=== PATIENT | female | born 1940 | race Caucasian/White ===

== ENCOUNTER 2024-02-26 04:54 | Inpatient (IN) | payer MEDICARE, SELFPAY ==
[2024-02-26] VITALS (50 sets, daily range): BP systolic 108–165; BP diastolic 50–93; PULSE 65–115; TEMP 36.5–36.6; O2SAT 89–99; BMI 16.3
--- NOTE | 2024-02-26 04:58 | ED.SOB1 ---
HPI - SOB/Dyspnea General Chief Complaint: Shortness of Breath/Dyspnea Stated Complaint: sob Time Seen by Provider: 02/26/24 04:57 History of Present Illness HPI Narrative: past history of 3.5 L NC 02 dependent COPD and CHF/CAD. Presents complaining of shortness of breath for 3 hours. Denies chest or abdominal pain. Still daily smoker. Given nebulizer treatment enroute and feels it help some Related Data Home Medications ?Medication ?Instructions ?Recorded ?Confirmed albuterol sulfate 2.5 mg/3 mL mg 02/26/24 (0.083 %) solution for nebulization albuterol sulfate 90 mcg/actuation inhalation 02/26/24 aerosol inhaler budesonide 160 mcg-glycopyr 9 inh inhalation 02/26/24 mcg-formot 4.8 mcg/actuation HFA inhaler ([employer] Aerosphere) metoprolol succinate 25 mg mg PO 02/26/24 tablet,extended release 24 hr Allergies Allergy/AdvReac Type Severity Reaction Status Date / Time No Known Drug Allergies Allergy Verified 02/26/24 05:26 Review of Systems ROS Status of ROS 10 or more systems reviewed and unremarkable except as noted in history and below Exam Constitutional Vital Signs, click to edit/add: Last Vital Signs Temp 97.9 F 02/26/24 05:05 Pulse 83 02/26/24 06:50 Resp 28 H 02/26/24 06:50 BP 141/59 02/26/24 06:30 Pulse Ox 96 02/26/24 06:50 O2 Del Method Nasal Cannula 02/26/24 05:15 O2 Flow Rate 3.5 02/26/24 05:15 Common normals: oriented x3 and alert General appearance: in distress HENMT Common normals: normocephalic and head/scalp atraumatic Eye Common normals: EOMs intact bilaterally Respiratory Other: diminished breath sounds Cardio Rate: tachycardic GI Common normals: Normal to inspection, nondistended, normoactive bowel sounds present, soft to palpation and non-tender Extremity Common normals: normal to inspection and full ROM Neuro Common normals: oriented x3, moves all extremities and no focal motor deficits Psych Appearance: grossly normal Course Vital Signs Vital signs: Vital Signs Pulse Oximetry 94 L 02/26/24 04:55 Temperature 97.9 F 09/28/24 05:05 Pulse Rate 83 02/26/24 06:50 Respiratory Rate 28 H 02/26/24 06:50 Blood Pressure 141/59 02/26/24 06:30 Pulse Oximetry 96 02/26/24 06:50 Oxygen Delivery Method Nasal Cannula 02/26/24 05:15 Oxygen Delivery Flow Rate 3.5 02/26/24 05:15 MDM - SOB/Dyspnea MDM Narrative Medical decision making narrative: patient presents with acute onset of short of breath. Treated with solumedrol and duoneb and feels she is breathing easier. 02 dependent COPDer. cxray with findings c/w CHF. IV lasix ordered. First troponin is neg and will need a 2nd troponin. BNP elevated. [facility] Lab Data Labs: Lab Results 02/26/24 Range/Units 05:10 WBC 10.2 (4.0-11.0) 10^3/uL RBC 3.31 L (4.20-5.40) 10^6/uL Hgb 9.3 L (12.0-16.0) g/dL Hct 30.4 L (36.0-48.0) % MCV 91.8 (81.0-99.0) fL MCH 28.1 (26.7-34.0) pg MCHC 30.6 (29.9-35.2) g/dL RDW 16.1 H (11.0-15.0) % Plt Count 277 (150-450) 10^3/uL MPV 11.6 (9.5-13.5) fL Neut % (Auto) 68.7 (43.0-75.0) % Lymph % (Auto) 23.0 (20.5-60.0) % [place] % (Auto) 5.7 (1.7-12.0) % Eos % (Auto) 1.5 (0.9-7.0) % Baso % (Auto) 0.9 (0.2-2.0) % Neut # (Auto) 7.0 H (1.4-6.5) 10^3/uL Lymph # (Auto) 2.4 (1.2-3.8) 10^3/uL [place] # (Auto) 0.6 (0.3-0.8) 10^3/uL Eos # (Auto) 0.2 (0.0-0.7) 10^3/uL Baso # (Auto) 0.1 (0.0-0.1) 10^3/uL Abs Immat Gran (auto) 0.02 (0.00-0.03) 10^3/uL Imm/Tot Granulo (auto) 0.2 (0.0-0.5) % Sodium 137 (136-145) mmol/L Potassium 4.8 (3.5-5.1) mmol/L Chloride 103 (98-107) mmol/L Carbon Dioxide 27.0 (21.0-32.0) mmol/L Anion Gap 11.8 BUN 23.0 H (7.0-18.0) mg/dL Creatinine 0.91 (0.55-1.02) mg/dL Est GFR ( Amer) >60 (>=60) Est GFR (Non-Af Amer) 59 L (>=60) BUN/Creatinine Ratio 25.3 Glucose 147 H (74-106) mg/dL Calcium 10.6 H (8.5-10.1) mg/dL Troponin I High Sens 27.4 (4.0-51.3) pg/mL NT-Pro-B Natriuret Pep 7764.0 H* (<=1800.0) pg/mL Discharge Plan Discharge Chief Complaint: Shortness of Breath/Dyspnea Clinical Impression: Congestive heart failure, Acute exacerbation of chronic obstructive pulmonary disease (COPD) Patient Disposition: Still a Patient Prescriptions / Home Meds: No Action albuterol sulfate 2.5 mg /3 mL (0.083 %) solution for nebulization metoprolol succinate 25 mg tablet extended release 24 hr PO albuterol sulfate 90 mcg/actuation HFA aerosol inhaler INHALATION [employer] Aerosphere 160-9-4.8 mcg/actuation HFA aerosol inhaler INHALATION Print Language: Bulgarian Referrals: Physician,Non-Staff, MD [Primary Care Provider] - 1 week
--- NOTE | 2024-02-26 04:59 | XR_ITS ---
The [address] [address] Patient Name: ISHMAEL MONAHAN MRN: [id number] date: 1940 Sex: F Assigned Patient Location: ER Current Patient Location: ER Accession/Order Number: [id number] Exam Date: 02/26/2024 05:10 Report Date: 02/26/2024 05:22 At the request of: GILSON TAN Procedure: XR chest 1V EXAM: XR chest 1V HISTORY: Shortness of breath. COMPARISON: Portable chest radiograph dated 02/07/2022. TECHNIQUE: AP erect portable chest radiograph performed. FINDINGS: The patient's mandible/skin obscure portions of the thoracic inlet and left lung apex. Stable mild prominence of the cardiac silhouette. Stable atheromatous calcification thoracic aorta. There are interstitial and alveolar infiltrates throughout both lung [place]. Correlate with clinical findings to differentiate edema from pneumonia. There is blunting of both lateral costophrenic angle suggesting small bilateral pleural effusions. There is no pneumothorax. The bony structures are osteopenic. XR/XR chest 1V IMPRESSION: Interstitial and alveolar infiltrates throughout both lung [place] and small bilateral pleural effusions. Correlate with clinical findings to differentiate congestive heart for from pneumonia. Electronically authenticated by: DEAN CROWE Date: 02/26/2024 05:22
[2024-02-26] MEDS: IPRATROPIUM/ALBUTEROL SULFATE 3 ML AMPUL.NEB IH ×3 (05:12→22:17)
[2024-02-26 05:21] LABS: Basophils Absolute Auto 0.1 10^3/uL (0.0-0.1); Basophils Percent Auto 0.9 % (0.2-2.0); Eosinophils Absolute Auto 0.2 10^3/uL (0.0-0.7); Eosinophils Percent Auto 1.5 % (0.9-7.0); Hematocrit 30.4 % (36.0-48.0); Hemoglobin 9.3 g/dL (12.0-16.0); Immature Granulocytes Abs Auto 0.02 10^3/uL (0.00-0.03); Immature Granulocytes Pct Auto 0.2 % (0.0-0.5); Lymphocytes Absolute Auto 2.4 10^3/uL (1.2-3.8); Mean Corpuscular HGB Conc 30.6 g/dL (29.9-35.2); Mean Corpuscular Hemoglobin 28.1 pg (26.7-34.0); Mean Corpuscular Volume 91.8 fL (81.0-99.0); Mean Platelet Volume 11.6 fL (9.5-13.5); Monocytes Absolute Auto 0.6 10^3/uL (0.3-0.8); Monocytes Percent Auto 5.7 % (1.7-12.0); Neutrophils Percent Auto 68.7 % (43.0-75.0); Platelet Count 277 10^3/uL (150-450); Red Blood Count 3.31 10^6/uL (4.20-5.40); Red Cell Distribution Width 16.1 % (11.0-15.0); White Blood Count 10.2 10^3/uL (4.0-11.0)
[2024-02-26 05:40] LABS: Anion Gap 11.8; BUN Creatinine Ratio 25.3; Calcium 10.6 mg/dL (8.5-10.1); Chloride 103 mmol/L (98-107); Estimated GFR (African America >60 (>=60); Estimated GFR (Non-African Ame 59 (>=60); Glucose 147 mg/dL (74-106); Potassium 4.8 mmol/L (3.5-5.1); Sodium 137 mmol/L (136-145); Troponin I High Sensitivity 27.4 pg/mL (4.0-51.3)
--- NOTE | 2024-02-26 05:43 | ECG_ITS ---
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
--- NOTE | 2024-02-26 05:43 | PC.NURSE ---
Pt presents to ER via EMS for shortness of breath Upon arrival pt is tripoding on the EMS stretcher while receiving a breathing treatment and fanning herself Pt is moved to ER bed, report received from EMS Pt was given 1 albuterol treatment and 1 dose of solumedrol en route Pt is tachypneic and does not readily answer questions of these nurses Pt is set up right in bed, vitals obtained, EKG obtained and Dr. Vu at bedside Pt is wheezy on the right side and diminished on the left When pt was placed back on nasal cannula she stated she wanted more oxygen and was thirsty Respiratory arrived to give pt another breathing treatment while this nurse was in the room At the end of the treatment pt states I am cold now, that means this episode is over. Every time I get like this when I go from being hot to being cold that means I am better Pt requests to let her feet dangle at the edge of the bed Labs were pulled from pt's [facility] IV site from EMS Pt remains on monitor and will continue to be monitored throughout her stay Pt's daughter at bedside
[2024-02-26] MEDS: FUROSEMIDE 40 MG/4 ML VIAL IVP ×2 (06:48→17:03)
[2024-02-26 07:57] LABS: Troponin I High Sensitivity 37.7 pg/mL (4.0-51.3)
[2024-02-26 14:11] LABS: Troponin I High Sensitivity 30.2 pg/mL (4.0-51.3)
[2024-02-26] MEDS: METOPROLOL SUCCINATE 25 MG TAB.ER.24H PO (14:39)
[2024-02-26] MEDS: ENOXAPARIN SODIUM 40 MG/0.4 ML SYRINGE SUBQ (14:40)
--- NOTE | 2024-02-26 15:39 | P.HP_ITS ---
HPI H&P: HPI History of Present Illness Chief complaint: sob, CHF EXACERBATION, PULMONARY EDEMA Narrative: 83 y o female with COPD, chronic resp failure on 3.5L O2 presented to ED with sudden onset SOB, wheezing and chest tightness. Patient was treated with albuterol nebs and solumedrol and subsequently IV Lasix after initial work up revealed volume overload. By the time I evaluated her, she felt well and did not have any active complaints to offer. She reports for past 2 years, she would have sudden onset of SOB/respiratory distress and after initial treatment in ED, her symptoms quickly resolved. She kept talking about GERD and how her GERD was acting up and that may have exacerbated her symptoms. She denies hx of Congestive HF and said that she is sure that she has had an ECHO in the past but upon further questioning, she could not provide me more information. Opioid HPI Opioid Management Most Recent Pain and Opioid Data: Last Pain Assessment 02/26/24 16:02 Review of Systems ROS Status of ROS 10 or more systems reviewed and unremark able except as noted in history and below PFSH PFS Medical History (Updated 02/26/24 @ 16:08 by Shaikh Benny MD) Chronic respiratory failure with hypoxia ?J96.11 - Chronic respiratory failure with hypoxia (ICD-10) HTN (hypertension) ?I10 - Essential (primary) hypertension (ICD-10) Current smoker ?F17.200 - Nicotine dependence, unspecified, uncomplicated (ICD-10) CAD (coronary artery disease) ?I25.10 - Atherosclerotic heart disease of [place] coronary artery without angina pectoris (ICD-10) COPD (chronic obstructive pulmonary disease) ?J44.9 - Chronic obstructive pulmonary disease, unspecified (ICD-10) Social History (Updated 02/26/24 @ 16:05 by Shaikh Benny MD) Within the past year, how often did you have a drink containing alcohol: never Within the past year, how many standard drinks containing alcohol did you have on a typical day: 1 or 2 Total score: 0 Score interpretation: A score less than 3 is consistent with normal alcohol consumption. Smoking status: Current every day smoker Non-prescribed substance use: denies use Meds Home Medications and Allergies Home Medications ?Medication ?Instructions ?Recorded ?Confirmed ?Type albuterol sulfate 2.5 mg/3 mL 2.5 mg inhalation Q4H PRN 02/26/24 02/26/24 History (0.083 %) solution for nebulization shortness of breath or wheezing albuterol sulfate 90 mcg/actuation 2 inh inhalation Q4H PRN shortness 02/26/24 02/26/24 History aerosol inhaler of breath or wheezing budesonide 160 mcg-glycopyr 9 2 inh inhalation BID 02/26/24 02/26/24 History mcg-formot 4.8 mcg/actuation HFA inhaler ([employer]) metoprolol succinate 25 mg 25 mg PO DAILY 02/26/24 02/26/24 History tablet,extended release 24 hr Allergies Allergy/AdvReac Type Severity Reaction Status Date / Time No Known Drug Allergies Allergy Verified 02/26/24 05:26 Exam Constitutional Vital Signs, click to edit/add: Last Vital Signs Temp 97.8 F 02/26/24 12:34 Pulse 75 02/26/24 13:59 Resp 22 H 02/26/24 12:34 BP 121/56 02/26/24 12:34 Pulse Ox 91 L 02/26/24 12:34 O2 Del Method Nasal Cannula 02/26/24 12:34 O2 Flow Rate 3 02/26/24 12:34 Documenting provider has reviewed patient's vital signs: yes Common normals: no apparent distress and oriented x3 General appearance: cooperative HENMT Common normals: normocephalic and head/scalp atraumatic Head and scalp: normocephalic and atraumatic Eye Common normals: conjunctivae normal and no scleral icterus Conjunctiva: conjunctiva(e) normal Respiratory Common normals: normal respiratory effort Effort & inspection: able to speak in complete sentences and tachypneic Auscultation: rales and diminished lung sounds Cardio Common normals: regular rate, S1 normal heart sound and S2 normal heart sound Rate: regular rate Heart sounds: S1 normal and S2 normal GI Common normals: Normal to inspection, nondistended, normoactive bowel sounds present, soft to palpation, non-tender and no hepatosplenomegaly Palpation: soft and no hepatosplenomegaly Extremity Common normals: no clubbing, cyanosis or edema Neuro Common normals: oriented x3, moves all extremities and no focal motor deficits Psych Common normals: mental status grossly normal, denies hallucinations, denies homicidal ideation and denies suicidal ideation Results Labs Labs: Short CBC 02/26/24 Range/Units 05:10 WBC 10.2 (4.0-11.0) 10^3/uL Hgb 9.3 L (12.0-16.0) g/dL Hct 30.4 L (36.0-48.0) % Plt Count 277 (150-450) 10^3/uL BMP 02/26/24 05:10 Sodium 137 Potassium 4.8 Chloride 103 Carbon Dioxide 27.0 BUN 23.0 H Creatinine 0.91 Glucose 147 H Calcium 10.6 H Assessment and Plan Assessment and Plan (1) Acute on chronic diastolic (congestive) heart failure: Assessment and Plan: Volume overload on exam, elevated BNP, vascular congestion on CXR. Ordered ECHO to assess cardiac structure. Started on IV lasix, monitor I/O, daily weights. Trend troponin to ensure her symptoms were not due to ACS. (2) COPD (chronic obstructive pulmonary disease): Assessment and Plan: Severe COPD, on chronic O2, On 3.5 L. No active wheezing noted. C/w albuterol as needed. C/w Breztri. Qualifiers: COPD type: emphysema Emphysema type: unspecified Qualified Code(s): J43.9 - Emphysema, unspecified (3) CAD (coronary artery disease): Assessment and Plan: No evidence of active cardiac ischemia. Check troponins. Monitor. Qualifiers: Associated angina: without angina Coronary Disease-Associated Artery/Lesion type: [place] artery [place] vs. transplanted heart: [place] heart Qualified Code(s): I25.10 - Atherosclerotic heart disease of [place] coronary artery without angina pectoris (4) Chronic respiratory failure with hypoxia: Assessment and Plan: On 3.5 L O2 via NC due to COPD. Monitor. (5) HTN (hypertension): Assessment and Plan: BP Stable. Monitor while inpatient. Qualifiers: Hypertension type: primary hypertension Qualified Code(s): I10 - Essential (primary) hypertension (6) Current smoker: Assessment and Plan: Discussed smoking cessation. Nicotine patch ordered for nicotine withdrawal
[2024-02-26 15:53] LABS: Glucometer 311 mg/dL (74-106)
--- NOTE | 2024-02-26 16:09 | CT_ITS ---
[address] [address] Patient Name: ISHMAEL MONAHAN MRN: [id number] date: 1940 Sex: F Assigned Patient Location: [place] Current Patient Location: [place] Accession/Order Number: [id number] Exam Date: 02/26/2024 17:48 Report Date: 02/26/2024 19:45 At the request of: SHAIKH JEFF Procedure: CT angio chest EXAM: CT angio chest INDICATION: 83 years old Female with COMPARISON: None. TECHNIQUE: Helical axial CT images of the chest were obtained after the administration of according to PE protocol. MIP (maximum intensity projection) images were performed. Dose reduction techniques were achieved by using automated exposure control and/or adjustment of mA and/or kV according to patient size and/or use of iterative reconstruction technique. FINDINGS: PULMONARY ARTERIES: There is adequate opacification of the pulmonary vasculature. No abnormal vascular cut-offs or filing defects to suggest presence of pulmonary emboli. MEDIASTINUM: Trachea and central airways are patent. Thoracic aorta is normal course and caliber. Thoracic aortic and coronary arterial calcification is seen. Moderate to severe cardiomegaly is seen without pericardial effusion. No mediastinal or hilar lymphadenopathy. PLEURAL CAVITY: No pneumothorax. Small bilateral pleural effusion is seen with adjacent atelectasis versus small infiltrates. LUNGS: Moderate centrilobular emphysema is seen. 9 mm noncalcified nodule is seen in the anterior right upper lobe. Approximately 15 mm scar/nodular scarring is seen in the right apex. A 4 mm nodule is also seen in the anterior right apex. 13 mm nodule is seen in the posterior right lower lobe. Ill-defined 8 mm hazy nodule is also seen in the right lower lobe. 6 mm nodule is seen in the right lung base. CHEST WALL/AXILLA: No axillary lymphadenopathy VISUALIZED UPPER ABDOMEN: No acute findings. BONES: No destructive lesions. CT/CT angio chest IMPRESSION: No CT evidence of pulmonary embolus. Moderate centrilobular emphysema is seen. Multiple right lung nodules/nodular densities are seen, as detailed above. Small bilateral pleural effusion with adjacent atelectasis versus small infiltrates. Cardiomegaly. Electronically authenticated by: BJ HERR Date: 02/26/2024 19:45
[2024-02-26] MEDS: NICOTINE 21 MG PATCH.TD24 TD (16:24)
[2024-02-26] MEDS: INSULIN ASPART 300 UNIT/3 ML PEN SUBQ ×2 (16:24→21:13)
--- NOTE | 2024-02-26 16:25 | RESP.RT ---
Titrated down to 2.5L
[2024-02-26 19:42] LABS: Glucometer 219 mg/dL (74-106)
[2024-02-26] MEDS: BUDESONIDE 0.5 MG/2 ML AMPULE NEB IH (22:17)
[2024-02-26] MEDS: OXYCODONE HCL 5 MG TABLET PO (22:27)
[2024-02-26] MEDS: DOCUSATE SODIUM 100 MG CAPSULE PO (22:28)
[2024-02-27] VITALS (23 sets, daily range): BP systolic 103–122; BP diastolic 46–69; PULSE 78–101; TEMP 36.3–36.8; O2SAT 91–98
[2024-02-27] MEDS: MORPHINE SULFATE 2 MG/ML SYRINGE IV ×2 (02:28→06:03)
[2024-02-27] MEDS: IPRATROPIUM/ALBUTEROL SULFATE 3 ML AMPUL.NEB IH ×4 (04:26→22:17)
[2024-02-27 05:35] LABS: Basophils Absolute Auto 0.1 10^3/uL (0.0-0.1); Basophils Percent Auto 0.8 % (0.2-2.0); Eosinophils Absolute Auto 0.1 10^3/uL (0.0-0.7); Eosinophils Percent Auto 0.8 % (0.9-7.0); Hematocrit 27.1 % (36.0-48.0); Hemoglobin 8.4 g/dL (12.0-16.0); Immature Granulocytes Abs Auto 0.04 10^3/uL (0.00-0.03); Immature Granulocytes Pct Auto 0.5 % (0.0-0.5); Lymphocytes Absolute Auto 1.4 10^3/uL (1.2-3.8); Lymphocytes Percent Auto 18.8 % (20.5-60.0); Mean Corpuscular Hemoglobin 27.6 pg (26.7-34.0); Mean Corpuscular Volume 89.1 fL (81.0-99.0); Mean Platelet Volume 11.3 fL (9.5-13.5); Monocytes Absolute Auto 0.7 10^3/uL (0.3-0.8); Monocytes Percent Auto 9.4 % (1.7-12.0); Neutrophils Absolute Auto 5.2 10^3/uL (1.4-6.5); Neutrophils Percent Auto 69.7 % (43.0-75.0); Platelet Count 221 10^3/uL (150-450); Red Blood Count 3.04 10^6/uL (4.20-5.40); Red Cell Distribution Width 15.9 % (11.0-15.0); White Blood Count 7.4 10^3/uL (4.0-11.0)
[2024-02-27] MEDS: FUROSEMIDE 40 MG/4 ML VIAL IVP ×2 (05:37→17:35)
[2024-02-27 06:05] LABS: Alanine Aminotransferase 27 U/L (14-59); Albumin Globulin Ratio 0.8; Albumin Level 2.7 g/dL (3.4-5.0); Alkaline Phosphatase 96 U/L (46-116); Aspartate Amino Transferase 16 U/L (15-37); BUN Creatinine Ratio 31.1; Bilirubin Total 0.3 mg/dL (0.2-1.0); Calcium 10.3 mg/dL (8.5-10.1); Chloride 99 mmol/L (98-107); Estimated GFR (African America >60 (>=60); Estimated GFR (Non-African Ame 50 (>=60); Globulin 3.6 g/dL; Glucose 215 mg/dL (74-106); Sodium 135 mmol/L (136-145); Total Protein 6.3 g/dL (6.4-8.2)
[2024-02-27] MEDS: INSULIN ASPART 300 UNIT/3 ML PEN SUBQ ×3 (08:09→16:05)
[2024-02-27] MEDS: NICOTINE 21 MG PATCH.TD24 TD (08:38)
[2024-02-27] MEDS: METOPROLOL SUCCINATE 25 MG TAB.ER.24H PO (08:38)
[2024-02-27] MEDS: PROSTAT 15 GM PROTEIN/100 CAL 30 ML LIQUID PACKET PO (09:59)
[2024-02-27] MEDS: ENSURE CLEAR 237 ML LIQUID PO (10:00)
[2024-02-27] MEDS: BUDESONIDE 0.5 MG/2 ML AMPULE NEB IH ×2 (10:38→22:17)
--- NOTE | 2024-02-27 10:41 | RESP.RT ---
Pt wears 2L @ home
[2024-02-27 11:52] LABS: Glucometer 156 mg/dL (74-106)
[2024-02-27] MEDS: LOSARTAN POTASSIUM 50 MG TABLET 100 MG PO (12:06)
[2024-02-27] MEDS: OMEPRAZOLE 40 MG CAPSULE.DR PO (12:06)
[2024-02-27] MEDS: ASPIRIN 81 MG TAB.CHEW PO (12:06)
[2024-02-27] MEDS: MONTELUKAST SODIUM 10 MG TABLET PO (12:06)
[2024-02-27] MEDS: CLOPIDOGREL BISULFATE 75 MG TABLET PO (12:06)
[2024-02-27] MEDS: ENOXAPARIN SODIUM 30 MG/0.3 ML SYRINGE SUBQ (13:02)
--- NOTE | 2024-02-27 14:17 | P.IMPN_ITS ---
Progress Note: A&P Assessment and Plan (1) Acute on chronic respiratory failure with hypoxia: Assessment and Plan: Its unclear what her baseline O2 requirement is as she gives conflicting answers. She told me that she was just started on O2 supplementation. upon arrival, she required 3.5 L O2 . Now she is on 2 L. She is not tachypneic today and not using accessory muscles like she was on admission. She feels overall better but still has MONTANEZ Wean off O2 as tolerated. (2) Acute on chronic diastolic (congestive) heart failure: Assessment and Plan: Volume overload on exam. Diuresed well with IV lasix but still needs IV diuresis. C/w same, monitor I/O , daily weight ECHO ordered. (3) COPD (chronic obstructive pulmonary disease): Assessment and Plan: no active wheezing. C/w home medications. Qualifiers: COPD type: emphysema Emphysema type: unspecified Qualified Code(s): J43.9 - Emphysema, unspecified (4) CAD (coronary artery disease): Assessment and Plan: On ASA, plavix, Crestor. C/w same. Qualifiers: Coronary Disease-Associated Artery/Lesion type: [place] artery [place] vs. transplanted heart: [place] heart Associated angina: without angina Qualified Code(s): I25.10 - Atherosclerotic heart disease of [place] coronary artery without angina pectoris (5) HTN (hypertension): Assessment and Plan: C/w home medications. well controlled. Qualifiers: Hypertension type: primary hypertension Qualified Code(s): I10 - Essential (primary) hypertension (6) PAD (peripheral artery disease): Assessment and Plan: prior hx of intervention. On ASA, Plavix, statin Outpatient f.u by vascular surgery. (7) Type 2 diabetes mellitus: Assessment and Plan: SSI while inpatient. Qualifiers: Diabetes mellitus keno terminal operator insulin use: without keno terminal operator use Diabetes mellitus complication status: without complication Qualified Code(s): E11.9 - Type 2 diabetes mellitus without complications (8) HLD (hyperlipidemia): Assessment and Plan: C/w crestor. Qualifiers: Hyperlipidemia type: unspecified Qualified Code(s): E78.5 - Hyperlipidemia, unspecified (9) Current smoker: Assessment and Plan: Nicotine patches while inpatient. Counseled on smoking cessation. Plan She was initially admitted as observation under the false impression that she is at her baseline home O2. She has failed to improve adequately on initial period of observation and she is still hypoxic, reporting MONTANEZ, has evidence of volume overload and will benefit from continued IV diuresis, close monitoring of renal function/serum electrolytes and also her resp status Changed to inpatient. Internal Medicine - PN: Subj Subjective Interval history: Seen and examined. She is doing better today. Her O2 requirement is 2 L today. When she presented, she required 3.5 L O2. She achieved good UO with lasix but still appears volume overloaded. She feels that her breathing is better and she is as SOB as she was when she arrived. Exam Constitutional Vital Signs, click to edit/add: Last Vital Signs Temp 97.5 F L 02/27/24 07:34 Pulse 83 02/27/24 11:59 Resp 12 02/27/24 10:38 BP 103/55 02/27/24 07:34 Pulse Ox 98 02/27/24 10:38 O2 Del Method Nasal Cannula 02/27/24 10:38 O2 Flow Rate 2 02/27/24 10:38 General appearance: cooperative, comfortable and frail appearing Nutritional appearance: cachectic Respiratory Common normals: normal respiratory effort and no use of accessory muscles Effort & inspection: able to speak in complete sentences Auscultation: rales and diminished lung sounds Extremity Common normals: normal to inspection and full ROM Neuro Common normals: oriented x3, moves all extremities and no focal motor deficits Psych Common normals: mental status grossly normal, thought process normal, denies homicidal ideation and denies suicidal ideation Internal Medicine - PN: Obj Da Labs Labs: Laboratory Results - last 24 hr 02/26/24 02/26/24 02/26/24 13:46 15:53 19:25 WBC RBC Hgb Hct MCV MCH MCHC RDW Plt Count MPV Neut % (Auto) Lymph % (Auto) [place] % (Auto) Eos % (Auto) Baso % (Auto) Neut # (Auto) Lymph # (Auto) [place] # (Auto) Eos # (Auto) Baso # (Auto) Abs Immat Gran (auto) Imm/Tot Granulo (auto) Sodium Potassium Chloride Carbon Dioxide Anion Gap BUN Creatinine Est GFR ( Amer) Est GFR (Non-Af Amer) BUN/Creatinine Ratio Glucose Calcium Total Bilirubin AST ALT Alkaline Phosphatase Troponin I High Sens 30.2 Total Protein Albumin Globulin Albumin/Globulin Ratio POC Glucose 311 H 219 H 02/27/24 02/27/24 05:18 11:49 WBC 7.4 RBC 3.04 L Hgb 8.4 L Hct 27.1 L MCV 89.1 MCH 27.6 MCHC 31.0 RDW 15.9 H Plt Count 221 MPV 11.3 Neut % (Auto) 69.7 Lymph % (Auto) 18.8 L [place] % (Auto) 9.4 Eos % (Auto) 0.8 L Baso % (Auto) 0.8 Neut # (Auto) 5.2 Lymph # (Auto) 1.4 [place] # (Auto) 0.7 Eos # (Auto) 0.1 Baso # (Auto) 0.1 Abs Immat Gran (auto) 0.04 H Imm/Tot Granulo (auto) 0.5 Sodium 135 L Potassium 4.0 Chloride 99 Carbon Dioxide 31.0 Anion Gap 9.0 BUN 33.0 H Creatinine 1.06 H Est GFR ( Amer) >60 Est GFR (Non-Af Amer) 50 L BUN/Creatinine Ratio 31.1 Glucose 215 H Calcium 10.3 H Total Bilirubin 0.3 AST 16 ALT 27 Alkaline Phosphatase 96 Troponin I High Sens Total Protein 6.3 L Albumin 2.7 L Globulin 3.6 Albumin/Globulin Ratio 0.8 POC Glucose 156 H
[2024-02-27 16:05] LABS: Glucometer 254 mg/dL (74-106)
[2024-02-27 19:16] LABS: Glucometer 73 mg/dL (74-106)
[2024-02-27] MEDS: OXYCODONE HCL 5 MG TABLET PO (22:51)
[2024-02-28] VITALS (12 sets, daily range): BP systolic 100–106; BP diastolic 38–58; PULSE 79–91; TEMP 36.6–36.9; O2SAT 91–98
[2024-02-28] MEDS: IPRATROPIUM/ALBUTEROL SULFATE 3 ML AMPUL.NEB IH ×2 (04:10→10:12)
[2024-02-28] MEDS: FUROSEMIDE 40 MG/4 ML VIAL IVP (05:35)
[2024-02-28] MEDS: OMEPRAZOLE 40 MG CAPSULE.DR PO (05:35)
[2024-02-28 06:14] LABS: Basophils Absolute Auto 0.1 10^3/uL (0.0-0.1); Basophils Percent Auto 1.1 % (0.2-2.0); Eosinophils Absolute Auto 0.2 10^3/uL (0.0-0.7); Eosinophils Percent Auto 2.9 % (0.9-7.0); Hematocrit 30.1 % (36.0-48.0); Hemoglobin 9.3 g/dL (12.0-16.0); Immature Granulocytes Abs Auto 0.01 10^3/uL (0.00-0.03); Immature Granulocytes Pct Auto 0.2 % (0.0-0.5); Lymphocytes Absolute Auto 1.5 10^3/uL (1.2-3.8); Mean Corpuscular HGB Conc 30.9 g/dL (29.9-35.2); Mean Corpuscular Hemoglobin 27.7 pg (26.7-34.0); Mean Corpuscular Volume 89.6 fL (81.0-99.0); Mean Platelet Volume 11.3 fL (9.5-13.5); Monocytes Absolute Auto 0.7 10^3/uL (0.3-0.8); Monocytes Percent Auto 10.3 % (1.7-12.0); Neutrophils Absolute Auto 4.2 10^3/uL (1.4-6.5); Neutrophils Percent Auto 63.5 % (43.0-75.0); Platelet Count 244 10^3/uL (150-450); Red Blood Count 3.36 10^6/uL (4.20-5.40); Red Cell Distribution Width 15.8 % (11.0-15.0); White Blood Count 6.6 10^3/uL (4.0-11.0)
[2024-02-28 06:28] LABS: Alanine Aminotransferase 28 U/L (14-59); Albumin Globulin Ratio 0.8; Albumin Level 2.9 g/dL (3.4-5.0); Alkaline Phosphatase 95 U/L (46-116); Anion Gap 6.7; Aspartate Amino Transferase 18 U/L (15-37); BUN Creatinine Ratio 27.1; Bilirubin Total 0.4 mg/dL (0.2-1.0); Calcium 9.9 mg/dL (8.5-10.1); Carbon Dioxide 33.6 mmol/L (21.0-32.0); Chloride 100 mmol/L (98-107); Estimated GFR (African America 53 (>=60); Estimated GFR (Non-African Ame 44 (>=60); Globulin 3.6 g/dL; Glucose 141 mg/dL (74-106); Potassium 4.3 mmol/L (3.5-5.1); Sodium 136 mmol/L (136-145); Total Protein 6.5 g/dL (6.4-8.2)
--- NOTE | 2024-02-28 07:12 | CA_ITS ---
Patient Name: ISHMAEL MONAHAN MR#: [id number] : 1940 Exam Date: 02/28/2024 Ordering Doctor: Shaikh Heavenly Zapata . ECHOCARDIOGRAM REPORT PROCEDURE: CA ECHO DOPPLER COMPLETE INDICATIONS: CHF, COPD, hypertension, smoker COMPARISON: None. DESCRIPTION: COMPLETE ECHOCARDIOGRAM Real-time transthoracic echocardiography with 2D, M-mode, spectral and color flow Doppler performed. QUALITY: Technical quality was good. LEFT VENTRICLE: Mild dilatation. Normal left ventricular wall thickness. LV EF: Global left ventricular systolic function is severely decreased; visually estimated ejection fraction is 10 to 15%. Global hypokinesis. DIASTOLIC: Grade II diastolic dysfunction. E/E' consistent with volume overload. ATRIAL SEPTUM: Visually appears intact. LEFT ATRIUM: Severe dilatation. RIGHT ATRIUM: Normal chamber size. RIGHT VENTRICLE: Normal chamber size. Normal systolic function. TRICUSPID VALVE: Normal mobility and thickness. No stenosis with mild regurgitation. Doppler studies reveal moderately (45-60) elevated right sided pressures. RVSP 45 mmHg MITRAL VALVE: Moderately thickened with decreased mobility. No evidence of mitral valve stenosis. Mild mitral annular calcification. Mild mitral regurgitation. AORTIC VALVE: Normal trileaflet appearance. Moderately calcified aortic valve with diminished mobility. Doppler velocity suggests mild to moderate aortic valve stenosis. DVI 0.36. Mild aortic regurgitation. AORTIC ROOT: Normal diameter and appearance. PULMONIC VALVE: Normal thickness and mobility. No stenosis. Trivial regurgitation. PERICARDIUM: Small anterior pericardial effusion. IVC: IVC is dilated (2.5 cm) with no collapse. CONCLUSION: 1. Global left ventricular systolic function is severely decreased; visually estimated ejection fraction is 10 to 15% 2. Normal right ventricular size and systolic function 3. The left ventricle is mildly dilated 4. Grade 2 diastolic dysfunction; E/E' consistent with volume overload 5. Severe left atrial dilatation 6. Mild tricuspid regurgitation 7. Moderately elevated right ventricular systolic pressure; RVSP 45 mmHg 8. Mild mitral regurgitation 9. Mild to moderate aortic valve stenosis; mild aortic valve regurgitation 10. Small anterior pericardial effusion Adult Echocardiography Procedure Report Left Ventricle LVEDD (3.7 - 5.6 cm): 4.49 cm LVESD (2.2 - 4.0 cm): 4.80 cm LVIVS thickness (0.6 - 1.2 cm): 1.09 cm LVPW thickness (0.5 - 1.0 cm): 1.30 cm LVOT Max Gradient: 3 mm[Hg] Peak Velocity (LVOT): 79.70 cm/s Mean Velocity (LVOT): 54.30 cm/s LVOT Diameter 1.80 cm Left Atrium LA Volume Index (2D A2C): 02280 mm3 Left Atrium Systolic Dimension: 3.60 cm Mitral Valve MV E to A Ratio: 0.70 Mitral Valve A-Wave Peak Velocity: 121.00 cm/s Mitral Valve E-Wave Peak Velocity: 88.40 cm/s Right Ventricle Aorta AO Root Diam: 3.00 cm Aortic Valve AoV Area (Peak Chapito): 0.93 cm2 AoV Area (VTI): 0.82 cm2 Peak Velocity(Antegrade Flow): 218.00 cm/s Peak Gradient(Antegrade Flow): 19 mm[Hg] Mean Velocity(Antegrade Flow): 139.00 cm/s Mean Gradient(Antegrade Flow): 9 mm[Hg] Velocity Time Integral: 46.30 cm Tricuspid Valve Peak Velocity (Regurgitant Flow): 276.00 cm/s Peak Velocity: 60.20 cm/s Pulmonic Valve Peak Velocity: 95.00 cm/s Peak Gradient: 4 mm[Hg] Right Atrium Dictated by: Dulce Clemente M.D. on 02/28/2024 at 13:32 Approved by: Dulce Clemente M.D. on 02/28/2024 at 13:38
--- NOTE | 2024-02-28 07:25 | XR_ITS ---
The [address] [address] Patient Name: ISHMAEL MONAHAN MRN: [id number] date: 1940 Sex: F Assigned Patient Location: [place] Current Patient Location: [place] Accession/Order Number: [id number] Exam Date: 02/28/2024 07:45 Report Date: 02/28/2024 08:20 At the request of: SHAIKH JEFF Procedure: XR chest 1V EXAMINATION: XR chest 1V HISTORY: SOB COMPARISON: XR chest 02/26/2024 FINDINGS: LUNGS: Expanded lungs. Minimal opacities within lateral right lung base. VASCULATURE: No increased pulmonary vasculature. PLEURA: No pneumothorax, effusion, or pleural thickening. CARDIAC: Heart size approaches upper limits of normal; stable. MEDIASTINUM: No visible mass or adenopathy. BONES: No fracture or visible bone lesion. OTHER: Negative. XR/XR chest 1V IMPRESSION: 1. Hyper expanded lungs suggestive of COPD. 2. Mild residual atelectasis versus infiltrates within the lateral right lung base. Improved appearance of the chest. Electronically authenticated by: EVE AGUIAR Date: 02/28/2024 08:20
--- OUTSIDE RECORDS SUMMARY | 2024-02-28 08:56 | XMS_ITS | CCD ---
Author Organization [facility] CliniSymn Care Team Providers Care Development Representative Name Role Phone DR SIOBHAN DEMARCO Primary Care Unavailable MATI ZAMBRANO Admitting Unavailable MATI ZAMBRANO Consulting Unavailable MATI ZAMBRANO Attending Unavailable YU JUNIOR Consulting Unavailable Shila Molina DO Primary Care Provider Tonja Gilliam MD Primary Care Provider Shila Molina DO Unavailable Tonja Gilliam MD Primary Care Provider Mayank SHETH, Pia Unavailable ARISTEO GARCIA Attending Unavailable PIA TALLEY Referring Unavailable TONJA GILLIAM Primary Care Unavailable PIA TALLEY Attending Unavailable PIA TALLEY Referring Unavailable PIA TALLEY Attending Unavailable JOEY CAMP Attending Unavailab le PIA TALLEY Attending Unavailable PIA TALLEY Referring Unavailable PIA TALLEY Attending Unavailable PIA TALLEY Attending Unavailable JOAQUINPPIA BYRNES Attending Unavailable PIA TALLEY Attending Unavailable PIA TALLEY Attending Unavailable TONJA GILLIAM Primary Care Unavailable CORTEZ PÉREZ Attending Unavailable YANIQUE BURCIAGA Attending Unavailable TONJA GILLIAM Referring Unavailable TONJA GILLIAM Primary Care Unavailable MAYANK PIA A Referring Unavailable TONJA GILLIAM Primary Care Unavailable DIMA CHAVEZ Referring Unavailable TONJA GILLIAM G Primary Care Unavailable DIMA CHAVEZ Attending Unavailable TOY DIMA K Referring Unavailable TONJA GILLIAM Primary Care Unavailable SB LOCO Attending Unavailable SHILA MOLINA Referring Unavailable TONJA GILLIAM Primary Care Unavailable JERROD LAU Attending Unavailable ARISTEO GARCIA Attending Unavailable TONJA GILLIAM Referring Unavailable TONJA GILLIAM Primary Care Unavailable Allergies Allergy Classification Reported Allergen(s) Allergy Type Date of Onset Reaction(s) Facility (2 sources) Aspirin; Translations: [ASPIRIN] Drug Allergy 08-18-2023 [facility] Medications Current Medications Medication Drug Class(es) Dates Sig (Normalized) Sig (Original) albuterol 0.83 mg/ml inhalation solution (10 sources) beta2-Adrenergic Agonist Start: 06-09-2023 albuterol (2.5 MG/3ML) 0.083% nebulizer solution Indications: Chronic obstructive pulmonary disease with acute exacerbation (CMS/HCC) Take 3 mL (2.5 mg) by nebulization every 4 (four) hours if needed for wheezing or shortness of breath 75 mL 0 06/09/2023 Active Start: 10-29-2022 take 2 puff(s) by in halation every four hours for wheezing albuterol (ProAir RespiClick) 90 mcg/act breath-activated inhaler Indications: Chronic obstructive pulmonary disease with acute exacerbation (CMS/HCC) Inhale 2 puffs every 4 (four) hours if needed for wheezing or shortness of breath. 1 each 3 10/29/2022 Active Start: 02-12-2022 take 2 puff(s) by in halation every six hours as needed for wheezing albuterol (PROVENTIL HFA;VENTOLIN HFA) 90 mcg/actuation inhaler Indications: Mucopurulent chronic bronchitis (CMS-HCC) , Centrilobular emphysema (CMS-HCC) Inhale 2 puffs every 6 (six) hours as needed for wheezing or shortness of breath. 18 g 11 02/12/2022 Active take 2 puff(s) by in halation every six hours as needed for wheezing albuterol (PROVENTIL HFA;VENTOLIN HFA) 90 mcg/actuation inhaler Inhale 2 puffs every 6 (six) hours as needed for wheezing. 0 Active aspirin 81 mg delayed release oral tablet (2 sources) Platelet Aggregation Inhibitor, Nonsteroidal Anti-inflammatory Drug take 1 tablet by mouth in the morning aspirin 81 mg Take 1 tablet (81 mg total) by mouth in the morning. 0 Active benzonatate 100 mg oral capsule (5 sources) Non-narcotic Antitussive Start: 2021 benzonatate (TESSALON PERLES) 100 mg capsule Take 1 capsule (100 mg total) by mouth as needed. 0 02/07/2022 Active 120 actuat budesonide 0.16 mg/actuat / formoterol fumarate 0.0048 mg/actuat / glycopyrrolate 0.009 mg/actuat metered dose inhaler (5 sources) Corticosteroid, beta2-Adrenergic Agonist Start: 2022 End: 2023 take 2 puff(s) by inhalation in the morning Budeson-Glycopyrro l-Formoterol (Breztri Aerosphere) 160-9-4.8 MCG/ACT aerosol Indications: Chronic obstructive pulmonary disease with acute exacerbation ([facility]) Inhale 2 puffs in the morning and 2 puffs before bedtime. 32.1 g 3 05/19/2023 05/18/2024 Active Start: 02-10-2022 take 2 puff(s) by inhalation at bedtime zgsajrpmvl-gegkhtip-gqtyveisll (BREZTRI AEROSPHERE) 160-9-4.8 mcg/actuation HFA aerosol inhaler Inhale 2 puffs in the morning and at bedtime. 0 02/10/2022 Active clopidogrel 75 mg oral tablet (5 sources) P2Y12 Platelet Inhibitor Start: 03-15-2023 clopidogrel (Plavix) 75 MG tablet Indications: PVD (peripheral vascular disease) ([facility]) TAKE 1 TABLET EVERY DAY 90 tablet 10 03/15/2023 Active doxycycline hyclate 100 mg delayed release oral tablet (4 sources) Tetracycline-class Drug take 1 tablet by mouth in the morning, then take 1 tablet by mouth at bedtime doxycycline (DORYX) 100 MG EC tablet Take 1 tablet (100 mg total) by mouth in the morning and 1 tablet (100 mg total) before bedtime. 0 Active empagliflozin 10 mg oral tablet (1 source) Sodium-Glucose Cotransporter 2 Inhibitor Start: 06-28-2023 End: 09-26-2023 take 1 tablet by mouth in the morning empagliflozin (Jardiance) 10 MG Indications: Type 2 diabetes mellitus with diabetic autonomic neuropathy, with long-term current use of insulin ([facility]) Take 1 tablet (10 mg) by mouth in the morning. 90 tablet 0 06/28/2023 09/26/2023 Active FA/mv,Ca,iron,min/l ycopene/lut (MULTIVITAL ORAL) (2 sources) take 2 tablets by mouth once daily FA/mv,Ca,iron,min/ lycopene/lut (MULTIVITAL ORAL) Take 2 tablets by mouth daily. 0 Active famotidine 40 mg oral tablet (1 source) Histamine-2 Receptor Antagonist Start: 01-16-2022 take 1 tablet by mouth at bedtime famotidine (Pepcid) 40 MG tablet Take 40 mg by mouth at bedtime. 0 01/16/2022 Active glimepiride 4 mg oral tablet (5 sources) Sulfonylurea Start: 03-15-2023 glimepiride (Amaryl) 4 MG tablet Indications: Type 2 diabetes mellitus with hyperglycemia, without long-term current use of insulin (CMS/HCC) TAKE 1 TABLET TWICE DAILY 180 tablet 10 03/15/2023 Active take 2 tablets by mo uth in the morning, then take 2 tablets by mouth at bedtime glimepiride (AMARYL) 2 mg tablet Take 2 tablets (4 mg total) by mouth in the morning and 2 tablets (4 mg total) before bedtime. 0 Active 12 hr guaiFENesin 600 mg extended release oral tablet (4 sources) Start: 02-12-2022 take 1 tablet by mouth once guaiFENesin (MUCINEX) 600 mg tablet extended release 12hr Indications: Mucopurulent chronic bronchitis (CMS-HCC) Take 1 tablet (600 mg total) by mouth every 12 (twelve) hours. 60 tablet 10 02/12/2022 Active hydroCHLOROthiazide 12.5 mg oral capsule (4 sources) Thiazide Diuretic take 1 tablet by mouth once daily hydroCHLOROthiazide (MICROZIDE) 12.5 mg capsule Take 1 tablet by mouth daily. 0 Active 3 ml insulin glargine 100 unt/ml pen injector (1 source) Insulin Analog Start: 04-29-2023 inject 10 [IU] by subcutaneous injection at bedtime Lantus SoloStar 100 UNIT/ML pen Indications: Type 2 diabetes mellitus with hyperglycemia, with long-term current use of insulin (CMS/HCC) INJECT 10 UNITS UNDER THE SKIN AT BEDTIME. DISCARD PEN 28 DAYS AFTER OPENING 15 mL 3 04/29/2023 Active isopropyl alcohol 0.7 ml/ml medicated pad (1 source) Start: 02-23-2023 End: 02-23-2024 Alcohol Swabs (B-D SINGLE USE SWABS REGULAR) pads Indications: Type 2 diabetes mellitus with diabetic autonomic neuropathy, with long-term current use of insulin (CMS/HCC) Apply 1 Swab topically in the morning and 1 Swab in the evening and 1 Swab before bedtime. 300 each 3 02/23/2023 02/23/2024 Active losartan potassium 100 mg oral tablet (4 sources) Angiotensin 2 Receptor Cb take 1 tablet by mouth in the morning losartan (COZAAR) 100 mg tablet Take 1 tablet (100 mg total) by mouth in the morning. 0 Active metFORMIN hydrochloride 1000 mg oral tablet (5 sources) Biguanide Start: 03-15-2023 take 1 tablet by mouth twice daily metFORMIN (Glucophage) 1000 MG tablet Indications: Type 2 diabetes mellitus with hyperglycemia, without long-term current use of insulin (CMS/HCC) TAKE 1 TABLET WITH A MEAL ORALLY TWICE DAILY 180 tablet 10 03/15/2023 Active 24 hr metoprolol succinate 50 mg extended release oral tablet (5 sources) beta-Adrenergic Cb Start: 12-11-2021 End: 10-04-2023 take 1 tablet by mouth every twenty-four hours in the morning metoprolol succinate XL (Toprol-XL) 50 MG 24 hr tablet Indications: Essential hypertension (CMS/HCC) Take 1 tablet (50 mg) by mouth in the morning. 100 tablet 0 06/26/2023 10/04/2023 Active montelukast 10 mg oral tablet (5 sources) Leukotriene Receptor Antagonist Start: 03-15-2023 montelukast (Singulair) 10 MG tablet Indications: Chronic obstructive pulmonary disease, unspecified COPD type (CMS/HCC) TAKE 1 TABLET EVERY DAY 90 tablet 10 03/15/2023 Active 24 hr nicotine 0.875 mg/hr transdermal system (2 sources) Cholinergic Nicotinic Agonist Start: 06-13-2023 apply 1 dose transdermal route every hour in the morning nicotine (NICODERM CQ) 21 mg/24 hr Indications: COPD exacerbation ([facility]) Place 1 patch on the skin in the morning. 30 patch 0 06/13/2023 Active pantoprazole 40 mg delayed release oral tablet (5 sources) Proton Pump Inhibitor Start: 06-26-2023 End: 10-04-2023 take 1 tablet by mouth before mealtime pantoprazole (ProtoNix) 40 MG EC tablet Indications: GERD without esophagitis Take 1 tablet (40 mg) by mouth in the morning. Take before meals. 100 tablet 0 06/26/2023 10/04/2023 Active predniSONE 10 mg oral tablet (2 sources) Start: 06-12-2023 predniSONE (DELTASONE) 10 mg tablet Indications: COPD exacerbation ([facility]) 3 tabs for 3 days, 2 tabs for 3 days, 1 tab for 3 days 18 tablet 0 06/12/2023 Active rOPINIRole 0.5 mg oral tablet (5 sources) Nonergot Dopamine Agonist take 1 tablet by mouth three times daily rOPINIRole (REQUIP) 0.5 mg tablet Take 1 tablet (0.5 mg total) by mouth 3 (three) times a day. 0 Active rosuvastatin calcium 20 mg oral tablet (5 sources) HMG-CoA Reductase Inhibitor Start: 03-15-2023 rosuvastatin (Crestor) 20 MG tablet Indications: Mixed hyperlipidemia ([facility]) TAKE 1 TABLET EVERY DAY 90 tablet 10 03/15/2023 Active semaglutide 7 mg oral tablet (5 sources) Start: 04-29-2023 Rybelsus 7 MG tablet Indications: Type 2 diabetes mellitus with diabetic autonomic neuropathy, with long-term current use of insulin ([facility]) TAKE 1 TABLET EVERY MORNING TAKE BEFORE A MEAL 90 tablet 3 04/29/2023 Active 28 actuat tiotropium 0.12227 mg/actuat inhalation spray (1 source) Anticholinergic tiotropium (Spir césar Respimat) 1.25 MCG/ACT inhaler Inhale 2 puffs in the morning. 0 Active Problems Active Problems Problem Classification Problem Date Documented Date Episodic/Chronic Abdominal pain (1 source) Epigastric pain; Translations: [Epigastric pain] Onset: 02-15-2024 Episodic Acute myocardial infarction (6 sources) Myocardial infarction; Translations: [Non-ST elevation (NSTEMI) myocardial infarction] Onset: 12-06-2021 06-10-2023 Chronic Anxiety disorders (5 sources) Generalized anxiety disorder; Translations: [Generalized anxiety disorder] Onset: 09-30-2022 06-11-2023 Chronic Cardiac dysrhythmias (2 sources) Tachycardia, unspecified; Translations: [Tachycardia, unspecified] Onset: 02-07-2024 Episodic Chronic kidney disease (5 sources) Chronic kidney disease stage 3B ; Translations: [Stage 3b chronic kidney disease] Onset: 09-30-2022 06-11-2023 Chronic Chronic obstructive pulmonary disease and bronchiectasis (12 sources) Chronic obstructive pulmonary disease, unspecified; Translations: [Mucopurulent chronic bronchitis] Onset: 02-10-2022 06-11-2023 Chronic Congestive heart failure; nonhypertensive (1 source) Chronic combined systolic and diastolic heart failure; Translations: [Chronic combined systolic (congestive) and diastolic (congestive) heart failure] Onset: 07-09-2023 07-09-2023 Chronic Coronary atherosclerosis and other heart disease (1 source) Coronary atherosclerosis; Translations: [Atherosclerotic heart disease of [place] coronary artery without angina pectoris] Onset: 09-30-2022 09-30-2022 Chronic Diabetes mellitus with complications (16 sources) Disorder of kidney due to diabetes mellitus; Translations: [Type 2 diabetes mellitus with diabetic nephropathy] Onset: 11-18-2021 06-11-2023 Chronic Disorders of lipid metabolism (9 sources) Mixed hyperlipidemia; Translations: [Mixed hyperlipidemia] Onset: 09-30-2022 06-11-2023 Chronic Esophageal disorders (5 sources) Gastroesophageal reflux disease without esophagitis; Translations: [Gastro-esophageal reflux disease without esophagitis] Onset: 09-30-2022 06-11-2023 Chronic Essential hypertension (9 sources) Essential hypertension; Translations: [Essential (primary) hypertension] Onset: 09-30-2022 06-11-2023 Chronic Other aftercare (1 source) Other intermediate teacher (current) drug therapy; Translations: [OTH PMP CURRENT DRUG THERAPY] Onset: 02-10-2022 Episodic Other circulatory disease (1 source) 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, unspecified; Translations: [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, unspecified] Onset: 02-15-2024 Chronic Other hereditary and degenerative nervous system conditions (5 sources) Restless legs; Translations: [Restless legs syndrome] Onset: 09-30-2022 06-11-2023 Chronic Other lower respiratory disease (3 sources) Dyspnea, unspecified; Translations: [DYSPNEA UNSPECIFIED] Onset: 02-07-2022 Episodic Other nervous system disorders (1 source) Polyneuropathy associated with another disorder; Translations: [Polyneuropathy in diseases classified elsewhere] Onset: 09-30-2022 09-30-2022 Chronic Other upper respiratory disease (1 source) Seasonal allergy; Translations: [Other seasonal allergic rhinitis] Onset: 09-30-2022 09-30-2022 Chronic Lolly-; endo-; and myocarditis; cardiomyopathy (except that caused by tuberculosis or sexually transmitted disease) (6 sources) Cardiomyopathy; Translations: [Cardiomyopathy, unspecified] Onset: 12-05-2021 12-10-2021 Chronic Peripheral and visceral atherosclerosis (14 sources) Peripheral vascular disease; Translations: [Peripheral vascular disease, unspecified] Onset: 09-30-2022 06-11-2023 Chronic Residual codes; unclassified (1 source) Dependence on other enabling machines and devices; Translations: [Dependence on other enabling machines] Onset: 09-30-2022 09-30-2022 Chronic Substance-related disorders (2 sources) Nicotine dependence, cigarettes, uncomplicated; Translations: [Nicotine dependence] Onset: 02-10-2022 09-30-2022 Chronic Unclassified (1 source) CONTACT W/AND (SUSP) EXPOS COVID-19; Translations: [CONTACT W/AND (SUSP) EXPOS COVID-19] Onset: 02-10-2022 Unclassified (1 source) Advice Only Onset: 02-15-2024 Viral infection (1 source) Viral infection, unspecified; Translations: [VIRAL INFECTION UNSPECIFIED] Onset: 02-10-2022 Episodic Past or Other Problems Problem Classification Problem Date Documented Da te Episodic/Chronic Deficiency and other anemia (5 sources) Iron deficiency anemia; Translations: [Iron deficiency anemia, unspecified] Onset: 12-05-2021 06-11-2023 Episodic Other aftercare (1 source) Long-term current use of insulin; Translations: [CHCF (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] Onset: 02-18-2022 11-25-2022 Episodic Other disorders of stomach and duodenum (1 source) Gastroparesis syndrome; Translations: [Gastroparesis] Onset: 09-30-2022 09-30-2022 Episodic Other gastrointestinal disorders (1 source) Chronic constipation; Translations: [Other constipation] Onset: 09-30-2022 09-30-2022 Episodic Other gastrointestinal disorders (1 source) Diarrhea, unspecified; Translations: [Diarrhea, unspecified] Onset: 08-18-2023 Episodic Other gastrointestinal disorders (2 sources) Diarrhea Onset: 08-18-2023 Episodic Other lower respiratory disease (1 source) Nodule of lung; Translations: [Solitary pulmonary nodule] Onset: 09-30-2022 09-30-2022 Episodic Results Test Name Value Interpretation Reference Range Facility Office Visiton 02-07-2024 Follow-up visit [id number] Ishmael Monahan 1940 F Date Provider Department Center 02/07/2024 [id number] LAU [facility] Family History Problem Relation Age of Onset Heart failure Mother Sudden Father Stroke Father Heart attack Son Family Status - Relation Status Age at Mother Father Son Other Level of Service:33314 [place] OFFICE/OUTPATIENT NEW MODERATE MDM 45 MINUTES Normal [facility] C DIFFICILE BY PCRon 024 C. difficile toxin genes LUCÍA+probe Ql (Stl) TOXIGENIC C DIFF Negative (qualifier value) 027 NAP1 Negative (qualifier value) Normal PRNEG [facility] Comment on above: Performed By: #### 5 4067-4 #### [facility] ([id number]) [address] [place] [address], [facility] [address] [place] [address] #### 71288-3 #### [facility] ([id number]) [address] [place] [address] [facility] ([id number]) [address] [place] [address], [address] [place] [address] CBC AND AUTO DIFFon 08-18-19 24 ABSOLUTE BASOPHIL 0.1 X10E9/L Normal 0.0-0.2 [facility] Comment on above: Performed By: #### C BCA, CMP, 47979-4 #### [facility] ([id number]) [address] [place] [address] ABSOLUTE NEUTROPHIL 9.9 X10E9/L High 1.5-6.6 [facility] Comment on above: Performed By: #### C FRANCINE, [facility], #### [facility] ([id number]) [address] [place] [address] 60931 Basophils/100 WBC (Bld) 1.0 % Normal [facility] Comment on above: Performed By: #### C FRANCINE, CMP, #### [facility] ([id number]) [address] [place] [address] Eosinophils (Bld) [#/Vol] 0.1 10*3/uL Normal 0.0-0.4 [facility] Comment on above: Performed By: #### Taj ESCAMILLA CMP, #### [facility] ([id number]) [address] [place] [address] 07329 Eosinophils/100 WBC (Bld) 0.8 % Normal [facility] Comment on above: Performed By: #### Taj ESCAMILLA, [facility], #### [facility] ([id number]) [address] [place] [address]179 Erythrocyte distribution width (RBC) [Ratio] 15.1 % High 11.5-15.0 [facility] Comment on above: Performed By: #### Taj ESCAMILLA [facility], #### [facility] ([id number]) [address] [place] [address] 85683 Hematocrit (Bld) [Volume fraction] 38.3 % Normal 35-47 [facility] Comment on above: Performed By: #### Taj ESCAMILLA, CMP, #### [facility] ([id number]) [address] [place] [address] 46879 Hemoglobin (Bld) [Mass/Vol] 12.8 g/dL Normal 11.7-15.5 [facility] Comment on above: Performed By: #### Taj ESCAMILLA, CMP, #### [facility] ([id number]) [address] [place] [address] 86009 Lymphocytes (Bld) [#/Vol] 1.6 10*3/uL Normal 1.0-3.5 [facility] Comment on above: Performed By: #### C KUSH ESCAMILLA, 55116-8 #### [facility] ([id number]) [address] [place] [address] 73675 Lymphocytes/100 WBC (Bld) 12.7 % Normal [facility] Comment on above: Performed By: #### Taj ESCAMILLA CMP, #### [facility] ([id number]) [address] [place] [address] 46011 MCH (RBC) [Entitic mass] 30.6 pg Normal 27-34 [facility] Comment on above: Performed By: #### Taj ESCAMILLA CMP, #### [facility] ([id number]) [address] [place] [address] 49731 MCHC (RBC) [Mass/Vol] 33.3 g/dL Normal 32-36 [facility] Comment on above: Performed By: #### Taj ESCAMILLA CMP, #### [facility] ([id number]) [address] [place] [address] 98955 MCV (RBC) [Entitic vol] 92 fL Normal 80-100 [facility] Comment on above: Performed By: #### Taj ESCAMILLA CMP, #### [facility] ([id number]) [address] [place] [address] 66868 Monocytes (Bld) [#/Vol] 0.7 10*3/uL Normal 0-0.9 [facility] Comment on above: Performed By: #### Taj ESCAMILLA CMP, #### [facility] ([id number]) [address] [place] [address] 52503 Monocytes/100 WBC (Bld) 5.6 % Normal [facility] Comment on above: Performed By: #### C KUSH ESCAMILLA, 68249-3 #### [facility] ([id number]) [address] [place] [address] 50311 Neutrophils/100 WBC (Bld) 79.9 % Normal [facility] Comment on above: Performed By: #### Taj ESCAMILLA CMP, 64377-0 #### [facility] ([id number]) [address] [place] [address] 45365 Platelet mean volume (Bld) [Entitic vol] 10.0 fL Normal 7-12 [facility] Comment on above: Performed By: #### Taj ESCAMILLA CMP, 02076-4 #### [facility] ([id number]) [address] [place] [address] 36397 Platelets (Bld) [#/Vol] 238 10*3/uL Normal 150-450 [facility] Comment on above: Performed By: #### Taj ESCAMILLA CMP, 79438-3 #### [facility] ([id number]) [address] [place] [address] 62144 RBC COUNT 4.17 X10E12/L Normal 3.80-5.20 [facility] Comment on above: Performed By: #### Taj ESCAMILLA CMP, 25980-4 #### [facility] ([id number]) [address] [place] [address] 63585 WBC (Bld) [#/Vol] 12.3 10*3/uL High 4.0-11.0 [facility] Comment on above: Performed By: #### Taj ESCAMILLA CMP, 70939-0 #### [facility] ([id number]) [address] [place] [address] 56750 COMPREHENSIVE METABOLIC PANE Willis 08-18-2023 Albumin [Mass/Vol] 4.0 g/dL Normal 3.2-5.3 [facility] Comment on above: Performed By: #### C BCA, CMP, #### [facility] ([id number]) [address] [place] [address] 37191 ALP [Catalytic activity/Vol] 99 U/L Normal 39-130 [facility] Comment on above: Performed By: #### C BCA, CMP, #### [facility] ([id number]) [address] [place] [address] 28173 ALT [Catalytic activity/Vol] 17 U/L Normal 0-31 [facility] Comment on above: Performed By: #### C BCA, CMP, #### [facility] ([id number]) [address] [place] [address] 43436 Anion gap [Moles/Vol] 4 mmol/L Low 5-15 [facility] Comment on above: Performed By: #### C BCA, CMP, #### [facility] ([id number]) [address] [place] [address] 66707 AST [Catalytic activity/Vol] 21 U/L Normal 0-41 [facility] Comment on above: Performed By: #### C BCA, CMP, #### [facility] ([id number]) [address] [place] [address] 39547 Bilirubin [Mass/Vol] 0.5 mg/dL Normal 0.3-1.2 [facility] Comment on above: Performed By: #### C BCA, CMP, #### [facility] ([id number]) [address] [place] [address] 10393 Calcium [Mass/Vol] 10.5 mg/dL Normal 8.5-10.5 [facility] Comment on above: Performed By: #### C BCA, CMP, #### [facility] ([id number]) [address] [place] [address] 57898 Chloride [Moles/Vol] 103 mmol/L Normal 98-109 [facility] Comment on above: Performed By: #### C KUSH ESCAMILLA, 55656-7 #### [facility] ([id number]) [address] [place] [address] 02760 CO2 [Moles/Vol] 25 mmol/L Normal 22-32 [facility] Comment on above: Performed By: #### C KUSH ESCAMILLA, 13930-7 #### [facility] ([id number]) [address] [place] [address] 64707 Creatinine [Mass/Vol] 0.94 mg/dL Normal 0.40-1.00 [facility] Comment on above: Result Comment: METH OD TRACEABLE TO IDMS STANDARD Performed By: #### C KUSH ESCAMILLA, 96311-2 #### [facility] ([id number]) [address] [place] [address] 76934 GFR/1.73 sq M.predicted among non-blacks MDRD (S/P/Bld) [Vol rate/Area] 61 mL/min/{1.73_m2} Normal >59 [facility] Comment on above: Result Comment: Reported eGFR is based on the CKD-EPI 2020 equation that does not use a race coefficient. Performed By: #### C KUSH ESCAMILLA, 08816-2 #### [facility] ([id number]) [address] [place] [address] 39545 Glucose [Mass/Vol] 136 mg/dL High 65-99 [facility] Comment on above: Performed By: #### C KUSH ESCAMILLA, 29398-2 #### [facility] ([id number]) [address] [place] [address] 12225 Potassium [Moles/Vol] 4.2 mmol/L Normal 3.5-5.0 [facility] Comment on above: Performed By: #### C BCA, [facility], 11696-5 #### [facility] ([id number]) [address] [place] [address] Protein [Mass/Vol] 7.6 g/dL Normal 6.0-8.0 [facility] Comment on above: Performed By: #### C BCA, CMP, 67626-9 #### [facility] ([id number]) [address] [place] [address] [place] [address] Sodium [Moles/Vol] 132 mmol/L Low 134-146 [facility] Comment on above: Performed By: #### C BCA, CMP, 51174-7 #### [facility] ([id number]) [address] [place] [address] 26148 Urea nitrogen [Mass/Vol] 26 mg/dL Normal 5-27 [facility] Comment on above: Performed By: #### C FRANCINE, [facility], 89213-3 #### [facility] ([id number]) [address] [place] [address] 32560 GI PANELon 08-18-2023 Gastrointestinal pathogens DNA and RNA panel LUCÍA+non-probe (Stl) SPECIMEN SOURCE STOOL CAMPYLOBACTER Not detected (qualifier value) PLESIOMONAS Not detected (qualifier value) SALMONELLA Not detected (qualifier value) VIBRIO Not detected (qualifier value) VIBRIO CHOLERAE Not detected (qualifier value) Y. ENTEROCOLITICA Not detected (qualifier value) AGGREGATIVE E COLI Not detected (qualifier value) PATHOGENIC E COLI Not detected (qualifier value) TOXIGENIC E COLI Not detected (qualifier value) SHIGA TOXIN E COLI Not detected (qualifier value) SHIGELLA-E COLI Not detected (qualifier value) CRYPTOSPORIDIUM Not detected (qualifier value) CYCLOSPORA Not detected (qualifier value) E HISTOLYTICA Not detected (qualifier value) GIARDIA LAMBLIA Not detected (qualifier value) ADENOVIRUS Not detected (qualifier value) ASTROVIRUS Not detected (qualifier value) NOROVIRUS Not detected (qualifier value) ROTAVIRUS A Not detected (qualifier value) SAPOVIRUS Not detected (qualifier value) Normal NDET [facility] Comment on above: Performed By: #### 5 4067-4 #### [facility] ([id number]) [address], [address] [place] [address] #### 21275-0 #### [facility] ([id number]) [address] [place] [address] [facility] ([id number]) [address], [address] [place] [address] MAGNESIUMon 08-18-2023 Magnesium [Mass/Vol] 1.8 mg/dL Normal 1.8-2.6 [facility] Comment on above: Performed By: #### C BCA, CMP, 71954-4 #### [facility] ([id number]) [address] [place] [address] SARS/FLU A+B/RSV by NAAT/Mol ecularon 08-18-2023 SARS/FLU A+B/RSV by NAAT/Molecular FLU A PCR Negative (qualifier value) FLU B PCR Negative (qualifier value) RSV by PCR Negative (qualifier value) SARS CoV 2 Not detected (qualifier value) NOTE The Xpert Xpress SARS-CoV-2/Flu/RSV Plus test is a rapid, multiplexed real-time RT-PCR test intended for the simultaneous qualitative detection and differentiation of SARS-CoV-2, influenza A, influenza B and respiratory syncytial virus (RSV) viral RNA from individuals suspected of respiratory viral infection consistent with COVID-19 by their healthcare provider. This test has not been validated in asymptomatic patients. The Xpert Xpress SARS-CoV-2 test is intended for use by qualified and trained operators who are performing tests using either [employer] DX or [employer] systems and is limited to laboratories that meet the CLIA requirements to perform high and moderate complexity tests. The Xpert Xpress SARS-CoV-2/Flu/RSV Plus is only for use under the Food and Drug Administration's Emergency Use Authorization. Results are for the simultaneous detection and differentiation of SARS-CoV-2, influenza A, influenza B and RSV nucleic acids in clinical specimens. SARS-CoV-2, influenza A, influenza B and RSV RNA identified by this test are generally detectable in upper respiratory samples during the acute phase of infection. Positive results are indicative of the presence of the identified virus, but do not rule out bacterial infection or co-infection with other pathogens not detected by this test. Clinical correlation with patient history and other diagnostic information is necessary to determine patient infection status. The agent detected may not be the definite cause of disease. Negative results do not preclude SARS-CoV-2, influenza A, influenza B and RSV infection and should not be used as the sole basis for treatment or other patient management decisions. Negative results must be combined with clinical observations, patient history and epidemiological information. An Invalid result may occur with specimen-associated inhibition unable to be resolved with specimen repeat. Fact Sheet for Healthcare Providers: https://www.fda.gov/m edia/088409/download Fact Sheet for Patients: https://www.fda.gov/m edia/124202/download Normal [facility] Comment on above: Performed By: #### C OVFLR #### [facility] ([id number]) [address] [place] [address]4574 URN MACROSCOPIC NURon 2023 BILIRUBIN KATELYN Negative Normal [facility] Comment on above: Performed By: #### N UM #### [facility] ([id number]) [address] [place] [address] 20981 BLOOD/HGB KATELYN Negative Normal [facility] Comment on above: Performed By: #### N UM #### [facility] ([id number]) [address] [place] [address] 29002 GLUCOSE KATELYN >=1000 Abnormal [facility] Comment on above: Performed By: #### N UM #### [facility] ([id number]) [address] [place] [address] 92609 KETONES KATELYN Negative Normal [facility] Comment on above: Performed By: #### N UM #### [facility] ([id number]) [address] [place] [address] 72119 LEUKOCYTE ESTERASE KATELYN Negative Normal NEG [facility] Comment on above: Performed By: #### N UM #### [facility] ([id number]) [address] [place] [address] 55693 NITRITE KATELYN Negative Normal NEG [facility] Comment on above: Performed By: #### N UM #### [facility] ([id number]) [address] [place] [address] 60314 PH KATELYN 5.0 Normal 5.0-8.5 [facility] Comment on above: Performed By: #### N UM #### [facility] ([id number]) [address] [place] [address] 82568 PROTEIN KATELYN 100 mg/dL Abnormal NEG [facility] Comment on above: Performed By: #### N UM #### [facility] ([id number]) [address] [place] [address] 43631 SPECIFIC GRAVITY KATELYN 1.025 Normal 1.003-1.035 [facility] Comment on above: Performed By: #### N UM #### [facility] ([id number]) [address] [place] [address] 01209 UROBILINOGEN KATELYN 0.2 eu/dL Normal <1.1 [facility] Comment on above: Performed By: #### N UM #### [facility] ([id number]) [address] [place] [address] CHEST WO IV CONTRASTon CT CHEST WO IV CONTRAST EXAMINATION: CT CHEST WO IV CONTRAST, 07/06/2023 2:28 PM CLINICAL HISTORY: nodules COMPARISON: Chest CT from August 17, 2022 TECHNIQUE: Multidetector LDCT was performed through the chest using screening low dose CT scanning parameters without contrast. All CT scans at this facility use dose modulation, iterative reconstruction, and/or weight based dosing when appropriate to reduce radiation dose to as low as reasonably achievable. 3-D, sagittal and coronal reconstructions were performed. FINDINGS The thyroid gland is within normal limits. The axillary regions demonstrate no significant lymphadenopathy or solid or cystic lesions. There is no mediastinal lymphadenopathy. There is cardiomegaly without pericardial effusion. There are coronary artery calcifications. There is dilatation of the ascending aorta with a maximum diameter of 4 cm which meet size criteria for aneurysm. The descending aorta measures 2.7 cm. The lungs are free of focal consolidations or infiltrates. There are no pleural effusions. There are centrilobular emphysematous changes throughout both lungs. In the right apex there is a 6 mm linear hyperdensity which may represent a pulmonary nodule versus postinflammatory scarring, series 400, image 18. Series 400, image 31 there is a 7 mm nodule along the right anterior pleural surface. Series 400, image 42, there is a an 8 mm partially calcified nodule in the posterior right lung. Series 400, image 60 there is an 8 mm nodule in the right lower lobe. There is linear scarring in both Lisfranc recesses. There are no distinct nodules in the left lung. There are no acute bony abnormalities. The visualized portions of the upper abdomen are within normal limits. IMPRESSION: There are chronic emphysematous changes throughout both lungs. There are multiple nodules in the right lung as described, unchanged since the prior study. Lung RADS Category 2, Continue annual screening with LDCT in 12 months ELECTRONICALLY SIGNED BY: Momo Sanchez MD Normal Not Available [facility] US LOWER EXTREMITY CARLO RIAL DUPLEX BILATERAL WITH ABIon 07-06-2023 [facility] US LOWER EXTREMITY ARTERIAL DUPLEX BILATERAL WITH GEORGINA CLINICAL HISTORY: decreased pulses. . COMPARISON: None available. Grayscale, color and waveform Doppler analysis of both lower extremity arterial systems was performed. FINDINGS: Mild to moderate atherosclerotic disease is present, with pulsatile predominantly biphasic waveforms throughout both lower extremities. Moderately elevated velocity is noted within the distal left common iliac artery to approximately 308 cm/s, suggesting a 50 to 75% stenosis. There are no other significantly elevated velocities to suggest a flow-limiting stenosis identified. The arterial system is normal in caliber, without arterial occlusion, or aneurysm. A patent left superficial femoral and popliteal artery stent is present. On the right, the brachial systolic pressure is 153, The posterior tibial ankle pressure is 152, index 0.99, the dorsalis pedis ankle pressure is 141, index 0.92, and the digit pressure is 139, index 0.91. On the left, the brachial systolic pressure is 150, index 0.98, The posterior tibial ankle pressure is 153, index 1.00, the dorsalis pedis ankle pressure is 151, index 0.99, and the digit pressure is 151, 0.99. Maximum systolic velocities are: RIGHT LOWER EXTREMITY: Right distal common iliac artery 128 cm/s. Right proximal superficial femoral artery 104 cm/s. Right mid superficial femoral artery 135 cm/s. Right distal superficial femoral artery 104 cm/s. Right popliteal artery 70.3 cm/s. Right proximal peroneal artery 71.0 cm/s. Right proximal posterior tibial artery 73.3 cm/s. Right mid posterior tibial artery 77.7 cm/s. Right distal posterior tibial artery 45.8 cm/s. Right proximal anterior tibial artery 50.5 cm/s. LEFT LOWER EXTREMITY: Left common femoral artery 308 cm/s. Left proximal superficial femoral artery 135 cm/s. Left mid superficial femoral artery 125 cm/s. Left distal superficial femoral artery 119 cm/s. Left popliteal artery 85.8 cm/s. Left proximal peroneal artery 76.5 cm/s. Left proximal posterior tibial artery 78.0 cm/s. Left mid posterior tibial artery 69.1 cm/s. Left distal posterior tibial artery 42.4 cm/s. Left proximal anterior tibial artery 32.0 cm/s. IMPRESSION: MODERATELY ELEVATED VELOCITY WITHIN THE RIGHT DISTAL COMMON ILIAC ARTERY TO APPROXIMATELY 308 CM/S, SUGGESTING A 50 TO 75% STENOSIS. OTHERWISE, NO EVIDENCE OF SIGNIFICANT ARTERIAL STENOTIC DISEASE INVOLVING THE RIGHT AND LEFT LEGS. STENOSIS CRITERIA % Stenosis Peak Chapito Normal <150 cm/s 30%-49% 150-200 cm/s 50%-75% 200-400 cm/s >75% >400 cm/s Occlusion No color saturation __ Maria G DV, Dylan ARNOLD, et al. Comparison of contrast angiography to arterial mapping with color flow duplex imaging in the lower extremities. J Vasc Surg 1989;10:522-32 ELECTRONICALLY SIGNED BY: Singh Givens MD Normal Not Available XR CHEST 2 VIEWSon 4 XR CHEST 2 VIEWS EXAMINATION: XR CHES T 2 VIEWS CLINICAL HISTORY: SOB COMPARISONS: None FINDINGS: Two views of the chest are submitted. The cardiac silhouette is enlarged. Pulmonary vascular attenuated. Lung godoy hyperinflated. There is widening of the AP diameter chest. Radiograph by suggestive of COPD. Right sided trachea. No focal infiltrates. No effusions. No Pneumothoraces. IMPRESSION: RADIOGRAPHIC FINDINGS SUGGESTIVE OF COPD. CORRELATE WITH PATIENT HISTORY. NO ACUTE ACTIVE CARDIOPULMONARY PROCESS ELECTRONICALLY SIGNED BY: Leonel Chavez MD Normal Not Available BI MAMMOGRAM SCREENING TOMOS YNTHESIS BILATERALon 03-29-2023 BI MAMMOGRAM SCREENING TOMOSYNTHESIS BILATERAL This is a summary report. The complete report is available in the patient's medical record. If you cannot access the medical record, please contact the sending organization for a detailed fax or copy. EXAMINATION: BI MAMMOGRAM SCREENING TOMOSYNTHESIS BILATERAL CLINICAL HISTORY: screening COMPARISON: March 25, 2020. RESULT: Digital mammography and 3D tomosynthesis of bilateral breasts was performed. The breasts are almost entirely fatty. Overall appearance is stable. Typically benign calcifications. There is no suspicious mass, asymmetry, architectural distortion, or calcification. IMPRESSION: BIRADS 2 - Benign Follow-up: Routine Screening Mamm . Board Certified Radiologists. Accredited by the ACR and FDA. MAMMOGRAPHY IS VERY IMPORTANT TO YOUR HEALTH. THE [employer] GUIDELINES RECOMMEND THAT WOMEN 40 YEARS OF AGE AND OLDER SHOULD HAVE A MAMMOGRAM EVERY YEAR. A REMINDER LETTER WILL BE SENT AT THE APPROPRIATE TIME. THIS FACILITY UTILIZES A REMINDER SYSTEM TO ENSURE ALL PATIENTS RECEIVE REMINDER NOTIFICATIONS AT THE APPROPRIATE TIME BASED ON THE RECOMMENDATIONS OF THIS EXAM. THIS INCLUDES REMINDERS FOR ROUTINE SCREENING MAMMOGRAMS, DIAGNOSTIC MAMMOGRAMS IN WHICH THE PATIENT IS ASKED TO RETURN FOR ADDITIONAL VIEWS, OR OTHER BREAST IMAGING INTERVENTIONS WHEN APPROPRIATE. THE PATIENT WILL BE PLACED IN THE APPROPRIATE REMINDER SYSTEM INCLUDING A REMINDER AT THE APPROPRIATE TIME FOR ANY PENDING ADDITIONAL VIEWS. TRANSCRIBED BY: ELECTRONICALLY SIGNED BY: Julius You MD Normal Not Available SCREENING MAMMOGRAM W/NELSON, BILATERAL*on 03-25-2022 SCREENING MAMMOGRAM W/NELSON, BILATERAL* COMPARISON: No prior images available for comparison. TECHNIQUE: 2D and 3D Tomosynthesis of the right and left breasts was performed. FINDINGS: Breast composition demonstrates scattered fibroglandular densities. Typically benign calcifications. No suspicious microcalcifications, dominant mass lesions, or distortion is present. IMPRESSION: BI-RADS 2- Benign Mammogram Board Certified Radiologist. Accredited by the ACR and FDA. MAMMOGRAPHY IS VERY IMPORTANT TO YOUR HEALTH. THE CURRENT [employer] GUIDELINES RECOMMENDS ANNUAL MAMMOGRAPHY BEGINNING AT AGE 40 THIS FACILITY USES A REMINDER SYSTEM TO ENSURE ALL PATIENTS RECEIVE REMINDER NOTIFICATIONS AT THE APPROPRIATE TIME BASED ON THE RECOMMENDATIONS OF THIS EXAM. Report reported and signed by Julius You on 03/25/2022 1339 Normal [facility] CBC AUTO DIFFon 02-07-2022 BASO # 0.1 103/ul Normal 0.0-0.1 [facility] Comment on above: Performed By: #### C BC #### [facility] [address] [address] [address] Henry Dozier Basophils/100 WBC (Bld) 0.6 % Normal 0.2-2.0 [facility] Comment on above: Performed By: #### C BC #### [facility] [address] [address] [address] Henry Dozier EO # 0.0 103/ul Normal 0.0-0.7 [facility] Comment on above: Performed By: #### C BC #### [facility] [address] [address] [address] Henry Dozier Eosinophils/100 WBC (Bld) 0.3 % Critically low 0.9-7.0 [facility] Comment on above: Performed By: #### C BC #### [facility] [address] [address] [address] Henry Dozier Erythrocyte distribution width (RBC) [Ratio] 14.9 % Normal 11.0-15.0 [facility] Comment on above: Performed By: #### C BC #### [facility] [address] [address] [address] Henry Dozier Hematocrit (Bld) [Volume fraction] 28.8 % Critically low 36.0-48.0 [facility] Comment on above: Performed By: #### C BC #### [facility] [address] [address] [address] Henry Dozier Hemoglobin (Bld) [Mass/Vol] 8.9 g/dL Critically low 12.0-16.0 [facility] Comment on above: Performed By: #### C BC #### [facility] [address] [place] [address] Dr. Henry Dozier IG # 0.03 10e3/ul Normal 0.00-0.03 [facility] Comment on above: Performed By: #### C BC #### [facility] [address] [place] [address] Dr. Henry Dozier IG % 0.3 % Normal 0.0-0.5 [facility] Comment on above: Performed By: #### C BC #### [facility] [address] [place] [address] Dr. Henry Dozier LYMPH # 1.6 103/ul Normal 1.2-3.8 [facility] Comment on above: Performed By: #### C BC #### [facility] [address] [place] [address] Dr. Henry Dozier Lymphocytes/100 WBC (Bld) 17.4 % Critically low 20.5-60.0 [facility] Comment on above: Performed By: #### C BC #### [facility] [address] [place] [address] Dr. Henry Dozier MANUAL DIFF REQ NO Normal [facility] Comment on above: Performed By: #### C BC #### [facility] [address] [place] [address] Dr. Henry Dozier MCH (RBC) [Entitic mass] 29.6 pg Normal 26.7-34.0 [facility] Comment on above: Performed By: #### C BC #### [facility] [address] [place] [address] Dr. Henry Dozier MCHC (RBC) [Mass/Vol] 30.9 g/dL Normal 29.9-35.2 [facility] Comment on above: Performed By: #### C BC #### [facility] [address] [place] [address] Dr. Henry Dozier MCV (RBC) [Entitic vol] 95.7 fL Normal 81.0-99.0 [facility] Comment on above: Performed By: #### C BC #### [facility] [address] [address] [address] Henry Dozier MONO # 0.8 103/ul Normal 0.3-0.8 [facility] Comment on above: Performed By: #### C BC #### [facility] [address] [address] [address] Henry Dozier Monocytes/100 WBC (Bld) 9.1 % Normal 1.7-12.0 [facility] Comment on above: Performed By: #### C BC #### [facility] [address] [address] [address] Henry Dozier NEUT # 6.4 103/ul Normal 1.4-6.5 [facility] Comment on above: Performed By: #### C BC #### [facility] [address] [place] [address] Dr. Henry Dozier Neutrophils/100 WBC (Bld) 72.3 % Normal 43.0-75.0 [facility] Comment on above: Performed By: #### C BC #### [facility] [address] [place] [address] Dr. Henry Dozier Platelet mean volume (Bld) [Entitic vol] 10.8 fL Normal 9.5-13.5 [facility] Comment on above: Performed By: #### C BC #### [facility] [address] [place] [address] Dr. Henry Dozier PLT 257 103/ul Normal 150-450 [facility] Comment on above: Performed By: #### C BC #### [facility] [address] [address] [address] Henry Dozier RBC 3.01 106/ul Critically low 4.20-5.[address] [facility] Comment on above: Performed By: #### C BC #### [facility] [address] [address] [address] Henry Dozier WBC 8.9 103/ul Normal 4.0-11.0 [facility] Comment on above: Performed By: #### C BC #### [facility] [address] [place] [address] Dr. Henry Dozier Cov[facility]-19 PCR ([facility]on 01-29 SARS-CoV-2 (COVID-19) RNA LUCÍA+probe Ql (Unsp spec) Not detected Normal NOT DETECTED [facility] Comment on above: Result Comment: When diagnostic testing is negative, the possibility of a false negative should be considered in the context of a patient's recent exposures and the presence of clinical signs and symptoms consistent with SARS-CoV-2. This test is not yet approved or cleared by the [place] FDA. When there are no FDA-approved or cleared tests available, and other criteria are met, FDA can make tests available under an emergency access mechanism called an Emergency Use Authorization (EUA). The EUA for this test is supported by the [place] of Health and Human Service's declaration that circumstances exist to justify the emergency use of in vitro diagnostics for the detection and/or diagnosis of the virus that causes COVID-19. This EUA will remain in effect for the duration of the COVID-19 declaration justifying emergency of IVDs, unless it is terminated or revoked by the FDA (after which the test may no longer be used). Performed By: #### C VDTBH #### [facility] [address] [place] [address] Dr. Henry Dozier PROF CHEM 8 (BAS METB)on Anion gap [Moles/Vol] 9.1 mmol/L Normal [facility] Comment on above: Performed By: #### B CHRISTOPHER HSTROPN #### [facility] [address] [place] [address] Dr. Henry Dozier Calcium [Mass/Vol] 10.0 mg/dL Normal 8.5-10.1 [facility] Comment on above: Performed By: #### B DAVE WHITETROPN #### [facility] [address] [place] [address] Dr. Henry Dozier Chloride [Moles/Vol] 104 mmol/L Normal 98-107 [facility] Comment on above: Performed By: #### B CHRISTOPHER HSTROPN #### [facility] [address] [place] [address] Dr. Henry Dozier CO2 [Moles/Vol] 25.9 mmol/L Normal 21.0-32.0 [facility] Comment on above: Performed By: #### B CHRISTOPHER, HSTROPN #### [facility] [address] [address] [address] Henry Dozier Creatinine [Mass/Vol] 1.02 mg/dL Normal 0.55-1.02 [facility] Comment on above: Performed By: #### B CHRISTOPHER, HSTROPN #### [facility] [address] [address] [address] Henry Dozier EGFR-AF TRISTANIAN >60 Normal >=60 [facility] Comment on above: Performed By: #### B CHRISTOPHER, HSTROPN #### [facility] [address] [address] [address] Henry Dozier EGFR-NON AF TRISTANIAN 52 mL/min/1.73m2 Critically low >=60 [facility] Comment on above: Performed By: #### B CHRISTOPHER, HSTROPN #### [facility] [address] [address] [address] Henry Dozier Glucose [Mass/Vol] 170 mg/dL Critically high 74-106 [facility] Comment on above: Performed By: #### B CHRISTOPHER, HSTROPN #### [facility] [address] [address] [address] Henry Dozier Potassium [Moles/Vol] 4.0 mmol/L Normal 3.5-5.1 [facility] Comment on above: Performed By: #### B CHRISTOPHER, HSTROPN #### [facility] [address] [address] [address] Henry Dozier Sodium [Moles/Vol] 135 mmol/L Critically low 136-145 [facility] Comment on above: Performed By: #### B CHRISTOPHER, HSTROPN #### [facility] [address] [address] [address] Henry Dozier Urea nitrogen [Mass/Vol] 17.0 mg/dL Normal 7.0-18.0 [facility] Comment on above: Performed By: #### B MP, HSTROPN #### [facility] [address] [place], [place] [address] Dr. Henry Dozier Urea nitrogen/Creatinine [Mass ratio] 16.7 mg/mg Normal [facility] Comment on above: Performed By: #### B MP, HSTROPN #### [facility] [address] [place], [place] [address] Dr. Henry Dozier TROPONIN, HIGH SENSITIVITYon 02-07-2022 HSTROP 25.2 pg/mL Normal 4.0-51.3 [place] [facility] Comment on above: Result Comment: CUT- OFF POINTS HAVE BEEN ESTABLISHED BASED ON THE FOURTH UNIVERSAL DEFINITIONS OF MYOCARDIAL INFARCTION. THE UPPER REFERENCE LIMIT (URL) OF TROPONIN, DEFINED THE 99TH PERCENTILE OF cTnI DISTRIBUTION IN A REFERENCE POPULATION, HAS BEEN CONFIRMED THE DECISION THRESHOLD FOR [place] DIAGNOSIS. Performed By: #### B CHRISTOPHER, HSTROPN #### [facility] [address] [address] [address] Henry Dozier XR CHEST 1 Von 02-07-2022 XR CHEST 1 V EXAM: XR CHEST 1 V HISTORY: SHORTNESS OF BREATH COMPARISON: None. TECHNIQUE: Double chest FINDINGS: Alveolar opacities throughout the lung parenchyma. No focal consolidation or infiltrate. No pneumothorax or pleural effusion. The cardiac silhouette is unremarkable. No acute osseous abnormality. IMPRESSION: Scattered alveolar infiltrates. Findings suggest a viral etiology. Covid cannot be excluded. Electronically authenticated by: YU JUNIOR Date: 2022-02-07 16:20 Normal [facility] Vital Signs Date Time Vital Sign Value Performing Clinician Faci lity 08-03-2023 13:33-0500 Diastolic blood pressure 60 mm[Hg] Aristeo Garcia MD Work Phone: [facility] 08-03-2023 13:33-0500 Systolic blood pressure 110 mm[Hg] Aristeo Garcia MD Work Phone: [facility] 08-03-2023 13:30-0500 Body height 165.1 cm Aristeo Garcia MD Work Phone: [facility] 08-03-2023 13:30-0500 Body mass index (BMI) [Ratio] 17.14 kg/m2 Aristeo Garcia MD Work Phone: [facility] 08-03-2023 13:30-0500 Body weight 46.72 kg Aristeo Garcia MD Work Phone: [facility] Encounters Encounter Date Encounter Type Care Provider Facility Start: 02-15-2024 End: 02-15-2024 ambulatory [facility] Yoav [facility] Start: 02-08-2024 End: 02-08-2024 ambulatory DIMA CHAVEZ [facility] Start: 02-07-2024 End: 02-07-2024 ambulatory [facility] Start: 09-03-2023 End: 09-03-2023 [facility] Start: 08-25-2023 End: 08-25-2023 ambulatory PIA KAMPFER Not Available Start: 08-18-2023 End: 08-18-2023 Emergency department patient visit TONJA GILLIAM [facility] Start: 08-11-2023 End: 08-30-2023 ambulatory YANIQUE BURCIAGA [facility] Start: 08-03-2023 End: 08-03-2023 ambulatory [facility] Yoav [facility] Start: 08-03-2023 End: 08-03-2023 Office outpatient new 45 minutes Aristeo Garcia MD Work Phone: [facility] Comment on above: 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 ([facility]) (Primary Dx); Essential hypertension; Mixed hyperlipidemia; Renal artery stenosis ([facility]) Start: 07-27-2023 End: 07-27-2023 ambulatory PAI KAMPFER Not Available Start: 07-23-2023 End: 07-24-2023 ambulatory PIA KAMPFER Not Available Start: 07-20-2023 End: 07-21-2023 ambulatory PIA KAMPFER Not Available Start: 07-13-2023 Telephone encounter Tonja laws MD Work Phone: [facility] Start: 07-09-2023 End: 07-10-2023 ambulatory PIA KAMPFER Not Available Start: 07-06-2023 End: 07-07-2023 ambulatory PIA KAMPFER Not Available Start: 06-25-2023 End: 06-26-2023 ambulatory PIA KAMPFER Not Available Start: 06-24-2023 Telephone encounter Sirena Love CMA [facility] Start: 06-23-2023 End: 06-23-2023 ambulatory SB LOCO [facility] Start: 06-16-2023 Chart abstracting Sb lemus MD Work Phone: [facility] Start: 06-15-2023 Telephone encounter Abundio kim MD Work Phone: [facility] Start: 06-10-2023 End: 06-10-2023 ambulatory JOEY CAMP Not Available Start: 06-09-2023 End: 06-09-2023 ambulatory PIA KAMPFER Not Available Start: 06-08-2023 End: 06-09-2023 ambulatory PIA KAMPFER Not Available Start: 06-08-2023 End: 06-08-2023 ambulatory PIA KAMPFER Not Available Start: 02-07-2022 End: 02-07-[address] MCCANN [facility] Facility:H1 Procedures Date Procedure Procedure Detail Performing Clinician Start: 02-15-2024 Follow-up visit Follow-up ARISTEO GARCIA Start: 06-23-2023 Follow-up visit Follow-up SB LOCO Start: 09-30-2022 History of placement of stent for coronary artery disease S/P coronary artery stent placement Tonja Gilliam MD Work Phone: Plan of Treatment Date Care Activity Detail Author Start: 08-02-2024 Adult BMI Screening Adult BMI Screen ing [facility] Start: 08-02-2024 Tobacco Screening Tobacco Screening [facility] Start: 06-23-2024 Adult BMI Screening Adult BMI Screen ing [facility] Start: 06-23-2024 Tobacco Screening Tobacco Screening [facility] Start: 06-12-2024 Adult BMI Screening Adult BMI Screen ing [facility] Start: 06-10-2024 Tobacco Screening Tobacco Screening [facility] Start: 05-09-2024 End: 05-09-2024 Patient encounter procedure 05/09/2024 2:00 PM EST Office Visit [facility] [address] [place] [address] Aristeo Garcia MD [address] [place] [address] [facility] Start: 02-15-2024 End: 02-15-2024 Patient encounter procedure 02/15/2024 1:30 PM EDT Office Visit [facility] [address] [place] [address] Aristeo Garcia MD [address] [place] [address] [facility] Start: 02-08-2024 End: 02-08-2024 Patient encounter procedure [facility] Start: 09-07-2023 Hemoglobin A1c measurement Diabetes: Hemoglobin A1C [facility] Start: 08-11-2023 End: 08-11-2023 Patient encounter procedure 08/11/2023 1:20 PM EDT Office Visit [facility] [address] [place] [id number] Yanique Burciaga, TWISTER OPERATOR-SAUSAGE STUFFER [address] [place] [address] [facility] Start: 08-03-2023 End: 08-02-2024 US.doppler Extremity arteries - bilateral for physiologic artery study at rest and with exercise Vasc art doppler lwr PVR W/exercise Vascular Ultrasound Routine 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 ([facility]) Expected: 08/03/2023, Expires: 08/02/2024 [facility] Comment on above: Expected: 08/03/2023 , Expires: 08/02/2024 Start: 08-03-2023 End: 08-02-2024 US.doppler Lower extremity artery - bilateral Vas art duplex lwr bilateral Vascular Ultrasound Routine 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 ([facility]) Expected: 08/03/2023, Expires: 08/02/2024 [employer] Work Phone: Comment on above: Expected: 08/03/2023 , Expires: 08/02/2024 Start: 08-03-2023 End: 08-02-2024 US.doppler Renal vessels - bilateral Vas renal artery duplex complete Vascular Ultrasound Routine Renal artery stenosis ([facility]) Expected: 08/03/2023, Expires: 08/02/2024 [employer] Comment on above: Expected: 08/03/2023 , Expires: 08/02/2024 Start: 06-23-2023 End: 06-23-2023 Patient encounter procedure 06/23/2023 8:00 AM EST Office Visit [facility] [address] [place] [address] Sb Loco MD [address] [place] [address] [facility] Start: 03-19-2023 Medicare Annual Well ness (AWV) Medicare Annual Wellness (AWV) [facility] Start: 01-29-2023 [facility] Start: 2007 Fall Risk Screening Fall [facility] Screen ing [facility] Start: 1992 Administration of varicella zoster vaccine Zoster (Shingles) Vacc[facility] Start: 1961 DTaP,Tdap and Td Vac cines (1 - Tdap) DTaP,Tdap and Td Vaccines (1 - Tdap) [facility] Start: 1960 Adult BMI Follow Up Plan Adult BMI Follow Up Plan [facility] Start: 1954 Depression Screening Depression Scre ening [facility] Start: 1952 Glaucoma screening Diabetes: R etinopathy Screening [facility] Start: 1942 Medicare Annual Well ness Visit Medicare Annual Wellness Visit [facility] Start: 1942 Tobacco Counseling Tobacco Counselin g [facility] Immunizations Immunization Date Immunization Notes Care Provider Fa nighatty 03-15-2023 Pneumococcal Conjuga te PCV 20 Tonja Gilliam MD Work Phone: [facility] Payers Date Payer Category Payer Medicare [id number] 2022 Medicare [id number] 2022 Medicare [id number] 2020 Unknown [id number] 1942 Unknown [id number] 2.16.84 0.1.229769.3.579.2.593 1942 Unknown [id number] 2.16.8 40.1.468685.3.579.2.1286 1942 Unknown [id number] 2.16.84 0.1.275638.3.579.2.1259 1942 Unknown [id number] 2.16.84 0.1.127414.3.579.2.1259 1942 Unknown [id number] 2.16.84 0.1.436369.3.579.2.1259 1942 Unknown [id number] 2.16.84 0.1.661174.3.579.2.1259 1942 Unknown [id number] 2.16.84 0.1.222598.3.579.2.1259 1942 Unknown [id number] 2.16.84 0.1.006047.3.579.2.1259 1942 Unknown [id number] 2.16.84 0.1.625177.3.579.2.1259 1942 Unknown [id number] 2.16.84 0.1.436536.3.579.2.1259 1942 Unknown [id number] 2.16.84 0.1.737092.3.579.2.1259 1942 Unknown [id number] 2.16.84 0.1.236704.3.579.2.1259 1942 Unknown [id number] 2.16.84 0.1.142598.3.579.2.1259 1942 Unknown [id number] 2.16.84 0.1.705914.3.579.2.1259 1942 Unknown [id number] 2.16.8 40.1.642286.3.579.2.1286 1942 Unknown [id number] 2.16.8 40.1.893305.3.579.2.1286 1942 Unknown [id number] 2.16.8 40.1.241034.3.579.2.1286 1942 Unknown [id number] 2.16.8 40.1.731523.3.579.2.1286 1942 Unknown [id number] 2.16.8 40.1.250858.3.579.2.1286 1942 Unknown [id number] 2.16.8 40.1.456804.3.579.2.1286 1942 Unknown [id number] 2.16.8 40.1.495904.3.579.2.1286 1942 Unknown [id number] 2.16.8 40.1.811468.3.579.2.1286 Social History Date Type Detail Facility Start: 12-05-2021 End: 06-23-2023 Tobacco smoking status NHIS Smokes tobacco daily [facility] History of tobacco use Cigarette Smoker [facility] Start: 12-05-2021 End: 06-23-2023 Tobacco use and exposure Smokeless tobacco non-user [facility] Start: 06-10-2023 End: 07-09-2023 Alcohol intake Lifetime non-drinker (finding) [facility] Start: 06-11-2023 End: 08-03-2023 History of Social function [facility] Start: 06-11-2023 End: 08-03-2023 [facility] Utilities [facility] Has the electric, [employer], oil, or water company threatened to shut off services in your home in past 12Mo No [facility] In the past 12 month s, has lack of transportation kept you from medical appointments or from getting medications? No [facility] Start: 1940 Sex Assigned At Not on file [facility] Start: 06-23-2023 End: 08-03-2023 Alcohol intake Ex-drinker (finding) [facility] Are you now , , , , never or living with a partner? [facility] How often to you hav e a drink containing alcohol? Never [facility] Do you feel stress - tense, restless, nervous, or anxious, or unable to sleep at night because your mind is troubled all the time - these days [OSQ] Not at all [facility] (I/We) worried wheth er (my/our) food would run out before (I/we) got money to buy more. Never true [facility] Start: 06-08-2023 Alcohol Comment caffeine: 1 cups per day coffee [facility] Medical Equipment Procedure Code Equipment Code Equipment Origin al Text Equipment Identifier Dates 1 each by Other route in the morning. [id number] Start: 07-31-2022 [employer] [facility] [id number] Start: 12-29-2022 Clinical Notes 06-15-2023 to 02-07-2024 Aristeo Garcia MD - 08/03/2023 1:40 PM ESTTelephone Encounter - Christy Valdes - 07/13/2023 5:46 PM ESTTelephone Encounter - Christy Valdes - 07/13/2023 5:46 PM EST Note Date & Type Note Facility 02-07-2024 Note [facility] Note Reason for cardiology consult: Congestive heart failure, aortic stenosis Chief Complaint: Shortness of breath HPI: Ishmael Monahan is a 83 y.o. female with history of nonischemic cardiomyopathy with reduced EF 20-25%, hypertension, hyperlipidemia, CKD, type 2 diabetes with neuropathy, tobacco use, emphysema, and peripheral artery disease, S/P PTCA of right and left legs, S/P renal arteries stents. She used to follow-up with [facility] and she switched to [facility]. The patient has chronic dyspnea on exertion and she is on continuous oxygen at 3 L/min. She continues to smoke about half pack per day. She used to smoke at least 1 pack/day for about 12 years. She is not planning to quit because she enjoys it . She used to drink alcohol once a week but she quit. She denies chest pain at rest or with exertion. She denies orthopnea or paroxysmal nocturnal dyspnea or dizziness or palpitations. She denies legs edema however she feels that her legs are numb all the time. She does not report claudication. She denies any illicit drug use Cardiology ROS: GENERAL: Denies fever, chills, night sweats, weight loss. HEENT: Denies changes in vision, photophobia, changes in hearing, epistaxis, oral bleeding.. CARDIOVASCULAR: Denies chest pain, she has significant exertional dyspnea, No orthopnea/PND, lower extremity edema, palpitations, lightheadedness/dizziness. RESPIRATORY: Reports MONTANEZ, Denies coughing, wheezing GI: Denies abdominal pain, nausea/vomiting, heartburn, melena/hematochezia. RENAL: Denies dysuria, hematuria, flank pain. MSK: Denies muscle weakness/pain, arthralgias/joint pain. NEUROLOGIC: Denies LOC, weakness, numbness, headaches. SKIN: Denies abnormal rashes or bleeding. PSYCH: Denies significant anxiety, depression, sleep disturbances. Past Medical History She has a past medical history of Abnormal ECG, Chronic kidney disease, COPD (chronic obstructive pulmonary disease) ([facility]), Coronary artery disease, Diabetes mellitus ([facility]), Hyperlipidemia, Hypertension, LBBB (left bundle branch block), Myocardial infarction ([facility]), NICM (nonischemic cardiomyopathy) ([facility]), and PAD (peripheral artery disease) ([facility]). Surgical History She has a past surgical history that includes Cardiac catheterization. Social History She reports that she has never smoked. She has never used smokeless tobacco. No history on file for alcohol use and drug use. Family History Family History Problem Relation Name Age of Onset Heart failure Mother Sudden Father Stroke Father Heart attack Son Allergies Patient has no known allergies. Medications Current Outpatient Medications: albuterol 90 mcg/actuation inhaler, Inhale 2 puffs every 4 (four) hours if needed., Disp: , Rfl: aspirin 81 mg EC tablet, Take 81 mg by mouth in the morning., Disp: , Rfl: clopidogrel (Plavix) 75 mg tablet, Take 75 mg by mouth in the morning., Disp: , Rfl: glimepiride (Amaryl) 4 mg tablet, Take 4 mg by mouth twice a day., Disp: , Rfl: losartan (Cozaar) 100 mg tablet, Take 100 mg by mouth in the morning., Disp: , Rfl: metFORMIN (Glucophage) 1,000 mg tablet, TAKE 1 TABLET WITH A MEAL ORALLY TWICE DAILY, Disp: , Rfl: montelukast (Singulair) 10 mg tablet, Take 10 mg by mouth in the morning., Disp: , Rfl: pantoprazole (ProtoNix) 40 mg EC tablet, TAKE 1 TABLET EVERY MORNING BEFORE A MEAL, Disp: , Rfl: rosuvastatin (Crestor) 20 mg tablet, Take 20 mg by mouth in the morning., Disp: , Rfl: semaglutide (Rybelsus) 7 mg tablet, TAKE 1 TABLET EVERY MORNING TAKE BEFORE A MEAL, Disp: , Rfl: Last Recorded Vitals Visit Vitals BP 126/62 (BP Location: Left arm, Patient Position: Sitting) Pulse 106 Ht 1.651 m (5' 5 ) Wt 45.4 kg (100 lb) SpO2 92% Comment: on 3L O2 BMI 16.64 kg/m??? Smoking Status Never BSA 1.44 m??? Physical Examination: GENERAL: alert and oriented x3, well developed, in no acute distress. HEAD: atraumatic, normocephalic. EYES: PASCUAL, EOMI. NECK: trachea midline, no JVD present, no carotid bruits present. CARDIAC: S1, S2 present. RRR. No murmur, rubs, or gallops. RESPIRATORY: CTAB, no increased effort of breathing, no rales, rhonchi, or wheezing. ABDOMEN: soft, nontender, nondistended. EXTREMITIES: no lower extremity edema. No rash/skin discoloration present. NEURO: strength/sensation equal and symmetric in bilateral upper and lower extremities. PSYCH: appropriate mood, affect, and judgement. Labs: 08/18/2023 White blood count 12.3, hemoglobin 12.8, hematocrit 38.3, platelets 238 Sodium 132, potassium 4.2, BUN 26, creatinine 0.94, glucose 136, calcium 10.5, GFR 61, magnesium 1.8 Total protein 7.6, alk phos 99, ALT 21, AST 17, total bilirubin 0.9 06/11/2023 BNP 2049-normal less than 100 TSH 0.68, free T40.8 INR 1.1 12/08/2021 Cholesterol 91, triglyceride 138, HDL 44, LDL 19 Last Images: Lower extremities arteri (more content not included)... [facility] 08-03-2023 History of Presen t illness Narrative Images from the original note were not included. [facility] [address] [place] [address] Subjective: Patient ID: Ishmael Monahan is a 83 y.o. female. Chief Complaint No chief complaint on file. History of Present Illness: Thank you Pia Talley CNP for referring patient Ishmael Monahan and for your trust in our practice. Ishmael Monahan is a 83 y.o. pleasant female with history of ASCVD, cardiomyopathy with reduced EF, hypertension, hyperlipidemia, CKD, type 2 diabetes, and emphysema who presents today for consultation at the [facility] due to history of peripheral artery disease. Patient states she has had 6 stents placed in her right leg and 1 stent placed in her left leg in [place] in . She heard of medications to prevent stents collapsing and wanted to see a vascular doctor. Patient describes that her legs get tired when ambulating, but this is different to her prior claudication symptom when she would have pain in her legs. She states she has not very active, limited by her COPD. She has 1 wound on her left anterior camp that she notes is healing nicely. She has a history of hypertension and tobacco abuse. She has a newly reduced ejection fraction on her most recent echo, she has been evaluated by Cardiology and patient declined any further workup. Patient Active Problem List Diagnosis NSTEMI (non-ST elevated myocardial infarction) ([facility]) Iron deficiency anemia Cardiomyopathy Mucopurulent chronic bronchitis ([facility]) Pulmonary emphysema ([facility]) Anxiety, generalized Diabetic renal disease ([facility]) Essential hypertension GERD without esophagitis Mixed hyperlipidemia Peripheral vascular disease ([facility]) Polyneuropathy due to type 2 diabetes mellitus ([facility]) Restless leg syndrome Stage 3b chronic kidney disease ([facility]) Type 2 diabetes mellitus with diabetic autonomic (poly)neuropathy ([facility]) Current Outpatient Medications: albuterol (PROVENTIL HFA;VENTOLIN HFA) 90 mcg/actuation inhaler, Inhale 2 puffs every 6 (six) hours as needed for wheezing., Disp: , Rfl: albuterol (PROVENTIL HFA;VENTOLIN HFA) 90 mcg/actuation inhaler, Inhale 2 puffs every 6 (six) hours as needed for wheezing or shortness of breath., Disp: 18 g, Rfl: 11 benzonatate (TESSALON PERLES) 100 mg capsule, Take 1 capsule (100 mg total) by mouth as needed., Disp: , Rfl: azwnpzabbu-rqyzqxgy-rzwogxhccu (BREZTRI AEROSPHERE) 160-9-4.8 mcg/actuation HFA aerosol inhaler, Inhale 2 puffs in the morning and at bedtime., Disp: , Rfl: clopidogreL (PLAVIX) 75 mg tablet, Take 1 tablet (75 mg total) by mouth in the morning., Disp: , Rfl: doxycycline (DORYX) 100 MG EC tablet, Take 1 tablet (100 mg total) by mouth in the morning and 1 tablet (100 mg total) before bedtime., Disp: , Rfl: glimepiride (AMARYL) 2 mg tablet, Take 2 tablets (4 mg total) by mouth in the morning and 2 tablets (4 mg total) before bedtime., Disp: , Rfl: guaiFENesin (MUCINEX) 600 mg tablet extended release 12hr, Take 1 tablet (600 mg total) by mouth every 12 (twelve) hours., Disp: 60 tablet, Rfl: 10 hydroCHLOROthiazide (MICROZIDE) 12.5 mg capsule, Take 1 tablet by mouth daily., Disp: , Rfl: losartan (COZAAR) 100 mg tablet, Take 1 tablet (100 mg total) by mouth in the morning., Disp: , Rfl: metFORMIN (GLUCOPHAGE) 1000 mg tablet, Take 1 tablet (1,000 mg total) by mouth in the morning and 1 tablet (1,000 mg total) in the evening. Take with meals., Disp: , Rfl: metoprolol succinate XL (TOPROL XL) 50 mg 24 hr tablet, Take 1 tablet (50 mg total) by mouth in the morning., Disp: 30 tablet, Rfl: 11 montelukast (SINGULAIR) 10 mg tablet, Take 1 tablet (10 mg total) by mouth nightly., Disp: , Rfl: pantoprazole (PROTONIX) 40 mg EC tablet, Take 1 tablet (40 mg total) by mouth in the morning., Disp: , Rfl: rOPINIRole (REQUIP) 0.5 mg tablet, Take 1 tablet (0.5 mg total) by mouth 3 (three) times a day., Disp: , Rfl: rosuvastatin (CRESTOR) 20 mg tablet, Take 1 tablet (20 mg total) by mouth in the morning., Disp: , Rfl: semaglutide 7 mg tablet, Take 7 mg by mouth in the morning., Disp: , Rfl: aspirin 81 mg, Take 1 tablet (81 mg total) by mouth in the morning., Disp: , Rfl: Past Medical History: Diagnosis Date COPD (chronic obstructive pulmonary disease) ([facility]) Coronary artery disease Diabetes mellitus type 2, controlled ([facility]) GERD (gastroesophageal reflux disease) Hyperlipidemia Hypertension Peripheral vascular disease ([facility]) Polyneuropathy associated with underlying disease ([facility]) Restless leg syndrome Past Surgical History: Procedure Laterality Date Coronary angiogram and left ventricular gram/pressure N/A 12/10/2021 Performed by Rickey Sotelo MD at [facility]ARD[facility] CATH LABS EGD Left Lateral 12/09/2021 Performed by Michelle Bosch MD at [facility] Family History Problem Relation Age of Onset Heart failure Mother Sudden Father Stroke Father Heart attack Son COPD Son Social History Socioeconomic History Marital status: Spouse name: Not on file Number of children: Not on file Years of education: Not on file Highest education level: Not on file Occupational History Not on file Tobacco Use Smoking status: Every Day Packs/day: .5 Types: Cigarettes Smokeless tobacco: Never Vaping Use Vaping Use: Never used Substance and Sexual Activity Alcohol use: Not Currently Drug use: Never Sexual activity: Not on file Other Topics Concern Caffeine Use Yes Social History Narrative Not on file Social Determinants of Health Financial Resource Strain: Not on file Food Insecurity: No Food Insecurity (08/03/2023) Hunger Screening Food Insecurity - Worry: Never True Food Insecurity - Inability: Never True Transportation Needs: No Transportation Needs (06/11/2023) PRAPARE - Transportation Lack of Transportation (Medical): No Lack of Transportation (Non-Medical): No Physical Activity: Not on file Stress: Not on file Social Connections: Not on file Interpersonal Safety: Not At Risk (06/11/2023) Humiliation, Afraid, Rape, and Kick questionnaire Fear of Current or Ex-Partner: No Emotionally Abused: No Physically Abused: No Sexually Abused: No Housing Instability: Low Risk (06/11/2023) Housing Instability Housing Instability: No No Known Allergies The following portions of the patient's history were reviewed and updated as appropriate: allergies, current medications, past family history, past medical history, past social history, past surgical history and problem list. Review of Systems: Review of Systems Objective: Vitals BP 110/60 (BP Site: Right Arm, BP Postition: Sitting, BP CUFF SIZE: M (9-13 inches)) Ht 165.1 cm (5' 5 ) Wt 46.7 kg (103 lb) BMI 17.14 kg/m Physical Exam General appearance: awake, alert, oriented, no acute distress HEENT: supple, no cervical lymphadenopathy, no JVD CV: RRR, no murmurs PULM: Diminished breath sounds, rhonchi, wheezing to auscultation ABD: soft, NT/ND, no masses NEURO: Negative for focal deficit, weakness or loss of sensation. EXT: No deformities or skin discoloration. No clubbing, cyanosis, or edema. Studies Reviewed -arterial duplex report. Lab Results Component Value Date DDIMER 265 (H) 06/11/2023 Lab Results Component Value Date GLU 304 (H) 06/12/2023 CALCIUM 9.5 06/12/2023 SODIUM 132 (L) 06/12/2023 K 3.6 06/12/2023 CO2 26 06/12/2023 BUN 34 (H) 06/12/2023 CREATININE 1.03 (H) 06/12/2023 Lab Results Component Value Date WBC 7.6 06/12/2023 HGB 11.0 (L) 06/12/2023 HCT 32.5 (L) 06/12/2023 MCV 92 06/12/2023 PLT 196 06/12/2023 Assesment: Diagnoses and all orders for this visit: Atherosclerosis of [place] artery of lower extremity with intermittent claudication([facility]) Patient has history of peripheral artery disease with remote stenting in her right and left leg and [place] . Arterial duplex report of bilateral extremity noted left common femoral moderate stenosis otherwise no significant stenosis in bilateral lower extremities. She does not describe current claudication symptoms. No wounds or ulcers. Continue aspirin, Plavix, Crestor Will repeat duplex and PVR testing in 6 months. Follow-up in office in 9 months Renal artery stenosis Has a history of stents in renal arteries Will obtain duplex renal Essential hypertension Well controlled on current regimen Mixed hyperlipidemia Continue Crestor This note was created with the assistance of a speech recognition program. While intending to generate a timely document that accurately reflects the content of the visit, no guarantee can be provided that every grammatical or spelling mistake has been or will be identified or corrected. Thank you for your understanding. Dima Chavez PA-C Interventional Cardiology and Endovascular Interventions [facility] documented in this encounter [facility] 07-13-2023 Telephone encounter Note Pt left vm stating that her insurance [employer] does not cover a in [facility]. Some told her she could go to [facility] so she wants you to find a referral for a DrOlimpia In [facility] and schedule her. The message did not mention what the referral was for. Please return patient call to [phone] [facility] 07-13-2023 Miscellaneous Notes Pt left vm stating that her insurance [employer] does not cover a in [facility]. Some told her she could go to [facility] so she wants you to find a referral for a DrOlimpia In [facility] and schedule her. The message did not mention what the referral was for. Please return patient call to [phone] documented in this encounter [facility] 06-24-2023 Miscellaneous Notes Patient has [employer] Medicare and was explained she could be seen in our office but the only provider in network is Dr. Garcia patient has a appointment tomorrow with [facility] she will try to get a provider though them. documented in this encounter [facility] 06-24-2023 Telephone encounter Note Patient has [employer] Medicare and was explained she could be seen in our office but the only provider in network is Dr. Garcia patient has a appointment tomorrow with [facility] she will try to get a provider though them. 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 SystemInstructionsNot on filedocumented in this encounter [facility] SystemInstructionsNot on filedocumented in this encounter [facility] SystemReason for visit Narrative* Consultation (Routine) - Pending Review Specialty Diagnoses / Procedures Referred By Velma t Referred To Contact Vascular Surgery Diagnoses Peripheral vascular disease (CMS-HCC) Peripheral arterial disease (CMS-HCC) Procedures GA OFFICE OUTPATIENT VISIT 60-74 MINS HIGH MDM AMB REFERRAL TO VASCULAR SURGERY Pia Talley, TWISTER OPERATOR-SAUSAGE STUFFER [address] [place] [address] Aristeo Garcia MD [address] [place] [id number] Referral ID Status Reason Start Date Expiration Date V isits Requested Visits Authorized [id number] Pending Review 07/09/2023 01/05/2024 1 1 [facility] Summary Purpose Family History No Family History Records FoundNo Family History Records FoundNo Family History Records FoundNo Family History Records FoundNo Family History Records FoundNo Family History Records FoundNo Family History Records Found Advance Directives No Advanced Directives Records FoundLatest Code Status on File Code Status Date Activated Date Inactivated Comments Full Code 06/11/2023 12:23 AM 06/12/2023 1:53 PM Code Status History Code Status Date Activated Date Inactivated Comments Full Code 12/06/2021 2:49 AM 12/10/2021 10:34 PM Latest Code Status on File Code Status Date Activated Date Inactivated Comments Full Code 06/11/2023 12:23 AM 06/12/2023 1:53 PM Code Status History Code Status Date Activated Date Inactivated Comments Full Code 12/06/2021 2:49 AM 12/10/2021 10:34 PM Reason for Referral Specialty Diagnoses / Procedures Referred By Contterrell t Referred To Contact Diagnoses Renal artery stenosis (CMS-HCC) Procedures Vas renal artery duplex complete Dima Chavez, TOMY [address] [place] [address] Referral ID Status Reason Start Date Expiration Date V isits Requested Visits Authorized [id number] Pending Review 08/03/2023 08/02/2024 1 1 Specialty Diagnoses / Procedures Referred By Contac t Referred To Contact Diagnoses 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 ([facility]) Procedures Vasc art doppler lwr PVR W/exercise Dima Chavez, PA-C [address] [place] [address] Referral ID Status Reason Start Date Expiration Date V isits Requested Visits Authorized [id number] Pending Review 08/03/2023 08/02/2024 1 1 Specialty Diagnoses / Procedures Referred By Contac t Referred To Contact Diagnoses 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 DATE CREATED AUTHOR AUTHOR'S ORGANIZ ATION 03/26/2022 [facility] dical Specialist DATE CREATED AUTHOR AUTHOR'S ORGANIZ ATION 08/04/2023 [facility] DATE CREATED AUTHOR AUTHOR'S ORGANIZ ATION 08/27/2023 [facility] dical Specialists [facility] DATE CREATED AUTHOR AUTHOR'S ORGANIZ ATION 02/10/2024 [facility] DATE CREATED AUTHOR AUTHOR'S ORGANIZ ATION 02/13/2024 [facility] DATE CREATED AUTHOR AUTHOR'S ORGANIZ ATION 02/17/2024 [facility] Care Teams (unrecognized sec tion and content) Development Representative Relationship Specialty Start Date End Date Shila Molina DO [address] [place] [address] PCP - General Family Medicine 12/05/21 Development Representative Relationship Specialty Start Date End Date Tonja Gilliam MD [address] [place] [address] PCP - General Family Medicine 06/23/23 Development Representative Relationship Specialty Start Date End Date Shila Molina DO [address] [facility] [place] [address] PCP - [facility] 05/31/22 Tonja Gilliam MD [address] [facility] [place] [address] PCP - General Family Medicine 06/08/23 Pia Talley NP [address] [place] [address] Nurse Practitioner Family Medicine 06/08/23 Development Representative Relationship Specialty Start Date End Date Tonja Gilliam MD [address] [facility] [place] [address] PCP - General Family Medicine 06/23/23 FOR RECORDS PERTAINING TO PATIENTS WHO ARE OR HAVE BEEN ENROLLED IN A CHEMICAL DEPENDENCY/SUBSTANCEABUSE PROGRAM, SOME INFORMATION MAY BE OMITTED. This clinical summary was aggregated from multiple sources. Caution should be exercised in using it in the provision of clinical care. This summary normalizes information from multiple sources, and as a consequence, information in this document may materially change the coding, format and clinical context of patient data. In addition, data may be omitted in some cases. CLINICAL DECISIONS SHOULD BE BASED ON THE PRIMARY CLINICAL RECORDS. [employer] [facility]. provides no warranty or guarantee of the accuracy or completeness of information in this document.
[2024-02-28] MEDS: ASPIRIN 81 MG TAB.CHEW PO (09:33)
[2024-02-28] MEDS: MONTELUKAST SODIUM 10 MG TABLET PO (09:33)
[2024-02-28] MEDS: ENSURE CLEAR 237 ML LIQUID PO (09:33)
[2024-02-28] MEDS: LOSARTAN POTASSIUM 50 MG TABLET 100 MG PO (09:33)
[2024-02-28] MEDS: PROSTAT 15 GM PROTEIN/100 CAL 30 ML LIQUID PACKET PO (09:33)
[2024-02-28] MEDS: NICOTINE 21 MG PATCH.TD24 TD (09:34)
[2024-02-28] MEDS: METOPROLOL SUCCINATE 50 MG TAB.ER.24H PO (09:34)
[2024-02-28] MEDS: CLOPIDOGREL BISULFATE 75 MG TABLET PO (09:34)
[2024-02-28] MEDS: BUDESONIDE 0.5 MG/2 ML AMPULE NEB IH (10:12)
--- NOTE | 2024-02-28 10:13 | CM.NOTE ---
Rounds made with Dr. Zapata, pt having echo when entering room. Called Dr. Oliveira's office for past echo to compare. Pt does have home oxygen through medical supplies. No discharge today.
--- NOTE | 2024-02-28 10:19 | CM.NOTE ---
Important Message From Medicare discussed with pt, pt verbalizes understanding and signs paper. Original given to pt and copy placed on pt's chart.
[2024-02-28 11:10] LABS: Glucometer 227 mg/dL (74-106)
--- NOTE | 2024-02-28 11:16 | SWNOTE1 ---
SOURAV to see where pt gets her home oxygen from. SOURAV called [facility] and it is not them. SOURAV called [facility] [employer] and she does get home oxygen thru them. It is 2 liters per minute nasal canula continuous and it was just prescribed to her on 01/14/24. SOURAV sent message to update Dr. Zapata.
--- NOTE | 2024-02-28 11:23 | PM.DS1 ---
DS: Providers Provider Date of admission: 02/27/24 08:46 Primary care physician: Non-Staff Physician, Admitting clinician: Shaikh Benny Attending physician on admission: Shaikh Benny Consults: 02/26/24 Consult to Dietitian Routine Reason for consultation: weight loss Has provider been notified: No 02/26/24 12:05 Occupational Therapy Eval and Treat Routine Reason for consultation: Ambulatory dysfunction/weakness Physical Therapy Eval and Treat Routine Reason for consultation: Ambulatory dysfunction/weakness Attending physician on discharge: Shaikh Benny Discharging clinician: Shaikh Benny Anticipated date of discharge: 02/28/24 DS: Diagnosis Discharge Diagnosis (1) Acute on chronic respiratory failure with hypoxia: Assessment and plan: Baseline home O2 is 2 L. Confirmed from O2 supply company. She had increased her O2 herself to 3.5. She is now back to baseline. (2) Acute on chronic systolic (congestive) heart failure: Assessment and plan: Presented with volume overload, worsening hypoxia. Now back to her baseline. Patient was not aware of her hx of CHF and claims that no one ever told her. ECHO 06/23 -- shows severely reduced EF. She is not on GDMT. Repeat ECHO 02/21 --> unofficial reading also revealed severely reduced EF of 20% She is already on Losartan and Toprol. I will add Lasix and Aldactone for her upon discharge (3) COPD (chronic obstructive pulmonary disease): Assessment and plan: No active wheezing. C/w Bhaskar. Refer to Dr Paige for outpatient fu Qualifiers: COPD type: emphysema Emphysema type: unspecified Qualified Code(s): J43.9 - Emphysema, unspecified (4) CAD (coronary artery disease): Assessment and plan: C/w ASA, plavix, statin Qualifiers: Associated angina: without angina Coronary Disease-Associated Artery/Lesion type: [place] artery [place] vs. transplanted heart: [place] heart Qualified Code(s): I25.10 - Atherosclerotic heart disease of [place] coronary artery without angina pectoris (5) HTN (hypertension): Assessment and plan: Will add aldactone/lasix upon discharge due to hx of HFrEF. Qualifiers: Hypertension type: primary hypertension Qualified Code(s): I10 - Essential (primary) hypertension (6) PAD (peripheral artery disease): Assessment and plan: Outpatient f/u with Vascular. C/w ASA, plavix, statin (7) Type 2 diabetes mellitus: Assessment and plan: Hold Rybelsus due to patients weight loss/malnutrition. C/w Metformin/glimepiride. Ideally she should be on SGLT2 inhibitor but will defer for now. Qualifiers: Diabetes mellitus complication status: without complication Diabetes mellitus academic registrar insulin use: without senior living use Qualified Code(s): E11.9 - Type 2 diabetes mellitus without complications (8) HLD (hyperlipidemia): Assessment and plan: c/ statin Qualifiers: Hyperlipidemia type: unspecified Qualified Code(s): E78.5 - Hyperlipidemia, unspecified (9) Current smoker: Assessment and plan: Discussed smoking cessation (10) Severe malnutrition: Assessment and plan: Patient has severe malnutrition likely due to COPD/Chronic resp failure. She has lost about 10 kg in past one year. Her BMI is only 16, she has poor muscle mass, evidence of muscle wasting, loss of subcutaneous tissue. She is on ensure as outpatient. Stop Rybelsus as it causes weight loss. DS: Summary Hospital Course Hospital Course: 83 y o female with COPD, chronic resp failure on 2 L O2 presented to ED with sudden onset SOB, wheezing and chest tightness. Patient was treated with albuterol nebs and solumedrol and subsequently IV Lasix after initial work up revealed volume overload. She was treated with IV lasix with good UO, improvement in her resp status, hypoxia. She was weaned off to 2 L O2 via [place], that is her baseline. Patient is very poor historian, has poor insight and provided different information regarding her home O2, and denied personal hx of CHF which was later confirmed to be not true. Patient is medically stable for discharge. She will be discharge on oral Lasix, Aldactone. She is already on Toprol, Losartan. She is already established with [facility] cardiology. She will be referred to Dr Paige for COPD. Patient instructed to return to ED if she has recurrence of her symptoms. Time Spent with Patient Time attestation: Total time spent providing and/or coordinating discharge services: Exam Constitutional Vital Signs, click to edit/add: Last Vital Signs Temp 98.0 F 02/28/24 08:11 Pulse 83 02/28/24 10:16 Resp 18 02/28/24 08:11 BP 106/58 02/28/24 08:11 Pulse Ox 98 02/28/24 10:16 O2 Del Method Nasal Cannula 02/28/24 10:16 O2 Flow Rate 2 02/28/24 10:16 DS: Data Data Completed and Pending Labs on day of discharge: Labs from last 24 hours 02/28/24 02/28/24 02/27/24 11:08 05:58 19:14 WBC 6.6 RBC 3.36 L Hgb 9.3 L Hct 30.1 L MCV 89.6 MCH 27.7 MCHC 30.9 RDW 15.8 H Plt Count 244 MPV 11.3 Neut % (Auto) 63.5 Lymph % (Auto) 22.0 [place] % (Auto) 10.3 Eos % (Auto) 2.9 Baso % (Auto) 1.1 Neut # (Auto) 4.2 Lymph # (Auto) 1.5 [place] # (Auto) 0.7 Eos # (Auto) 0.2 Baso # (Auto) 0.1 Abs Immat Gran (auto) 0.01 Imm/Tot Granulo (auto) 0.2 Sodium 136 Potassium 4.3 Chloride 100 Carbon Dioxide 33.6 H Anion Gap 6.7 BUN 32.0 H Creatinine 1.18 H Est GFR ( Amer) 53 L Est GFR (Non-Af Amer) 44 L BUN/Creatinine Ratio 27.1 Glucose 141 H Calcium 9.9 Total Bilirubin 0.4 AST 18 ALT 28 Alkaline Phosphatase 95 Total Protein 6.5 Albumin 2.9 L Globulin 3.6 Albumin/Globulin Ratio 0.8 POC Glucose 227 H 73 L 02/27/24 02/27/24 16:04 11:49 WBC RBC Hgb Hct MCV MCH MCHC RDW Plt Count MPV Neut % (Auto) Lymph % (Auto) [place] % (Auto) Eos % (Auto) Baso % (Auto) Neut # (Auto) Lymph # (Auto) [place] # (Auto) Eos # (Auto) Baso # (Auto) Abs Immat Gran (auto) Imm/Tot Granulo (auto) Sodium Potassium Chloride Carbon Dioxide Anion Gap BUN Creatinine Est GFR ( Amer) Est GFR (Non-Af Amer) BUN/Creatinine Ratio Glucose Calcium Total Bilirubin AST ALT Alkaline Phosphatase Total Protein Albumin Globulin Albumin/Globulin Ratio POC Glucose 254 H 156 H Discharge Plan Discharge Disposition: Home, Self-Care Discharge Medications: New furosemide [Lasix] 20 mg tablet 20 mg PO DAILY Qty: 30 0RF spironolactone [Aldactone] 25 mg tablet 12.5 mg PO DAILY Qty: 30 0RF Continued albuterol sulfate 2.5 mg /3 mL (0.083 %) solution for nebulization 2.5 mg inhalation Q4H PRN (Reason: shortness of breath or wheezing) albuterol sulfate 90 mcg/actuation HFA aerosol inhaler 2 inh INHALATION Q4H PRN (Reason: shortness of breath or wheezing) Breztri Aerosphere 160-9-4.8 mcg/actuation HFA aerosol inhaler 2 inh INHALATION BID metoprolol succinate 50 mg tablet extended release 24 hr 50 mg PO DAILY metformin 1,000 mg tablet 1,000 mg PO DAILY glimepiride 4 mg tablet 4 mg PO DAILY clopidogrel [Plavix] 75 mg tablet 75 mg PO DAILY rosuvastatin 20 mg tablet 20 mg PO DAILY aspirin 81 mg tablet,chewable 81 mg PO DAILY pantoprazole [Protonix] 40 mg tablet,delayed release (DR/EC) 40 mg PO DAILY losartan [Cozaar] 100 mg tablet 100 mg PO DAILY montelukast [Singulair] 10 mg tablet 10 mg PO DAILY Discontinued Rybelsus 7 mg tablet 7 mg PO DAILY Activity: increase activity as tolerated Diet: low salt diet Print Language: Lebanese Forms: Portal Instructions Follow Up Appointments: F/u with PCP in one week F/u with [facility] cardiology 2 weeks F/u with Pulmonology (Dr. Paige) in 4 weeks
[2024-02-28] MEDS: INSULIN ASPART 300 UNIT/3 ML PEN SUBQ (12:03)
--- NOTE | 2024-02-28 12:11 | SWNOTE1 ---
SW met with pt to discuss dc needs. Pt lives at home, her son lives with her. She voiced he is a mess and makes the house a mess and he is Bipolar. Pt wears home oxygen thru [employer], 2 liters continuous. Pt voiced it is hard to go anywhere with her oxygen as it will only last 4 hours. She stated she is short of breath when walking to the car. She stated she has one daughter she can rely on to get her groceries and has helped her bathe one time. SW and pt spoke about oupt PT, cardiac rehab, and home health. Pt has decided she wants home health so it is hard for her to go anywhere at this time. Outpt was recommended, but she stated she just can't get anywhere at this time. Pt stated if she has a co-pay she does not want HH. SW advised pt that we will use a HH company that in network with her insurance. Pt does not have a preference on HH, medicare.gov star rating was provided. SOURAV to try [facility]. Referral sent to [facility]. Referral included face sheet, ED note, H&P, provider notes, rn progressive carefacility service manager, and PT/OT notes.
--- NOTE | 2024-02-28 12:57 | SWNOTE1 ---
[facility] has accepted. SOURAV to let pt know and let nursing know. SOURAV sent dc med rec to [facility] and [facility].
--- NOTE | 2024-02-29 16:04 | CM.DCFOLLOWU ---
Person spoke with:patient How are you feeling? not too bad How is your pain? none Did you understand your discharge instructions? yes Do you have any questions about your discharge instructions?no Were you given any prescriptions at discharge? yes Were you able to get your prescriptions filled? yes Do you understand how to take your medications as ordered? yes Do you have any questions about your follow up appointment and do you plan to keep your follow up appointment? no questions, reviewed follow ups. Advised pt to call [facility] if she does not hear from them by tomorrow Is there anything else that you would like to discuss? no Questions/Comments/Concerns/Other:none
== END 2024-02-28 15:38 | disposition home health service (06) | DRG 291 ==
LOC: ER 08:56 → MS 15:23
PROVIDERS: Emergency Medicine; Admitting Provider Internal Medicine; Emergency Provider Internal Medicine; Visit Provider Internal Medicine
DX: I11.0 Hypertensive heart disease with heart failure (principal); E43 Unspecified severe protein-calorie malnutrition; I50.23 Acute on chronic systolic (congestive) heart failure; J96.21 Acute and chronic respiratory failure with hypoxia; Z68.1 Body mass index [BMI] 19.9 or less, adult; I25.10 Atherosclerotic heart disease of native coronary artery without angina pectoris; J43.9 Emphysema, unspecified; I73.9 Peripheral vascular disease, unspecified; E11.9 Type 2 diabetes mellitus without complications; E78.5 Hyperlipidemia, unspecified; Z99.81 Dependence on supplemental oxygen; Z79.82 Long term (current) use of aspirin; F17.200 Nicotine dependence, unspecified, uncomplicated; Z79.02 Long term (current) use of antithrombotics/antiplatelets; Z79.899 Other long term (current) drug therapy
CPT/HCPCS: 36415; 71045; 71275; 80048; 80053; 82948; 83880; 84484; 85025; 93005; 93306; 94640; 94761; 97163; 97165; 99285; 99406; J1650; J1940; J2270; Q9967

== ENCOUNTER 2024-03-14 07:50 | Outpatient (RCR) | payer MEDICARE, SELFPAY | END 2024-03-30 23:59 | disposition home or self-care (01) | LOC: HEMC 07:50 | PROVIDERS: Visit Provider Internal Medicine Hematology & Oncology | DX: D64.9 Anemia, unspecified (principal); R91.1 Solitary pulmonary nodule; E83.52 Hypercalcemia; F17.210 Nicotine dependence, cigarettes, uncomplicated; J44.9 Chronic obstructive pulmonary disease, unspecified; Z90.710 Acquired absence of both cervix and uterus; Z90.49 Acquired absence of other specified parts of digestive tract; I42.9 Cardiomyopathy, unspecified; R06.02 Shortness of breath | CPT/HCPCS: G0463 ==

== ENCOUNTER 2024-04-02 15:12 | Inpatient (IN) | payer MEDICARE, SELFPAY ==
[2024-04-02] VITALS (41 sets, daily range): BP systolic 131–168; BP diastolic 60–92; PULSE 67–100; TEMP 36.7; O2SAT 80–100; BMI 21.9; BMI 17.0
--- NOTE | 2024-04-02 15:17 | XR_ITS ---
The [address] [address] Patient Name: ISHMAEL MONAHAN MRN: [id number] date: 1940 Sex: F Assigned Patient Location: ER Current Patient Location: ER Accession/Order Number: [id number] Exam Date: 04/02/2024 15:38 Report Date: 04/02/2024 15:58 At the request of: JODI RIVERO Procedure: XR chest 1V Exam: Radiographs: XR chest 1V Reason for exam: Shortness of breath Comparison: Chest x-ray dated 02/28/2024 XR/XR chest 1V IMPRESSION: Mild bilateral interstitial opacities that likely represent edema. Pulmonary venous hypertension. Emphysema and hyperinflation both lungs. Remainder the chest is unremarkable. Electronically authenticated by: ARTURO HOBBS Date: 04/02/2024 15:58
--- OUTSIDE RECORDS SUMMARY | 2024-04-02 15:18 | XMS_ITS | CCD ---
Author Organization [facility] ion [facility] Care Team Providers Care Ski Tow Operator Name Role Phone DR SIOBHAN DEMARCO Primary Care Unavailable MATI ZAMBRANO Admitting Unavailable MATI ZAMBRANO Consulting Unavailable MATI ZAMBRANO Attending Unavailable YU JUNIOR Consulting Unavailable Shila Molina DO Primary Care Provider Tonja Gilliam MD Primary Care Provider Shila Molina DO Unavailable Tonja Gilliam MD Primary Care Provider Mayank TOURISM RADIO PRESENTER, Pia Unavailable ARISTEO GARCIA Attending Unavailable PIA TALLEY A Referring Unavailable TONJA GILLIAM Primary Care Unavailable PIA TALLEY Attending Unavailable JOAQUINPSONIYA, PIA Referring Unavailable PIA TALLEY Attending Unavailable JOEY CAMP Attending Unavailab le PIA TALLEY Attending Unavailable JOAQUINPPIA BYRNES Referring Unavailable KAMPFER, PIA Attending Unavailable KAMPFER, PIA Attending Unavailable KAMPFER, PIA Attending Unavailable KAMPFER, PIA Attending Unavailable KAMPFERPIA Attending Unavailable KAMPFER, PIA Attending Unavailable KAMPSONIYA, PIA Attending Unavailable Tonja Gilliam MD Unavailable [phone] JERROD LAU Attending Unavailable JERROD LAU Attending Unavailable TONJA GILLIAM Primary Care Unavailable CORTEZ PÉREZ Attending Unavailable YANIQUE BURCIAGA Attending Unavailable TONJA GILLIAM Referring Unavailable TONJA GILLIAM Primary Care Unavailable MAYANK, PIA A Referring Unavailable TONJA GILLIAM Primary Care Unavailable DIMA CHAVEZ Referring Unavailable TONJA GILLIAM Primary Care Unavailable DIMA CHAVEZ Attending Unavailable DIMA CHAVEZ Referring Unavailable TONJA GILLIAM Primary Care Unavailable SB LOCO Attending Unavailable SHILA MOLINA Referring Unavailable MANETONJA CALVO Primary Care Unavailable DIMA CHAVEZ Attending Unavailable DIMA CHAVEZ Referring Unavailable MANETONJA CALVO G Primary Care Unavailable TONJA GILLIAM G Referring Unavailable CARISSA GILLIAMFER G Primary Care Unavailable ELLEN WHITMORE Attending Unavailable ELLEN WHITMORE Referring Unavailable MANETONJA CALVO Primary Care Unavailable ARISTEO GARCIA Attending Unavailable TONJA GILLIAM Referring Unavailable TONJA GILLIAM G Primary Care Unavailable ELLEN WHITMORE Attending Unavailable TONJA GILLIAM Referring Unavailable MANETONJA CALVO G Primary Care Unavailable Allergies Allergy Classification Reported Allergen(s) Allergy Type Date of Onset Reaction(s) Facility (13 sources) Aluminum aspirin; Translations: [ASPIRIN] Drug Allergy 08-18-2023 [facility] Medications Current Medications Medication Drug Class(es) Dates Sig (Normalized) Sig (Original) [id number] 200 actuat albuterol 0.09 mg/actuat metered dose inhaler (20 sources) beta2-Adrenergic Agonist Start: 03-30-2024 take 2 puff(s) by mouth every four hours as needed for wheezing albuterol HFA 90 mcg/act inhaler Indications: COPD mixed type (CMS/HCC) INHALE 2 PUFFS BY MOUTH EVERY 4 HOURS NEEDED FOR WHEEZING or SHORTNESS OF BREATH 25.5 g 1 03/30/2024 Active Start: 03-16-2024 albuterol (2.5 MG/3ML) 0.083% nebulizer solution Indications: COPD mixed type (CMS/HCC) Take 3 mL (2.5 mg) by nebulization every 6 (six) hours if needed for wheezing 90 mL 1 03/16/2024 Active Start: 01-18-2024 End: 03-16-2024 albuterol (2.5 MG/3ML) 0.083 % nebulizer solution Indications: COPD mixed type (CMS/HCC) TAKE 3ml via NEBULIZER EVERY 4 HOURS NEEDED FOR WHEEZING or SHORTNESS OF BREATH 90 mL 1 03/16/2024 Active Start: 01-18-2024 End: 03-30-2024 take 2 puff(s) by inhalation every four hours for wheezing albuterol HFA 90 mcg/act inhaler Indications: COPD mixed type (CMS/HCC) Inhale 2 puffs every 4 (four) hours if needed for wheezing or shortness of breath 54 g 1 03/16/2024 03/30/2024 Discontinued Start: 06-09-2023 albuterol (2.5 MG/3ML) 0.083% nebulizer [...] aspirin 81 mg delayed release oral tablet (10 sources) Platelet Aggregation Inhibitor, Nonsteroidal Anti-inflammatory Drug take 1 tablet by mouth once daily aspirin 81 MG EC tablet Take 81 mg by mouth Daily Active benzonatate 100 mg oral capsule (5 sources) Non-narcotic Antitussive Start: 022 benzonatate (TESSALON PERLES) 100 mg capsule Take 1 capsule (100 mg total) by mouth as needed. 0 02/07/2022 Active Blood Glucose Monitoring Suppl (True Metrix Air Glucose Meter) w/Device kit (11 sources) Start: Blood Glucose Monitoring Suppl (True Metrix Air Glucose Meter) w/Device kit Indications: Type 2 diabetes mellitus with diabetic autonomic neuropathy, with long-term current use of insulin ([facility]) USE DIRECTED 1 kit 1 08/11/2023 Active 120 actuat budesonide 0.16 mg/actuat / formoterol fumarate 0.0048 mg/actuat / glycopyrrolate 0.009 mg/actuat metered dose inhaler (16 sources) Corticosteroid, beta2-Adrenergic Agonist Start: End: 024 take 2 puff(s) by inhalation in the morning Budeson-Glycopyrr ol-Formoterol (Breztri Aerosphere) 160-9-4.8 MCG/ACT aerosol Indications: COPD mixed type ([facility]) Inhale 2 puffs in the morning and 2 puffs before bedtime. 32.1 g 1 01/18/2024 Active Start: 02-10-2022 take 2 puff(s) by inhalation at bedtime vwhumjdgfe-mkqtpflj-jtduijtjya (BREZTRI AEROSPHERE) 160-9-4.8 mcg/actuation HFA aerosol inhaler Inhale 2 puffs in the morning and at bedtime. 0 02/10/2022 Active Cholecalciferol (11 sources) Vitamin D Cholecalciferol (D3 PO) Take by mouth Active clopidogrel 75 mg oral tablet (16 sources) P2Y12 Platelet Inhibitor Start: clopidogrel (Plavix) 75 MG tablet Indications: PVD (peripheral vascular disease) ([facility]) TAKE 1 TABLET EVERY DAY [...] (100 mg total) before bedtime. 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 90 capsule 03/08/2024 Active empagliflozin 10 mg oral tablet (1 source) Sodium-Glucose Cotransporter 2 Inhibitor Start: End: take 1 tablet by mouth in the morning empagliflozin (Jardiance) 10 MG Indications: Type 2 diabetes mellitus with diabetic autonomic neuropathy, with long-term current use of insulin ([facility]) Take 1 tablet (10 mg) by mouth in the morning. 90 tablet 0 06/28/2023 09/26/2023 Active FA/mv,Ca,iron,min/lyco pene/lut (MULTIVITAL ORAL) (2 sources) take 2 tablets by mouth once daily FA/mv,Ca,iron,min/lyco pene/lut (MULTIVITAL ORAL) Take 2 tablets by mouth daily. 0 Active famotidine 20 mg oral tablet (7 sources) Histamine-2 Receptor Antagonist Start: End: take 1 tablet by mouth in the morning famotidine (Pepcid) 20 MG tablet Indications: Gastroesophageal reflux disease with esophagitis, unspecified whether hemorrhage Take 1 tablet (20 mg) by mouth in the morning and 1 tablet (20 mg) before bedtime. 180 tablet 03/09/2024 06/07/2024 Active Start: 01-16-2022 take 1 tablet by sylvain th at bedtime famotidine (Pepcid) 40 MG tablet Take 40 mg by mouth at bedtime. 0 01/16/2022 Active furosemide 20 mg oral tablet (8 sources) Loop Diuretic Start: 02-28-2024 take 1 tablet by mouth once daily furosemide (Lasix) 20 MG tablet Take 20 mg by mouth Daily 02/28/2024 Active glimepiride 4 mg oral tablet (16 sources) Sulfonylurea Start: 03-15-2023 glimepiride (Amaryl) 4 MG tablet Indications: Type 2 diabetes mellitus with hyperglycemia, without long-term current use of insulin (CMS/[facility]) TAKE 1 TABLET TWICE DAILY 180 tablet 10 03/15/2023 Active take 2 tablets by mo ut in the morning, then take 2 tablets [...] ml insulin glargine 100 unt/ml pen injector (12 sources) Insulin Analog Start: 04-29-2023 inject 10 [IU] by subcutaneous injection at bedtime Lantus SoloStar 100 UNIT/ML pen Indications: Type 2 diabetes mellitus with hyperglycemia, with long-term current use of insulin ([facility]) INJECT 10 UNITS UNDER THE SKIN AT [...] Active losartan potassium 100 mg oral tablet (15 sources) Angiotensin 2 Receptor Cb take 1 tablet by mouth once daily losartan (Cozaar) 100 MG tablet Take 100 mg by mouth Daily Active metFORMIN hydrochloride 1000 mg oral tablet (16 sources) Biguanide Start: 03-15-2023 take 1 tablet by mouth twice daily metFORMIN (Glucophage) 1000 MG tablet Indications: Type 2 diabetes mellitus with hyperglycemia, without long-term current use of insulin (CMS/HCC) TAKE 1 TABLET WITH A MEAL ORALLY TWICE DAILY 180 tablet 10 03/15/2023 Active 24 hr metoprolol succinate 50 mg extended release oral tablet (16 sources) beta-Adrenergi c Cb Start: 01-18-2024 take 1 tablet by mouth every twenty-four hours in the morning metoprolol succinate XL (Toprol-XL) 50 MG 24 hr tablet Indications: Essential hypertension (CMS/HCC) Take 1 tablet (50 mg) by mouth in the morning. 90 tablet 1 01/18/2024 Active Start: 12-11-2021 End: 10-04-2023 take 1 tablet by mouth every twenty-four hours in the morning metoprolol succinate XL (Toprol-XL) 50 MG 24 hr tablet Indications: Essential hypertension (CMS/HCC) Take 1 tablet (50 mg) by mouth in the morning. 100 tablet 0 06/26/2023 10/04/2023 Active montelukast 10 mg oral tablet (16 sources) Leukotriene Receptor Antagonist Start: 03-15-2023 montelukast (Singulair) 10 MG tablet Indications: Chronic obstructive pulmonary disease, unspecified COPD type (CMS/HCC) TAKE 1 TABLET EVERY DAY 90 tablet 10 03/15/2023 Active Multiple Vitamins-Minerals (WOMENS 50+ MULTI VITAMIN PO) (8 sources) Multiple Vitamins-Minerals (WOMENS 50+ MULTI VITAMIN PO) Take by mouth Active 24 hr nicotine 0.875 mg/hr transdermal system (2 sources) Cholinergic Nicotinic Agonist Start: 06-13-2023 apply 1 dose transdermal route every hour in the morning nicotine (NICODERM CQ) 21 mg/24 hr Indications: COPD exacerbation ([facility]) Place 1 patch on the skin in the morning. 30 patch 0 06/13/2023 Active pantoprazole 40 mg delayed release oral tablet (16 sources) Proton Pump Inhibitor Start: 06-26-2023 End: 10-04-2023 pantoprazole (ProtoNix) 40 MG EC tablet Indications: GERD without esophagitis TAKE 1 TABLET EVERY MORNING BEFORE A MEAL 90 tablet 1 09/08/2023 Active predniSONE 10 mg oral tablet (2 sources) Start: 06-12-2023 predniSONE (DELTASONE) 10 mg tablet Indications: COPD exacerbation ([facility]) 3 tabs for 3 days, 2 tabs for 3 days, 1 tab for 3 days 18 tablet 0 06/12/2023 Active rOPINIRole 0.5 mg oral tablet (16 sources) Nonergot Dopamine Agonist rOPINIRole (Requip) 0.5 MG tablet Take 0.5 mg by mouth in the morning and 0.5 mg at noon and 0.5 mg in the evening. Active rosuvastatin calcium 20 mg oral tablet (16 sources) HMG-CoA Reductase Inhibitor Start: 03-15-2023 rosuvastatin (Crestor) 20 MG tablet Indications: Mixed hyperlipidemia (CMS/HCC) TAKE 1 TABLET EVERY DAY 90 tablet 10 03/15/2023 Active semaglutide 7 mg oral tablet (10 sources) Start: 04-29-2023 End: 03-08-2024 Rybelsus 7 MG tablet Indications: Type 2 diabetes mellitus with diabetic autonomic neuropathy, with long-term current use of insulin (CMS/HCC) TAKE 1 TABLET EVERY MORNING TAKE BEFORE A MEAL 90 tablet 3 04/29/2023 03/08/2024 Discontinued (Therapy completed) spironolactone 25 mg oral tablet (8 sources) Aldosterone Antagonist Start: 02-28-2024 take 0.5 tablet by mouth once daily spironolactone (Aldactone) 25 MG tablet TAKE 1/2 (ONE-HALF) OF A TABLET BY MOUTH ONCE DAILY 02/28/2024 Active 28 actuat tiotropium 0.69243 mg/actuat inhalation spray (1 source) Anticholinergic tiotropium (Spiriva Respimat) 1.25 MCG/ACT inhaler Inhale 2 puffs in the morning. 0 Active Problems Active Problems Problem Classification Problem Date Documented Date Episodic/Chronic Abdominal pain (2 sources) Epigastric pain; Translations: [Epigastric pain] Onset: 02-15-2024 Episodic Acute myocardial infarction (17 sources) Myocardial infarction; Translations: [Non-ST elevation (NSTEMI) myocardial infarction] Onset: 12-06-2021 06-10-2023 Chronic Anxiety disorders (16 sources) Generalized anxiety disorder; Translations: [Generalized anxiety disorder] Onset: 09-30-2022 06-11-2023 Chronic Aortic; peripheral; and visceral artery aneurysms (11 sources) Aneurysm of ascending aorta; Translations: [Aneurysm of ascending aorta without rupture] Onset: 07-23-2023 01-14-2024 Chronic Cardiac dysrhythmias (2 sources) Tachycardia, unspecified; Translations: [Tachycardia, unspecified] Onset: 02-07-2024 Episodic Chronic kidney disease (16 sources) Chronic kidney disease stage 3B ; Translations: [Stage 3b chronic kidney disease] Onset: 09-30-2022 06-11-2023 Chronic Chronic obstructive pulmonary disease and bronchiectasis (20 sources) Chronic obstructive pulmonary disease, unspecified; Translations: [Mucopurulent chronic bronchitis] Onset: 02-10-2022 Resolved: 07-23-2023 06-11-2023 Chronic Congestive heart failure; nonhypertensive (16 sources) Chronic combined systolic and diastolic heart failure; Translations: [Chronic combined systolic (congestive) and diastolic (congestive) heart failure] Onset: 07-09-2023 07-09-2023 Chronic Coronary atherosclerosis and other heart disease (14 sources) Coronary atherosclerosis; Translations: [Atherosclerotic heart disease of [place] coronary artery without angina pectoris] Onset: 09-30-2022 09-30-2022 Chronic Diabetes mellitus with complications (20 sources) Disorder of kidney due to diabetes mellitus; Translations: [Type 2 diabetes mellitus with diabetic nephropathy] Onset: 11-18-2021 06-11-2023 Chronic Disorders of lipid metabolism (20 sources) Mixed hyperlipidemia; Translations: [Mixed hyperlipidemia] Onset: 09-30-2022 06-11-2023 Chronic Esophageal disorders (16 sources) Gastroesophageal reflux disease without esophagitis; Translations: [Gastro-esophageal reflux disease without esophagitis] Onset: 09-30-2022 06-11-2023 Chronic Essential hypertension (20 sources) Essential hypertension; Translations: [Essential (primary) hypertension] Onset: 09-30-2022 06-11-2023 Chronic Nutritional deficiencies (10 sources) Nutritional marasmus; Translations: [Unspecified severe protein-calorie malnutrition] Onset: 03-08-2024 03-06-2024 Chronic Other aftercare (1 source) Other intermediate (current) drug therapy; Translations: [OTH USP CURRENT DRUG THERAPY] Onset: 02-10-2022 Episodic Other circulatory disease (2 sources) 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, unspecified; Translations: [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, unspecified] Onset: 02-15-2024 Chronic Other hereditary and degenerative nervous system conditions (16 sources) Restless legs; Translations: [Restless legs syndrome] Onset: 09-30-2022 06-11-2023 Chronic Other lower respiratory disease (3 sources) Dyspnea, unspecified; Translations: [DYSPNEA UNSPECIFIED] Onset: 02-07-2022 Episodic Other lower respiratory disease (1 source) Solitary pulmonary nodule; Translations: [Solitary pulmonary nodule] Onset: 03-03-2024 Episodic Other nervous system disorders (1 source) Polyneuropathy associated with another disorder; Translations: [Polyneuropathy in diseases classified elsewhere] Onset: 09-30-2022 09-30-2022 Chronic Other screening for suspected conditions (not mental disorders or infectious disease) (10 sources) Imaging of lung abnormal ; Translations: [Abnormal results of pulmonary function studies] Onset: 03-08-2024 03-06-2024 Episodic Other upper respiratory disease (12 sources) Seasonal allergy; Translations: [Other seasonal allergic rhinitis] Onset: 09-30-2022 09-30-2022 Chronic Lolly-; endo-; and myocarditis; cardiomyopathy (except that caused by tuberculosis or sexually transmitted disease) (18 sources) Cardiomyopathy; Translations: [Cardiomyopathy, unspecified] Onset: 12-05-2021 12-10-2021 Chronic Peripheral and visceral atherosclerosis (20 sources) Peripheral vascular disease; Translations: [Peripheral vascular disease, unspecified] Onset: 09-30-2022 06-11-2023 Chronic Residual codes; unclassified (12 sources) Dependence on other enabling machines and devices; Translations: [Dependence on other enabling machines] Onset: 09-30-2022 09-30-2022 Chronic Residual codes; unclassified (1 source) Tobacco use; Translations: [Tobacco use] Onset: 03-30-2024 Episodic Respiratory failure; insufficiency; arrest (adult) (2 sources) Wrebm-dl-nuoosts respiratory failure; Translations: [Acute and chronic respiratory failure with hypoxia] 03-06-2024 Chronic Substance-related disorders (13 sources) Nicotine dependence, cigarettes, uncomplicated; Translations: [Nicotine [...] Da te Episodic/Chronic Deficiency and other anemia (16 sources) Iron deficiency anemia; Translations: [Iron deficiency anemia, unspecified] Onset: 12-05-2021 06-11-2023 Episodic Mood disorders (11 sources) Mood disorders Onset: 01-12-2024 01-12-2024 Other aftercare (12 sources) Long-term current use of insulin; Translations: [terminal 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 (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] Onset: 02-18-2022 11-25-2022 Episodic Other disorders of stomach and duodenum (12 sources) Gastroparesis syndrome; Translations: [Gastroparesis] Onset: 09-30-2022 09-30-2022 Episodic Other gastrointestinal disorders (12 sources) Chronic constipation; Translations: [Other constipation] Onset: 09-30-2022 09-30-2022 Episodic Other gastrointestinal disorders (1 source) Diarrhea, unspecified; Translations: [Diarrhea, unspecified] Onset: 08-18-2023 Episodic Other gastrointestinal disorders (2 sources) Diarrhea Onset: 08-18-2023 Episodic Other lower respiratory disease (12 sources) Nodule of lung; Translations: [Solitary pulmonary nodule] Onset: 09-30-2022 09-30-2022 Episodic Results Test Name Value Interpretation Reference Range Facility Office Visiton 03-14-2024 Follow-up visit [id number] Jaspreet Mitchellviet Tariq 1940 F Date Provider Department Center 03/14/2024 [id number] LAU [facility] Krystle [facility] Family History Problem Relation Age of Onset Heart failure Mother Sudden Father Stroke Father Heart attack Son Family Status - Relation Status Age at Mother Father Son Other Level of Service:26747 [place] OFFICE/OUTPATIENT ESTABLISHED MOD MDM 30 MIN Normal [facility] CBC W Auto Differential pane l (Bld)on 03-07-2024 Basophils (Bld) [#/Vol] 58 10*3/uL [facility] Basophils/100 WBC (Bld) 0.9 % [facility] Eosinophils (Bld) [#/Vol] 58 10*3/uL [facility] Eosinophils/100 WBC (Bld) 0.9 % [facility] Erythrocyte distribution width (RBC) [Ratio] 14.3 % 11.0 - 15.0 % [facility] Hematocrit (Bld) [Volume fraction] 33.9 % Low 35.0 - 45.0 % [facility] Hemoglobin (Bld) [Mass/Vol] 10.3 g/dL Low 11.7 - 15.5 g/dL [facility] Lymphocytes (Bld) [#/Vol] 1267 10*3/uL [facility] Lymphocytes/100 WBC (Bld) 19.8 % [facility] MCH (RBC) [Entitic mass] 27.7 pg 27.0 - 33.0 pg [facility] MCHC (RBC) [Mass/Vol] 30.4 g/dL Low 32.0 - 36.0 g/dL [facility] Comment on above: For adults, a slight decrease in the calculated MCHC value (in the range of 30 to 32 g/dL) is most likely not clinically significant; however, it should be interpreted with caution in correlation with other red cell parameters and the patient's clinical condition. MCV (RBC) [Entitic vol] 91.1 fL 80.0 - 100.0 fL [facility] Monocytes (Bld) [#/Vol] 493 10*3/uL [facility] Monocytes/100 WBC (Bld) 7.7 % [facility] Neutrophils (Bld) [#/Vol] 4525 10*3/uL [facility] Neutrophils/100 WBC (Bld) 70.7 % [facility] Platelet mean volume (Bld) [Entitic vol] 11.9 fL 7.5 - 12.5 fL [facility] Platelets (Bld) [#/Vol] 323 10*3/uL [facility] RBC (Bld) [#/Vol] 3.72 10*6/uL Low [facility] WBC (Bld) [#/Vol] 6.4 10*3/uL [facility] Laboratory - Chemistry and C hemistry - challengeon 03-07-2024 Albumin [Mass/Vol] 4.0 g/dL 3.6 - 5.1 g/dL [facility] Albumin/Globulin [Mass ratio] 1.3 {ratio} [facility] ALP [Catalytic activity/Vol] 93 U/L 37 - 153 U/L [facility] ALT [Catalytic activity/Vol] 13 U/L 6 - 29 U/L [facility] AST [Catalytic activity/Vol] 18 U/L 10 - 35 U/L [facility] Bilirubin [Mass/Vol] 0.3 mg/dL 0.2 - 1 .2 mg/dL [facility] Calcium [Mass/Vol] 11.1 mg/dL High 8.6 - 10. 4 mg/dL [facility] Chloride [Moles/Vol] 102 mmol/L 98 - 11 0 mmol/L [facility] CO2 [Moles/Vol] 30 mmol/L 20 - 32 mmol/L [facility] Creatinine [Mass/Vol] 1.15 mg/dL High 0.60 - 0.95 mg/dL [facility] GFR/1.73 sq M.predicted among non-blacks MDRD (S/P/Bld) [Vol rate/Area] 48 mL/min/{1.73_m2} Low > OR = 60 mL/min/1.73m2 [facility] Globulin (S) [Mass/Vol] 3.2 g/dL [facility] Glucose [Mass/Vol] 61 mg/dL Low 65 - 99 mg/dL [facility] Comment on above: Fasting reference interval Potassium [Moles/Vol] 4.3 mmol/L 3.5 - 5.3 mmol/L [facility] Protein [Mass/Vol] 7.2 g/dL 6.1 - 8.1 g/dL [facility] Sodium [Moles/Vol] 139 mmol/L 135 - 146 mmol/L [facility] Urea nitrogen [Mass/Vol] 27 mg/dL High 7 - 25 mg/dL [facility] Urea nitrogen/Creatinine [Mass ratio] 23 mg/mg High [facility] No Panel Informationon 03-07 Interpretation and review of laboratory results Abnormal [facility] Performing Organization Information Site ID: QPT Name: [email or web address] Address: [address] [place] [id number] Director: Yanick Self MD [facility] PET CT SKULL TO THIGHon PET CT SKULL TO THIGH PET CT SKULL TO TH [facility] Whole-body PET/CT scan: HISTORY: Pulmonary nodule. Assess malignant potential. After the intravenous administration of 13.6 mCi fluorodeoxyglucose, a true whole-body PET/CT scan was obtained from skull base to midthigh. Baseline glucose level was 127 mg/dL. 1 cm nodule in the anterior aspect of the right upper lobe shows a maximal SUV of approximately 5.4, likely malignancy. Second 1 cm nodule noted posterior aspect of the right lower lobe showing maximal SUV of approximately 2.9, also suspicious for malignancy. Pulmonary emphysematous changes appreciated. Pleural based density right pulmonary apex does not show significantly increased uptake. Maximal SUV is approximately 0.89. No abnormal mediastinal uptake or evidence of mediastinal lymphadenopathy. No pleural or pericardial effusion seen. Aortic atherosclerotic changes appreciated. There are also coronary arterial atherosclerotic changes. Abdominal and pelvic uptake appears physiologic. No free intraperitoneal fluid. Extensive aortoiliac atherosclerotic changes. IMPRESSION: 1 cm anterior right upper lobe and posterior right lower lobe pulmonary nodules both show increased scintigraphic activity suggesting malignancy. Finalized by Jimi Ellington MD on 03/03/2024 3:28 PM Normal [facility] Office Visiton 02-07-2024 Follow-up visit [id number] StephenMarietta L 1940 F Date Provider Department Center 02/07/2024 [id number] LAU [facility] Krystle [facility] Family History Problem Relation Age of Onset Heart failure Mother Sudden Father Stroke Father Heart attack Son Family Status - Relation Status Age at Mother Father Son Other Level of Service:90618 [place] OFFICE/OUTPATIENT NEW MODERATE MDM 45 MINUTES Normal [facility] C DIFFICILE BY PCRon 024 C. difficile toxin genes LUCÍA+probe Ql (Stl) TOXIGENIC C DIFF Negative (qualifier value) 027 NAP1 Negative (qualifier value) Normal PRNEG [facility] Comment on above: Performed By: #### [id number] #### [facility] ([id number]) [address] [facility], [address] [place] [address] #### 64410-6 #### [facility] ([id number]) [address] [place] [address], [place] [address] [facility] ([id number]) [address] [facility], [address] [place] [address] CBC AND AUTO DIFFon 08-18-19 24 ABSOLUTE BASOPHIL 0.1 X10E9/L Normal 0.0-0.2 [facility] Comment on above: Performed By: #### C KUSH ESCAMILLA, #### [facility] ([id number]) [address] [place] [address] 42631 ABSOLUTE NEUTROPHIL 9.9 X10E9/L High 1.5-6.6 [facility] Comment on above: Performed By: #### C KUSH ESCAMILLA, #### [facility] ([id number]) [address] [place] [address] 39445 Basophils/100 WBC (Bld) 1.0 % Normal [facility] Comment on above: Performed By: #### C KUSH ESCAMILLA, #### [facility] ([id number]) [address] [place] [address] 31573 Eosinophils (Bld) [#/Vol] 0.1 10*3/uL Normal 0.0-0.4 [facility] Comment on above: Performed By: #### C FRANCINE [facility], #### [facility] ([id number]) [address] [place] [address] 51637 Eosinophils/100 WBC (Bld) 0.8 % Normal [facility] Comment on above: Performed By: #### Taj ESCAMILLA [facility], #### [facility] ([id number]) [address] [place] [address] 75432 Erythrocyte distribution width (RBC) [Ratio] 15.1 % High 11.5-15.0 [facility] Comment on above: Performed By: #### C KUSH ESCAMILLA, #### [facility] ([id number]) [address] [place] [address] 13018 Hematocrit (Bld) [Volume fraction] 38.3 % Normal 35-47 [facility] Comment on above: Performed By: #### C KUSH ESCAMILLA, #### [facility] ([id number]) [address] [place] [address] 20426 Hemoglobin (Bld) [Mass/Vol] 12.8 g/dL Normal 11.7-15.5 [facility] Comment on above: Performed By: #### Taj ESCAMILLA CMP, 13154-8 #### [facility] ([id number]) [address] [place] [address] 17427 Lymphocytes (Bld) [#/Vol] 1.6 10*3/uL Normal 1.0-3.5 [facility] Comment on above: Performed By: #### Taj ESCAMILLA [facility], #### [facility] ([id number]) [address] [place] [address] 27690 Lymphocytes/100 WBC (Bld) 12.7 % Normal [facility] Comment on above: Performed By: #### Taj ESCAMILLA [facility], #### [facility] ([id number]) [address] [place] [address] 08078 MCH (RBC) [Entitic mass] 30.6 pg Normal 27-34 [facility] Comment on above: Performed By: #### C FRANCINE [facility], 13337-0 #### [facility] ([id number]) [address] [place] [address] 94546 MCHC (RBC) [Mass/Vol] 33.3 g/dL Normal 32-36 [facility] Comment on above: Performed By: #### Taj ESCAMILLA, CMP, #### [facility] ([id number]) [address] [place] [address] 17622 MCV (RBC) [Entitic vol] 92 fL Normal 80-100 [facility] Comment on above: Performed By: #### Taj ESCAMILLA CMP, #### [facility] ([id number]) [address] [place] [address] 88742 Monocytes (Bld) [#/Vol] 0.7 10*3/uL Normal 0-0.9 [facility] Comment on above: Performed By: #### C FRANCINE CMP, 68541-8 #### [facility] ([id number]) [address] [place] [address] 49349 Monocytes/100 WBC (Bld) 5.6 % Normal [facility] Comment on above: Performed By: #### Taj ESCAMILLA CMP, 73908-1 #### [facility] ([id number]) [address] [place] [address] 69945 Neutrophils/100 WBC (Bld) 79.9 % Normal [facility] Comment on above: Performed By: #### Taj ESCAMILLA CMP, 76705-7 #### [facility] ([id number]) [address] [place] [address] [place] [address] Platelet mean volume (Bld) [Entitic vol] 10.0 fL Normal 7-12 [facility] Comment on above: Performed By: #### Taj ESCAMILLA CMP, 58324-1 #### [facility] ([id number]) [address] [place] [address] 30911 Platelets (Bld) [#/Vol] 238 10*3/uL Normal 150-450 [facility] Comment on above: Performed By: #### Taj ESCAMILLA CMP, 42218-9 #### [facility] ([id number]) [address] [place] [address] 28612 RBC COUNT 4.17 X10E12/L Normal 3.80-5.20 [facility] Comment on above: Performed By: #### Taj ESCAMILLA, CMP, 99276-4 #### [facility] ([id number]) [address] [place] [address] 21452 WBC (Bld) [#/Vol] 12.3 10*3/uL High 4.0-11.0 [facility] Comment on above: Performed By: #### C FRANCINE, CMP, 42491-0 #### [facility] ([id number]) [address] [place] [address] 34483 COMPREHENSIVE METABOLIC PANE Willis 08-18-2023 Albumin [Mass/Vol] 4.0 g/dL Normal 3.2-5.3 [facility] Comment on above: Performed By: #### C BCA, CMP, 51097-7 #### [facility] ([id number]) [address] [place] [address] 45520 ALP [Catalytic activity/Vol] 99 U/L Normal 39-130 [facility] Comment on above: Performed By: #### C FRANCINE, CMP, 03424-6 #### [facility] ([id number]) [address] [place] [address] 21074 ALT [Catalytic activity/Vol] 17 U/L Normal 0-31 [facility] Comment on above: Performed By: #### C FRANCINE, [facility], 67462-6 #### [facility] ([id number]) [address] [place] [address] 06250 Anion gap [Moles/Vol] 4 mmol/L Low 5-15 [facility] Comment on above: Performed By: #### C BCA, CMP, 23401-7 #### [facility] ([id number]) [address] [place] [address] 22873 AST [Catalytic activity/Vol] 21 U/L Normal 0-41 [facility] Comment on above: Performed By: #### C BCA, CMP, 49417-8 #### [facility] ([id number]) [address] [place] [address] 59617 Bilirubin [Mass/Vol] 0.5 mg/dL Normal 0.3-1.2 [facility] Comment on above: Performed By: #### C KUSH ESCAMILLA, 23762-3 #### [facility] ([id number]) [address] [place] [address] 39838 Calcium [Mass/Vol] 10.5 mg/dL Normal 8.5-10.5 [facility] Comment on above: Performed By: #### C KUSH ESCAMILLA, 28312-6 #### [facility] ([id number]) [address] [place] [address] 14635 Chloride [Moles/Vol] 103 mmol/L Normal 98-109 [facility] Comment on above: Performed By: #### C FRNACINE [facility], 34212-8 #### [facility] ([id number]) [address] [place] [address] 08593 CO2 [Moles/Vol] 25 mmol/L Normal 22-32 [facility] Comment on above: Performed By: #### C FRANCINE [facility], 78461-1 #### [facility] ([id number]) [address] [place] [address] 39696 Creatinine [Mass/Vol] 0.94 mg/dL Normal 0.40-1.00 [facility] Comment on above: Result Comment: METH OD TRACEABLE TO IDMS STANDARD Performed By: #### C KUSH ESCAMILLA, 63641-9 #### [facility] ([id number]) [address] [place] [address] 30648 GFR/1.73 sq M.predicted among non-blacks MDRD (S/P/Bld) [Vol rate/Area] 61 mL/min/{1.73_m2} Normal >59 [facility] Comment on above: Result Comment: Reported eGFR is based on the CKD-EPI 1 equation that does not use a race coefficient. Performed By: #### C FRANCINE CMP, 86651-9 #### [facility] ([id number]) [address] [place] [address] 79763 Glucose [Mass/Vol] 136 mg/dL High 65-99 [facility] Comment on above: Performed By: #### C FRANCINE [facility], 84277-7 #### [facility] ([id number]) [address] [place] [address] 61960 Potassium [Moles/Vol] 4.2 mmol/L Normal 3.5-5.0 [facility] Comment on above: Performed By: #### Taj ESCAMILLA [facility], 93608-5 #### [facility] ([id number]) [address] [place] [address] 14173 Protein [Mass/Vol] 7.6 g/dL Normal 6.0-8.0 [facility] Comment on above: Performed By: #### Taj ESCAMILLA [facility], 77871-0 #### [facility] ([id number]) [address] [place] [address] 16763 Sodium [Moles/Vol] 132 mmol/L Low 134-146 [facility] Comment on above: Performed By: #### C FRANCINE [facility], 13247-5 #### [facility] ([id number]) [address] [place] [address] 97226 Urea nitrogen [Mass/Vol] 26 mg/dL Normal 5-27 [facility] Comment on above: Performed By: #### Taj ESCAMILLA [facility], 60824-2 #### [facility] ([id number]) [address] [place] [address] 36622 GI PANELon 08-18-2023 Gastrointestinal pathogens DNA and [...] SAPOVIRUS Not detected (qualifier value) Normal NDET [facility] Comment on above: Performed By: #### 5 4067-4 #### [facility] ([id number]) [address] [place] [address], [address] [address] #### 68947-4 #### [facility] ([id number]) [address] [place] [address] 88333 [facility] ([id number]) [address] [place] [address], [address] [address] MAGNESIUMon 08-18-2023 Magnesium [Mass/Vol] 1.8 mg/dL Normal 1.8-2.6 [facility] Comment on above: Performed By: #### C BCA, CMP, 42103-2 #### [facility] ([id number]) [address] [place] [address] 87093 SARS/FLU A+B/RSV by NAAT/Mol ecularon 08-18-2023 SARS/FLU [...] operators who are performing tests using either GeneXpert DX or GeneXpert Infinity systems and is limited to laboratories that [...] repeat. Fact Sheet for Healthcare Providers: https://www.fda.gov/m edia/937348/download Fact Sheet for Patients: https://www.fda.gov/m edia/544028/download Normal [facility] Comment on above: Performed By: #### C OVFLR #### [facility] ([id number]) [address] [place] [address] 23995 URN MACROSCOPIC NURon 2023 BILIRUBIN KATELYN Negative Normal NEG [facility] Comment on above: Performed By: #### N UM #### [facility] ([id number]) [address] [place] [address] 71462 BLOOD/HGB KATELYN Negative Normal NEG [facility] Comment on above: Performed By: #### N UM #### [facility] ([id number]) [address] [place] [address] 32287 GLUCOSE KATELYN >=1000 Abnormal NEG [facility] Comment on above: Performed By: #### N UM #### [facility] ([id number]) [address] [place] [address] 10116 KETONES KATELYN Negative Normal NEG [facility] Comment on above: Performed By: #### N UM #### [facility] ([id number]) [address] [place] [address] 10764 LEUKOCYTE ESTERASE KATELYN Negative Normal NEG [facility] Comment on above: Performed By: #### N UM #### [facility] ([id number]) [address] [place] [address] 26663 NITRITE KATELYN Negative Normal NEG [facility] Comment on above: Performed By: #### N UM #### [facility] ([id number]) [address] [place] [address] 48450 PH KATELYN 5.0 Normal 5.0-8.5 [facility] Comment on above: Performed By: #### N UM #### [facility] ([id number]) [address] [place] [address] 49827 PROTEIN KATELYN 100 mg/dL Abnormal NEG [facility] Comment on above: Performed By: #### N UM #### [facility] ([id number]) [address] [place] [address] 47583 SPECIFIC GRAVITY KATELYN 1.025 Normal 1.003-1.035 [facility] Comment on above: Performed By: #### N UM #### [facility] ([id number]) [address] [place] [address] 76452 UROBILINOGEN KATELYN 0.2 eu/dL Normal <1.1 [facility] Comment on above: Performed By: #### N UM #### [facility] ([id number]) [address] [place] [address] CHEST WO IV CONTRASTon CT CHEST [...] Momo Sanchez MD Normal Not Available [facility] US LOWER EXTREMITY CARLO RIAL DUPLEX BILATERAL WITH ABIon 07-06-2023 [facility] US LOWER EXTREMITY ARTERIAL DUPLEX BILATERAL WITH [...] color saturation __ Maria G DV, Dylan JE, et al. Comparison of contrast angiography to [...] IS VERY IMPORTANT TO YOUR HEALTH. THE [place] [employer] GUIDELINES RECOMMEND THAT WOMEN 40 [...] VERY IMPORTANT TO YOUR HEALTH. THE CURRENT [place] [employer] GUIDELINES RECOMMENDS ANNUAL MAMMOGRAPHY BEGINNING AT AGE 40 THIS FACILITY USES A REMINDER SYSTEM TO ENSURE ALL PATIENTS RECEIVE REMINDER NOTIFICATIONS AT THE APPROPRIATE TIME BASED ON THE RECOMMENDATIONS OF THIS EXAM. Report reported and signed by Julius You on 03/25/2022 1339 Normal [facility] CBC AUTO DIFFon 02-07-2022 BASO # 0.1 103/ul Normal 0.0-0.1 [facility] [place] [facility] Comment on above: Performed By: #### C BC #### [facility] [address] [place] [address] Dr. Henry Dozier Basophils/100 WBC (Bld) 0.6 % Normal 0.2-2.0 [facility] Comment on above: Performed By: #### C BC #### [facility] [address] [place] [address] Dr. Henry Dozier EO # 0.0 103/ul Normal 0.0-0.7 [facility] Comment on above: Performed By: #### C BC #### [facility] [address] [place] [address] Dr. Henry Dozier Eosinophils/100 WBC (Bld) 0.3 % Critically low 0.9-7.0 [facility] Comment on above: Performed By: #### C BC #### [facility] [address] [place] [address] Dr. Henry Dozier Erythrocyte distribution width (RBC) [Ratio] 14.9 % Normal 11.0-15.0 [facility] Comment on above: Performed By: #### C BC #### [facility] [address] [address] [address] Henry Dozier Hematocrit (Bld) [Volume fraction] 28.8 % Critically low 36.0-48.0 [facility] Comment on above: Performed By: #### C BC #### [facility] [address] [place] [address] Dr. Henry Dozier Hemoglobin (Bld) [Mass/Vol] 8.9 g/dL Critically low 12.0-16.0 [facility] Comment on above: Performed By: #### C BC #### [facility] [address] [place] [address] Dr. Henry Dozier IG # 0.03 10e3/ul Normal 0.00-0.03 [facility] Comment on above: Performed By: #### C BC #### [facility] [address] [place] [address] Dr. Henry Dozier IG % 0.3 % Normal 0.0-0.5 [facility] Comment on above: Performed By: #### C BC #### [facility] [address] [place] [address] Dr. Henry Dozier LYMPH # 1.6 103/ul Normal 1.2-3.8 [facility] Comment on above: Performed By: #### C BC #### [facility] [address] [place] [address] Dr. Henry Dozier Lymphocytes/100 WBC (Bld) 17.4 % Critically low 20.5-60.0 [facility] Comment on above: Performed By: #### C BC #### [facility] [address] [place] [address] Dr. Henry Dozier MANUAL DIFF REQ NO Normal [facility] Comment on above: Performed By: #### C BC #### [facility] [address] [place] [address] Dr. Henry Dozier MCH (RBC) [Entitic mass] 29.6 pg Normal 26.7-34.0 [facility] Comment on above: Performed By: #### C BC #### [facility] [address] [place] [address] Dr. Henry Dozier MCHC (RBC) [Mass/Vol] 30.9 g/dL Normal 29.9-35.2 [facility] Comment on above: Performed By: #### C BC #### [facility] [address] [place] [address] Dr. Henry Dozier MCV (RBC) [Entitic vol] 95.7 fL Normal 81.0-99.0 [facility] Comment on above: Performed By: #### C BC #### [facility] [address] [place] [address] Dr. Henry Dozier MONO # 0.8 103/ul Normal 0.3-0.8 [facility] Comment on above: Performed By: #### C BC #### [facility] [address] [place] [address] Dr. Henry Dozier Monocytes/100 WBC (Bld) 9.1 % Normal 1.7-12.0 [facility] Comment on above: Performed By: #### C BC #### [facility] [address] [place] [address] Dr. Henry Dozier NEUT # 6.4 103/ul Normal 1.4-6.5 [facility] Comment on above: Performed By: #### C BC #### [facility] [address] [place] [address] Dr. Henry Dozier Neutrophils/100 WBC (Bld) 72.3 % Normal 43.0-75.0 [facility] Comment on above: Performed By: #### C BC #### [facility] [address] [place] [address] Dr. Henry Dozier Platelet mean volume (Bld) [Entitic vol] 10.8 fL Normal 9.5-13.5 [facility] Comment on above: Performed By: #### C BC #### [facility] [address] [place] [address] Dr. Henry Dozier PLT 257 103/ul Normal 150-450 [facility] Comment on above: Performed By: #### C BC #### [facility] [address] [place] [address] Dr. Henry Dozier RBC 3.01 106/ul Critically low 4.20-5.40 [facility] Comment on above: Performed By: #### C BC #### [facility] [address] [place] [address] Dr. Henry Dozier WBC 8.9 103/ul Normal 4.0-11.0 [facility] Comment on above: Performed By: #### C BC #### [facility] [address] [place] [address] Dr. Henry Dozier Covid-19 PCR ([facility])on 01-29 SARS-CoV-2 (COVID-19) RNA LUCÍA+probe Ql (Unsp spec) Not detected Normal NOT DETECTED [facility] Comment on above: Result Comment: When [...] for this test is supported by the [place] of [employer] and Human Service's declaration that [...] used). Performed By: #### C VDTBH #### [facility] [address] [place] [address] Dr. Henry Dozier PROF CHEM 8 (BAS METB)on Anion gap [Moles/Vol] 9.1 mmol/L Normal [facility] Comment on above: Performed By: #### B MP, HSTROPN #### [facility] [address] [place] [address] Dr. Henry Dozier Calcium [Mass/Vol] 10.0 mg/dL Normal 8.5-10.1 [facility] Comment on above: Performed By: #### B CHRISTOPHER, HSTROPN #### [facility] [address] [address] [address] Henry Dozier Chloride [Moles/Vol] 104 mmol/L Normal 98-107 [facility] Comment on above: Performed By: #### B CHRISTOPHER, HSTROPN #### [facility] [address] [address] [address] Henry Dozier CO2 [Moles/Vol] 25.9 mmol/L Normal 21.0-32.0 [facility] Comment on above: Performed By: #### B CHRISTOPHER, HSTROPN #### [facility] [address] [place] [address] Dr. Henry Dozier Creatinine [Mass/Vol] 1.02 mg/dL Normal 0.55-1.02 [facility] Comment on above: Performed By: #### B CHRISTOPHER, HSTROPN #### [facility] [address] [place] [address] Dr. Henry Dozier EGFR-AF [place] >60 Normal >=60 [facility] Comment on above: Performed By: #### B CHRISTOPHER, HSTROPN #### [facility] [address] [place] [address] Dr. Henry Dozier EGFR-NON AF [place] 52 mL/min/1.73m2 Critically low >=60 [facility] Comment on above: Performed By: #### B CHRISTOPHER, HSTROPN #### [facility] [address] [place] [address] Dr. Henry Dozier Glucose [Mass/Vol] 170 mg/dL Critically high 74-106 [facility] Comment on above: Performed By: #### B CHRISTOPHER, HSTROPN #### [facility] [address] [place] [address] Dr. Henry Dozier Potassium [Moles/Vol] 4.0 mmol/L Normal 3.5-5.1 [facility] Comment on above: Performed By: #### B CHRISTOPHER, HSTROPN #### [facility] [address] [place] [address] Dr. Henry Dozier Sodium [Moles/Vol] 135 mmol/L Critically low 136-145 [facility] Comment on above: Performed By: #### B CHRISTOPHER, HSTROPN #### [facility] [address] [place], [place] [address] Dr. Henry Dozier Urea nitrogen [Mass/Vol] 17.0 mg/dL Normal 7.0-18.0 [facility] Comment on above: Performed By: #### B CHRISTOPHER, HSTROPN #### [facility] [address] [address] [address] Henry Dozier Urea nitrogen/Creatinine [Mass ratio] 16.7 mg/mg Normal [facility] Comment on above: Performed By: #### B CHRISTOPHER, HSTROPN #### [facility] [address] [place] [address] Dr. Henry Dozier TROPONIN, HIGH SENSITIVITYon 02-07-2022 HSTROP 25.2 pg/mL Normal 4.0-51.3 [facility] Comment on above: Result Comment: CUT- OFF POINTS HAVE BEEN ESTABLISHED BASED ON THE FOURTH UNIVERSAL DEFINITIONS OF MYOCARDIAL INFARCTION. THE UPPER REFERENCE LIMIT (URL) OF TROPONIN, DEFINED THE 99TH PERCENTILE OF cTnI DISTRIBUTION IN A REFERENCE POPULATION, HAS BEEN CONFIRMED THE DECISION THRESHOLD FOR NM DIAGNOSIS. Performed By: #### B CHRISTOPHER, HSTROPN #### [facility] [address] [place] [address] Dr. Henry Dozier XR CHEST 1 Von [...] by: YU JUNIOR Date: 2022-02-07 16:20 Normal [facility] Vital Signs Date Time Vital Sign Value Performing Clinician Cipriano edwardsy 03-06-2024 13:52-0400 Body height 165.1 cm Pia Talley NP Work Phone: [facility] 03-06-2024 13:52-0400 Body mass index (BMI) [Ratio] 16.54 kg/m2 Pia Talley [employer] Work Phone: [facility] 03-06-2024 13:52-0400 Body weight 45.09 kg Pia Talley [employer] Work Phone: [facility] 03-06-2024 13:52-0400 Diastolic blood pressure 60 mm[Hg] Pia Talley [employer] Work Phone: [facility] 03-06-2024 13:52-0400 Heart rate 76 /min Pia Talley [employer] Work Phone: [facility] 03-06-2024 13:52-0400 SaO2% (BldA) [Mass fraction] 96 % Pia Talley [employer] Work Phone: [facility] 03-06-2024 13:52-0400 Systolic blood pressure 130 mm[Hg] Pia Talley [employer] Work Phone: [facility] 08-03-2023 13:33-0500 Diastolic blood pressure 60 mm[Hg] Aristeo Garcia MD Work Phone: [facility] 08-03-2023 13:33-0500 Systolic blood pressure 110 mm[Hg] Aristeo Garcia MD Work Phone: [facility] 08-03-2023 13:30-0500 Body height 165.1 cm Aristeo Garcia MD Work Phone: [facility] 08-03-2023 13:30-0500 Body mass index (BMI) [Ratio] 17.14 kg/m2 Aristeo Garcia MD Work Phone: [facility] 08-03-2023 13:30-0500 Body weight 46.72 kg Aristeo Garcia MD Work Phone: [facility] Encounters Encounter Date Encounter Type Care Provider Facility Start: 03-30-2024 End: 03-30-2024 Refill Pia Talley [employer] Work Phone: [facility] Comment on above: COPD mixed type (CMS /HCC) Start: 03-30-2024 End: 03-30-2024 ambulatory [facility] Start: 03-28-2024 End: 03-28-2024 Refill Tonja Gilliam MD Work Phone: [facility] Comment on above: Type 2 diabetes ricardo itus with diabetic autonomic neuropathy, with long-term current use of insulin (CMS/HCC) Start: 03-20-2024 End: 03-20-2024 Telephone encounter Pia Talley [employer] Work Phone: [facility] Start: 03-20-2024 End: 03-20-[address] [facility] Start: 03-16-2024 End: 03-16-2024 Refill Pia Talley [employer] Work Phone: [facility] Comment on above: COPD mixed type (CMS /HCC) Start: 03-16-2024 End: 03-16-2024 Refill Tonja Gilliam MD Work Phone: [facility] Comment on above: COPD mixed type (CMS /HCC) Start: 03-14-2024 End: 03-14-2024 Telephone encounter Tonja Gilliam MD Work Phone: [facility] Start: 03-14-2024 End: 03-14-2024 ambulatory [facility] Start: 03-06-2024 End: 03-06-2024 Bamboo flowsheet Pia Talley [employer] Work Phone: [facility] Start: 03-06-2024 End: 03-06-2024 Bamboo flowsheet Pia Talley [employer] Work Phone: [facility] Start: 03-06-2024 End: 03-06-2024 Transitional care manage srvc 7 day discharge Pia Talley [employer] Work Phone: [facility] Comment on above: Abnormal PET scan of lung (Primary Dx); Acute on chronic respiratory failure with hypoxia (CMS/HCC); Acute systolic congestive heart failure (CMS/HCC); Chronic obstructive pulmonary disease, unspecified COPD type (CMS/HCC); Coronary artery disease involving [place] coronary artery of [place] heart without angina pectoris (CMS/HCC); Primary hypertension (CMS/HCC); Type 2 diabetes mellitus with hyperglycemia, with long-term current use of insulin (CMS/HCC); Severe malnutrition (CMS/HCC); 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) Start: 03-06-2024 End: 03-06-2024 ambulatory PIA MAYANK Not Available Start: 03-03-2024 End: 03-03-2024 Telephone encounter Pia Talley NP Work Phone: [facility] Start: 03-03-2024 End: 03-03-[facility] Start: 03-02-2024 End: 03-02-2024 ambulatory [facility] Start: 02-15-2024 End: 02-15-2024 ambulatory [facility] Start: 02-08-2024 End: 02-08-2024 ambulatory [facility] Start: 02-07-2024 End: 02-07-2024 ambulatory [facility] Start: 01-21-2024 End: 03-02-2024 Telephone encounter Tonja Gilliam MD Work Phone: [facility] Start: 01-12-2024 End: 01-12-2024 ambulatory PIA TALLEY Not Available Start: 09-03-2023 End: 09-03-2023 ambulatory [place] Jarrett [facility] Start: 08-25-2023 End: 08-25-2023 [facility] Start: 08-18-2023 End: 08-18-2023 Emergency department patient visit TONJA Josue [facility] Start: 08-11-2023 End: 08-30-2023 ambulatory YANIQUE BURCIAGA [facility] Start: 08-03-2023 End: 08-03-2023 ambulatory ARISTEO GARCIA [facility] Start: 08-03-2023 End: 08-03-2023 Office outpatient new 45 minutes Aristeo Garcia MD Work Phone: 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 ([facility]) (Primary Dx); Essential hypertension; Mixed hyperlipidemia; Renal artery stenosis ([facility]) Start: 07-27-2023 End: 07-27-2023 ambulatory PIA KAMPFER Not Available Start: 07-23-2023 End: 07-23-2023 ambulatory PIA KAMPFER Not Available Start: 07-20-2023 End: 07-20-2023 ambulatory PIA KAMPFER Not Available Start: 07-13-2023 Telephone encounter Tonja laws MD Work Phone: [facility] Start: 07-09-2023 End: 07-09-2023 ambulatory PIA KAMPFER Not Available Start: 07-06-2023 End: 07-06-2023 ambulatory PIA KAMPFER Not Available Start: 06-25-2023 End: 06-25-2023 ambulatory PIA KAMPFER Not Available Start: 06-24-2023 Telephone encounter Sirena Love C[facility] Start: 06-23-2023 End: 06-23-2023 ambulatory SB LOCO [facility] Start: 06-16-2023 Chart abstracting Sb lemus MD Work Phone: [facility] Start: 06-15-2023 Telephone encounter Abundio kim MD Work Phone: [facility] Start: 06-10-2023 End: 06-10-2023 ambulatory JOEY CAMP Not Available Start: 06-09-2023 End: 06-09-2023 ambulatory PIA KAMPFER Not Available Start: 06-08-2023 End: 06-08-2023 ambulatory PIA KAMPFER Not Available Start: 06-08-2023 End: 06-08-2023 ambulatory PIA KAMADALBERTO Not Available Start: 02-07-2022 End: 02-07-[address] MCCANN [facility] Facility:H1 Procedures Date Procedure Procedure Detail Performing Clinician Start: 03-06-2024 Complete blood count with white cell differential, automated Pia Blandonadalberto [employer] Work Phone: Start: 03-06-2024 Comprehensive metabo lic panel Pia Talley [employer] Work Phone: Start: 02-15-2024 Follow-up visit Follow-up ARISTEO GARCIA Start: 06-23-2023 Follow-up visit Follow-up SB LOCO Start: 09-30-2022 History of placement of stent for coronary artery disease S/P coronary artery stent placement Tonja Gilliam MD Work Phone: Plan of Treatment Date Care Activity Detail Author Start: 03-23-2025 Urine screening for protein Diabetes: Urine Protein Screening [facility] Start: 03-06-2025 Urine screening for protein Diabetes: Urine Protein Screening [facility] Start: 01-11-2025 Urine screening for protein Diabetes: Urine Protein Screening [facility] Start: 08-02-2024 Adult BMI Screening Adult BMI Screen [facility] Start: 08-02-2024 Tobacco Screening Tobacco Screening [facility] Start: 06-23-2024 Adult BMI Screening Adult BMI Screen [facility] Start: 06-23-2024 Tobacco Screening Tobacco Screening [facility] Start: 06-12-2024 Adult BMI Screening Adult BMI Screen [facility] Start: 06-10-2024 Tobacco Screening Tobacco Screening [facility] Start: 05-09-2024 End: 05-09-2024 Patient encounter procedure 05/09/2024 2:00 PM EST Office [facility] [place] [address] Aristeo Garcia MD [address] [place] [address] [facility] Start: 04-13-2024 Hemoglobin A1c measurement Diabetes: Hemoglobin A1C [facility] Start: 04-03-2024 End: 04-03-2024 Professional / ancillary services management 04/03/2024 2:30 PM EST Ancillary Procedure [facility] [address] [place] [address] [facility] Start: 03-06-2024 End: 03-06-2024 Patient encounter procedure [facility] Comment on above: Arrived Start: 02-15-2024 End: 02-15-2024 Patient encounter procedure 02/15/2024 1:30 PM EDT Office Visit [facility] [address] [place] [phone] Aristeo Garcia MD [address] [phone] [facility] Start: 02-08-2024 End: 02-08-2024 Patient encounter procedure [facility] Start: 01-30-2024 Influenza vaccination Influenza Vacc ine (#1) [facility] Start: 09-07-2023 Hemoglobin A1c measurement Diabetes: Hemoglobin A1C [facility] Start: 08-11-2023 End: 08-11-2023 Patient encounter procedure 08/11/2023 1:20 PM EDT Office Visit [facility] [address] [place] [phone] Yanique Burciaga, TAX ASSISTANT-SHAPE BRICK MOLDER [address] [place] [address] [facility] Start: 08-03-2023 End: 08-02-2024 US.doppler Extremity arteries - bilateral for physiologic artery study at rest and with exercise Vasc art doppler lwr PVR W/exercise Vascular Ultrasound Routine 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 ([facility]) Expected: 08/03/2023, Expires: 08/02/2024 [facility] Comment on above: Expected: 08/03/2023 , Expires: 08/02/2024 Start: 08-03-2023 End: 08-02-2024 US.doppler Lower extremity artery - bilateral Vas art duplex lwr bilateral Vascular Ultrasound Routine 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 ([facility]) Expected: 08/03/2023, Expires: 08/02/2024 [employer] Work Phone: Comment on above: Expected: 08/03/2023 , Expires: 08/02/2024 Start: 08-03-2023 End: 08-02-2024 US.doppler Renal vessels - bilateral Vas renal artery duplex complete Vascular Ultrasound Routine Renal artery stenosis ([facility]) Expected: 08/03/2023, Expires: 08/02/2024 [employer] Comment on above: Expected: 08/03/2023 , Expires: 08/02/2024 Start: 06-23-2023 End: 06-23-2023 Patient encounter procedure 06/23/2023 8:00 AM EST [facility] [address] [place] [address] Sb Loco MD [address] [place] [address] [facility] Start: 03-19-2023 Medicare Annual Well ness (AWV) Medicare Annual Wellness (AWV) [facility] Start: 01-29-2023 [facility] Start: 2007 Fall Risk Screening [facility] ing [facility] Start: 1992 Administration of varicella zoster vaccine Zoster (Shingles) Vaccine (1 of 2) [facility] Start: 1961 DTaP,Tdap and Td Vac cines (1 - Tdap) DTaP,Tdap and Td Vaccines (1 - Tdap) [facility] Start: 1960 Adult BMI Follow Up Plan Adult BMI Follow Up Plan [facility] Start: 1954 Depression Screening Depression Scre ening [facility] Start: 1952 Glaucoma screening Diabetes: R etinopathy Screening [facility] Start: 1942 Medicare Annual Well ness Visit Medicare Annual Wellness Visit [facility] [employer] Start: 1942 Tobacco Counseling Tobacco Counselshola g [facility] Immunizations Immunization Date Immunization Notes Care Provider Fa nicholas 03-15-2023 Pneumococcal Conjuga te PCV 20 Tonja Gilliam MD Work Phone: [facility] Payers Date Payer Category Payer Medicaid [employer] MEDICARE A DVANTAGE [id number] 2023 Medicare [id number] 2022 Medicare [id number] 2022 Medicare [id number] 2020 Unknown [id number] 1942 Unknown [id number] 2.16.840.1.999620.3.579.2.593 1942 Unknown [id number] 2.16.840.1.446302.3.579.2.1286 1942 Unknown [id number] 2.16.840.1.419461.3.579.2.1259 1942 Unknown [id number] 2.16.840.1.350922.3.579.2.1259 1942 Unknown [id number] 2.16.840.1.651251.3.579.2.1259 1942 Unknown [id number] 2.16.840.1.115111.3.579.2.1259 1942 Unknown [id number] 2.16.840.1.824336.3.579.2.1259 1942 Unknown [id number] 2.16.840.1.707841.3.579.2.9 1942 Unknown [id number] 2.16.840.1.201457.3.579.2.125 1942 Unknown [id number] 2.16.840.1.725117.3.579.2.125 1942 Unknown [id number] 2.16.840.1.683799.3.579.2.1258 1942 Unknown [id number] 2.16.840.1.601663.3.579.2.1258 1942 Unknown [id number] 2.16.840.1.132961.3.579.2.1258 1942 Unknown [id number] 2.16.840.1.622463.3.579.2.125 1942 Unknown [id number] 2.16.840.1.372450.3.579.2.1258 1942 Unknown [id number] 2.16.840.1.135099.3.579.2.1258 1942 Unknown [id number] 2.16.840.1.123472.3.579.2.128 1942 Unknown [id number] 2.16.840.1.681238.3.579.2.128 1942 Unknown [id number] 2.16.840.1.666477.3.579.2.128 1942 Unknown [id number] 2.16.840.1.194206.3.579.2.128 1942 Unknown [id number] 2.16.840.1.252242.3.579.2.128 1942 Unknown [id number] 2.16.840.1.919668.3.579.2.1286 1942 Unknown [id number] 2.16.840.1.552623.3.579.2.1286 1942 Unknown [id number] 2.16.840.1.049418.3.579.2.1286 1942 Unknown [id number] 2.16.840.1.821187.3.579.2.1286 1942 Unknown [id number] 2.16.840.1.752159.3.579.2.1286 1942 Unknown [id number] 2.16.840.1.135438.3.579.2.1286 1942 Unknown [id number] 2.16.840.1.806498.3.579.2.1286 Social History Date Type Detail Facility Start: 12-05-2021 End: 01-12-2024 Tobacco smoking status ARIS Smokes tobacco daily [facility] History of tobacco use Cigarette Smoker P [facility] Start: 12-05-2021 End: 01-12-2024 Tobacco use and exposure Smokeless tobacco non-user [facility] Start: 06-10-2023 End: 03-06-2024 Alcohol intake Lifetime non-drinker (finding) [facility] Start: 11-25-2022 End: 06-11-2023 History of Social function [facility] Start: 11-25-2022 End: 06-11-2023 [facility] Utilities [facility] Has the [place], or [employer] threatened to shut off services in your home in past 12Mo No [facility] In the past 12 month s, has lack of transportation kept you from medical appointments or from getting medications? No [facility] Start: 1940 Sex Assigned At Not on file [facility] Start: 06-23-2023 End: 08-03-2023 Alcohol intake Ex-drinker (finding) [facility] Are you now , , , , never or living with a partner? [facility] How often to you hav e a drink containing alcohol? Never [facility] Do you feel stress - tense, restless, nervous, or anxious, or unable to sleep at night because your mind is troubled all the time - these days [OSQ] Not at all [facility] (I/We) worried wheth er (my/our) food would run out before (I/we) got money to buy more. Never true [facility] Start: 06-08-2023 Alcohol Comment caffeine: 1 cups per day coffee [facility] Start: 07-20-2023 Alcohol Comment caffeine: 2 cups per day coffee [facility] Medical Equipment Procedure Code Equipment Code Equipment Origin al Text Equipment Identifier Dates [id number] Start: 07-31-2022 TRUEplus Lancets 33G [facility] [id number] Start: 12-29-2022 Inject 1 each un raymond the skin Daily Use as instructed [id number] Start: 08-25-2023 TEST FINGERSTICK BLOOD SUGAR TWICE DAILY DIRECTED [id number] Start: 12-27-2023 Inject 1 each un raymond the skin Daily Use as instructed [id number] Start: 03-20-2024 End: 03-28-2024 Inject 1 each un raymond the skin Daily Use as instructed [id number] Start: 03-28-2024 Clinical Notes 06-15-2023 to 03-28-2024 Telephone Encounter - Christy Valdes - 03/28/2024 1:17 PM EDTTelephone Encounter - Christy Valdes - 03/28/2024 1:17 PM EDTTelephone Encounter - Cherri Tavarez - 03/20/2024 3:05 PM EDT Note Date & Type Note Facility 03-28-2024 Telephone encounter Note Pt states she has been trying to get her needles refilled and has not been able to ge them. [facility] 03-28-2024 Miscellaneous Notes Pt states she has been trying to get her needles refilled and has not been able to ge them. documented in this encounter [facility] 03-20-2024 Telephone encounter Note Patient is requesting droplet pen needles for insulin pens. Only has one left. Uses [facility] in [place]. Thank you. [facility] 03-20-2024 Miscellaneous Notes Patient is requesting droplet pen needles for insulin pens. Only has one left. Uses [facility] [place]. Thank you. documented in this encounter [facility] 03-16-2024 Telephone encounter Note Giulia cardoza [facility] is calling today requesting droplet pen needles. Also the albuterol inhaler- some days she uses it more often that 2 puffs q 4 hours. That equals 12 puffs a day. Each inhaler has 25.5 puffs. Can you write the directions differently or send more refills for her? Also needing albuterol for the nebulizer to [facility]. Thank you. Any questions please call Giulia [phone]. [facility] 03-16-2024 Miscellaneous Notes Giulia cardoza [facility] is calling today requesting droplet pen needles. Also the albuterol inhaler- some days she uses it more often that 2 puffs q 4 hours. That equals 12 puffs a day. Each inhaler has 25.5 puffs. Can you write the directions differently or send more refills for her? Also needing albuterol for the nebulizer to [facility]. Thank you. Any questions please call Giulia [phone]. documented in this encounter [facility] 03-14-2024 Telephone encounter Note [facility] called - They are asking for an order for Group Home and PT services . Fax to [phone] [facility] 03-14-2024 Miscellaneous Notes [facility] called - They are asking for an order for Group Home and PT services . Fax to [phone] documented in this encounter [facility] 03-14-2024 Note [facility] Note Reason for cardiology visit: Congestive heart failure, aortic stenosis Chief Complaint: Shortness of breath HPI: 03/14/2024 The patient was recently in the hospital with respiratory failure due to combination of acute on chronic COPD and CHF. According to the notes Lasix and Aldactone were added to her medical regimen. She states that her shortness of breath is much better. She states also that she was noted to have a long nodule and she is undergoing workup to check if it is a cancer. She continues to smoke. She is on oxygen at 3 and half liters per minute. She denies any chest discomfort at rest or with exertion. She denies orthopnea or paroxysmal nocturnal dyspnea or dizziness or palpitations or legs edema 02/07/2024 Marietta Mitchell is a 83 y.o. female with history of nonischemic cardiomyopathy with reduced EF 20-25%, hypertension, hyperlipidemia, CKD, type 2 diabetes with neuropathy, tobacco use, emphysema, and peripheral artery disease, S/P PTCA of right and left legs, S/P renal arteries stents. She used to follow-up with [facility] and she switched to [facility]. The patient has chronic dyspnea on [...] claudication. She denies any illicit drug use ROS: Symptoms were reviewed and they were negative except for the positive findings noted above in the history Past Medical History She has a past medical history of Abnormal ECG, Chronic kidney disease, COPD (chronic obstructive pulmonary disease) ([facility]/HCC), Coronary artery disease, Diabetes mellitus ([facility]), Hyperlipidemia, Hypertension, LBBB (left bundle branch block), Myocardial infarction ([facility]/HCC), NICM (nonischemic cardiomyopathy) ([facility]), and PAD (peripheral artery disease) ([facility]). Surgical History She has a past surgical history that includes Cardiac catheterization. Social History She reports that she has been smoking cigarettes. She has been smoking an average of .5 packs per day. She has never used smokeless tobacco. No [...] mouth in the morning., Disp: , Rfl: DULoxetine (Cymbalta) [address] capsule, Take 20 mg by mouth in the morning. Do not crush or chew., Disp: , Rfl: famotidine (Pepcid) 20 mg tablet, Take 20 mg by mouth twice a day., Disp: , Rfl: glimepiride (Amaryl) 4 mg tablet, Take 4 mg by mouth twice a day., Disp: , Rfl: losartan (Cozaar) 100 mg tablet, Take 100 mg by mouth in the morning., Disp: , Rfl: metFORMIN (Glucophage) 1,000 mg tablet, TAKE 1 TABLET WITH A MEAL ORALLY TWICE DAILY, Disp: , Rfl: metoprolol succinate XL (Toprol-XL) 25 mg 24 hr tablet, Take 1 tablet (25 mg) by mouth once daily as directed. Do not crush or chew., Disp: 90 tablet, Rfl: 3 montelukast (Singulair) 10 mg tablet, Take 10 [...] Rfl: Last Recorded Vitals Visit Vitals BP 108/61 Pulse 72 Ht 1.651 m (5' 5 ) Wt 45.8 kg (101 lb) SpO2 92% BMI 16.81 kg/m??? Smoking Status Every Day BSA 1.45 m??? Physical Examination: GENERAL: alert and oriented [...] PSYCH: appropriate mood, affect, and judgement. Labs: Labs 02/28/2024, white blood count 6.6, hemoglobin 9.3, hematocrit 30, (more content not included)... [facility] 03-06-2024 History of Presen t illness Narrative Images from the original note were not included. Marietta Mitchell is a 83 y.o. female presents with chief complaint of Hospital Follow-up HPI: HPI Presents to the office today for hospital follow-up. She feels she needs to see a neurologist because of the pain in her legs, states while she was in the hospital, she was given morphine which really helped her pain. Her rybelsus was stopped as well, concern it was contributing to her weight loss. She reports she is trying to eat more, drinking an ensure daily. She lost her food stamps, is getting food from the food pantry, struggles getting it d/t her mobility. Feels breathing is ok since discharge. Still smoking regularly. Flowsheet Row Office Visit from 03/06/2024 in [facility] with Pia Talley NP Hospital Information ED, Hospital or Group Home Facility Discharge? ED Patient has been contacted within 1 week of being seen in the ED Yes Discharge Date 02/28/24 Discharged To: Home Setting Engagement Medications Discharge medications reviewed and reconciled from hospital? Yes Is the patient having any side effects they believe may be caused by any medication additions or changes? No Does the patient have all medications ordered at discharge? No Is the patient taking all medications as directed (includes completed medication regime)? Yes Appointments Does the patient have a primary care provider? Yes Has the patient kept scheduled appointments due by today? Yes Self Management Patient Teaching Does the patient have access to their discharge instructions? Yes What is the patient's perception of their health status since discharge? Improving Wrap Up SUBJECTIVE: MEDICATIONS: Current Outpatient Medications Medication Instructions albuterol (2.5 MG/3ML) 0.083% nebulizer solution TAKE 3ml via NEBULIZER EVERY 4 HOURS NEEDED FOR WHEEZING or SHORTNESS OF BREATH albuterol HFA 90 mcg/act inhaler 2 puffs, Inhalation, Every 4 hours PRN aspirin 81 mg, Oral, Daily Blood Glucose Monitoring Suppl (True Metrix Air Glucose Meter) w/Device kit USE DIRECTED Uolomld-Tvgbelcjffw-Qsdxzfagzs (Breztri Aerosphere) 160-9-4.8 MCG/ACT aerosol 2 puffs, Inhalation, 2 times daily Cholecalciferol (D3 PO) Oral clopidogrel (PLAVIX) 75 mg, Oral, Daily furosemide (LASIX) 20 mg, Oral, Daily glimepiride (AMARYL) 4 mg, Oral, 2 times daily Lantus SoloStar 100 UNIT/ML pen INJECT 10 UNITS UNDER THE SKIN AT BEDTIME. DISCARD PEN 28 DAYS AFTER OPENING losartan (COZAAR) 100 mg, Oral, Daily metFORMIN (Glucophage) 1000 MG tablet TAKE 1 TABLET WITH A MEAL ORALLY TWICE DAILY metoprolol succinate XL (TOPROL-XL) 50 mg, Oral, Every morning montelukast (SINGULAIR) 10 mg, Oral, Daily Multiple Vitamins-Minerals (WOMENS 50+ MULTI VITAMIN PO) Oral pantoprazole (ProtoNix) 40 MG EC tablet TAKE 1 TABLET EVERY MORNING BEFORE A MEAL pen needle 32G x 5 mm misc 1 each, Subcutaneous, Daily, Use as instructed SadaRole (REQUIP) 0.5 mg, Oral, 3 times daily rosuvastatin (CRESTOR) 20 mg, Oral, Daily Rybelsus 7 MG tablet TAKE 1 TABLET EVERY MORNING TAKE BEFORE A MEAL spironolactone (Aldactone) 25 MG tablet TAKE 1/2 (ONE-HALF) OF A TABLET BY MOUTH ONCE DAILY True Metrix Blood Glucose Test test strip TEST FINGERSTICK BLOOD SUGAR TWICE DAILY DIRECTED TRUEplus Lancets 33G [facility] REVIEW OF SYMPTOMS: Review of Systems OBJECTIVE: Visit Vitals BP 130/60 (BP Location: Right arm, Patient Position: Sitting, BP Cuff Size: Small adult) Pulse 76 Ht 5' 5 Wt 99 lb 6.4 oz SpO2 96% BMI 16.54 kg/m Smoking Status Every Day BSA 1.44 m Physical Exam Vitals reviewed. Constitutional: Appearance: She is cachectic. HENT: Head: Normocephalic and atraumatic. Mouth/Throat: Mouth: Mucous membranes are moist. Eyes: Pupils: Pupils are equal, round, and reactive to light. Cardiovascular: Rate and Rhythm: Normal rate and regular rhythm. Pulses: Normal pulses. Heart sounds: Normal heart sounds. Pulmonary: Effort: Pulmonary effort is normal. Breath sounds: Normal breath sounds. Comments: Diminished though clear Musculoskeletal: Cervical back: Normal range of motion and neck supple. Right lower leg: No edema. Left lower leg: No edema. Skin: General: Skin is warm and dry. Capillary Refill: Capillary refill takes less than 2 seconds. Findings: No rash. Neurological: General: No focal deficit present. Mental Status: She is alert and oriented to person, place, and time. ASSESSMENT AND PLAN: Assessment/Plan Diagnoses and all orders for this visit: Abnormal PET scan of lung - Ambulatory referral to Oncology; Future - Comprehensive metabolic panel; Future - CBC and differential; Future -Discussed PET scan results. She isn't sure if she would pursue treatment but would like to know her options. Will get her in with oncology JUAREZ. Acute on chronic respiratory failure with hypoxia (CMS/HCC) - Comprehensive metabolic panel; Future - CBC and differential; Future -Oxygen levels normal today in office. Appears to be back to her baseline. Acute systolic congestive heart failure (CMS/HCC) - Comprehensive metabolic panel; Future - CBC and differential; Future -Euvolemic on exam Chronic obstructive pulmonary disease, unspecified COPD type (CMS/HCC) -Stable Coronary artery disease involving [place] coronary artery of [place] heart without angina pectoris ([facility]) -On a statin, plavix and ASA Primary hypertension ([facility]) - Comprehensive metabolic panel; Future - CBC and differential; Future -Discussed current management plan. Goal BP less then 130/80. Discussed heart healthy diet, increase fruits and vegetables, limit salt intake. Encouraged increase physical exercise, try to be as active as possible at least 150 mins per week. Importance of weight management with a goal BMI less then 27 discussed. Discussed complications of uncontrolled blood pressure. Patient instructed to monitor BP's 1-2 times a week, keep a log, and bring to next visit. Barriers to care and medication compliance discussed. Patient voices understanding of meds. Type 2 diabetes mellitus with hyperglycemia, with long-term current use of insulin ([facility]) - Comprehensive metabolic panel; Future -Rybelsus was stopped. Will see how her blood sugars are running before making any changes to her insulin regimen. Severe malnutrition ([facility]) - Comprehensive metabolic panel; Future -Continue boost daily. Concern for underlying cancer r/t her abnormal PET scan results which could be contributing to her malnutrition however she is also struggling with obtain groceries. 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 PAD. No need to see neurology, I can treat her neuropathy, will trial her on a very low dose of duloxetine and see how she does. documented in this encounter [facility] 03-03-2024 Telephone encounter Note Call and get her records from recent hospital stay at [place] [facility] 03-03-2024 Miscellaneous Notes Call and get her records from recent hospital stay at [place] documented in this encounter [facility] 02-07-2024 Note [place] [facility] Note Reason for cardiology consult: Congestive heart failure, aortic stenosis Chief Complaint: Shortness of breath HPI: Marietta Mitchell is a 83 y.o. female with history of nonischemic cardiomyopathy with reduced EF 20-25%, hypertension, hyperlipidemia, CKD, type 2 diabetes with neuropathy, tobacco use, emphysema, and peripheral artery disease, S/P PTCA of right and left legs, S/P renal arteries stents. She used to follow-up with [facility] and she switched to [facility]. The patient has chronic dyspnea on [...] kidney disease, COPD (chronic obstructive pulmonary disease) ([facility]), Coronary artery disease, Diabetes mellitus ([facility]), Hyperlipidemia, Hypertension, LBBB (left bundle branch block), Myocardial infarction ([facility]), NICM (nonischemic cardiomyopathy) ([facility]), and PAD (peripheral artery disease) ([facility]). Surgical History She has a [...] Lower extremities arteri (more content not included)... [facility] 01-21-2024 Telephone encounter Note Pt called asking for help to figure out if she can have her PET scan and the copay. Also would like help finding a extractor plant operator close to her. She received a call from [place] for a Card. And [facility] called her the other day. [facility] 01-21-2024 Miscellaneous Notes Pt called asking for help to figure out if she can have her PET scan and the copay. Also would like help finding a extractor plant operator close to her. She received a call from [place] for a Card. And [facility] called her the other day. documented in this encounter [facility] 08-03-2023 History of Presen t illness Narrative Images from the original note were not included. [facility] [address] [place] [id number] Subjective: Patient ID: Marietta Mitchell is a 83 y.o. female. Chief Complaint No chief complaint on file. History of Present Illness: Thank you Pia Talley CNP for referring patient Marietta Mitchell and for your trust in our practice. Marietta Mitchell is a 83 y.o. pleasant female with history of ASCVD, cardiomyopathy with reduced EF, hypertension, hyperlipidemia, CKD, type 2 diabetes, and emphysema who presents today for consultation at the [facility] due to history of peripheral artery disease. Patient states she has had 6 stents placed in her right leg and 1 stent placed in her left leg in [place] in 2019/2020. She heard of medications to prevent stents [...] List Diagnosis NSTEMI (non-ST elevated myocardial infarction) ([facility]) Iron deficiency anemia Cardiomyopathy Mucopurulent chronic bronchitis ([facility]) Pulmonary emphysema ([facility]) Anxiety, generalized Diabetic renal disease ([facility]) Essential hypertension GERD without esophagitis Mixed hyperlipidemia Peripheral vascular disease ([facility]) Polyneuropathy due to type 2 diabetes mellitus ([facility]) Restless leg syndrome Stage 3b chronic kidney disease ([facility]) Type 2 diabetes mellitus with diabetic autonomic (poly)neuropathy ([facility]) Current Outpatient Medications: albuterol (PROVENTIL HFA;VENTOLIN HFA) [...] by mouth as needed., Disp: , Rfl: [id number] (BREZTRI AEROSPHERE) 160-9-4.8 mcg/actuation HFA aerosol inhaler, [...] Diagnosis Date COPD (chronic obstructive pulmonary disease) ([facility]) Coronary artery disease Diabetes mellitus type 2, controlled ([facility]) GERD (gastroesophageal reflux disease) Hyperlipidemia Hypertension Peripheral vascular disease ([facility]) Polyneuropathy associated with underlying disease ([facility]) Restless leg syndrome Past Surgical History: Procedure Laterality Date Coronary angiogram and left ventricular gram/pressure N/A 12/10/2021 Performed by Rickey Sotelo MD at [facility] C[facility] CATH [facility]S EGD Left Lateral 12/09/2021 Performed by Michelle Bosch MD at [facility] Family History Problem Relation Age of [...] all orders for this visit: Atherosclerosis of [place] artery of lower extremity with intermittent claudication([facility]) Patient has history of peripheral artery disease with remote stenting in her right and left leg and [place] . Arterial duplex report of bilateral extremity [...] Chavez PA-C Interventional Cardiology and Endovascular Interventions [facility] documented in this encounter [facility] 07-13-2023 Telephone encounter Note Pt left vm stating that her insurance [employer] does not cover a in [facility]. Some told her she could go to [facility] so she wants you to find a referral for a DrOlimpia In [facility] and schedule her. The message did not mention what the referral was for. Please return patient call to [phone] [facility] 07-13-2023 Miscellaneous Notes Pt left stating that her insurance [employer] does not cover a in [facility]. Some told her she could go to [facility] so she wants you to find a referral for a DrOlimpia In [facility] and schedule her. The message did not mention what the referral was for. Please return patient call to [phone] documented in this encounter [facility] 06-24-2023 Miscellaneous Notes Patient has [employer] Medicare and was explained she could be seen in our office but the only provider in network is Dr. Garcia patient has a appointment tomorrow with [facility] she will try to get a provider though them. documented in this encounter [facility] 06-24-2023 Telephone encounter Note Patient has [employer] Medicare and was explained she could be seen in our office but the only provider in network is Dr. Garcia patient has a appointment tomorrow with [facility] she will try to get a provider though them. 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 ([facility]-HCC)- Primary Essential hypertension Unspecified essential hypertension Mixed hyperlipidemia Renal artery stenosis ([facility]) Atherosclerosis of renal artery documented in this encounter [facility] SystemEvaluation note* Diagnosis Abnormal PET scan of lung- Primary Acute on chronic respiratory failure with hypoxia (CMS/HCC) Acute systolic congestive heart failure ([facility]/HCC) Chronic obstructive pulmonary disease, unspecified COPD type ([facility]/HCC) Coronary artery disease involving [place] coronary artery of [place] heart without angina pectoris ([facility]/HCC) Primary hypertension ([facility]/HCC) Unspecified essential hypertension Type 2 diabetes mellitus with hyperglycemia, with long-term current use of insulin ([facility]/HCC) Severe malnutrition ([facility]/HCC) 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 ([facility]/HCC) documented in this encounter [facility] HealthcareEvaluation note* Diagnosis Peripheral vascular disease ([facility]/HCC)- Primary Unspecified peripheral vascular disease Pulmonary nodule Other diseases of lung, not elsewhere classified Mixed hyperlipidemia (CMS/HCC) Mixed hyperlipidemia Peripheral arterial disease (CMS/HCC) Unspecified peripheral vascular disease NSTEMI (non-ST elevated myocardial infarction) ([facility]/HCC) Acute myocardial infarction, subendocardial infarction, episode of care unspecified Cigarette nicotine dependence without complication Essential hypertension (CMS/HCC) Unspecified essential hypertension Atherosclerotic heart disease of [place] coronary artery with other forms of angina pectoris (I25.118) Pulmonary hypertension, unspecified (I27.20) 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) Moderate protein-calorie malnutrition (CMS/HCC) Wound cellulitis- Primary Type 2 diabetes mellitus with diabetic autonomic neuropathy, with long-term current use of insulin (CMS/HCC) Peripheral vascular disease (CMS/HCC) Unspecified peripheral vascular disease Peripheral arterial disease (CMS/HCC) Unspecified peripheral vascular disease Stage 3a chronic kidney disease (HCC) (CMS/HCC) terminal 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 current use of insulin (CMS/HCC) shelter (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 (Z79.4) 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) Atherosclerosis of aorta (I70.0) Atherosclerosis of aorta Atherosclerotic heart disease of [place] coronary artery with other forms of angina pectoris (I25.118) Chronic obstructive pulmonary disease, unspecified COPD type (CMS/HCC) 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) Aneurysm of ascending aorta without rupture ([facility]/HCC) Thoracic aortic ectasia (I77.810) Thoracic aortic ectasia Type 2 diabetes mellitus with diabetic peripheral angiopathy without gangrene, with long-term current use of insulin ([facility]/HCC) Peripheral vascular disease, unspecified (I73.9) Peripheral vascular disease, unspecified Cardiomyopathy, unspecified type ([facility]) Encounter for wellness examination- Primary Essential hypertension ([facility]) Unspecified essential hypertension Type 2 diabetes mellitus with hyperglycemia, with long-term current use of insulin (CMS/HCC) Mixed hyperlipidemia (CMS/HCC) Mixed hyperlipidemia Stage 3b chronic kidney disease (HCC) ([facility]) Iron deficiency anemia, unspecified iron deficiency anemia type Underweight Vitamin D deficiency Screening mammogram for breast cancer Pulmonary nodule Other diseases of lung, not elsewhere classified Unspecified protein-calorie malnutrition (CMS/HCC) Unspecified protein-calorie malnutrition Immunodeficiency due to conditions classified elsewhere ([facility]/HCC) COPD mixed type (CMS/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) Seasonal allergies Allergic rhinitis, cause unspecified S/P coronary artery stent placement Postsurgical percutaneous transluminal coronary angioplasty status GERD without esophagitis Esophageal reflux 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) Aneurysm of ascending aorta without rupture (CMS/HCC) Atherosclerosis of aorta (I70.0) Atherosclerosis of aorta Atherosclerosis of coronary artery of [place] heart without angina pectoris, unspecified vessel or lesion type (CMS/HCC) Cardiomyopathy, unspecified type (CMS/HCC) Peripheral vascular disease (CMS/HCC) Unspecified peripheral vascular disease Diabetic nephropathy associated with type 2 diabetes mellitus (HCC) (CMS/[facility]) terminal 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 current use of insulin (CMS/HCC) Cigarette nicotine dependence without complication Anxiety, generalized (CMS/HCC) COPD mixed type ([facility]/HCC) documented in this encounter [facility] HealthcareEvaluation note* Diagnosis Peripheral vascular disease (CMS/HCC)- Primary Unspecified peripheral vascular disease Pulmonary nodule Other diseases of lung, not elsewhere classified Mixed hyperlipidemia (CMS/HCC) Mixed hyperlipidemia Peripheral arterial disease (CMS/HCC) Unspecified peripheral vascular disease NSTEMI (non-ST elevated myocardial infarction) ([facility]) Acute myocardial infarction, subendocardial infarction, episode of care unspecified Cigarette nicotine dependence without complication Essential hypertension (CMS/[facility]) Unspecified essential hypertension Atherosclerotic heart disease of [place] coronary artery with other forms of angina pectoris (I25.118) Pulmonary hypertension, unspecified (I27.20) 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) Moderate protein-calorie malnutrition ([facility]) Wound cellulitis- Primary Type 2 diabetes mellitus with diabetic autonomic neuropathy, with long-term current use of insulin ([facility]) Peripheral vascular disease (CMS/HCC) Unspecified peripheral vascular disease Peripheral arterial disease ([facility]/HCC) Unspecified peripheral vascular disease Stage 3a chronic kidney disease (HCC) ([facility]) shelter current use of insulin ([facility]) terminal 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 (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 (Z79.4) 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) Atherosclerosis of aorta (I70.0) Atherosclerosis of aorta Atherosclerotic heart disease of [place] coronary artery with other forms of angina pectoris (I25.118) Chronic obstructive pulmonary disease, unspecified COPD type (CMS/HCC) 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) Aneurysm of ascending aorta without rupture (CMS/HCC) Thoracic aortic ectasia (I77.810) Thoracic aortic ectasia Type 2 diabetes mellitus with diabetic peripheral angiopathy without gangrene, with long-term current use of insulin ([facility]) Peripheral vascular disease, unspecified (I73.9) Peripheral vascular disease, unspecified Cardiomyopathy, unspecified type ([facility]) Encounter for wellness examination- Primary Essential hypertension ([facility]) Unspecified essential hypertension Type 2 diabetes mellitus with hyperglycemia, with long-term current use of insulin ([facility]) Mixed hyperlipidemia ([facility]) Mixed hyperlipidemia Stage 3b chronic kidney disease (HCC) ([facility]) Iron deficiency anemia, unspecified iron deficiency anemia type Underweight Vitamin D deficiency Screening mammogram for breast cancer Pulmonary nodule Other diseases of lung, not elsewhere classified Unspecified protein-calorie malnutrition ([facility]) Unspecified protein-calorie malnutrition Immunodeficiency due to conditions classified elsewhere ([facility]) COPD mixed type ([facility]) 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) Seasonal allergies Allergic rhinitis, cause unspecified S/P coronary artery stent placement Postsurgical percutaneous transluminal coronary angioplasty status GERD without esophagitis Esophageal reflux Polyneuropathy due to type 2 diabetes mellitus ([facility]) Aneurysm of ascending aorta without rupture ([facility]) Atherosclerosis of aorta (I70.0) Atherosclerosis of aorta Atherosclerosis of coronary artery of [place] heart without angina pectoris, unspecified vessel or lesion type ([facility]) Cardiomyopathy, unspecified type ([facility]) Peripheral vascular disease ([facility]) Unspecified peripheral vascular disease Diabetic nephropathy associated with type 2 diabetes mellitus (HCC) ([facility]) terminal 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 current use of insulin ([facility]) Cigarette nicotine dependence without complication Anxiety, generalized ([facility] COPD mixed type ([facility]) documented in this encounter [facility] HealthcareEvaluation note* Diagnosis Peripheral vascular disease ([facility])- Primary Unspecified peripheral vascular disease Pulmonary nodule Other diseases of lung, not elsewhere classified Mixed hyperlipidemia ([facility]) Mixed hyperlipidemia Peripheral arterial disease ([facility]) Unspecified peripheral vascular disease NSTEMI (non-ST elevated myocardial infarction) ([facility]) Acute myocardial infarction, subendocardial infarction, episode of care unspecified Cigarette nicotine dependence without complication Essential hypertension ([facility]) Unspecified essential hypertension Atherosclerotic heart disease of [place] coronary artery with other forms of angina pectoris (I25.118) Pulmonary hypertension, unspecified (I27.20) 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) Moderate protein-calorie malnutrition (CMS/HCC) Wound cellulitis- Primary Type 2 diabetes mellitus with diabetic autonomic neuropathy, with long-term current use of insulin (CMS/HCC) Peripheral vascular disease (CMS/HCC) Unspecified peripheral vascular disease Peripheral arterial disease (CMS/HCC) Unspecified peripheral vascular disease Stage 3a chronic kidney disease (HCC) (CMS/HCC) terminal 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 current 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 of 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 (CMS/HCC) shelter (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 (Z79.4) 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) Atherosclerosis of aorta (I70.0) Atherosclerosis of aorta Atherosclerotic heart disease of [place] coronary artery with other forms of angina pectoris (I25.118) Chronic obstructive pulmonary disease, unspecified COPD type (CMS/HCC) 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) Aneurysm of ascending aorta without rupture (CMS/HCC) Thoracic aortic ectasia (I77.810) Thoracic aortic ectasia Type 2 diabetes mellitus with diabetic peripheral angiopathy without gangrene, with long-term current use of insulin ([facility]) Peripheral vascular disease, unspecified (I73.9) Peripheral vascular disease, unspecified Cardiomyopathy, unspecified type ([facility]) Encounter for wellness examination- Primary Essential hypertension ([facility]) Unspecified essential hypertension Type 2 diabetes mellitus with hyperglycemia, with long-term current use of insulin ([facility]) Mixed hyperlipidemia (CMS/HCC) Mixed hyperlipidemia Stage 3b chronic kidney disease (HCC) (CMS/[facility]) Iron deficiency anemia, unspecified iron deficiency anemia type Underweight Vitamin D deficiency Screening mammogram for breast cancer Pulmonary nodule Other diseases of lung, not elsewhere classified Unspecified protein-calorie malnutrition (CMS/HCC) Unspecified protein-calorie malnutrition Immunodeficiency due to conditions classified elsewhere ([facility]/HCC) COPD mixed type (CMS/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) Seasonal allergies Allergic rhinitis, cause unspecified S/P coronary artery stent placement Postsurgical percutaneous transluminal coronary angioplasty status GERD without esophagitis Esophageal reflux 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) Aneurysm of ascending aorta without rupture (CMS/HCC) Atherosclerosis of aorta (I70.0) Atherosclerosis of aorta Atherosclerosis of coronary artery of [place] heart without angina pectoris, unspecified vessel or lesion type (CMS/HCC) Cardiomyopathy, unspecified type (CMS/[facility]) Peripheral vascular disease ([facility]) Unspecified peripheral vascular disease Diabetic nephropathy associated with type 2 diabetes mellitus (HCC) ([facility]) shelter current use of insulin ([facility]) Cigarette nicotine dependence without complication Anxiety, generalized ([facility]) Type 2 diabetes mellitus with diabetic autonomic neuropathy, with long-term current use of insulin ([facility]) documented in this encounter [facility] HealthcareEvaluation note* Diagnosis Peripheral vascular disease ([facility])- Primary Unspecified peripheral vascular disease Pulmonary nodule Other diseases of lung, not elsewhere classified Mixed hyperlipidemia ([facility]) Mixed hyperlipidemia Peripheral arterial disease ([facility]) Unspecified peripheral vascular disease NSTEMI (non-ST elevated myocardial infarction) ([facility]) Acute myocardial infarction, subendocardial infarction, episode of care unspecified Cigarette nicotine dependence without complication Essential hypertension ([facility]) Unspecified essential hypertension Atherosclerotic heart disease of [place] coronary artery with other forms of angina pectoris (I25.118) Pulmonary hypertension, unspecified (I27.20) 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) Moderate protein-calorie malnutrition ([facility]) Wound cellulitis- Primary Type 2 diabetes mellitus with diabetic autonomic neuropathy, with long-term current use of insulin ([facility]) Peripheral vascular disease ([facility]) Unspecified peripheral vascular disease Peripheral arterial disease ([facility]) Unspecified peripheral vascular disease Stage 3a chronic kidney disease (HCC) ([facility]) shelter current use of insulin ([facility]) shelter (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 (Z79.4) 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) Atherosclerosis of aorta (I70.0) Atherosclerosis of aorta Atherosclerotic heart disease of [place] coronary artery with other forms of angina pectoris (I25.118) Chronic obstructive pulmonary disease, unspecified COPD type ([facility]) 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) Aneurysm of ascending aorta without rupture ([facility]) Thoracic aortic ectasia (I77.810) Thoracic aortic ectasia Type 2 diabetes mellitus with diabetic peripheral angiopathy without gangrene, with long-term current use of insulin ([facility]) Peripheral vascular disease, unspecified (I73.9) Peripheral vascular disease, unspecified Cardiomyopathy, unspecified type (CMS/HCC) Encounter for wellness examination- Primary Essential hypertension (CMS/HCC) Unspecified essential hypertension Type 2 diabetes mellitus with hyperglycemia, with long-term current use of insulin (CMS/HCC) Mixed hyperlipidemia (CMS/HCC) Mixed hyperlipidemia Stage 3b chronic kidney disease (HCC) (CMS/HCC) Iron deficiency anemia, unspecified iron deficiency anemia type Underweight Vitamin D deficiency Screening mammogram for breast cancer Pulmonary nodule Other diseases of lung, not elsewhere classified Unspecified protein-calorie malnutrition (CMS/HCC) Unspecified protein-calorie malnutrition Immunodeficiency due to conditions classified elsewhere (CMS/HCC) COPD mixed type (CMS/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) Seasonal allergies Allergic rhinitis, cause unspecified S/P coronary artery stent placement Postsurgical percutaneous transluminal coronary angioplasty status GERD without esophagitis Esophageal reflux 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) Aneurysm of ascending aorta without rupture (CMS/HCC) Atherosclerosis of aorta (I70.0) Atherosclerosis of aorta Atherosclerosis of coronary artery of [place] heart without angina pectoris, unspecified vessel or lesion type (CMS/HCC) Cardiomyopathy, unspecified type (CMS/HCC) Peripheral vascular disease (CMS/HCC) Unspecified peripheral vascular disease Diabetic nephropathy associated with type 2 diabetes mellitus (HCC) (CMS/HCC) shelter current use of insulin (CMS/HCC) Cigarette nicotine dependence without complication Anxiety, generalized (CMS/HCC) COPD mixed type (CMS/HCC) documented in this encounter [facility] HealthcareInstructionsNot on filedocumented in this encounterPro[facility] SystemInstructionsNot on filedocumented in this encounterProMer[facility] SystemInstructionsNot on filedocumented in this encounterProMer[facility] SystemInstructionsNot on filedocumented in this encounterT[facility] Reason for referral (narrative)* Consultation (Urgent) - Pending Review Specialty Diagnoses / Procedures Referred By Velma cason Referred To Contact Oncology / Hematology and Oncology Diagnoses Abnormal PET scan of lung Procedures RI OFFICE/OUTPATIENT NEW HIGH MDM 60 MINUTES Pia Talley NP [address] [place] [address] Referral ID Status Reason Start Date Expiration Date Visits Requested Visits Authorized [id number] Pending Review Specialty Services Required 03/06/2024 09/02/2024 1 1 [place] for visit Narrative* Consultation (Routine) - Pending Review Specialty Diagnoses / Procedures Referred By Velma t Referred To Contact Vascular Surgery Diagnoses Peripheral vascular disease (CMS-HCC) Peripheral arterial disease (CMS-HCC) Procedures RI OFFICE OUTPATIENT VISIT 60-74 MINS HIGH MDM AMB REFERRAL TO VASCULAR SURGERY Pia Talley, TAX ASSISTANT-SHAPE BRICK MOLDER [address] [place] [address] Aristeo Garcia MD [address] [place] [address] Referral ID Status Reason Start Date Expiration Date V isits Requested Visits Authorized [id number] Pending Review 07/09/2023 01/05/2024 1 1 [facility] Summary Purpose Family History No Family History [...] Referral Specialty Diagnoses / Procedures Referred By Velma t Referred To Contact Diagnoses Renal artery stenosis (CMS-HCC) Procedures Vas renal artery duplex complete Dima Chavez PA-C [address] [place] [address] Referral ID Status Reason Start Date Expiration Date V isits Requested Visits Authorized [id number] Pending Review 08/03/2023 08/02/2024 1 1 Specialty Diagnoses / Procedures Referred By Contac t Referred To Contact Diagnoses 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 ([facility]-HCC) Procedures Vasc art doppler lwr PVR W/exercise Dima Chavez PA-C [address] [place] [address] Referral ID Status Reason Start Date Expiration Date V isits Requested Visits Authorized [id number] Pending Review 08/03/2023 08/02/2024 1 1 Specialty Diagnoses / Procedures Referred By Contac t Referred To Contact Diagnoses 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 ([facility]-HCC) Procedures Vas art duplex lwr bilateral Dima Chavez PA-C [address] [place] [address] Referral ID Status Reason Start Date Expiration Date V isits Requested Visits Authorized [id number] Pending Review 08/03/2023 08/02/2024 1 1 Additional Source Comments INFORMATION SOURCE (unrecogn ized section and content) DATE CREATED AUTHOR 02/10/2022 [facility] pital DATE CREATED AUTHOR AUTHOR'S ORGANIZ ATION 03/26/2022 [facility] dical Specialist DATE CREATED AUTHOR AUTHOR'S ORGANIZ ATION 08/04/2023 [facility] DATE CREATED AUTHOR AUTHOR'S ORGANIZ ATION 03/07/2024 [facility] dical Specialists EPIC DATE CREATED AUTHOR AUTHOR'S ORGANIZ ATION 03/21/2024 [facility] DATE CREATED AUTHOR AUTHOR'S ORGANIZ ATION 03/21/2024 [facility] DATE CREATED AUTHOR AUTHOR'S ORGANIZ ATION 04/01/2024 [facility] Care Teams (unrecognized sec tion and content) Ski Tow Operator Relationship Specialty Start Date End Date Shila Molina DO [address] [place] [address] PCP - General Family Medicine 12/05/21 Ski Tow Operator Relationship Specialty Start Date End Date Tonja Gilliam MD [address] [place] [address] PCP - General Family Medicine 06/23/23 Ski Tow Operator Relationship Specialty Start Date End Date Shila Molina DO [address] [place] [address] PCP - [employer] 05/31/22 Tonja Gilliam MD [address] [place] [address] PCP - General Family Medicine 06/08/23 Pia Talley NP [address] [place] [address] Nurse Practitioner Family Medicine 06/08/23 Ski Tow Operator Relationship Specialty Start Date End Date Tonja Gilliam MD [address] [place] [address] PCP - General Family Medicine 06/23/23 Ski Tow Operator Relationship Specialty Start Date End Date Shila Molina DO [address] [place] [address] PCP - [employer] 05/31/22 Tonja Gilliam MD [address] [place] [address] PCP - General Family Medicine 06/08/23 Tonja Gilliam MD [address] [place] [address] PCP - [facility] 12/30/23 Pia Talley NP [address] [place] [address] Nurse Practitioner Family Medicine 06/08/23 Ski Tow Operator Relationship Specialty Start Date End Date JesseShila JoseloDO [address] [place] [address] PCP - [employer] 05/31/22 Tonja Gilliam MD [address] [place] [address] PCP - General Family Medicine 06/08/23 Tonja Gilliam MD [address] [place] [address] PCP - [employer] 12/30/23 Pia Talley NP [address] [place] [address] Nurse Practitioner Family Medicine 06/08/23 Ski Tow Operator Relationship Specialty Start Date End Date Shila Molina JoseloDO [address] [place] [address] PCP - [employer] 05/31/22 Tonja Gilliam MD [address] [place] [address] PCP - General Family Medicine 06/08/23 Tonja Gilliam MD [address] [place] [address] PCP - [employer] 12/30/23 Pia Talley NP [address] [place] [address] Nurse Practitioner Family Medicine 06/08/23 Ski Tow Operator Relationship Specialty Start Date End Date Shila Molina DO [address] [place] [address] PCP - [employer] 05/31/22 Tonja Gilliam MD [address] [place] [address] PCP - General Family Medicine 06/08/23 Tonja Gilliam MD [address] [place] [address] PCP - [employer] 12/30/23 Pia Talley NP [address] [place] [address] Nurse Practitioner Family Medicine 06/08/23 Ski Tow Operator Relationship Specialty Start Date End Date Shila Molina DO [address] [place] [address] PCP - [employer] 05/31/22 Tonja Gilliam MD [address] [place] [address] PCP - General Family Medicine 06/08/23 Tonja Gilliam MD [address] [place] [address] PCP - [employer] 12/30/23 Pia Talley NP [address] [place] [address] Nurse Practitioner Family Medicine 06/08/23 Ski Tow Operator Relationship Specialty Start Date End Date Shila Molina DO [address] [place] [address] PCP - [employer] 05/31/22 Tonja Gilliam MD [address] [place] [address] PCP - General Family Medicine 06/08/23 Tonja Gilliam MD [address] [place] [address] PCP - [employer] 12/30/23 Pia Talley NP [address] [place] [address] Nurse Practitioner Family Medicine 06/08/23 Ski Tow Operator Relationship Specialty Start Date End Date Shila Molina DO [address] [place] [address] PCP - [employer] 05/31/22 Tonja Gilliam MD [address] [place] [address] PCP - General Family Medicine 06/08/23 Tonja Gilliam MD [address] [place] [address] PCP - [employer] 12/30/23 Pia Talley NP [address] [place] [address] Nurse Practitioner Family Medicine 06/08/23 Ski Tow Operator Relationship Specialty Start Date End Date Shila Molina DO [address] [place] [address] PCP - [employer] 05/31/22 Tonja Gilliam MD [address] [place] [address] PCP - General Family Medicine 06/08/23 Tonja Gilliam MD [address] [place] [address] PCP - [employer] 12/30/23 Pia Talley NP [address] [place] [address] Nurse Practitioner Family Medicine 06/08/23 Ski Tow Operator Relationship Specialty Start Date End Date JesseShila thomasDO [address] [place] [address] PCP - [employer] 05/31/22 Tonja Gilliam MD [address] [place] [address] PCP - General Family Medicine 06/08/23 Tonja Gilliam MD [address] [place] [address] PCP - [employer] 12/30/23 Pia Talley NP [address] [place] [address] Nurse Practitioner Family Medicine 06/08/23 Reason for Visit (unrecogniz ed section and content) Reason Comments Hospital Follow-up Reason Comments Med Refill FOR RECORDS PERTAINING TO PATIENTS WHO ARE [...] BE BASED ON THE PRIMARY CLINICAL RECORDS. [facility] [employer] [facility]. provides no warranty or guarantee of the accuracy or completeness of information in this document.
--- NOTE | 2024-04-02 15:32 | ECG_ITS ---
[facility] Test Date: 2024-04-02 Pat Name: ISHMAEL MONAHAN Department: Room: - Gender: Female Assistant Facility Manager: : [id number] Requested By: Order Number: [id number] Reading MD: RUPALI HERNANDEZ Measurements Intervals [place] Rate: 97 P: 90 MS: 156 QRS: 74 QRSD: 148 T: 94 QT: 412 QTc: 467 Interpretive Statements 1100 Sinus rhythm LBBB 0102 ARTIFACT PRESENT Electronically Signed On 04-02-2024 18:19:15 EST by RUPALI HERNANDEZ
[2024-04-02] MEDS: IPRATROPIUM/ALBUTEROL SULFATE 3 ML AMPUL.NEB IH ×2 (15:48→21:41)
--- NOTE | 2024-04-02 15:50 | RESP.RT ---
wears 3.5 LPM NC at home
[2024-04-02 16:04] LABS: Basophils Absolute Auto 0.1 10^3/uL (0.0-0.1); Basophils Percent Auto 0.5 % (0.2-2.0); Eosinophils Percent Auto 0.2 % (0.9-7.0); Hemoglobin 9.7 g/dL (12.0-16.0); Immature Granulocytes Abs Auto 0.05 10^3/uL (0.00-0.03); Immature Granulocytes Pct Auto 0.5 % (0.0-0.5); Lymphocytes Absolute Auto 0.7 10^3/uL (1.2-3.8); Lymphocytes Percent Auto 6.5 % (20.5-60.0); Mean Corpuscular HGB Conc 31.3 g/dL (29.9-35.2); Mean Corpuscular Hemoglobin 28.4 pg (26.7-34.0); Mean Corpuscular Volume 90.6 fL (81.0-99.0); Mean Platelet Volume 11.3 fL (9.5-13.5); Monocytes Absolute Auto 0.6 10^3/uL (0.3-0.8); Monocytes Percent Auto 5.3 % (1.7-12.0); Neutrophils Absolute Auto 9.6 10^3/uL (1.4-6.5); Platelet Count 157 10^3/uL (150-450); Red Blood Count 3.42 10^6/uL (4.20-5.40)
[2024-04-02] MEDS: METHYLPREDNISOLONE SOD SUCC PF 125 MG/2 ML VIAL IVP (16:17)
[2024-04-02 16:21] LABS: Lactate/Lactic Acid 1.4 mmol/L (0.4-2.0)
[2024-04-02 16:27] LABS: Alanine Aminotransferase 28 U/L (14-59); Albumin Globulin Ratio 0.6; Albumin Level 2.6 g/dL (3.4-5.0); Alkaline Phosphatase 103 U/L (46-116); Anion Gap 12.1; Aspartate Amino Transferase 25 U/L (15-37); BUN Creatinine Ratio 20.8; Bilirubin Total 0.3 mg/dL (0.2-1.0); Calcium 10.2 mg/dL (8.5-10.1); Carbon Dioxide 28.2 mmol/L (21.0-32.0); Chloride 102 mmol/L (98-107); Estimated GFR (African America >60 (>=60 mL/min/1.73m^2); Estimated GFR (Non-African Ame 56 (>=60 mL/min/1.73m^2); Globulin 4.7 g/dL; Glucose 202 mg/dL (74-106); Potassium 4.3 mmol/L (3.5-5.1); Sodium 138 mmol/L (136-145); Total Protein 7.3 g/dL (6.4-8.2)
--- NOTE | 2024-04-02 17:20 | ED.SOB1 ---
HPI - SOB/Dyspnea General Chief Complaint: Shortness of Breath/Dyspnea Stated Complaint: sob Time Seen by Provider: 04/02/24 15:32 Source: patient Mode of arrival: walk-in History of Present Illness HPI Narrative: The patient is very well-known to us have history of CHF as a baseline she usually uses 3 L of nasal cannula oxygen all the time, for the last few days she has been having some more shortness of breath and congestion as well , the patient have no pulmonary edema but she does not have increase in her phlegm production It was noted on my arrival that the patient WAS 95% on 5 L of nasal cannula which is increased from her baseline Related Data Home Medications ?Medication ?Instructions ?Recorded ?Confirmed albuterol sulfate 2.5 mg/3 mL 2.5 mg inhalation Q4H PRN 02/26/24 04/02/24 (0.083 %) solution for nebulization shortness of breath or wheezing albuterol sulfate 90 mcg/actuation 2 inh inhalation Q4H PRN shortness 02/26/24 04/02/24 aerosol inhaler of breath or wheezing budesonide 160 mcg-glycopyr 9 2 inh inhalation BID 02/26/24 04/02/24 mcg-formot 4.8 mcg/actuation HFA inhaler (Breztri Aerosphere) aspirin 81 mg chewable tablet 81 mg PO DAILY 02/27/24 04/02/24 clopidogrel 75 mg tablet (Plavix) 75 mg PO DAILY 02/27/24 04/02/24 glimepiride 4 mg tablet 4 mg PO DAILY 02/27/24 04/02/24 losartan 100 mg tablet (Cozaar) 100 mg PO DAILY 02/27/24 04/02/24 metformin 1,000 mg tablet 1,000 mg PO DAILY 02/27/24 04/02/24 metoprolol succinate 50 mg 50 mg PO DAILY 02/27/24 04/02/24 tablet,extended release 24 hr montelukast 10 mg tablet 10 mg PO DAILY 02/27/24 04/02/24 (Singulair) pantoprazole 40 mg tablet,delayed 40 mg PO DAILY 02/27/24 04/02/24 release (Protonix) rosuvastatin 20 mg tablet 20 mg PO DAILY 02/27/24 04/02/24 duloxetine 20 mg capsule,delayed 20 mg PO DAILY 04/02/24 04/02/24 release Previous Rx's ?Medication ?Instructions ?Recorded furosemide 20 mg tablet (Lasix) 20 mg PO DAILY #30 tabs 02/28/24 spironolactone 25 mg tablet 12.5 mg (1/2 x 25 mg) PO DAILY #30 02/28/24 (Aldactone) tabs Allergies Allergy/AdvReac Type Severity Reaction Status Date / Time No Known Drug Allergies Allergy Verified 02/26/24 05:26 Review of Systems ROS Status of ROS 10 or more systems reviewed and unremarkable except as noted in history and below [facility] Medical History (Updated 04/02/24 @ 17:20 by Sherly Lynch MD) Acute on chronic systolic (congestive) heart failure ?I50.23 - Acute on chronic systolic (congestive) heart failure (ICD-10) Acute on chronic respiratory failure with hypoxia ?J96.21 - Acute and chronic respiratory failure with hypoxia (ICD-10) Type 2 diabetes mellitus ?E11.9 - Type 2 diabetes mellitus without complications (ICD-10) HLD (hyperlipidemia) ?E78.5 - Hyperlipidemia, unspecified (ICD-10) PAD (peripheral artery disease) ?I73.9 - Peripheral vascular disease, unspecified (ICD-10) Chronic respiratory failure with hypoxia ?J96.11 - Chronic respiratory failure with hypoxia (ICD-10) HTN (hypertension) ?I10 - Essential (primary) hypertension (ICD-10) Current smoker ?F17.200 - Nicotine dependence, unspecified, uncomplicated (ICD-10) CAD (coronary artery disease) ?I25.10 - Atherosclerotic heart disease of [place] coronary artery without angina pectoris (ICD-10) COPD (chronic obstructive pulmonary disease) ?J44.9 - Chronic obstructive pulmonary disease, unspecified (ICD-10) Social History (Updated 02/26/24 @ 16:05 by Shaikh Benyn MD) Within the past year, how often did you have a drink containing alcohol: never Within the past year, how many standard drinks containing alcohol did you have on a typical day: 1 or 2 Total score: 0 Score interpretation: A score less than 3 is consistent with normal alcohol consumption. Smoking status: Current every day smoker Non-prescribed substance use: denies use Highest level of school completed/degree received: 9th grade Little interest or pleasure in doing things: not at all Feeling down, depressed, or hopeless: not at all Exam Narrative Exam Narrative: Nurses notes and vital signs reviewed and patient is not hypoxic. General: Well-appearing and in no apparent distress. Mild tachypnea Skin: Warm, dry, no pallor noted. No rash. Head: Normocephalic, atraumatic. Neck: Supple, non-tender. Eye: Pupils are equal, round and EOMI. No scleral icterus. Ears, Nose, Mouth, and Throat: TM are clear, no nasal mucosal hypertrophy. Oral mucosa is moist, no posterior oropharynx erythema, uvula is mid-line Cardiovascular: Regular Rate and Rhythm without murmur, gallop or rub. Respiratory: There is decreased air entry bilaterally with distant breathing sound and crackles at the bases Chest Wall: no tenderness Back: No midline thoracic or lumbar vertebral tenderness. No CVA tenderness Musculoskeletal: normal ROM, no calf or popliteal tenderness, no lower extremity edema/swelling GI: Abdomen is soft, non-distended. Normal bowel sounds. No masses appreciated. No tenderness to palpation. No rebound, guarding, or rigidity noted. Neurological: A&O x4. No cranial nerve dysfunction observed. No truncal ataxia. Moves all extremities. Sensation intact. Psychiatric: Cooperative and interactive. Normal mood and affect. Constitutional Vital Signs, click to edit/add: Last Vital Signs Temp 98.1 F 04/02/24 15:14 Pulse 95 H 04/02/24 16:50 Resp 27 H 04/02/24 16:50 BP 143/66 H 04/02/24 16:07 Pulse Ox 95 04/02/24 16:40 O2 Del Method Nasal Cannula 04/02/24 15:49 O2 Flow Rate 3.5 04/02/24 15:49 Course Vital Signs Vital signs: Vital Signs Temperature 98.1 F 04/02/24 15:14 Pulse Rate 98 H 04/02/24 15:14 Respiratory Rate 18 04/02/24 15:14 Blood Pressure 168/66 H 04/02/24 15:14 Pulse Oximetry 98 04/02/24 15:14 Oxygen Delivery Method Room Air 04/02/24 15:14 Temperature 98.1 F 04/02/24 15:14 Pulse Rate 95 H 04/02/24 16:50 Respiratory Rate 27 H 04/02/24 16:50 Blood Pressure 143/66 H 04/02/24 16:07 Pulse Oximetry 95 04/02/24 16:40 Oxygen Delivery Method Nasal Cannula 04/02/24 15:49 Oxygen Delivery Flow Rate 3.5 04/02/24 15:49 MDM - SOB/Dyspnea MDM Narrative Medical decision making narrative: The patient EKG in the ER although showing a artifact and does not show any acute changes compared to her baseline CBC showed no leukocytosis Chest x-ray shows a picture of possible pulmonary edema with correlate with the patient elevated BNP up from 7000->18,000 The patient was started on initially breathing treatment and Solu-Medrol that was not enough to control her shortness of breath The patient was started then on Lasix 40 mg IV for CHF exacerbation management The patient case was discussed with and he agreed on admitting the patient for further diuresis Lab Data Labs: Lab Results 04/02/24 Range/Units 15:55 WBC 11.0 (4.0-11.0) 10^3/uL RBC 3.42 L (4.20-5.40) 10^6/uL Hgb 9.7 L (12.0-16.0) g/dL Hct 31.0 L (36.0-48.0) % MCV 90.6 (81.0-99.0) fL MCH 28.4 (26.7-34.0) pg MCHC 31.3 (29.9-35.2) g/dL RDW 16.0 H (11.0-15.0) % Plt Count 157 (150-450) 10^3/uL MPV 11.3 (9.5-13.5) fL Neut % (Auto) 87.0 H (43.0-75.0) % Lymph % (Auto) 6.5 L (20.5-60.0) % Hall % (Auto) 5.3 (1.7-12.0) % Eos % (Auto) 0.2 L (0.9-7.0) % Baso % (Auto) 0.5 (0.2-2.0) % Neut # (Auto) 9.6 H (1.4-6.5) 10^3/uL Lymph # (Auto) 0.7 L (1.2-3.8) 10^3/uL Hall # (Auto) 0.6 (0.3-0.8) 10^3/uL Eos # (Auto) 0.0 (0.0-0.7) 10^3/uL Baso # (Auto) 0.1 (0.0-0.1) 10^3/uL Abs Immat Gran (auto) 0.05 H (0.00-0.03) 10^3/uL Imm/Tot Granulo (auto) 0.5 (0.0-0.5) % Sodium 138 (136-145) mmol/L Potassium 4.3 (3.5-5.1) mmol/L Chloride 102 (98-107) mmol/L Carbon Dioxide 28.2 (21.0-32.0) mmol/L Anion Gap 12.1 BUN 20.0 H (7.0-18.0) mg/dL Creatinine 0.96 (0.55-1.02) mg/dL Est GFR ( Amer) >60 (>=60 mL/min/1.73m^2) Est GFR (Non-Af Amer) 56 L (>=60 mL/min/1.73m^2) BUN/Creatinine Ratio 20.8 Glucose 202 H (74-106) mg/dL Lactate 1.4 (0.4-2.0) mmol/L Calcium 10.2 H (8.5-10.1) mg/dL Total Bilirubin 0.3 (0.2-1.0) mg/dL AST 25 (15-37) U/L ALT 28 (14-59) U/L Alkaline Phosphatase 103 (46-116) U/L Troponin I High Sens 20.0 (4.0-51.3) pg/mL NT-Pro-B Natriuret Pep 44235.0 H* (<=1800.0) pg/mL Total Protein 7.3 (6.4-8.2) g/dL Albumin 2.6 L (3.4-5.0) g/dL Globulin 4.7 g/dL Albumin/Globulin Ratio 0.6 Discharge Plan Discharge Chief Complaint: Shortness of Breath/Dyspnea Clinical Impression: Acute exacerbation of CHF (congestive heart failure) Patient Disposition: Admitted As Inpatient Time of Disposition Decision: 17:20
[2024-04-02] MEDS: FUROSEMIDE 40 MG/4 ML VIAL IVP (17:27)
--- OUTSIDE RECORDS SUMMARY | 2024-04-02 19:52 | XMS_ITS | CCD ---
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, Pia Unavailable ARISTEO GARCIA Attending Unavailable PIA TALLEY A Referring Unavailable TONJA GILLIMA Primary Care Unavailable PIA TALLEY Attending Unavailable JOAQUINPSONIYA, PIA Referring Unavailable PIA TALLEY Attending Unavailable JOEY CAMP Attending Unavailab le PIA TALLEY Attending Unavailable JOAQUINPPIA BYRNES Referring Unavailable KAMPFER, PIA Attending Unavailable KAMPFER, PIA Attending Unavailable KAMPFER, PIA Attending Unavailable KAMPFER, PIA Attending Unavailable KAMPFERPIA Attending Unavailable KAMPFER, PIA Attending Unavailable KAMPSONIYA, PAI Attending Unavailable Tonja Gilliam MD Unavailable JERROD LAU Attending Unavailable JERROD LAU Attending Unavailable TONJA GILLIAM Primary Care Unavailable CORTZE PÉREZ Attending Unavailable YANIQUE BURCIAGA Attending Unavailable [...] Aluminum aspirin; Translations: [ASPIRIN] Drug Allergy 08-18-2023 [facility] Medications Current Medications Medication Drug Class(es) Dates Sig (Normalized) Sig (Original) [id number] 200 actuat albuterol 0.09 mg/actuat metered dose [...] neuropathy, with long-term current use of insulin ([facility]) USE DIRECTED 1 kit 1 08/11/2023 Active 120 actuat budesonide 0.16 mg/actuat / formoterol fumarate 0.0048 mg/actuat / glycopyrrolate 0.009 mg/actuat metered dose inhaler (16 sources) Corticosteroid, beta2-Adrenergic Agonist Start: End: 024 take 2 puff(s) by inhalation in the morning Budeson-Glycopyrr ol-Formoterol (Breztri Aerosphere) 160-9-4.8 MCG/ACT aerosol Indications: COPD mixed type ([facility]) Inhale 2 puffs in the morning and 2 puffs before bedtime. 32.1 g 1 01/18/2024 Active Start: 02-10-2022 take 2 puff(s) by inhalation at bedtime pfbmkvijan-efwiuddt-dzatkddska (BREZTRI AEROSPHERE) 160-9-4.8 mcg/actuation HFA aerosol inhaler Inhale 2 puffs in the morning and at bedtime. 0 02/10/2022 Active Cholecalciferol (11 sources) Vitamin D Cholecalciferol (D3 PO) Take by mouth Active clopidogrel 75 mg oral tablet (16 sources) P2Y12 Platelet Inhibitor Start: clopidogrel (Plavix) 75 MG tablet Indications: PVD (peripheral vascular disease) ([facility]) TAKE 1 TABLET EVERY DAY [...] neuropathy, with long-term current use of insulin ([facility]) Take 1 tablet (10 mg) [...] hyperglycemia, without long-term current use of insulin ([facility]) TAKE 1 TABLET TWICE DAILY [...] hyperglycemia, with long-term current use of insulin ([facility]) INJECT 10 UNITS UNDER THE [...] CQ) 21 mg/24 hr Indications: COPD exacerbation ([facility]) Place 1 patch on the [...] (DELTASONE) 10 mg tablet Indications: COPD exacerbation ([facility]) 3 tabs for 3 days, [...] ONCE DAILY 02/28/2024 Active 28 actuat tiotropium 0.89530 mg/actuat inhalation spray (1 source) Anticholinergic tiotropium [...] Coronary atherosclerosis; Translations: [Atherosclerotic heart disease of [place] coronary artery without angina pectoris] Onset: 09-30-2022 [...] 03-06-2024 Chronic Other aftercare (1 source) Other usp (current) drug therapy; Translations: [OTH SNF CURRENT DRUG THERAPY] Onset: 02-10-2022 Episodic Other [...] Respiratory failure; insufficiency; arrest (adult) (2 sources) Rqvmo-im-tutmiqp respiratory failure; Translations: [Acute and chronic respiratory [...] sources) Long-term current use of insulin; 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 Family History Problem Relation Age of Onset Heart failure Mother Sudden Father Stroke Father Heart attack Son Family Status - Relation Status Age at Mother Father Son Other Level of Service:56562 [place] OFFICE/OUTPATIENT ESTABLISHED MOD MDM 30 MIN Normal [facility] CBC W Auto Differential pane l (Bld)on 03-07-2024 Basophils (Bld) [#/Vol] 58 10*3/uL [facility] Basophils/100 WBC (Bld) 0.9 % [facility] Eosinophils (Bld) [#/Vol] 58 10*3/uL [facility] Eosinophils/100 WBC (Bld) 0.9 % [facility] Erythrocyte distribution width (RBC) [Ratio] 14.3 % 11.0 - 15.0 % [facility] Hematocrit (Bld) [Volume fraction] 33.9 % Low 35.0 - 45.0 % [facility] Hemoglobin (Bld) [Mass/Vol] 10.3 g/dL Low 11.7 - 15.5 g/dL [facility] Lymphocytes (Bld) [#/Vol] 1267 10*3/uL [facility] Lymphocytes/100 WBC (Bld) 19.8 % [facility] MCH (RBC) [Entitic mass] 27.7 pg 27.0 - 33.0 pg [facility] MCHC (RBC) [Mass/Vol] 30.4 g/dL Low 32.0 - 36.0 g/dL [facility] Comment on above: For adults, a slight decrease in the calculated MCHC value (in the range of 30 to 32 g/dL) is most likely not clinically significant; however, it should be interpreted with caution in correlation with other red cell parameters and the patient's clinical condition. MCV (RBC) [Entitic vol] 91.1 fL 80.0 - 100.0 fL [facility] Monocytes (Bld) [#/Vol] 493 10*3/uL [facility] Monocytes/100 WBC (Bld) 7.7 % [facility] Neutrophils (Bld) [#/Vol] 4525 10*3/uL [facility] Neutrophils/100 WBC (Bld) 70.7 % [facility] Platelet mean volume (Bld) [Entitic vol] 11.9 fL 7.5 - 12.5 fL [facility] Platelets (Bld) [#/Vol] 323 10*3/uL [facility] RBC (Bld) [#/Vol] 3.72 10*6/uL Low [facility] WBC (Bld) [#/Vol] 6.4 10*3/uL [facility] Laboratory - Chemistry and C hemistry - challengeon 03-07-2024 Albumin [Mass/Vol] 4.0 g/dL 3.6 - 5.1 g/dL [facility] Albumin/Globulin [Mass ratio] 1.3 {ratio} [facility] ALP [Catalytic activity/Vol] 93 U/L 37 - 153 U/L [facility] ALT [Catalytic activity/Vol] 13 U/L 6 - 29 U/L [facility] AST [Catalytic activity/Vol] 18 U/L 10 - 35 U/L [facility] Bilirubin [Mass/Vol] 0.3 mg/dL 0.2 - 1 .2 mg/dL [facility] Calcium [Mass/Vol] 11.1 mg/dL High 8.6 - 10. 4 mg/dL [facility] Chloride [Moles/Vol] 102 mmol/L 98 - 11 0 mmol/L [facility] CO2 [Moles/Vol] 30 mmol/L 20 - 32 mmol/L [facility] Creatinine [Mass/Vol] 1.15 mg/dL High 0.60 - 0.95 mg/dL [facility] GFR/1.73 sq M.predicted among non-blacks MDRD (S/P/Bld) [Vol rate/Area] 48 mL/min/{1.73_m2} Low > OR = 60 mL/min/1.73m2 [facility] Globulin (S) [Mass/Vol] 3.2 g/dL [facility] Glucose [Mass/Vol] 61 mg/dL Low 65 - 99 mg/dL [facility] Comment on above: Fasting reference interval Potassium [Moles/Vol] 4.3 mmol/L 3.5 - 5.3 mmol/L [facility] Protein [Mass/Vol] 7.2 g/dL 6.1 - 8.1 g/dL [facility] Sodium [Moles/Vol] 139 mmol/L 135 - 146 mmol/L [facility] Urea nitrogen [Mass/Vol] 27 mg/dL High 7 - 25 mg/dL [facility] Urea nitrogen/Creatinine [Mass ratio] 23 mg/mg High [facility] No Panel Informationon 03-07 Interpretation and review of laboratory results Abnormal [facility] Performing Organization Information Site ID: QPT Name: [employer] [facility] Address: [address] [place] [id number] Director: Yanick Self MD [facility] PET CT SKULL TO THIGHon PET CT SKULL TO THIGH PET CT SKULL TO TH [facility] Whole-body PET/CT scan: HISTORY: Pulmonary nodule. Assess [...] Ellington MD on 03/03/2024 3:28 PM Normal [facility] Office Visiton 02-07-2024 Follow-up visit [id number] StephenMarietta L 1940 F Date Provider Department Center 02/07/2024 [id number]-GEIMREJERROD LAU [facility]le [facility] Family History Problem Relation Age of Onset Heart failure Mother Sudden Father Stroke Father Heart attack Son Family Status - Relation Status Age at Mother Father Son Other Level of Service:11283 [place] OFFICE/OUTPATIENT NEW MODERATE MDM 45 MINUTES Normal [facility] C DIFFICILE BY PCRon 024 C. difficile toxin genes LUCÍA+probe Ql (Stl) TOXIGENIC C DIFF Negative (qualifier value) 027 NAP1 Negative (qualifier value) Normal PRNEG [facility] Comment on above: Performed By: #### 5 4067-4 #### [facility] ([id number]) [address], [address] [place] [address] #### 06492-3 #### [facility] ([id number]) [address] [place] [address], [place] [address] [facility] ([id number]) [address], [address] [place] [address] CBC AND AUTO DIFFon 08-18-19 24 ABSOLUTE BASOPHIL 0.1 X10E9/L Normal 0.0-0.2 [facility] Comment on above: Performed By: #### C KUSH ESCAMILLA, #### [facility] ([id number]) [address] [place] [address] ABSOLUTE NEUTROPHIL 9.9 X10E9/L High 1.5-6.6 [facility] Comment on above: Performed By: #### C KUSH ESCAMILLA, #### [facility] ([id number]) [address] [place] [address] 77057 Basophils/100 WBC (Bld) 1.0 % Normal [facility] Comment on above: Performed By: #### C KUSH ESCAMILLA, #### [facility] ([id number]) [address] [place] [address] 37922 Eosinophils (Bld) [#/Vol] 0.1 10*3/uL Normal 0.0-0.[address] [facility] Comment on above: Performed By: #### C FRANCINE [facility], #### [facility] ([id number]) [address] [place] [address] 77430 Eosinophils/100 WBC (Bld) 0.8 % Normal [facility] Comment on above: Performed By: #### Taj ESCAMILLA [facility], #### [facility] ([id number]) [address] [place] [address] 21746 Erythrocyte distribution width (RBC) [Ratio] 15.1 % High 11.5-15.[address] [facility] Comment on above: Performed By: #### C KUSH ESCAMILLA, #### [facility] ([id number]) [address] [place] [address] 25328 Hematocrit (Bld) [Volume fraction] 38.3 % Normal 35-[address] [facility] Comment on above: Performed By: #### C KUSH ESCAMILLA, #### [facility] ([id number]) [address] [place] [address] 52767 Hemoglobin (Bld) [Mass/Vol] 12.8 g/dL Normal 11.7-15.[address] [facility] Comment on above: Performed By: #### Taj ESCAMILLA CMP, 88087-2 #### [facility] ([id number]) [address] [place] [address] 04392 Lymphocytes (Bld) [#/Vol] 1.6 10*3/uL Normal 1.0-3.[address] [facility] Comment on above: Performed By: #### Taj ESCAMILLA [facility], #### [facility] ([id number]) [address] [place] [address] 73071 Lymphocytes/100 WBC (Bld) 12.7 % Normal [facility] Comment on above: Performed By: #### Taj ESCAMILLA [facility], #### [facility] ([id number]) [address] [place] [address] 42200 MCH (RBC) [Entitic mass] 30.6 pg Normal 27-[address] [facility] Comment on above: Performed By: #### C FRANCINE [facility], 23574-0 #### [facility] ([id number]) [address] [place] [address] 09532 MCHC (RBC) [Mass/Vol] 33.3 g/dL Normal 32-36 [facility] Comment on above: Performed By: #### Taj ESCAMILLA, CMP, #### [facility] ([id number]) [address] [place] [address] 04722 MCV (RBC) [Entitic vol] 92 fL Normal 80-[address] [facility] Comment on above: Performed By: #### Taj ESCAMILLA CMP, #### [facility] ([id number]) [address] [place] [address] 59503 Monocytes (Bld) [#/Vol] 0.7 10*3/uL Normal 0-0.[address] [facility] Comment on above: Performed By: #### C FRANCINE CMP, 86283-4 #### [facility] ([id number]) [address] [place] [address] 95196 Monocytes/100 WBC (Bld) 5.6 % Normal [facility] Comment on above: Performed By: #### Taj ESCAMILLA CMP, 49698-1 #### [facility] ([id number]) [address] [place] [address] 50557 Neutrophils/100 WBC (Bld) 79.9 % Normal [facility] Comment on above: Performed By: #### Taj ESCAMILLA CMP, 46189-5 #### [facility] ([id number]) [address] [place] [address] [place] [address] Platelet mean volume (Bld) [Entitic vol] 10.0 fL Normal 7-[address] [facility] Comment on above: Performed By: #### Taj ESCAMILLA CMP, 28463-2 #### [facility] ([id number]) [address] [place] [address] 07862 Platelets (Bld) [#/Vol] 238 10*3/uL Normal 150-[address] [facility] Comment on above: Performed By: #### Taj ESCAMILLA CMP, 63135-1 #### [facility] ([id number]) [address] [place] [address] 33054 RBC COUNT 4.17 X10E12/L Normal 3.80-5.[address] [facility] Comment on above: Performed By: #### Taj ESCAMILLA, CMP, 41223-8 #### [facility] ([id number]) [address] [place] [address] 96731 WBC (Bld) [#/Vol] 12.3 10*3/uL High 4.0-11.0 [facility] Comment on above: Performed By: #### C FRANCINE, CMP, 05348-0 #### [facility] ([id number]) [address] [place] [address] 56706 COMPREHENSIVE METABOLIC PANE Willis 08-18-2023 Albumin [Mass/Vol] 4.0 g/dL Normal 3.2-5.3 [facility] Comment on above: Performed By: #### C BCA, CMP, 26720-3 #### [facility] ([id number]) [address] [place] [address] 05518 ALP [Catalytic activity/Vol] 99 U/L Normal 39-[address] [facility] Comment on above: Performed By: #### C FRANCINE, CMP, 42472-8 #### [facility] ([id number]) [address] [place] [address] 59043 ALT [Catalytic activity/Vol] 17 U/L Normal 0-[address] [facility] Comment on above: Performed By: #### C FRANCINE, [facility], 35795-9 #### [facility] ([id number]) [address] [place] [address] 33029 Anion gap [Moles/Vol] 4 mmol/L Low 5-15 [facility] Comment on above: Performed By: #### C BCA, CMP, 69520-9 #### [facility] ([id number]) [address] [place] [address] 62098 AST [Catalytic activity/Vol] 21 U/L Normal 0-[address] [facility] Comment on above: Performed By: #### C BCA, CMP, 60840-6 #### [facility] ([id number]) [address] [place] [address] 76525 Bilirubin [Mass/Vol] 0.5 mg/dL Normal 0.3-1.2 [facility] Comment on above: Performed By: #### C KUSH ESCAMILLA, 27533-5 #### [facility] ([id number]) [address] [place] [address] 71695 Calcium [Mass/Vol] 10.5 mg/dL Normal 8.5-10.5 [facility] Comment on above: Performed By: #### C KUSH ESCAMILLA, 25221-0 #### [facility] ([id number]) [address] [place] [address] 61863 Chloride [Moles/Vol] 103 mmol/L Normal 98-109 [facility] Comment on above: Performed By: #### C FRANCINE [facility], 93458-1 #### [facility] ([id number]) [address] [place] [address] 56380 CO2 [Moles/Vol] 25 mmol/L Normal 22-[address] [facility] Comment on above: Performed By: #### C FRANCINE [facility], 61333-2 #### [facility] ([id number]) [address] [place] [address] 77988 Creatinine [Mass/Vol] 0.94 mg/dL Normal 0.40-1.00 [facility] Comment on above: Result Comment: METH OD TRACEABLE TO IDMS STANDARD Performed By: #### C KUSH ESCAMILLA, 79744-1 #### [facility] ([id number]) [address] [place] [address] 07703 GFR/1.73 sq M.predicted among non-blacks MDRD (S/P/Bld) [Vol rate/Area] 61 mL/min/{1.73_m2} Normal >[address] [facility] Comment on above: Result Comment: Reported eGFR is based on the CKD-EPI 1 equation that does not use a race coefficient. Performed By: #### C FRANCINE CMP, 01020-2 #### [facility] ([id number]) [address] [place] [address] 28328 Glucose [Mass/Vol] 136 mg/dL High 65-99 [facility] Comment on above: Performed By: #### C FRANCINE [facility], 68575-7 #### [facility] ([id number]) [address] [place] [address] 15157 Potassium [Moles/Vol] 4.2 mmol/L Normal 3.5-5.0 [facility] Comment on above: Performed By: #### Taj ESCAMILLA [facility], 88472-6 #### [facility] ([id number]) [address] [place] [address] 81494 Protein [Mass/Vol] 7.6 g/dL Normal 6.0-8.0 [facility] Comment on above: Performed By: #### Taj ESCAMILLA [facility], 14807-5 #### [facility] ([id number]) [address] [place] [address] 05171 Sodium [Moles/Vol] 132 mmol/L Low 134-146 [facility] Comment on above: Performed By: #### C FRANCINE [facility], 50464-5 #### [facility] ([id number]) [address] [place] [address] 66489 Urea nitrogen [Mass/Vol] 26 mg/dL Normal 5-[address] [facility] Comment on above: Performed By: #### Taj ESCAMILLA [facility], 25565-1 #### [facility] ([id number]) [address] [place] [address] 65157 GI PANELon 08-18-2023 Gastrointestinal pathogens DNA and [...] SAPOVIRUS Not detected (qualifier value) Normal NDET [facility] Comment on above: Performed By: #### 5 4067-4 #### [facility] ([id number]) [address] [place] [address], [address] [address] #### 67251-2 #### [facility] ([id number]) [address] [place] [address] 16459 [facility] ([id number]) [address] [place] [address], [address] [address] MAGNESIUMon 08-18-2023 Magnesium [Mass/Vol] 1.8 mg/dL Normal 1.8-2.6 [facility] Comment on above: Performed By: #### C BCA, CMP, 74685-4 #### [facility] ([id number]) [address] [place] [address] 70950 SARS/FLU A+B/RSV by NAAT/Mol ecularon 08-18-2023 SARS/FLU [...] repeat. Fact Sheet for Healthcare Providers: https://www.fda.gov/m edia/293217/download Fact Sheet for Patients: https://www.fda.gov/m edia/638020/download Normal [facility] Comment on above: Performed By: #### C OVFLR #### [facility] ([id number]) [address] [place] [address] 58871 URN MACROSCOPIC NURon 2023 BILIRUBIN KATELYN Negative Normal NEG [facility] Comment on above: Performed By: #### N UM #### [facility] ([id number]) [address] [place] [address] 60961 BLOOD/HGB KATELYN Negative Normal NEG [facility] Comment on above: Performed By: #### N UM #### [facility] ([id number]) [address] [place] [address] 67958 GLUCOSE KATELYN >=1000 Abnormal NEG [facility] Comment on above: Performed By: #### N UM #### [facility] ([id number]) [address] [place] [address] 72641 KETONES KATELYN Negative Normal NEG [facility] Comment on above: Performed By: #### N UM #### [facility] ([id number]) [address] [place] [address] 75218 LEUKOCYTE ESTERASE KATELYN Negative Normal NEG [facility] Comment on above: Performed By: #### N UM #### [facility] ([id number]) [address] [place] [address] 31968 NITRITE KATELYN Negative Normal NEG [facility] Comment on above: Performed By: #### N UM #### [facility] ([id number]) [address] [place] [address] 84859 PH KATELYN 5.0 Normal 5.0-8.[address] [facility] Comment on above: Performed By: #### N UM #### [facility] ([id number]) [address] [place] [address] 25836 PROTEIN KATELYN 100 mg/dL Abnormal NEG [facility] Comment on above: Performed By: #### N UM #### [facility] ([id number]) [address] [place] [address] 34996 SPECIFIC GRAVITY KATELYN 1.025 Normal 1.003-1.035 [facility] Comment on above: Performed By: #### N UM #### [facility] ([id number]) [address] [place] [address] 28499 UROBILINOGEN KATELYN 0.2 eu/dL Normal <1.1 [facility] Comment on above: Performed By: #### N UM #### [facility] ([id number]) [address] [place] [address] CHEST WO IV CONTRASTon CT CHEST [...] BY: Momo Sanchez MD Normal Not Available [facility] US LOWER EXTREMITY CARLO RIAL DUPLEX BILATERAL WITH ABIon 07-06-2023 [facility] US LOWER EXTREMITY ARTERIAL DUPLEX [...] IS VERY IMPORTANT TO YOUR HEALTH. THE [place] [employer] GUIDELINES RECOMMEND THAT WOMEN 40 [...] VERY IMPORTANT TO YOUR HEALTH. THE CURRENT [place] [employer] GUIDELINES RECOMMENDS ANNUAL MAMMOGRAPHY BEGINNING AT AGE 40 THIS FACILITY USES A REMINDER SYSTEM TO ENSURE ALL PATIENTS RECEIVE REMINDER NOTIFICATIONS AT THE APPROPRIATE TIME BASED ON THE RECOMMENDATIONS OF THIS EXAM. Report reported and signed by Julius You on 03/25/2022 1339 Normal [facility] CBC AUTO DIFFon 02-07-2022 BASO # 0.1 103/ul Normal 0.0-0.1 [facility] Comment on above: Performed By: #### C BC #### [facility] [address] [place] [address] Dr. Henry Dozier Basophils/100 WBC (Bld) 0.6 % Normal 0.2-2.0 [facility] Comment on above: Performed By: #### C BC #### [facility] [address] [place] [address] Dr. Henry Dozier EO # 0.0 103/ul Normal 0.0-0.7 [facility] Comment on above: Performed By: #### C BC #### [facility] [address] [place] [address] Dr. Henry Dozier Eosinophils/100 WBC (Bld) 0.3 % Critically low 0.9-7.0 [facility] Comment on above: Performed By: #### C BC #### [facility] [address] [place] [address] Dr. Henry Dozier Erythrocyte distribution width (RBC) [Ratio] 14.9 % Normal 11.0-15.0 [facility] Comment on above: Performed By: #### C BC #### [facility] [address] [address] [address] Henry Dozier Hematocrit (Bld) [Volume fraction] 28.8 % Critically low 36.0-48.0 [facility] Comment on above: Performed By: #### C BC #### [facility] [address] [place] [address] Dr. Henry Dozier Hemoglobin (Bld) [Mass/Vol] 8.9 g/dL Critically low 12.0-16.0 [facility] Comment on above: Performed By: #### C BC #### [facility] [address] [place] [address] Dr. Henry Dozier IG # 0.03 10e3/ul Normal 0.00-0.03 Access [facility] Comment on above: Performed By: #### C BC #### [facility] [address] [place] [address] Dr. Henry Dozier IG % 0.3 % Normal 0.0-0.5 [facility] Comment on above: Performed By: #### C BC #### [facility] [address] [place] [address] Dr. Henry Dozier LYMPH # 1.6 103/ul Normal 1.2-3.8 [facility] Comment on above: Performed By: #### C BC #### [facility] [address] [place] [address] Dr. Henry Dozier Lymphocytes/100 WBC (Bld) 17.4 % Critically low 20.5-60.0 [facility] Comment on above: Performed By: #### C BC #### [facility] [address] [place] [address] Dr. Henry Dozier MANUAL DIFF REQ NO Normal [facility] Comment on above: Performed By: #### C BC #### [facility] [address] [place] [address] Dr. Henry Dozier MCH (RBC) [Entitic mass] 29.6 pg Normal 26.7-34.0 [facility] Comment on above: Performed By: #### C BC #### [facility] [address] [place] [address] Dr. Henry Dozier MCHC (RBC) [Mass/Vol] 30.9 g/dL Normal 29.9-35.2 [facility] Comment on above: Performed By: #### C BC #### [facility] [address] [place] [address] Dr. Henry Dozier MCV (RBC) [Entitic vol] 95.7 fL Normal 81.0-99.0 [facility] Comment on above: Performed By: #### C BC #### [facility] [address] [place] [address] Dr. Henry Dozier MONO # 0.8 103/ul Normal 0.3-0.8 [facility] Comment on above: Performed By: #### C BC #### [facility] [address] [place] [address] Dr. Henry Dozier Monocytes/100 WBC (Bld) 9.1 % Normal 1.7-12.0 [facility] Comment on above: Performed By: #### C BC #### [facility] [address] [place] [address] Dr. Henry Dozier NEUT # 6.4 103/ul Normal 1.4-6.5 [facility] Comment on above: Performed By: #### C BC #### [facility] [address] [place] [address] Dr. Henry Dozier Neutrophils/100 WBC (Bld) 72.3 % Normal 43.0-75.0 [facility] Comment on above: Performed By: #### C BC #### [facility] [address] [place] [address] Dr. Henry Dozier Platelet mean volume (Bld) [Entitic vol] 10.8 fL Normal 9.5-13.5 [facility] Comment on above: Performed By: #### C BC #### [facility] [address] [place] [address] Dr. Henry Dozier PLT 257 103/ul Normal 150-450 [facility] Comment on above: Performed By: #### C BC #### [facility] [address] [place] [address] Dr. Henry Dozier RBC 3.01 106/ul Critically low 4.20-5.40 [facility] Comment on above: Performed By: #### C BC #### [facility] [address] [place] [address] Dr. Henry Dozier WBC 8.9 103/ul Normal 4.0-11.0 [facility] Comment on above: Performed By: #### C BC #### [facility] [address] [place] [address] Dr. Henry Dozier Covid-19 PCR ([facility])on 01-29 SARS-CoV-2 (COVID-19) RNA LUCÍA+probe Ql (Unsp spec) Not detected Normal NOT DETECTED [facility] Comment on above: Result Comment: When [...] for this test is supported by the [place] of Health and Human Service's declaration that [...] used). Performed By: #### C VDTBH #### [facility] [address] [place] [address] Dr. Henry Dozier PROF CHEM 8 (BAS METB)on Anion gap [Moles/Vol] 9.1 mmol/L Normal [facility] Comment on above: Performed By: #### B MP, HSTROPN #### [facility] [address] [place] [address] Dr. Henry Dozier Calcium [Mass/Vol] 10.0 mg/dL Normal 8.5-10.1 [facility] Comment on above: Performed By: #### B CHRISTOPHER, HSTROPN #### [facility] [address] [address] [address] Henry Dozier Chloride [Moles/Vol] 104 mmol/L Normal 98-107 [facility] Comment on above: Performed By: #### B CHRISTOPHER, HSTROPN #### [facility] [address] [address] [address] Henry Dozier CO2 [Moles/Vol] 25.9 mmol/L Normal 21.0-32.0 [facility] Comment on above: Performed By: #### B CHRISTOPHER, HSTROPN #### [facility] [address] [place] [address] Dr. Henry Dozier Creatinine [Mass/Vol] 1.02 mg/dL Normal 0.55-1.02 [facility] Comment on above: Performed By: #### B CHRISTOPHER, HSTROPN #### [facility] [address] [place] [address] Dr. Henry Dozier EGFR-AF SCOTTISH >60 Normal >=60 [facility] Comment on above: Performed By: #### B CHRISTOPHER, HSTROPN #### [facility] [address] [place] [address] Dr. Henry Dozier EGFR-NON AF SCOTTISH 52 mL/min/1.73m2 Critically low >=60 [facility] Comment on above: Performed By: #### B CHRISTOPHER, HSTROPN #### [facility] [address] [place] [address] Dr. Henry Dozier Glucose [Mass/Vol] 170 mg/dL Critically high 74-106 [facility] Comment on above: Performed By: #### B CHRISTOPHER, HSTROPN #### [facility] [address] [place] [address] Dr. Henry Dozier Potassium [Moles/Vol] 4.0 mmol/L Normal 3.5-5.1 [facility] Comment on above: Performed By: #### B CHRISTOPHER, HSTROPN #### [facility] [address] [place] [address] Dr. Henry Dozier Sodium [Moles/Vol] 135 mmol/L Critically low 136-145 Th e [facility] Comment on above: Performed By: #### B CHRISTOPHER, HSTROPN #### [facility] [address] [place], [place] [address] Dr. Henry Dozier Urea nitrogen [Mass/Vol] 17.0 mg/dL Normal 7.0-18.0 [facility] Comment on above: Performed By: #### B CHRISTOPHER, HSTROPN #### [facility] [address] [address] [address] Henry Dozier Urea nitrogen/Creatinine [Mass ratio] 16.7 mg/mg Normal [facility] Comment on above: Performed By: #### B CHRISTOPHER, HSTROPN #### [facility] [address] [place] [address] Dr. Henry Dozier TROPONIN, HIGH SENSITIVITYon 02-07-2022 HSTROP 25.2 pg/mL Normal 4.0-51.3 [facility] Comment on above: Result Comment: CUT- OFF POINTS HAVE BEEN ESTABLISHED BASED ON THE FOURTH UNIVERSAL DEFINITIONS OF MYOCARDIAL INFARCTION. THE UPPER REFERENCE LIMIT (URL) OF TROPONIN, DEFINED THE 99TH PERCENTILE OF cTnI DISTRIBUTION IN A REFERENCE POPULATION, HAS BEEN CONFIRMED THE DECISION THRESHOLD FOR MS DIAGNOSIS. Performed By: #### B CHRISTOPHER, HSTROPN #### [facility] [address] [place] [address] Dr. Henry Dozier XR CHEST 1 Von [...] by: YU JUNIOR Date: 2022-02-07 16:20 Normal [facility] Vital Signs Date Time Vital Sign Value Performing Clinician Cipriano edwardsy 03-06-2024 13:52-0400 Body height 165.1 cm Pia Talley NP Work Phone: [facility] 03-06-2024 13:52-0400 Body mass index (BMI) [Ratio] 16.54 kg/m2 Pia Talley [employer] Work Phone: [facility] 03-06-2024 13:52-0400 Body weight 45.09 kg Pia Talley [employer] Work Phone: [facility] 03-06-2024 13:52-0400 Diastolic blood pressure 60 mm[Hg] Pia Talley [employer] Work Phone: [facility] 03-06-2024 13:52-0400 Heart rate 76 /min Pia Talley [employer] Work Phone: [facility] 03-06-2024 13:52-0400 SaO2% (BldA) [Mass fraction] 96 % Pia Talley [employer] Work Phone: [facility] 03-06-2024 13:52-0400 Systolic blood pressure 130 mm[Hg] Pia Talley [employer] Work Phone: [facility] 08-03-2023 13:33-0500 Diastolic blood pressure 60 mm[Hg] Aristeo Garcia MD Work Phone: [facility] 08-03-2023 13:33-0500 Systolic blood pressure 110 mm[Hg] Aristeo Garcia MD Work Phone: [facility] 08-03-2023 13:30-0500 Body height 165.1 cm Aristeo Garcia MD Work Phone: [facility] 08-03-2023 13:30-0500 Body mass index (BMI) [Ratio] 17.14 kg/m2 Aristeo Garcia MD Work Phone: [facility] 08-03-2023 13:30-0500 Body weight 46.72 kg Aristeo Garcia MD Work Phone: [facility] Encounters Encounter Date Encounter Type Care Provider Facility Start: 03-30-2024 End: 03-30-2024 Refill Pai Talley [employer] Work Phone: [facility] Comment on above: COPD mixed type (CMS /HCC) Start: 03-30-2024 End: 03-30-2024 ambulatory [facility] Start: 03-28-2024 End: 03-28-2024 Refill Tonja Gilliam MD Work Phone: [facility] Comment on above: Type 2 diabetes ricardo itus with diabetic autonomic neuropathy, with long-term current use of insulin (CMS/HCC) Start: 03-20-2024 End: 03-20-2024 Telephone encounter Pia Talley [employer] Work Phone: [facility] Start: 03-20-2024 End: 03-20-[address] [facility] Start: 03-16-2024 End: 03-16-2024 Refill Pia Talley [employer] Work Phone: [facility] Comment on above: COPD mixed type (CMS /HCC) Start: 03-16-2024 End: 03-16-2024 Refill Tonja Gilliam MD Work Phone: [facility] Comment on above: COPD mixed type (CMS /HCC) Start: 03-14-2024 End: 03-14-2024 Telephone encounter Tonja Gilliam MD Work Phone: [facility] Start: 03-14-2024 End: 03-14-2024 ambulatory [facility] Start: 03-06-2024 End: 03-06-2024 Bamboo flowsheet Pia Talley [employer] Work Phone: [facility] Start: 03-06-2024 End: 03-06-2024 Bamboo flowsheet Pia Talley [employer] Work Phone: [facility] Start: 03-06-2024 End: 03-06-2024 Transitional care manage srvc 7 day discharge Pia Talley [employer] Work Phone: [facility] Comment on above: Abnormal PET scan of lung (Primary Dx); Acute on chronic respiratory failure with hypoxia (CMS/HCC); Acute systolic congestive heart failure (CMS/HCC); Chronic obstructive pulmonary disease, unspecified COPD type (CMS/HCC); Coronary artery disease involving [place] coronary artery of [place] heart without angina pectoris (CMS/HCC); Primary hypertension (CMS/HCC); Type 2 diabetes mellitus with hyperglycemia, with long-term current use of insulin (CMS/HCC); Severe malnutrition (CMS/HCC); 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) Start: 03-06-2024 End: 03-06-2024 ambulatory PIA MAYANK Not Available Start: 03-03-2024 End: 03-03-2024 Telephone encounter Pia Talley NP Work Phone: [facility] Start: 03-03-2024 End: 03-03-2024 [facility] Start: 03-02-2024 End: 03-02-2024 ambulatory [facility] Start: 02-15-2024 End: 02-15-2024 ambulatory [facility] Start: 02-08-2024 End: 02-08-2024 ambulatory [facility] Start: 02-07-2024 End: 02-07-2024 ambulatory [facility] Start: 01-21-2024 End: 03-02-2024 Telephone encounter Tonja Gilliam MD Work Phone: [facility] Start: 01-12-2024 End: 01-12-2024 ambulatory PIA TALLEY Not Available Start: 09-03-2023 End: 09-03-2023 ambulatory [facility] Start: 08-25-2023 End: 08-25-2023 [facility] Start: 08-18-2023 End: 08-18-2023 Emergency department patient visit TONJA [facility] Start: 08-11-2023 End: 08-30-2023 ambulatory YANIQUE BURCIAGA 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 Start: 06-16-2023 Chart abstracting Sb lemus [...] Start: 02-07-2022 End: 02-07-[address] MCCANN [facility] Facility:H1 Procedures Date Procedure Procedure Detail Performing Clinician Start: 03-06-2024 Complete blood count with white cell differential, automated Pia Blandonadalberto [employer] Work Phone: Start: 03-06-2024 Comprehensive metabo lic panel Pia Talley [employer] Work Phone: Start: 02-15-2024 Follow-up visit Follow-up ARISTEO GARCIA Start: 06-23-2023 Follow-up visit Follow-up SB [facility] Start: 09-30-2022 History of placement of stent for coronary artery disease S/P coronary artery stent placement Tonja Gilliam MD Work Phone: Plan of Treatment Date Care Activity Detail Author Start: 03-23-2025 Urine screening for protein Diabetes: Urine Protein Screening [facility] Start: 03-06-2025 Urine screening for protein Diabetes: Urine Protein Screening [facility] Start: 01-11-2025 Urine screening for protein Diabetes: Urine Protein Screening [facility] Start: 08-02-2024 Adult BMI Screening Adult BMI Screen [facility] Start: 08-02-2024 Tobacco Screening Tobacco Screening [facility] Start: 06-23-2024 Adult BMI Screening Adult BMI Screen [facility] Start: 06-23-2024 Tobacco Screening Tobacco Screening [facility] Start: 06-12-2024 Adult BMI Screening Adult BMI Screen [facility] Start: 06-10-2024 Tobacco Screening Tobacco Screening [facility] Start: 05-09-2024 End: 05-09-2024 Patient encounter procedure 05/09/2024 2:00 PM EST Office Visit [facility] [place] [address] Aristeo Garcia MD [address] [place] [address] [facility] Start: 04-13-2024 Hemoglobin A1c measurement Diabetes: Hemoglobin A1C [facility] Start: 04-03-2024 End: 04-03-2024 Professional / ancillary services management 04/03/2024 2:30 PM EST Ancillary Procedure [facility] [address] [place] [address] [facility] Start: 03-06-2024 End: 03-06-2024 Patient encounter procedure [facility] Comment on above: Arrived Start: 02-15-2024 End: 02-15-2024 Patient encounter procedure 02/15/2024 1:30 PM EDT Office Visit [facility] [address] [place] [phone] Aristeo Garcia MD [address] [phone] [facility] Start: 02-08-2024 End: 02-08-2024 Patient encounter procedure [facility] Start: 01-30-2024 Influenza vaccination Influenza Vacc ine (#1) [facility] Start: 09-07-2023 Hemoglobin A1c measurement Diabetes: Hemoglobin A1C [facility] Start: 08-11-2023 End: 08-11-2023 Patient encounter procedure 08/11/2023 1:20 PM EDT Office Visit [facility] [address] [place] [id number] Yanique Burciaga, LABORER [employer]ANDSCAPE[employer]SECURITY TECH [address] [place] [address] [facility] Start: 08-03-2023 End: 08-02-2024 US.doppler Extremity arteries - bilateral for physiologic artery study at rest and with exercise Vasc art doppler lwr PVR W/exercise Vascular Ul[facility]ound Routine 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 ([facility]) Expected: 08/03/2023, Expires: 08/02/2024 [facility] Comment on above: Expected: 08/03/2023 , Expires: 08/02/2024 Start: 08-03-2023 End: 08-02-2024 US.doppler Lower extremity artery - bilateral Vas art duplex lwr bilateral Vascular Ultrasound Routine 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 ([facility]) Expected: 08/03/2023, Expires: 08/02/2024 [facility] Work Phone: Comment on above: Expected: 08/03/2023 , Expires: 08/02/2024 Start: 08-03-2023 End: 08-02-2024 US.doppler Renal vessels - bilateral Vas renal artery duplex complete Vascular Ultrasound Routine Renal artery stenosis ([facility] [place] Expected: 08/03/2023, Expires: 08/02/2024 [employer] Comment on above: Expected: 08/03/2023 , Expires: 08/02/2024 Start: 06-23-2023 End: 06-23-2023 Patient encounter procedure 06/23/2023 8:00 AM EST [facility] [address] [place] [address] Sb Loco MD [address] [place] [address] [facility] Start: 03-19-2023 Medicare Annual Well ness (AWV) Medicare Annual Wellness (AWV) [facility] Start: 01-29-2023 Influenza vaccination [facility] Start: 2007 Fall Risk Screening Fall [facility] Screen ing [facility] Start: 1992 Administration of varicella zoster vaccine Zoster (Shingles) Vaccine (1 of 2) [facility] Start: 1961 DTaP,Tdap and Td Vac cines (1 - Tdap) DTaP,Tdap and Td Vaccines (1 - Tdap) [facility] Start: 1960 Adult BMI Follow Up Plan Adult BMI Follow Up Plan [facility] Start: 1954 Depression Screening Depression Scre [facility]ing [facility] Start: 1952 Glaucoma screening Diabetes: R etinopathy Screening [facility] Start: 1942 Medicare Annual Well ness Visit Medicare Annual Wellness Visit [facility] Start: 1942 Tobacco Counseling Tobacco Counselshola g [facility] Immunizations Immunization Date Immunization Notes Care Provider Fa nicholas 03-15-2023 Pneumococcal Conjuga te PCV 20 Tonja Gilliam MD Work Phone: [facility] Payers Date Payer Category Payer Medicaid [employer] MEDICARE A DVANTAGE [id number] 2023 Medicare [id number] 2022 Medicare [id number] 2022 Medicare [id number] 2020 Unknown [id number] 1942 Unknown [id number] 2.16.840.1.323435.3.579.2.593 1942 Unknown [id number] 2.16.840.1.219534.3.579.2.1286 1942 Unknown [id number] 2.16.840.1.376408.3.579.2.1259 1942 Unknown [id number] 2.16.840.1.344168.3.579.2.1259 1942 Unknown [id number] 2.16.840.1.783767.3.579.2.1259 1942 Unknown [id number] 2.16.840.1.754764.3.579.2.1259 1942 Unknown [id number] 2.16.840.1.726980.3.579.2.1259 1942 Unknown [id number] 2.16.840.1.724892.3.579.2.9 1942 Unknown [id number] 2.16.840.1.769634.3.579.2.125 1942 Unknown [id number] 2.16.840.1.117792.3.579.2.125 1942 Unknown [id number] 2.16.840.1.161184.3.579.2.1258 1942 Unknown [id number] 2.16.840.1.291871.3.579.2.1258 1942 Unknown [id number] 2.16.840.1.860541.3.579.2.1258 1942 Unknown [id number] 2.16.840.1.445816.3.579.2.125 1942 Unknown [id number] 2.16.840.1.850505.3.579.2.1258 1942 Unknown [id number] 2.16.840.1.237594.3.579.2.1258 1942 Unknown [id number] 2.16.840.1.810778.3.579.2.128 1942 Unknown [id number] 2.16.840.1.642714.3.579.2.128 1942 Unknown [id number] 2.16.840.1.909941.3.579.2.128 1942 Unknown [id number] 2.16.840.1.991003.3.579.2.128 1942 Unknown [id number] 2.16.840.1.084677.3.579.2.128 1942 Unknown [id number] 2.16.840.1.998949.3.579.2.1286 1942 Unknown [id number] 2.16.840.1.100578.3.579.2.1286 1942 Unknown [id number] 2.16.840.1.425347.3.579.2.1286 1942 Unknown [id number] 2.16.840.1.037603.3.579.2.1286 1942 Unknown [id number] 2.16.840.1.166254.3.579.2.1286 1942 Unknown [id number] 2.16.840.1.798852.3.579.2.1286 1942 Unknown [id number] 2.16.840.1.161179.3.579.2.1286 Social History Date Type Detail Facility Start: 12-05-2021 End: 01-12-2024 Tobacco smoking status AZIS Smokes tobacco daily [facility] History of tobacco use Cigarette Smoker P [facility] Start: 12-05-2021 End: 01-12-2024 Tobacco use and exposure Smokeless tobacco non-user [facility] Start: 06-10-2023 End: 03-06-2024 Alcohol intake Lifetime non-drinker (finding) [facility] Start: 11-25-2022 End: 06-11-2023 History of Social function [facility] Start: 11-25-2022 End: 06-11-2023 [facility] Utilities [facility] Has the [employer], or [employer] threatened to shut off services in your home in past 12Mo No [facility] In the past 12 month s, has lack of transportation kept you from medical appointments or from getting medications? No [facility] Start: 1940 Sex Assigned At Not on file [facility] Start: 06-23-2023 End: 08-03-2023 Alcohol intake Ex-drinker (finding) [facility] Are you now , , , , never or living with a partner? [facility] How often to you hav e a drink containing alcohol? Never [facility] Do you feel stress - tense, restless, nervous, or anxious, or unable to sleep at night because your mind is troubled all the time - these days [OSQ] Not at all [facility] (I/We) worried wheth er (my/our) food would run out before (I/we) got money to buy more. Never true [facility] Start: 06-08-2023 Alcohol Comment caffeine: 1 cups per day coffee [facility] Start: 07-20-2023 Alcohol Comment caffeine: 2 cups per day coffee [facility] Medical Equipment Procedure Code Equipment Code Equipment Origin al Text Equipment Identifier Dates [id number] Start: 07-31-2022 TRUEplus Lancets [facility]G [facility] [id number] Start: 12-29-2022 Inject 1 each un raymond the skin Daily Use as instructed [id number] Start: 08-25-2023 TEST FINGERSTICK BLOOD SUGAR TWICE DAILY DIRECTED [id number] Start: 12-27-2023 Inject 1 each un raymond the skin Daily Use as instructed [id number] Start: 03-20-2024 End: 03-28-2024 Inject 1 each un raymond the skin Daily Use as instructed [id number] Start: 03-28-2024 Clinical Notes 06-15-2023 to 03-28-2024 [...] has not been able to ge them. [facility] 03-28-2024 Miscellaneous Notes Pt states she has been trying to get her needles refilled and has not been able to ge them. documented in this encounter [facility] 03-20-2024 Telephone encounter Note Patient is requesting droplet pen needles for insulin pens. Only has one left. [facility]ses [facility] [place]. Thank you. [facility] 03-20-2024 Miscellaneous Notes Patient is requesting droplet pen needles for insulin pens. Only has one left. [facility]ses [facility] [place]. Thank you. documented in this encounter [facility] 03-16-2024 Telephone encounter Note Giulia cardoza [facility] is calling today requesting droplet pen [...] Thank you. Any questions please call Giulia [phone]. [facility] 03-16-2024 Miscellaneous Notes Giulia cardoza [facility] is calling today requesting droplet pen [...] Thank you. Any questions please call Giulia [phone]. documented in this encounter [facility] 03-14-2024 Telephone encounter Note [facility] called - They are asking for an order for Snf and PT services . Fax to [phone] [facility] 03-14-2024 Miscellaneous Notes [facility] called - They are asking for an order for Snf and PT services . Fax to [phone] documented in this encounter [facility] 03-14-2024 Note Krystle Office Cardiology Clinic Note [...] arteries stents. She used to follow-up with [facility] and she switched to [facility]. The patient has chronic dyspnea on exertion [...] kidney disease, COPD (chronic obstructive pulmonary disease) ([facility]/HCC), Coronary artery disease, Diabetes mellitus ([facility]/HCC), Hyperlipidemia, Hypertension, LBBB (left bundle branch block), Myocardial infarction ([facility]/HCC), NICM (nonischemic cardiomyopathy) ([facility]), and PAD (peripheral artery disease) ([facility]). Surgical History She has a [...] 9.3, hematocrit 30, (more content not included)... [facility] 03-06-2024 History of Presen t illness [...] Flowsheet Row Office Visit from 03/06/2024 in [facility] FM with Pia Talley NP Hospital Information ED, Hospital or Snf Facility Discharge? ED Patient has been contacted [...] Air Glucose Meter) w/Device kit USE DIRECTED Rocsqit-Ezmwdiotqnu-Akvuvifrhp (Breztri Aerosphere) 160-9-4.8 MCG/ACT aerosol 2 puffs, [...] SUGAR TWICE DAILY DIRECTED TRUEplus Lancets 33G [facility] [place] [place] REVIEW OF SYMPTOMS: Review of Systems OBJECTIVE: [...] type (CMS/HCC) -Stable Coronary artery disease involving [place] coronary artery of [place] heart without angina pectoris ([facility]) -On a statin, plavix and ASA Primary hypertension ([facility]) - Comprehensive metabolic panel; Future [...] hyperglycemia, with long-term current use of insulin ([facility]) - Comprehensive metabolic panel; Future -Rybelsus was stopped. Will see how her blood sugars are running before making any changes to her insulin regimen. Severe malnutrition ([facility]) - Comprehensive metabolic panel; Future -Continue boost daily. Concern for underlying cancer r/t her abnormal PET scan results which could be contributing to her malnutrition however she is also struggling with obtain groceries. 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 PAD. No need to see neurology, I can treat her neuropathy, will trial her on a very low dose of duloxetine and see how she does. documented in this encounter [facility] 03-03-2024 Telephone encounter Note Call and get her records from recent hospital stay at [facility] 03-03-2024 Miscellaneous Notes Call and get her records from recent hospital stay at [facility] documented in this encounter [facility] 02-07-2024 Note [facility]iology [facility] Note Reason for cardiology [...] arteries stents. She used to follow-up with [facility] and she switched to [facility]. The patient has chronic dyspnea on exertion [...] kidney disease, COPD (chronic obstructive pulmonary disease) ([facility]), Coronary artery disease, Diabetes mellitus ([facility]), Hyperlipidemia, Hypertension, LBBB (left bundle branch block), Myocardial infarction ([facility]), NICM (nonischemic cardiomyopathy) ([facility]), and PAD (peripheral artery disease) ([facility]). Surgical History She has a [...] Lower extremities arteri (more content not included)... [facility] 01-21-2024 Telephone encounter Note Pt called asking for help to figure out if she can have her PET scan and the copay. Also would like help finding a lithographic plate maker close to her. She received a call from [facility]. And [facility] called her the other day. [facility] 01-21-2024 Miscellaneous Notes Pt called asking for help to figure out if she can have her PET scan and the copay. Also would like help finding a lithographic plate maker close to her. She received a call from [facility]. And [facility] called her the other day. documented in this encounter [facility] 08-03-2023 History of Presen t illness Narrative Images from the original note were not included. [facility] [address] [place] [id number] Subjective: Patient ID: Marietta Mitchell is a [...] who presents today for consultation at the [facility] due to history of peripheral artery disease. Patient states she has had 6 stents placed in her right leg and 1 stent placed in her left leg in [place] in 2019/2020. She heard of medications to [...] List Diagnosis NSTEMI (non-ST elevated myocardial infarction) ([facility] [place] [place] Iron deficiency anemia Cardiomyopathy Mucopurulent chronic bronchitis ([facility] [place] [place]) Pulmonary emphysema ([facility] [place] [place] Anxiety, generalized Diabetic renal disease ([facility] [place] [place]) Essential hypertension GERD without esophagitis Mixed hyperlipidemia Peripheral vascular disease ([facility] [place] [place]) Polyneuropathy due to type 2 diabetes mellitus ([facility] [place] [place]) Restless leg syndrome Stage 3b chronic kidney disease ([facility] [place] [place]) Type 2 diabetes mellitus with diabetic autonomic (poly)neuropathy ([facility] [place] [place] Current Outpatient Medications: albuterol (PROVENTIL HFA;VENTOLIN HFA) [...] by mouth as needed., Disp: , Rfl: iovlylaaof-dmfzawbc-rcjballzhy (BREZTRI AEROSPHERE) 160-9-4.8 mcg/actuation HFA aerosol inhaler, [...] Diagnosis Date COPD (chronic obstructive pulmonary disease) ([facility] [place] [place]) Coronary artery disease Diabetes mellitus type 2, controlled ([facility] [place] [place]) GERD (gastroesophageal reflux disease) Hyperlipidemia Hypertension Peripheral vascular disease ([facility] [place] [place]) Polyneuropathy associated with underlying disease ([facility] [place] [place]) Restless leg syndrome Past Surgical History: Procedure Laterality Date Coronary angiogram and left ventricular gram/pressure N/A 12/10/2021 Performed by Rickey Sotelo MD at [facility] EGD Left Lateral 12/09/2021 Performed by Michelle Bosch MD at [facility] Family History Problem Relation Age of [...] all orders for this visit: Atherosclerosis of [place] artery of lower extremity with intermittent claudication([facility]) Patient has history of peripheral artery disease with remote stenting in her right and left leg and [place] . Arterial duplex report of bilateral extremity [...] Chavez PA-C Interventional Cardiology and Endovascular Interventions [facility] documented in this encounter [facility] 07-13-2023 Telephone encounter Note Pt left vm stating that her insurance [employer] does not cover a in [facility]. Some told her she could go to [facility] so she wants you to find a referral for a DrOlimpia In [facility] and schedule her. The message did not mention what the referral was for. Please return patient call to [phone] [facility] 07-13-2023 Miscellaneous Notes Pt left stating that her insurance [employer] does not cover a in [facility]. Some told her she could go to [facility] so she wants you to find a referral for a DrOlimpia In [facility] and schedule her. The message did not mention what the referral was for. Please return patient call to [phone] documented in this encounter [facility] 06-24-2023 Miscellaneous Notes Patient has [employer] Medicare and was explained she could be seen in our office but the only provider in network is Dr. Garcia patient has a appointment tomorrow with [facility] she will try to get a provider though them. documented in this encounter [facility] 06-24-2023 Telephone encounter Note Patient has [employer] Medicare and was explained she could be seen in our office but the only provider in network is Dr. Garcia patient has a appointment tomorrow with [facility] she will try to get a provider though them. 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 ([facility])- Primary Essential hypertension Unspecified essential hypertension Mixed hyperlipidemia Renal artery stenosis ([facility]) Atherosclerosis of renal artery [facility] Diagnosis Abnormal PET scan of lung- Primary Acute on chronic respiratory failure with hypoxia (CMS/HCC) Acute systolic congestive heart failure ([facility]/HCC) Chronic obstructive pulmonary disease, unspecified COPD type ([facility]/HCC) Coronary artery disease involving [place] coronary artery of [place] heart without angina pectoris ([facility]/HCC) Primary hypertension ([facility]/HCC) Unspecified essential hypertension Type 2 diabetes mellitus with hyperglycemia, with long-term current use of insulin ([facility]/HCC) Severe malnutrition ([facility]/HCC) 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 ([facility]/HCC) documented in this encounter [facility]* Diagnosis Peripheral vascular disease ([facility]/HCC)- Primary Unspecified peripheral vascular disease Pulmonary nodule Other diseases of lung, not elsewhere classified Mixed hyperlipidemia (CMS/HCC) Mixed hyperlipidemia Peripheral arterial disease (CMS/HCC) Unspecified peripheral vascular disease NSTEMI (non-ST elevated myocardial infarction) ([facility]/HCC) Acute myocardial infarction, subendocardial infarction, episode of care unspecified Cigarette nicotine dependence without complication Essential hypertension (CMS/HCC) Unspecified essential hypertension 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 of angina [...] Stage 3a chronic kidney disease (HCC) (CMS/HCC) 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 (CMS/HCC) FDC (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 (Z79.4) 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) Atherosclerosis of aorta (I70.0) Atherosclerosis of aorta 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 of angina pectoris (I25.118) Chronic obstructive pulmonary disease, unspecified COPD type (CMS/HCC) 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) Aneurysm of ascending aorta without rupture ([facility]/HCC) Thoracic aortic ectasia (I77.810) Thoracic aortic ectasia Type 2 diabetes mellitus with diabetic peripheral angiopathy without gangrene, with long-term current use of insulin ([facility]/HCC) Peripheral vascular disease, unspecified (I73.9) Peripheral vascular disease, unspecified Cardiomyopathy, unspecified type ([facility]) Encounter for wellness examination- Primary Essential hypertension ([facility]) Unspecified essential hypertension Type 2 diabetes mellitus with hyperglycemia, with long-term current use of insulin (CMS/HCC) Mixed hyperlipidemia (CMS/HCC) Mixed hyperlipidemia Stage 3b chronic kidney disease (HCC) (CMS/[facility]) Iron deficiency anemia, unspecified iron deficiency anemia type Underweight Vitamin D deficiency Screening mammogram for breast cancer Pulmonary nodule Other diseases of lung, not elsewhere classified Unspecified protein-calorie malnutrition (CMS/HCC) Unspecified protein-calorie malnutrition Immunodeficiency due to conditions classified elsewhere ([facility]/HCC) COPD mixed type (CMS/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) Seasonal allergies Allergic rhinitis, cause unspecified S/P coronary artery stent placement Postsurgical percutaneous transluminal coronary angioplasty status GERD without esophagitis Esophageal reflux 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) Aneurysm of ascending aorta without rupture (CMS/HCC) Atherosclerosis of aorta (I70.0) Atherosclerosis of aorta Atherosclerosis of coronary artery of [place] heart without angina pectoris, unspecified vessel or lesion type (CMS/HCC) Cardiomyopathy, unspecified type (CMS/HCC) Peripheral vascular disease (CMS/HCC) Unspecified peripheral vascular disease Diabetic nephropathy associated with type 2 diabetes mellitus (HCC) (CMS/[facility]) 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 (CMS/HCC) Cigarette nicotine dependence without complication Anxiety, generalized (CMS/HCC) COPD mixed type ([facility]/HCC) documented in this encounter [facility]* Diagnosis Peripheral vascular disease (CMS/HCC)- Primary Unspecified peripheral vascular disease Pulmonary nodule Other diseases of lung, not elsewhere classified Mixed hyperlipidemia (CMS/HCC) Mixed hyperlipidemia Peripheral arterial disease (CMS/HCC) Unspecified peripheral vascular disease NSTEMI (non-ST elevated myocardial infarction) ([facility]) Acute myocardial infarction, subendocardial infarction, episode of care unspecified Cigarette nicotine dependence without complication Essential hypertension (CMS/[facility]) Unspecified essential hypertension 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 of angina pectoris (I25.118) Pulmonary hypertension, unspecified (I27.20) 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) Moderate protein-calorie malnutrition ([facility]) Wound cellulitis- Primary Type 2 diabetes mellitus with diabetic autonomic neuropathy, with long-term current use of insulin ([facility]) Peripheral vascular disease (CMS/HCC) Unspecified peripheral vascular disease Peripheral arterial disease ([facility]/HCC) Unspecified peripheral vascular disease Stage 3a chronic kidney disease (HCC) ([facility]) FDC current use of insulin ([facility]) 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 (Z79.4) 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) Atherosclerosis of aorta (I70.0) Atherosclerosis of aorta 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 of angina pectoris (I25.118) Chronic obstructive pulmonary disease, unspecified COPD type (CMS/HCC) 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) Aneurysm of ascending aorta without rupture (CMS/HCC) Thoracic aortic ectasia (I77.810) Thoracic aortic ectasia Type 2 diabetes mellitus with diabetic peripheral angiopathy without gangrene, with long-term current use of insulin ([facility]) Peripheral vascular disease, unspecified (I73.9) Peripheral vascular disease, unspecified Cardiomyopathy, unspecified type ([facility]) Encounter for wellness examination- Primary Essential hypertension ([facility]) Unspecified essential hypertension Type 2 diabetes mellitus with hyperglycemia, with long-term current use of insulin ([facility]) Mixed hyperlipidemia ([facility]) Mixed hyperlipidemia Stage 3b chronic kidney disease (HCC) ([facility]) Iron deficiency anemia, unspecified iron deficiency anemia type Underweight Vitamin D deficiency Screening mammogram for breast cancer Pulmonary nodule Other diseases of lung, not elsewhere classified Unspecified protein-calorie malnutrition ([facility]) Unspecified protein-calorie malnutrition Immunodeficiency due to conditions classified elsewhere ([facility]) COPD mixed type ([facility]) 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) Seasonal allergies Allergic rhinitis, cause unspecified S/P coronary artery stent placement Postsurgical percutaneous transluminal coronary angioplasty status GERD without esophagitis Esophageal reflux Polyneuropathy due to type 2 diabetes mellitus ([facility]) Aneurysm of ascending aorta without rupture ([facility]) Atherosclerosis of aorta (I70.0) Atherosclerosis of aorta Atherosclerosis of coronary artery of [place] heart without angina pectoris, unspecified vessel or lesion type ([facility]) Cardiomyopathy, unspecified type ([facility]) Peripheral vascular disease ([facility]) Unspecified peripheral vascular disease Diabetic nephropathy associated with type 2 diabetes mellitus (HCC) ([facility]) 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 ([facility]) Cigarette nicotine dependence without complication Anxiety, generalized ([facility] COPD mixed type ([facility]) documented in this encounter [facility]* Diagnosis Peripheral vascular disease ([facility])- Primary Unspecified peripheral vascular disease Pulmonary nodule Other diseases of lung, not elsewhere classified Mixed hyperlipidemia ([facility]) Mixed hyperlipidemia Peripheral arterial disease ([facility] Unspecified peripheral vascular disease NSTEMI (non-ST elevated myocardial infarction) ([facility]) Acute myocardial infarction, subendocardial infarction, episode of care unspecified Cigarette nicotine dependence without complication Essential hypertension ([facility]) Unspecified essential hypertension 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 of angina [...] Stage 3a chronic kidney disease (HCC) (CMS/HCC) 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 (CMS/HCC) FDC (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 (Z79.4) 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) Atherosclerosis of aorta (I70.0) Atherosclerosis of aorta 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 of angina pectoris (I25.118) Chronic obstructive pulmonary disease, unspecified COPD type (CMS/HCC) 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) Aneurysm of ascending aorta without rupture (CMS/HCC) Thoracic aortic ectasia (I77.810) Thoracic aortic ectasia Type 2 diabetes mellitus with diabetic peripheral angiopathy without gangrene, with long-term current use of insulin ([facility]) Peripheral vascular disease, unspecified (I73.9) Peripheral vascular disease, unspecified Cardiomyopathy, unspecified type ([facility]) Encounter for wellness examination- Primary Essential hypertension ([facility]) Unspecified essential hypertension Type 2 diabetes mellitus with hyperglycemia, with long-term current use of insulin ([facility]) Mixed hyperlipidemia (CMS/HCC) Mixed hyperlipidemia Stage 3b chronic kidney disease (HCC) (CMS/[facility]) Iron deficiency anemia, unspecified iron deficiency anemia type Underweight Vitamin D deficiency Screening mammogram for breast cancer Pulmonary nodule Other diseases of lung, not elsewhere classified Unspecified protein-calorie malnutrition (CMS/HCC) Unspecified protein-calorie malnutrition Immunodeficiency due to conditions classified elsewhere ([facility]/HCC) COPD mixed type (CMS/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) Seasonal allergies Allergic rhinitis, cause unspecified S/P coronary artery stent placement Postsurgical percutaneous transluminal coronary angioplasty status GERD without esophagitis Esophageal reflux 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) Aneurysm of ascending aorta without rupture (CMS/HCC) Atherosclerosis of aorta (I70.0) Atherosclerosis of aorta Atherosclerosis of coronary artery of [place] heart without angina pectoris, unspecified vessel or lesion type (CMS/HCC) Cardiomyopathy, unspecified type (CMS/[facility]) Peripheral vascular disease ([facility]) Unspecified peripheral vascular disease Diabetic nephropathy associated with type 2 diabetes mellitus (HCC) ([facility]) FDC current use of insulin ([facility]) Cigarette nicotine dependence without complication Anxiety, generalized ([facility]) Type 2 diabetes mellitus with diabetic autonomic neuropathy, with long-term current use of insulin ([facility]) documented in this encounter [facility] note* Diagnosis Peripheral vascular disease ([facility] - [facility])- Primary Unspecified peripheral vascular disease Pulmonary nodule Other diseases of lung, not elsewhere classified Mixed hyperlipidemia ([facility]) Mixed hyperlipidemia Peripheral arterial disease ([facility]) Unspecified peripheral vascular disease NSTEMI (non-ST elevated myocardial infarction) ([facility]) Acute myocardial infarction, subendocardial infarction, episode of care unspecified Cigarette nicotine dependence without complication Essential hypertension ([facility]) Unspecified essential hypertension 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 of angina pectoris (I25.118) Pulmonary hypertension, unspecified (I27.20) 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) Moderate protein-calorie malnutrition ([facility]) Wound cellulitis- Primary Type 2 diabetes mellitus with diabetic autonomic neuropathy, with long-term current use of insulin ([facility]) Peripheral vascular disease ([facility]) Unspecified peripheral vascular disease Peripheral arterial disease ([facility]) Unspecified peripheral vascular disease Stage 3a chronic kidney disease (HCC) ([facility]) FDC current use of insulin ([facility]) FDC (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 (Z79.4) 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) Atherosclerosis of aorta (I70.0) Atherosclerosis of aorta 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 of angina pectoris (I25.118) Chronic obstructive pulmonary disease, unspecified COPD type ([facility]) 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) Aneurysm of ascending aorta without rupture ([facility]) Thoracic aortic ectasia (I77.810) Thoracic aortic ectasia Type 2 diabetes mellitus with diabetic peripheral angiopathy without gangrene, with long-term current use of insulin ([facility]) Peripheral vascular disease, unspecified (I73.9) [...] of aorta Atherosclerosis of coronary artery of [place] heart without angina pectoris, unspecified vessel or lesion type (CMS/HCC) Cardiomyopathy, unspecified type (CMS/HCC) Peripheral vascular disease (CMS/HCC) Unspecified peripheral vascular disease Diabetic nephropathy associated with type 2 diabetes mellitus (HCC) (CMS/HCC) FDC current use of insulin (CMS/HCC) Cigarette nicotine dependence without complication Anxiety, generalized (CMS/HCC) COPD mixed type (CMS/HCC) documented in this encounter [facility] HealthcareInstructionsNot on filedocumented in this encounterProFayette [facility] Memorial Hospital SystemInstructionsNot on filedocumented in this encounterProFayette County Memorial Hospital SystemInstructionsNot on filedocumented in this encounterProFayette [facility] Hospital SystemInstructionsNot on filedocumented in this encounterLancaster [facility] System Reason for referral (narrative)* Consultation (Urgent) - Pending Review Specialty Diagnoses / Procedures Referred By Velma cason Referred To Contact Oncology / Hematology and Oncology Diagnoses Abnormal PET scan of lung Procedures [facility] OFFICE/OUTPATIENT NEW HIGH MDM 60 MINUTES Pia Talley NP [address] [place] [address] Referral ID Status Reason Start Date Expiration Date Visits Requested Visits Authorized [id number] Pending Review Specialty Services Required 03/06/2024 09/02/2024 1 1 [place] for visit Narrative* Consultation (Routine) - Pending Review Specialty Diagnoses / Procedures Referred By Velma t Referred To Contact Vascular Surgery Diagnoses Peripheral vascular disease (CMS-HCC) Peripheral arterial disease (CMS-HCC) Procedures VA OFFICE OUTPATIENT VISIT 60-74 MINS HIGH MDM AMB REFERRAL TO VASCULAR SURGERY Pia Talley, LABORER LANDSCAPE-SECURITY TECH [address] [place] [address] Aristeo Garcia MD [address] [place] [address] Referral ID Status Reason Start Date Expiration Date V isits Requested Visits Authorized [id number] Pending Review 07/09/2023 01/05/2024 1 1 [facility] Summary Purpose Family History No Family [...] Dima Chavez PA-C [address] [place] [address] Referral ID Status Reason Start Date Expiration Date V isits Requested Visits Authorized [id number] Pending Review 08/03/2023 08/02/2024 1 1 Specialty Diagnoses / Procedures Referred By Contac t Referred To Contact Diagnoses 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 ([facility]) Procedures Vasc art doppler lwr PVR W/exercise Dima Chavez PA-C [address] [place] [address] Referral ID Status Reason Start Date Expiration Date V isits Requested Visits Authorized [id number] Pending Review 08/03/2023 08/02/2024 1 1 Specialty Diagnoses / Procedures Referred By Contac t Referred To Contact Diagnoses 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 ([facility]) Procedures Vas art duplex lwr bilateral Dima Chavez PA-C [address] [place] [address] Referral ID Status Reason Start Date Expiration Date V isits Requested Visits Authorized [id number] Pending Review 08/03/2023 08/02/2024 1 1 Additional Source Comments INFORMATION SOURCE (unrecogn ized section and content) DATE CREATED AUTHOR 02/10/2022 [facility] DATE CREATED AUTHOR AUTHOR'S ORGANIZ ATION 03/26/2022 [facility] dical Specialist DATE CREATED AUTHOR AUTHOR'S ORGANIZ ATION 08/04/2023 [facility] DATE CREATED AUTHOR AUTHOR'S ORGANIZ ATION 03/07/2024 [facility] dical Specialists EPIC DATE CREATED AUTHOR AUTHOR'S ORGANIZ ATION 03/21/2024 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 Relationship Specialty Start Date End Date Shila Molina DO [address] [place] [address] PCP - [employer] 05/31/22 Tonja Gilliam MD [address] [place] [address] PCP - General Family Medicine 06/08/23 Pia Talley NP [address] [place] [address] Nurse Practitioner Family Medicine 06/08/23 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 Hammer Operator Helper Relationship Specialty Start Date End Date Tonja Gilliam MD [address] [place] [address] PCP - General Family Medicine 06/23/23 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 Hammer Operator Helper Relationship Specialty Start Date End Date Shila Molina DO [address] [place] [address] PCP - [employer] 05/31/22 Tonja Gilliam MD [address] [place] [address] PCP - General Family Medicine 06/08/23 Tonja Gilliam MD [address] [place] [address] PCP - [facility] 12/30/23 Pia Talley NP [address] [place] [address] Nurse Practitioner Family Medicine 06/08/23 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 Hammer Operator Helper Relationship Specialty Start Date End Date JesseShila JoseloDO [address] [place] [address] PCP - [employer] 05/31/22 Tonja Gilliam MD [address] [place] [address] PCP - General Family Medicine 06/08/23 Tonja Gilliam MD [address] [place] [address] PCP - [employer] 12/30/23 Pia Talley NP [address] [place] [address] Nurse Practitioner Family Medicine 06/08/23 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 Hammer Operator Helper Relationship Specialty Start Date End Date Shila Molina JoseloDO [address] [place] [address] PCP - [employer] 05/31/22 Tonja Gilliam MD [address] [place] [address] PCP - General Family Medicine 06/08/23 Tonja Gilliam MD [address] [place] [address] PCP - [employer] 12/30/23 Pia Talley NP [address] [place] [address] Nurse Practitioner Family Medicine 06/08/23 Drop Hammer Operator Helper Relationship Specialty Start Date End Date Shila Molina DO [address] [place] [address] PCP - [employer] 05/31/22 Tonja Gilliam MD [address] [place] [address] PCP - General Family Medicine 06/08/23 Tonja Gilliam MD [address] [place] [address] PCP - [employer] 12/30/23 Pia Talley NP [address] [place] [address] Nurse Practitioner Family Medicine 06/08/23 Drop Hammer Operator Helper Relationship Specialty Start Date End Date Shila Molina DO [address] [place] [address] PCP - [employer] 05/31/22 Tonja Gilliam MD [address] [place] [address] PCP - General Family Medicine 06/08/23 Tonja Gilliam MD [address] [place] [address] PCP - [employer] 12/30/23 Pia Talley NP [address] [place] [address] Nurse Practitioner Family Medicine 06/08/23 Drop Hammer Operator Helper Relationship Specialty Start Date End Date Shila Molina DO [address] [place] [address] PCP - [employer] 05/31/22 Tonja Gilliam MD [address] [place] [address] PCP - General Family Medicine 06/08/23 Tonja Gilliam MD [address] [place] [address] PCP - [employer] 12/30/23 Pia Talley NP [address] [place] [address] Nurse Practitioner Family Medicine 06/08/23 Drop Hammer Operator Helper Relationship Specialty Start Date End Date Shila Molina DO [address] [place] [address] PCP - [employer] 05/31/22 Tonja Gilliam MD [address] [place] [address] PCP - General Family Medicine 06/08/23 Tonja Gilliam MD [address] [place] [address] PCP - [employer] 12/30/23 Pia Talley NP [address] [place] [address] Nurse Practitioner Family Medicine 06/08/23 Drop Hammer Operator Helper Relationship Specialty Start Date End Date Shila Molina DO [address] [place] [address] PCP - [employer] 05/31/22 Tonja Gilliam MD [address] [place] [address] PCP - General Family Medicine 06/08/23 Tonja Gilliam MD [address] [place] [address] PCP - [employer] 12/30/23 Pia Talley NP [address] [place] [address] Nurse Practitioner Family Medicine 06/08/23 Drop Hammer Operator Helper Relationship Specialty Start Date End Date JesseShila thomasDO [address] [place] [address] PCP - [employer] 05/31/22 Tonja Gilliam MD [address] [place] [address] PCP - General Family Medicine 06/08/23 Tonja Gilliam MD [address] [place] [address] PCP - [employer] 12/30/23 Pia Talley NP [address] [place] [address] Nurse Practitioner Family Medicine 06/08/23 Reason for [...] BE BASED ON THE PRIMARY CLINICAL RECORDS. [facility] [employer] [facility]. provides no warranty or guarantee of the accuracy or completeness of information in this document.
[2024-04-02] MEDS: ACETAMINOPHEN 325 MG TABLET 650 MG PO (20:11)
[2024-04-02] MEDS: BUMETANIDE 1 MG/4 ML VIAL 2 MG IVP (20:11)
[2024-04-02] MEDS: LACTATED RINGER'S SOLUTION 1,000 ML 125 ML IV (20:11)
[2024-04-02 21:41] LABS: Glucometer 331 mg/dL (74-106)
[2024-04-02] MEDS: INSULIN ASPART 300 UNIT/3 ML PEN SUBQ (21:45)
[2024-04-02] MEDS: ENOXAPARIN SODIUM 40 MG/0.4 ML SYRINGE SUBQ (21:47)
[2024-04-03] VITALS (30 sets, daily range): BP systolic 122–162; BP diastolic 58–90; PULSE 68–180; TEMP 36–36.9; O2SAT 91–100
[2024-04-03] MEDS: IPRATROPIUM/ALBUTEROL SULFATE 3 ML AMPUL.NEB IH ×5 (02:39→20:07)
[2024-04-03 05:25] LABS: Basophils Percent Auto 0.3 % (0.2-2.0); Hematocrit 30.3 % (36.0-48.0); Hemoglobin 9.5 g/dL (12.0-16.0); Immature Granulocytes Abs Auto 0.01 10^3/uL (0.00-0.03); Immature Granulocytes Pct Auto 0.2 % (0.0-0.5); Lymphocytes Absolute Auto 0.4 10^3/uL (1.2-3.8); Lymphocytes Percent Auto 6.2 % (20.5-60.0); Mean Corpuscular HGB Conc 31.4 g/dL (29.9-35.2); Mean Corpuscular Hemoglobin 27.8 pg (26.7-34.0); Mean Corpuscular Volume 88.6 fL (81.0-99.0); Mean Platelet Volume 11.6 fL (9.5-13.5); Monocytes Absolute Auto 0.3 10^3/uL (0.3-0.8); Monocytes Percent Auto 5.5 % (1.7-12.0); Neutrophils Absolute Auto 5.3 10^3/uL (1.4-6.5); Neutrophils Percent Auto 87.8 % (43.0-75.0); Platelet Count 155 10^3/uL (150-450); Red Blood Count 3.42 10^6/uL (4.20-5.40); Red Cell Distribution Width 15.9 % (11.0-15.0)
[2024-04-03] MEDS: LACTATED RINGER'S SOLUTION 1,000 ML 125 ML IV (05:28)
[2024-04-03 05:45] LABS: Alanine Aminotransferase 20 U/L (14-59); Albumin Globulin Ratio 0.8; Alkaline Phosphatase 92 U/L (46-116); Anion Gap 12.3; Aspartate Amino Transferase 19 U/L (15-37); BUN Creatinine Ratio 23.3; Bilirubin Total 0.2 mg/dL (0.2-1.0); Calcium 10.7 mg/dL (8.5-10.1); Carbon Dioxide 28.7 mmol/L (21.0-32.0); Chloride 101 mmol/L (98-107); Estimated GFR (African America >60 (>=60 mL/min/1.73m^2); Estimated GFR (Non-African Ame 51 (>=60 mL/min/1.73m^2); Glucose 203 mg/dL (74-106); Sodium 138 mmol/L (136-145)
[2024-04-03] MEDS: BUMETANIDE 1 MG/4 ML VIAL 2 MG IVP ×3 (06:08→18:28)
[2024-04-03 07:26] LABS: Glucometer 211 mg/dL (74-106)
--- NOTE | 2024-04-03 07:43 | ECG_ITS ---
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
[2024-04-03] MEDS: DILTIAZEM HCL 25 MG/5 ML VIAL 10 MG IV (07:49)
[2024-04-03] MEDS: INSULIN ASPART 300 UNIT/3 ML PEN SUBQ ×4 (08:40→21:13)
[2024-04-03] MEDS: ASPIRIN 81 MG TAB.CHEW PO (09:28)
[2024-04-03] MEDS: MONTELUKAST SODIUM 10 MG TABLET PO (09:28)
[2024-04-03] MEDS: OMEPRAZOLE 40 MG CAPSULE.DR PO (09:28)
[2024-04-03] MEDS: SPIRONOLACTONE 25 MG TABLET 12.5 MG PO (09:28)
[2024-04-03] MEDS: DULOXETINE HCL 20 MG CAPSULE.DR PO (09:28)
[2024-04-03] MEDS: METOPROLOL SUCCINATE 50 MG TAB.ER.24H PO (09:30)
[2024-04-03] MEDS: LOSARTAN POTASSIUM 25 MG TABLET 100 MG PO (09:30)
--- NOTE | 2024-04-03 09:40 | CM.NOTE ---
Rounds made with Dr. Zapata. Dr. Zapata discussed home oxygen settings with [place] along with plan of care. No discharge today.
--- NOTE | 2024-04-03 10:07 | SWNOTE1 ---
SOURAV met with pt to discuss dc needs. Pt lives at home with her son. She voiced her son is a pain and does not help much. She did state her daughter will assist as needed if she calls her. Pt does wear home oxygen at 2 liters thru [employer]. Pt does still have [facility] coming in and she will resume them at discharge. Pt's plan is to return home at discharge. Pt does drive and she takes her cane with her when she is out and about. Pt does not have any discharge concerns at this time.
--- NOTE | 2024-04-03 10:09 | SWNOTE1 ---
Important Message from Medicare reviewed and discussed with patient. Pt. verbalized understanding and signed the form. Original given to patient and copy placed in patient?s chart.
[2024-04-03] MEDS: GUAIFENESIN 200 MG/DEXTROMETHORPHAN 20 MG 10 ML UNIT DOSE CUP PO (10:16)
[2024-04-03] MEDS: METHYLPREDNISOLONE SOD SUCC PF 40 MG/ML VIAL IVP ×2 (10:16→18:28)
[2024-04-03] MEDS: BUDESONIDE 0.5 MG/2 ML AMPULE NEB IH ×2 (10:57→20:08)
[2024-04-03 11:08] LABS: Glucometer 224 mg/dL (74-106)
--- NOTE | 2024-04-03 11:08 | P.HP_ITS ---
HPI H&P: HPI History of Present Illness Chief complaint: sob CHF EXACERBATION OULMONARY EDEMA Narrative: 83-year-old female with history of chronic respiratory failure with hypoxia secondary to COPD/heart failure with reduced ejection fraction, on home oxygen and requires 2 L of oxygen via nasal cannula at baseline presented to ER with worsening shortness of breath, labored breathing with productive cough and yellow sputum along with wheezing. Patient was hypoxic with pulse ox as low as 80% in ER and was noted to have increased work of breathing with tachypnea, use of accessory muscles and was admitted for acute on chronic combined systolic/diastolic heart failure and COPD exacerbation. Earlier in the morning, there was an acute episode of considerable respiratory distress when patient became tachycardic with heart rate as high as 180 and was noted to have significant respiratory distress/labored breathing. She was given one-time dose of IV Cardizem 10 mg along with 2 mg of IV Bumex with improvement in her heart rate and respiratory status. However she is still considerably short of breath at rest, was coughing with sputum expectoration during exam and was noted to have mild respiratory distress with tachypnea and was using neck muscles for breathing. Opioid HPI Opioid Management Most Recent Pain and Opioid Data: Last Pain Scale 0 04/02/24 21:47 04/02/24 Last Pain Assessment 04/03/24 11:24 Last ORT Total Score 0 04/02/24 19:50 04/02/24 Last ORT Risk Category Low Risk 04/02/24 19:50 04/02/24 Review of Systems ROS Status of ROS 10 or more systems reviewed and unremark able except as noted in history and below [facility] Medical History (Updated 04/03/24 @ 11:09 by Shaikh Benny MD) Lung cancer ?C34.90 - Malignant neoplasm of unspecified part of unspecified bronchus or lung (ICD-10) Acute on chronic systolic (congestive) heart failure ?I50.23 - Acute on chronic systolic (congestive) heart failure (ICD-10) Acute on chronic respiratory failure with hypoxia ?J96.21 - Acute and chronic respiratory failure with hypoxia (ICD-10) Type 2 diabetes mellitus ?E11.9 - Type 2 diabetes mellitus without complications (ICD-10) HLD (hyperlipidemia) ?E78.5 - Hyperlipidemia, unspecified (ICD-10) PAD (peripheral artery disease) ?I73.9 - Peripheral vascular disease, unspecified (ICD-10) Chronic respiratory failure with hypoxia ?J96.11 - Chronic respiratory failure with hypoxia (ICD-10) HTN (hypertension) ?I10 - Essential (primary) hypertension (ICD-10) Current smoker ?F17.200 - Nicotine dependence, unspecified, uncomplicated (ICD-10) CAD (coronary artery disease) ?I25.10 - Atherosclerotic heart disease of [place] coronary artery without angina pectoris (ICD-10) COPD (chronic obstructive pulmonary disease) ?J44.9 - Chronic obstructive pulmonary disease, unspecified (ICD-10) Social History (Updated 02/26/24 @ 16:05 by Shaikh Benny MD) Within the past year, how often did you have a drink containing alcohol: never Within the past year, how many standard drinks containing alcohol did you have on a typical day: 1 or 2 Total score: 0 Score interpretation: A score less than 3 is consistent with normal alcohol consumption. Smoking status: Current every day smoker Non-prescribed substance use: denies use Highest level of school completed/degree received: 9th grade Little interest or pleasure in doing things: not at all Feeling down, depressed, or hopeless: not at all Meds Home Medications and Allergies Home Medications ?Medication ?Instructions ?Recorded ?Confirmed ?Type albuterol sulfate 2.5 mg/3 mL 2.5 mg inhalation Q4H PRN 02/26/24 04/02/24 History (0.083 %) solution for nebulization shortness of breath or wheezing albuterol sulfate 90 mcg/actuation 2 inh inhalation Q4H PRN shortness 02/26/24 04/02/24 History aerosol inhaler of breath or wheezing budesonide 160 mcg-glycopyr 9 2 inh inhalation BID 02/26/24 04/02/24 History mcg-formot 4.8 mcg/actuation HFA inhaler (Breztri Aerosphere) aspirin 81 mg chewable tablet 81 mg PO DAILY 02/27/24 04/02/24 History clopidogrel 75 mg tablet (Plavix) 75 mg PO DAILY 02/27/24 04/02/24 History glimepiride 4 mg tablet 4 mg PO DAILY 02/27/24 04/02/24 History losartan 100 mg tablet (Cozaar) 100 mg PO DAILY 02/27/24 04/02/24 History metformin 1,000 mg tablet 1,000 mg PO DAILY 02/27/24 04/02/24 History metoprolol succinate 50 mg 50 mg PO DAILY 02/27/24 04/02/24 History tablet,extended release 24 hr montelukast 10 mg tablet 10 mg PO DAILY 02/27/24 04/02/24 History (Singulair) pantoprazole 40 mg tablet,delayed 40 mg PO DAILY 02/27/24 04/02/24 History release (Protonix) rosuvastatin 20 mg tablet 20 mg PO DAILY 02/27/24 04/02/24 History furosemide 20 mg tablet (Lasix) 20 mg PO DAILY #30 tabs 02/28/24 04/02/24 Rx spironolactone 25 mg tablet 12.5 mg (1/2 x 25 mg) PO DAILY #30 02/28/24 04/02/24 Rx (Aldactone) tabs duloxetine 20 mg capsule,delayed 20 mg PO DAILY 04/02/24 04/02/24 History release Allergies Allergy/AdvReac Type Severity Reaction Status Date / Time No Known Drug Allergies Allergy Verified 02/26/24 05:26 Exam Constitutional Vital Signs, click to edit/add: Last Vital Signs Temp 98.3 F 04/03/24 08:40 Pulse 68 04/03/24 10:57 Resp 24 H 04/03/24 08:40 BP 131/59 04/03/24 09:30 Pulse Ox 94 L 04/03/24 10:57 O2 Del Method Nasal Cannula 04/03/24 10:57 O2 Flow Rate 3 04/03/24 10:57 General appearance: cooperative, in distress respiratory, ill appearing and frail appearing Nutritional appearance: cachectic and overweight [facility] Common normals: normocephalic and head/scalp atraumatic Other: bitemporal wasting Respiratory Effort & inspection: tachypneic, labored, uses accessory muscles and audible wheezes Auscultation: rhonchi throughout and wheezes throughout Other: Productive cough, coarse breath sounds. Cardio Common normals: regular rhythm, S1 normal heart sound and S2 normal heart sound Rate: tachycardic GI Common normals: Normal to inspection, nondistended, normoactive bowel sounds present, soft to palpation and non-tender Neuro Common normals: oriented x3, moves all extremities and no focal motor deficits Psych Common normals: mental status grossly normal, thought process normal, denies homicidal ideation and denies suicidal ideation Results Labs Labs: Short CBC 04/02/24 04/03/24 Range/Units 15:55 05:11 WBC 11.0 6.0 (4.0-11.0) 10^3/uL Hgb 9.7 L 9.5 L (12.0-16.0) g/dL Hct 31.0 L 30.3 L (36.0-48.0) % Plt Count 157 155 (150-450) 10^3/uL BMP 04/02/24 04/03/24 15:55 05:11 Sodium 138 138 Potassium 4.3 4.0 Chloride 102 101 Carbon Dioxide 28.2 28.7 BUN 20.0 H 24.0 H Creatinine 0.96 1.03 H Glucose 202 H 203 H Calcium 10.2 H 10.7 H Liver Function 04/02/24 04/03/24 Range/Units 15:55 05:11 Total Bilirubin 0.3 0.2 (0.2-1.0) mg/dL AST 25 19 (15-37) U/L ALT 28 20 (14-59) U/L Alkaline Phosphatase 103 92 (46-116) U/L Albumin 2.6 L 3.0 L (3.4-5.0) g/dL Assessment and Plan Assessment and Plan (1) Acute on chronic respiratory failure with hypoxia: Assessment and Plan: Baseline O2 requirement is 2 L, currently on 3 L Wean of O2 as tolerated. (2) COPD exacerbation: Assessment and Plan: In resp distress, with tachypnea, labored breathing, using accessory neck muscles of resp. Started on IV solumedrol, c/w duonesb, c/w IV bumex. (3) Acute on chronic combined systolic (congestive) and diastolic (congestive) heart failure: Assessment and Plan: volume overload, elevated BNP, with resp failure. on bumex. C/w same. monitor UO, I/O, daily weights. No need for repeat ECHO (4) Type 2 diabetes mellitus: Assessment and Plan: C/w SSI. Monitor blood glucose closely. 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 Monitor while inpatient. Qualifiers: Hypertension type: primary hypertension Qualified Code(s): I10 - Essential (primary) hypertension (7) CAD (coronary artery disease): Assessment and Plan: No evidence of active cardiac ischemia. Qualifiers: Coronary Disease-Associated Artery/Lesion type: [place] artery [place] vs. transplanted heart: [place] heart Associated angina: without angina Qualified Code(s): I25.10 - Atherosclerotic heart disease of [place] coronary artery without angina pectoris (8) Severe malnutrition: Assessment and Plan: Severe malnutrition due to chronic disease burden, severe COPD, loss of subcutaneous tissue, muscle mass. BMI of only 17. Added ensure, prostat. Online Advertising Analyst consulted. (9) Current smoker: Assessment and Plan: Discussed smoking cessation. Nicotine patch ordered for nicotine withdrawal Plan Patient presented with acute on chronic resp failure, COPD exacerbation, acute on chronic combined systolic/diastolic HF. She has severe COPD, severely reduced EF with multiple admissions in the past. She has poor insight and does not always follow up. She is currently in resp distress, with increased work of breathing and may require BIPAP/NIV to help with work of breathing if she continues like this. Patient will need inpatient treatment of her current illness, and is at high risk of mortality, risk of resp failure/poor prognosis due to her underlying comorbid conditions and severity of current illness. Urinary Catheter Management Urinary Catheter Management Urethral: Cath placed during this visit: no
--- NOTE | 2024-04-03 11:55 | CT_ITS ---
The [address] [address] Patient Name: ISHMAEL MONAHAN MRN: [id number] date: 1940 Sex: F Assigned Patient Location: [place] Current Patient Location: [place] Accession/Order Number: [id number] Exam Date: 04/03/2024 12:35 Report Date: 04/03/2024 13:42 At the request of: SHAIKH JEFF Procedure: CT angio chest EXAM: CT angio chest HISTORY: Rule Out PE COMPARISON: CT chest 02/18/2024.. TECHNIQUE: Following intravenous administration of 100 mL of Omnipaque 350, axial soft tissue windows of the chest were performed with coronal and sagittal reformats. 3-D MIPS reconstructions were created and reviewed. CT dose reduction technique was used including Automated Exposure Control. Findings: The heart is enlarged. There are coronary artery calcifications. Trace amount pericardial fluid. The thoracic aorta is normal caliber with moderate atherosclerotic disease. Aberrant right subclavian artery. There is adequate opacification of the pulmonary arteries. No evidence of pulmonary embolism. The central airways are patent. Moderate paraseptal and centrilobular emphysema. No pneumothorax. No pleural effusion. Redemonstrated is mild right apical scarring. Stable pulmonary nodules. No enlarged mediastinal, hilar, axillary or supraclavicular lymph nodes. No aggressive sclerotic or lytic osseous lesions. Mild multilevel degenerative spondylosis. CT/CT angio chest IMPRESSION: 1. No pulmonary embolism. 2. Moderate emphysema. 3. Other nonemergent findings, as described above. Electronically authenticated by: OTILIO MURILLO Date: 04/03/2024 13:42
--- NOTE | 2024-04-03 12:47 | SWNOTE1 ---
SOURAV sent demographic sheet, H&P and ED note to [facility].
[2024-04-03] MEDS: ENSURE ORIGINAL 237 ML BOTTLE PO ×2 (13:24→21:11)
--- NOTE | 2024-04-03 16:22 | RESP.RT ---
decreased to 2 LPM
[2024-04-03 16:26] LABS: Glucometer 375 mg/dL (74-106)
[2024-04-03 20:47] LABS: Glucometer 203 mg/dL (74-106)
[2024-04-03] MEDS: PROSTAT 15 GM PROTEIN/100 CAL 30 ML LIQUID PACKET PO (21:11)
[2024-04-03] MEDS: ENOXAPARIN SODIUM 40 MG/0.4 ML SYRINGE SUBQ (21:11)
[2024-04-04] VITALS (9 sets, daily range): BP systolic 139–154; BP diastolic 62–69; PULSE 70–85; TEMP 36.6–36.9; O2SAT 92–95
[2024-04-04] MEDS: METHYLPREDNISOLONE SOD SUCC PF 40 MG/ML VIAL IVP ×2 (03:14→10:50)
[2024-04-04] MEDS: IPRATROPIUM/ALBUTEROL SULFATE 3 ML AMPUL.NEB IH ×2 (05:03→11:44)
[2024-04-04] MEDS: BUMETANIDE 1 MG/4 ML VIAL 2 MG IVP (06:19)
[2024-04-04 07:02] LABS: Basophils Percent Auto 0.1 % (0.2-2.0); Hematocrit 31.5 % (36.0-48.0); Hemoglobin 10.1 g/dL (12.0-16.0); Immature Granulocytes Abs Auto 0.04 10^3/uL (0.00-0.03); Immature Granulocytes Pct Auto 0.3 % (0.0-0.5); Lymphocytes Absolute Auto 0.5 10^3/uL (1.2-3.8); Lymphocytes Percent Auto 3.8 % (20.5-60.0); Mean Corpuscular HGB Conc 32.1 g/dL (29.9-35.2); Mean Corpuscular Volume 87.3 fL (81.0-99.0); Mean Platelet Volume 12.8 fL (9.5-13.5); Monocytes Absolute Auto 0.9 10^3/uL (0.3-0.8); Monocytes Percent Auto 6.3 % (1.7-12.0); Neutrophils Absolute Auto 12.6 10^3/uL (1.4-6.5); Neutrophils Percent Auto 89.5 % (43.0-75.0); Platelet Count 161 10^3/uL (150-450); Red Blood Count 3.61 10^6/uL (4.20-5.40); Red Cell Distribution Width 15.8 % (11.0-15.0); White Blood Count 14.1 10^3/uL (4.0-11.0)
[2024-04-04 07:21] LABS: Alanine Aminotransferase 27 U/L (14-59); Albumin Globulin Ratio 0.8; Albumin Level 3.2 g/dL (3.4-5.0); Alkaline Phosphatase 105 U/L (46-116); Anion Gap 12.6; Aspartate Amino Transferase 21 U/L (15-37); BUN Creatinine Ratio 31.5; Bilirubin Total 0.3 mg/dL (0.2-1.0); Calcium 10.9 mg/dL (8.5-10.1); Carbon Dioxide 30.7 mmol/L (21.0-32.0); Chloride 97 mmol/L (98-107); Estimated GFR (African America 48 (>=60 mL/min/1.73m^2); Estimated GFR (Non-African Ame 39 (>=60 mL/min/1.73m^2); Globulin 4.1 g/dL; Glucose 304 mg/dL (74-106); Potassium 4.3 mmol/L (3.5-5.1); Sodium 136 mmol/L (136-145); Total Protein 7.3 g/dL (6.4-8.2)
[2024-04-04] MEDS: INSULIN ASPART 300 UNIT/3 ML PEN SUBQ (08:28)
--- NOTE | 2024-04-04 08:49 | DIETREC ---
Recommend 237 mL Ensure Original BID to supplement meal intakes.
[2024-04-04] MEDS: OMEPRAZOLE 40 MG CAPSULE.DR PO (10:02)
[2024-04-04] MEDS: MONTELUKAST SODIUM 10 MG TABLET PO (10:02)
[2024-04-04] MEDS: ENSURE ORIGINAL 237 ML BOTTLE PO (10:02)
[2024-04-04] MEDS: PROSTAT 15 GM PROTEIN/100 CAL 30 ML LIQUID PACKET PO (10:02)
[2024-04-04] MEDS: DULOXETINE HCL 20 MG CAPSULE.DR PO (10:03)
[2024-04-04] MEDS: SPIRONOLACTONE 25 MG TABLET 12.5 MG PO (10:03)
[2024-04-04] MEDS: ASPIRIN 81 MG TAB.CHEW PO (10:03)
[2024-04-04] MEDS: LOSARTAN POTASSIUM 25 MG TABLET 100 MG PO (10:03)
[2024-04-04] MEDS: METOPROLOL SUCCINATE 50 MG TAB.ER.24H PO (10:03)
--- NOTE | 2024-04-04 10:15 | CM.NOTE ---
Rounds made with Dr. Zapata, pt will discharge to home today with [facility] services. Pt has a cane and walker at home, voices no need for a DME. Pt will f/u with PCP.
--- NOTE | 2024-04-04 10:43 | PM.DS1 ---
DS: Providers Provider Date of admission: 04/02/24 19:45 Primary care physician: LILIAN GILLIAM Admitting clinician: Shaikh Benny Attending physician on admission: Shaikh Benny Consults: 04/02/24 17:35 Physical Therapy Eval and Treat Routine Reason for consultation: Ambulatory dysfunction/weakness 04/03/24 11:56 Consult to Dietitian Routine Reason for consultation: Malnutrition Attending physician on discharge: Shaikh Benny Discharging clinician: Shaikh Benny Anticipated date of discharge: 04/04/24 DS: Diagnosis Discharge Diagnosis (1) Acute on chronic respiratory failure with hypoxia: (2) COPD exacerbation: (3) Acute on chronic combined systolic (congestive) and diastolic (congestive) heart failure: (4) Type 2 diabetes mellitus: Qualifiers: Diabetes mellitus senior living insulin use: without intermediate project manager use Diabetes mellitus complication status: without complication Qualified Code(s): E11.9 - Type 2 diabetes mellitus without complications (5) HLD (hyperlipidemia): Qualifiers: Hyperlipidemia type: unspecified Qualified Code(s): E78.5 - Hyperlipidemia, unspecified (6) HTN (hypertension): Qualifiers: Hypertension type: primary hypertension Qualified Code(s): I10 - Essential (primary) hypertension (7) CAD (coronary artery disease): Qualifiers: Coronary Disease-Associated Artery/Lesion type: [place] artery [place] vs. transplanted heart: [place] heart Associated angina: without angina Qualified Code(s): I25.10 - Atherosclerotic heart disease of [place] coronary artery without angina pectoris (8) Severe malnutrition: (9) Current smoker: DS: Summary Hospital Course Hospital Course: 83-year-old female with history of chronic respiratory failure with hypoxia secondary to COPD/heart failure with reduced ejection fraction, on home oxygen and requires 2 L of oxygen via nasal cannula at baseline presented to ER with worsening shortness of breath, labored breathing with productive cough and yellow sputum along with wheezing. Patient was hypoxic with pulse ox as low as 80% in ER and was noted to have increased work of breathing with tachypnea, use of accessory muscles and was admitted for acute on chronic combined systolic/diastolic heart failure and COPD exacerbation. She was started on IV Bumex 2 mg twice a day along with systemic steroids and inhaled DuoNebs for acute on chronic congestive heart failure and COPD exacerbation. On second day of admission, she had an acute onset of respiratory distress and tachycardia with heart rate as high as 180. She recovered after she was given 1 dose of IV Cardizem 10 mg and extra dose of IV Bumex. CTA chest was ordered to rule out PE that did not reveal any evidence of VTE. Patient clinically improved throughout the course of admission with improvement in her respiratory status and hypoxia and was weaned off to 2 L of oxygen which is her baseline. On day of discharge, she feels well ambulating without feeling short of breath, using a walker and is medically stable for discharge. She will need to finish prednisone taper for COPD exacerbation. I will increase her oral Lasix to 40 mg once daily from 20 mg that she was previously on. She will need close follow-up with PCP within 1 to 2 weeks as outpatient along with follow-up with cardiology to adjust her medications as she is currently not on all guideline directed medical treatments for CHF.. Status at Discharge Functional status at discharge: uses cane/walker Overall status at discharge: patient is back to baseline Time Spent with Patient Time attestation: Total time spent providing and/or coordinating discharge services: Time spent: greater than 30 minutes Exam Constitutional Vital Signs, click to edit/add: Last Vital Signs Temp 98.4 F 04/04/24 07:41 Pulse 83 04/04/24 10:00 Resp 18 04/04/24 07:41 BP 139/62 04/04/24 07:41 Pulse Ox 92 L 04/04/24 07:41 O2 Del Method Nasal Cannula 04/04/24 07:41 O2 Flow Rate 2 04/04/24 07:41 General appearance: cooperative, in distress respiratory, ill appearing and frail appearing Nutritional appearance: cachectic and overweight Respiratory Effort & inspection: able to speak in complete sentences Other: Coarse breath sounds. No wheezing or rhonchi. No resp distress. Cardio Common normals: regular rhythm, S1 normal heart sound and S2 normal heart sound Rate: tachycardic Neuro Common normals: oriented x3, moves all extremities and no focal motor deficits Psych Common normals: mental status grossly normal, thought process normal, denies homicidal ideation and denies suicidal ideation DS: Data Data Completed and Pending Labs on day of discharge: Labs from last 24 hours 04/04/24 04/03/24 04/03/24 06:38 20:45 16:24 WBC 14.1 H RBC 3.61 L Hgb 10.1 L Hct 31.5 L MCV 87.3 MCH 28.0 MCHC 32.1 RDW 15.8 H Plt Count 161 MPV 12.8 Neut % (Auto) 89.5 H Lymph % (Auto) 3.8 L Campbell % (Auto) 6.3 Eos % (Auto) 0.0 L Baso % (Auto) 0.1 L Neut # (Auto) 12.6 H Lymph # (Auto) 0.5 L Campbell # (Auto) 0.9 H Eos # (Auto) 0.0 Baso # (Auto) 0.0 Abs Immat Gran (auto) 0.04 H Imm/Tot Granulo (auto) 0.3 Sodium 136 Potassium 4.3 Chloride 97 L Carbon Dioxide 30.7 Anion Gap 12.6 BUN 41.0 H Creatinine 1.30 H Est GFR ( Amer) 48 L Est GFR (Non-Af Amer) 39 L BUN/Creatinine Ratio 31.5 Glucose 304 H Calcium 10.9 H Total Bilirubin 0.3 AST 21 ALT 27 Alkaline Phosphatase 105 Total Protein 7.3 Albumin 3.2 L Globulin 4.1 Albumin/Globulin Ratio 0.8 POC Glucose 203 H 375 H 04/03/24 11:08 WBC RBC Hgb Hct MCV MCH MCHC RDW Plt Count MPV Neut % (Auto) Lymph % (Auto) Campbell % (Auto) Eos % (Auto) Baso % (Auto) Neut # (Auto) Lymph # (Auto) Campbell # (Auto) Eos # (Auto) Baso # (Auto) Abs Immat Gran (auto) Imm/Tot Granulo (auto) Sodium Potassium Chloride Carbon Dioxide Anion Gap BUN Creatinine Est GFR ( Amer) Est GFR (Non-Af Amer) BUN/Creatinine Ratio Glucose Calcium Total Bilirubin AST ALT Alkaline Phosphatase Total Protein Albumin Globulin Albumin/Globulin Ratio POC Glucose 224 H Discharge Plan Discharge Disposition: Home, Self-Care Discharge Medications: New furosemide [Lasix] 40 mg tablet 40 mg PO DAILY Qty: 30 0RF prednisone 20 mg tablet 20 mg PO BID Qty: 10 0RF Continued albuterol sulfate 2.5 mg /3 mL (0.083 %) solution for nebulization 2.5 mg inhalation Q4H PRN (Reason: shortness of breath or wheezing) albuterol sulfate 90 mcg/actuation HFA aerosol inhaler 2 inh INHALATION Q4H PRN (Reason: shortness of breath or wheezing) Bhaskar Aerosphere 160-9-4.8 mcg/actuation HFA aerosol inhaler 2 inh INHALATION BID metoprolol succinate 50 mg tablet extended release 24 hr 50 mg PO DAILY metformin 1,000 mg tablet 1,000 mg PO DAILY glimepiride 4 mg tablet 4 mg PO DAILY clopidogrel [Plavix] 75 mg tablet 75 mg PO DAILY rosuvastatin 20 mg tablet 20 mg PO DAILY aspirin 81 mg tablet,chewable 81 mg PO DAILY pantoprazole [Protonix] 40 mg tablet,delayed release (DR/EC) 40 mg PO DAILY losartan [Cozaar] 100 mg tablet 100 mg PO DAILY montelukast [Singulair] 10 mg tablet 10 mg PO DAILY spironolactone [Aldactone] 25 mg tablet 12.5 mg PO DAILY Qty: 30 0RF duloxetine 20 mg capsule,delayed release(DR/EC) 20 mg PO DAILY Discontinued furosemide [Lasix] 20 mg tablet 20 mg PO DAILY Qty: 30 0RF Activity: increase activity as tolerated Diet: diabetic diet and low salt diet Print Language: Romanian Forms: Portal Instructions Follow Up Appointments: F/u with PCP in one week F/u with Cardiology in 2 weeks
[2024-04-04] MEDS: BUDESONIDE 0.5 MG/2 ML AMPULE NEB IH (11:44)
--- NOTE | 2024-04-04 12:01 | REH.PTDLY ---
Physical Therapy Daily Note PT Daily Note/Assess Start: 04/03/24 16:08 Freq: Status: Active Protocol: Document 04/04/24 11:07 NEIDA (Rec: 04/04/24 12:01 NEIDA [id number]) Visit Not Completed Visit Not Completed Due to: Pt refusing Other Reason Visit Not Completed Pt states she is DC and leaving soon. Has been up ambulating to bathroom and declines PT. Physical Therapy Daily Note/Assessment Time In 11:06 Time Out 11:07
--- NOTE | 2024-04-04 13:38 | SWNOTE1 ---
SOURAV faxed over dc med rec, dc summary, and CRF to [facility].
== END 2024-04-04 12:26 | disposition home or self-care (01) | DRG 291 ==
LOC: ER 17:26 → MS 19:49
PROVIDERS: Admitting Provider Internal Medicine; Emergency Provider Emergency Medicine; PCP Family Medicine; Visit Provider Internal Medicine
DX: I11.0 Hypertensive heart disease with heart failure (principal); E43 Unspecified severe protein-calorie malnutrition; I50.43 Acute on chronic combined systolic (congestive) and diastolic (congestive) heart failure; J96.21 Acute and chronic respiratory failure with hypoxia; J44.1 Chronic obstructive pulmonary disease with (acute) exacerbation; Z68.1 Body mass index [BMI] 19.9 or less, adult; E78.5 Hyperlipidemia, unspecified; E11.51 Type 2 diabetes mellitus with diabetic peripheral angiopathy without gangrene; F17.200 Nicotine dependence, unspecified, uncomplicated; I25.10 Atherosclerotic heart disease of native coronary artery without angina pectoris; Z99.81 Dependence on supplemental oxygen; Z79.84 Long term (current) use of oral hypoglycemic drugs; Z79.82 Long term (current) use of aspirin; Z79.02 Long term (current) use of antithrombotics/antiplatelets; Z79.899 Other long term (current) drug therapy
CPT/HCPCS: 36415; 51702; 71045; 71275; 80053; 82948; 83605; 83880; 84484; 85025; 87070; 93005; 94640; 94761; 96374; 96375; 97161; 99285; 99406; J1650; J1940; J2919; Q9967

== ENCOUNTER 2024-04-05 07:17 | Observation (INO) | payer MEDICARE, SELFPAY ==
[2024-04-05] VITALS (28 sets, daily range): BP systolic 116–139; BP diastolic 57–71; PULSE 61–92; TEMP 36.6–36.7; O2SAT 91–100; BMI 17.0; BMI 16.9
--- NOTE | 2024-04-05 07:32 | ECG_ITS ---
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
--- NOTE | 2024-04-05 07:32 | XR_ITS ---
The [address] [address] Patient Name: ISHMAEL MONAHAN MRN: [id number] date: 1940 Sex: F Assigned Patient Location: ER Current Patient Location: ED.MAIN Accession/Order Number: [id number] Exam Date: 04/05/2024 08:00 Report Date: 04/05/2024 08:23 At the request of: RAHUL MONTOYA Procedure: XR chest 1V EXAMINATION: XR chest 1V HISTORY: sob COMPARISON: 04/02/2024 TECHNIQUE: AP portable FINDINGS: LUNGS: Mild diffuse increase signal infiltrates with peripheral intralobular septal thickening, improved VASCULATURE: Moderately increased pulmonary vasculature, stable since the prior exam. PLEURA: No pneumothorax, effusion, or pleural thickening. CARDIAC: Moderate stable cardiomegaly. MEDIASTINUM: No visible mass or adenopathy. BONES: No fracture or visible bone lesion. OTHER: Negative. XR/XR chest 1V IMPRESSION: Mild pulmonary edema/congestive heart failure, improved from the previous exam Electronically authenticated by: YU SEVILLA Date: 04/05/2024 08:23
--- OUTSIDE RECORDS SUMMARY | 2024-04-05 07:50 | XMS_ITS | CCD ---
Author Organization [facility] ion [facility] Care Team Providers Care Reporting Developer Name Role Phone DR SIOBHAN DEMARCO Primary Care Unavailable MATI ZAMBRANO Admitting Unavailable MATI ZAMBRANO Consulting Unavailable MATI ZAMBRANO Attending Unavailable YU JUNIOR Consulting Unavailable Shila Molina DO Primary Care Provider Tonja Gilliam MD Primary Care Provider Shila Molina DO Unavailable Tonja Gilliam MD Primary Care Provider Mayank PET FEEDER, Pia Unavailable ARISTEO GARCIA Attending Unavailable PIA [...] PIA Attending Unavailable Tonja Gilliam MD Unavailable JERROD [...] Aluminum aspirin; Translations: [ASPIRIN] Drug Allergy 08-18-2023 [facility] Medications Current Medications Medication Drug Class(es) Dates Sig (Normalized) Sig (Original) [id number] 200 actuat albuterol 0.09 mg/actuat metered dose [...] neuropathy, with long-term current use of insulin ([facility]) USE DIRECTED 1 kit 1 08/11/2023 Active 120 actuat budesonide 0.16 mg/actuat / formoterol fumarate 0.0048 mg/actuat / glycopyrrolate 0.009 mg/actuat metered dose inhaler (16 sources) Corticosteroid, beta2-Adrenergic Agonist Start: End: 024 take 2 puff(s) by inhalation in the morning Budeson-Glycopyrr ol-Formoterol (Breztri Aerosphere) 160-9-4.8 MCG/ACT aerosol Indications: COPD mixed type ([facility]) Inhale 2 puffs in the morning and 2 puffs before bedtime. 32.1 g 1 01/18/2024 Active Start: 02-10-2022 take 2 puff(s) by inhalation at bedtime oxiofrkagg-pzymyjdd-jnbfwsbepn (BREZTRI AEROSPHERE) 160-9-4.8 mcg/actuation HFA aerosol inhaler Inhale 2 puffs in the morning and at bedtime. 0 02/10/2022 Active Cholecalciferol (11 sources) Vitamin D Cholecalciferol (D3 PO) Take by mouth Active clopidogrel 75 mg oral tablet (16 sources) P2Y12 Platelet Inhibitor Start: clopidogrel (Plavix) 75 MG tablet Indications: PVD (peripheral vascular disease) ([facility]) TAKE 1 TABLET EVERY DAY 90 tablet [...] neuropathy, with long-term current use of insulin ([facility]) Take 1 tablet (10 mg) by mouth [...] hyperglycemia, without long-term current use of insulin ([facility]) TAKE 1 TABLET TWICE DAILY 180 tablet [...] hyperglycemia, with long-term current use of insulin ([facility]) INJECT 10 UNITS UNDER THE SKIN AT [...] CQ) 21 mg/24 hr Indications: COPD exacerbation ([facility]) Place 1 patch on the skin in [...] (DELTASONE) 10 mg tablet Indications: COPD exacerbation ([facility]) 3 tabs for 3 days, 2 tabs [...] ONCE DAILY 02/28/2024 Active 28 actuat tiotropium 0.33274 mg/actuat inhalation spray (1 source) Anticholinergic tiotropium [...] Coronary atherosclerosis; Translations: [Atherosclerotic heart disease of [place] coronary artery without angina pectoris] Onset: 09-30-2022 [...] 03-06-2024 Chronic Other aftercare (1 source) Other assisted (current) drug therapy; Translations: [OTH ASSISTED CURRENT DRUG THERAPY] Onset: 02-10-2022 Episodic Other [...] Respiratory failure; insufficiency; arrest (adult) (2 sources) Tgpme-qf-ivgexmr respiratory failure; Translations: [Acute and chronic respiratory [...] Long-term current use of insulin; 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] Onset: 02-18-2022 11-25-2022 [...] Range Facility Office Visiton 03-14-2024 Follow-up visit [id number] Jaspreet Mitchellviet Tariq 1940 F Date Provider Department Center 03/14/2024 [id number] [facility] Krystle [facility] Family History Problem Relation Age of Onset Heart failure Mother Sudden Father Stroke Father Heart attack Son Family Status - Relation Status Age at Mother Father Son Other Level of Service:20778 [place] OFFICE/OUTPATIENT ESTABLISHED MOD MDM 30 MIN Normal [facility] CBC W Auto Differential pane l (Bld)on 03-07-2024 Basophils (Bld) [#/Vol] 58 10*3/uL [facility] Basophils/100 WBC (Bld) 0.9 % [facility] Eosinophils (Bld) [#/Vol] 58 10*3/uL [facility] Eosinophils/100 WBC (Bld) 0.9 % [facility] Erythrocyte distribution width (RBC) [Ratio] 14.3 % 11.0 - 15.0 % [facility] Hematocrit (Bld) [Volume fraction] 33.9 % Low 35.0 - 45.0 % [facility] Hemoglobin (Bld) [Mass/Vol] 10.3 g/dL Low 11.7 - 15.5 g/dL [facility] Lymphocytes (Bld) [#/Vol] 1267 10*3/uL [facility] Lymphocytes/100 WBC (Bld) 19.8 % [facility] MCH (RBC) [Entitic mass] 27.7 pg 27.0 - 33.0 pg [facility] MCHC (RBC) [Mass/Vol] 30.4 g/dL Low 32.0 - 36.0 g/dL [facility] Comment on above: For adults, a slight decrease in the calculated MCHC value (in the range of 30 to 32 g/dL) is most likely not clinically significant; however, it should be interpreted with caution in correlation with other red cell parameters and the patient's clinical condition. MCV (RBC) [Entitic vol] 91.1 fL 80.0 - 100.0 fL [facility] Monocytes (Bld) [#/Vol] 493 10*3/uL [facility] Monocytes/100 WBC (Bld) 7.7 % [facility] Neutrophils (Bld) [#/Vol] 4525 10*3/uL [facility] Neutrophils/100 WBC (Bld) 70.7 % [facility] Platelet mean volume (Bld) [Entitic vol] 11.9 fL 7.5 - 12.5 fL [facility] Platelets (Bld) [#/Vol] 323 10*3/uL [facility] RBC (Bld) [#/Vol] 3.72 10*6/uL Low [facility] WBC (Bld) [#/Vol] 6.4 10*3/uL [facility] Laboratory - Chemistry and C hemistry - challengeon 03-07-2024 Albumin [Mass/Vol] 4.0 g/dL 3.6 - 5.1 g/dL [facility] Albumin/Globulin [Mass ratio] 1.3 {ratio} [facility] ALP [Catalytic activity/Vol] 93 U/L 37 - 153 U/L [facility] ALT [Catalytic activity/Vol] 13 U/L 6 - 29 U/L [facility] AST [Catalytic activity/Vol] 18 U/L 10 - 35 U/L [facility] Bilirubin [Mass/Vol] 0.3 mg/dL 0.2 - 1 .2 mg/dL [facility] Calcium [Mass/Vol] 11.1 mg/dL High 8.6 - 10. 4 mg/dL [facility] Chloride [Moles/Vol] 102 mmol/L 98 - 11 0 mmol/L [facility] CO2 [Moles/Vol] 30 mmol/L 20 - 32 mmol/L [facility] Creatinine [Mass/Vol] 1.15 mg/dL High 0.60 - 0.95 mg/dL [facility] GFR/1.73 sq M.predicted among non-blacks MDRD (S/P/Bld) [Vol rate/Area] 48 mL/min/{1.73_m2} Low > OR = 60 mL/min/1.73m2 [facility] Globulin (S) [Mass/Vol] 3.2 g/dL [facility] Glucose [Mass/Vol] 61 mg/dL Low 65 - 99 mg/dL [facility] Comment on above: Fasting reference interval Potassium [Moles/Vol] 4.3 mmol/L 3.5 - 5.3 mmol/L [facility] Protein [Mass/Vol] 7.2 g/dL 6.1 - 8.1 g/dL [facility] Sodium [Moles/Vol] 139 mmol/L 135 - 146 mmol/L [facility] Urea nitrogen [Mass/Vol] 27 mg/dL High 7 - 25 mg/dL [facility] Urea nitrogen/Creatinine [Mass ratio] 23 mg/mg High [facility] No Panel Informationon 03-07 Interpretation and review of laboratory results Abnormal [facility] Performing Organization Information Site ID: QPT Name: [facility] Address: [address] [place] [id number] Director: Yanick Self MD [facility]ly [facility] PET CT SKULL TO THIGHon PET CT SKULL TO THIGH PET CT SKULL TO TH [facility] Whole-body PET/CT scan: HISTORY: Pulmonary nodule. Assess [...] Ellington MD on 03/03/2024 3:28 PM Normal [facility] Office Visiton 02-07-2024 Follow-up visit [id number] StephenMarietta L 1940 F Date Provider Department Center 02/07/2024 [id number] [facility] Krystle [facility] Family History Problem Relation Age of Onset Heart failure Mother Sudden Father Stroke Father Heart attack Son Family Status - Relation Status Age at Mother Father Son Other Level of Service:63238 [place] OFFICE/OUTPATIENT NEW MODERATE MDM 45 MINUTES Normal [facility] C DIFFICILE BY PCRon 024 C. difficile toxin genes LUCÍA+probe Ql (Stl) TOXIGENIC C DIFF Negative (qualifier value) 027 NAP1 Negative (qualifier value) Normal PRNEG [facility] Comment on above: Performed By: #### 5 4067-4 #### [facility] ([id number]) [address], [address] [place] [address] #### 05938-4 #### [facility] ([id number]) [address] [place] [address], [place] [address] [facility] ([id number]) [address], [address] [place] [address] CBC AND AUTO DIFFon 08-18-19 24 ABSOLUTE BASOPHIL 0.1 X10E9/L Normal 0.0-0.2 [facility] Comment on above: Performed By: #### C KUSH ESCAMILLA, #### [facility] ([id number]) [address] [place] [address] ABSOLUTE NEUTROPHIL 9.9 X10E9/L High 1.5-6.6 [facility] Comment on above: Performed By: #### C KUSH ESCAMILLA, #### [facility] ([id number]) [address] [place] [address]71 Basophils/100 WBC (Bld) 1.0 % Normal [facility] Comment on above: Performed By: #### C KUSH ESCAMILLA, #### [facility] ([id number]) [address] [place] [address] Eosinophils (Bld) [#/Vol] 0.1 10*3/uL Normal 0.0-0.4 [facility] Comment on above: Performed By: #### C FRANCINE [facility], #### [facility] ([id number]) [address] [place] [address] Eosinophils/100 WBC (Bld) 0.8 % Normal [facility] Comment on above: Performed By: #### Taj ESCAMILLA [facility], #### [facility] ([id number]) [address] [place] [address]78[address] Erythrocyte distribution width (RBC) [Ratio] 15.1 % High 11.5-15.0 [facility] Comment on above: Performed By: #### C KUSH ESCAMILLA, #### [facility] ([id number]) [address] [place] [address]32[address] Hematocrit (Bld) [Volume fraction] 38.3 % Normal 35-47 [facility] Comment on above: Performed By: #### C KUSH ESCAMILLA, #### [facility] ([id number]) [address] [place] [address] 16236 Hemoglobin (Bld) [Mass/Vol] 12.8 g/dL Normal 11.7-15.5 [facility] Comment on above: Performed By: #### Taj ESCAMILLA CMP, 32007-4 #### [facility] ([id number]) [address] [place] [address]58 Lymphocytes (Bld) [#/Vol] 1.6 10*3/uL Normal 1.0-3.5 [facility] Comment on above: Performed By: #### Taj ESCAMILLA [facility], #### [facility] ([id number]) [address] [place] [address]80 Lymphocytes/100 WBC (Bld) 12.7 % Normal [facility] Comment on above: Performed By: #### Taj ESCAMILLA [facility], #### [facility] ([id number]) [address] [place] [address] 27699 MCH (RBC) [Entitic mass] 30.6 pg Normal 27-34 [facility] Comment on above: Performed By: #### C FRANCINE [facility], 81113-0 #### [facility] ([id number]) [address] [place] [address] 19610 MCHC (RBC) [Mass/Vol] 33.3 g/dL Normal 32-36 [facility] Comment on above: Performed By: #### Taj ESCAMILLA, CMP, #### [facility] ([id number]) [address] [place] [address] 89694 MCV (RBC) [Entitic vol] 92 fL Normal 80-100 [facility] Comment on above: Performed By: #### Taj ESCAMILLA CMP, #### [facility] ([id number]) [address] [place] [address] 41015 Monocytes (Bld) [#/Vol] 0.7 10*3/uL Normal 0-0.9 [facility] Comment on above: Performed By: #### C FRANCINE CMP, 97734-6 #### [facility] ([id number]) [address] [place] [address] 04607 Monocytes/100 WBC (Bld) 5.6 % Normal [facility] Comment on above: Performed By: #### Taj ESCAMILLA CMP, 83462-7 #### [facility] ([id number]) [address] [place] [address] 58519 Neutrophils/100 WBC (Bld) 79.9 % Normal [facility] Comment on above: Performed By: #### Taj ESCAMILLA CMP, 43025-9 #### [facility] ([id number]) [address] [place] [address] [place] [address] Platelet mean volume (Bld) [Entitic vol] 10.0 fL Normal 7-12 [facility] Comment on above: Performed By: #### Taj ESCAMILLA CMP, 80290-5 #### [facility] ([id number]) [address] [place] [address] 96928 Platelets (Bld) [#/Vol] 238 10*3/uL Normal 150-450 [facility] Comment on above: Performed By: #### Taj ESCAMILLA CMP, 09192-1 #### [facility] ([id number]) [address] [place] [address] 29461 RBC COUNT 4.17 X10E12/L Normal 3.80-5.20 [facility] Comment on above: Performed By: #### Taj ESCAMILLA, CMP, 16717-1 #### [facility] ([id number]) [address] [place] [address] 33449 WBC (Bld) [#/Vol] 12.3 10*3/uL High 4.0-11.0 [facility] Comment on above: Performed By: #### C FRANCINE, CMP, 28953-8 #### [facility] ([id number]) [address] [place] [address] 31712 COMPREHENSIVE METABOLIC PANE Willis 08-18-2023 Albumin [Mass/Vol] 4.0 g/dL Normal 3.2-5.3 [facility] Comment on above: Performed By: #### C BCA, CMP, 35097-6 #### [facility] ([id number]) [address] [place] [address] 74992 ALP [Catalytic activity/Vol] 99 U/L Normal 39-130 [facility] Comment on above: Performed By: #### C FRANCINE, CMP, 10168-3 #### [facility] ([id number]) [address] [place] [address] 78018 ALT [Catalytic activity/Vol] 17 U/L Normal 0-31 [facility] Comment on above: Performed By: #### C FRANCINE, [facility], 44161-7 #### [facility] ([id number]) [address] [place] [address] 94914 Anion gap [Moles/Vol] 4 mmol/L Low 5-15 [facility] Comment on above: Performed By: #### C BCA, CMP, 00028-1 #### [facility] ([id number]) [address] [place] [address] 98979 AST [Catalytic activity/Vol] 21 U/L Normal 0-41 [facility] Comment on above: Performed By: #### C BCA, CMP, 19693-2 #### [facility] ([id number]) [address] [place] [address] 44563 Bilirubin [Mass/Vol] 0.5 mg/dL Normal 0.3-1.2 [facility] Comment on above: Performed By: #### C KUSH ESCAMILLA, 74668-2 #### [facility] ([id number]) [address] [place] [address] 14418 Calcium [Mass/Vol] 10.5 mg/dL Normal 8.5-10.5 [facility] Comment on above: Performed By: #### C KUSH ESCAMILLA, 15297-0 #### [facility] ([id number]) [address] [place] [address] 28908 Chloride [Moles/Vol] 103 mmol/L Normal 98-109 [facility] Comment on above: Performed By: #### C FRANCINE [facility], 53858-7 #### [facility] ([id number]) [address] [place] [address] 56175 CO2 [Moles/Vol] 25 mmol/L Normal 22-32 [facility] Comment on above: Performed By: #### C FRANCINE [facility], 68590-1 #### [facility] ([id number]) [address] [place] [address] 34480 Creatinine [Mass/Vol] 0.94 mg/dL Normal 0.40-1.00 [facility] Comment on above: Result Comment: METH OD TRACEABLE TO IDMS STANDARD Performed By: #### C KUSH ESCAMILLA, 59814-7 #### [facility] ([id number]) [address] [place] [address] 12643 GFR/1.73 sq M.predicted among non-blacks MDRD (S/P/Bld) [Vol rate/Area] 61 mL/min/{1.73_m2} Normal >59 [facility] Comment on above: Result Comment: Reported eGFR is based on the CKD-EPI 1 equation that does not use a race coefficient. Performed By: #### C FRANCINE CMP, 26051-8 #### [facility] ([id number]) [address] [place] [address] 42394 Glucose [Mass/Vol] 136 mg/dL High 65-99 [facility] Comment on above: Performed By: #### C FRANCINE [facility], 06531-5 #### [facility] ([id number]) [address] [place] [address] 36999 Potassium [Moles/Vol] 4.2 mmol/L Normal 3.5-5.0 [facility] Comment on above: Performed By: #### Taj ESCAMILLA [facility], 46072-9 #### [facility] ([id number]) [address] [place] [address] 46674 Protein [Mass/Vol] 7.6 g/dL Normal 6.0-8.0 [facility] Comment on above: Performed By: #### Taj ESCAMILLA [facility], 91644-9 #### [facility] ([id number]) [address] [place] [address] 26011 Sodium [Moles/Vol] 132 mmol/L Low 134-146 [facility] Comment on above: Performed By: #### C FRANCINE [facility], 23391-1 #### [facility] ([id number]) [address] [place] [address] 96444 Urea nitrogen [Mass/Vol] 26 mg/dL Normal 5-27 [facility] Comment on above: Performed By: #### Taj ESCAMILLA [facility], 02098-6 #### [facility] ([id number]) [address] [place] [address] 07503 GI PANELon 08-18-2023 Gastrointestinal pathogens DNA and [...] SAPOVIRUS Not detected (qualifier value) Normal NDET [facility] Comment on above: Performed By: #### 5 4067-4 #### [facility] ([id number]) [address] [place] [address], [address] [address] #### 29689-5 #### [facility] ([id number]) [address] [place] [address] [facility] ([id number]) [address] [place] [address], [address] [address] MAGNESIUMon 08-18-2023 Magnesium [Mass/Vol] 1.8 mg/dL Normal 1.8-2.6 [facility] Comment on above: Performed By: #### C BCA, CMP, 17648-5 #### [facility] ([id number]) [address] [place] [address] 26756 SARS/FLU A+B/RSV by NAAT/Mol ecularon 08-18-2023 SARS/FLU [...] repeat. Fact Sheet for Healthcare Providers: https://www.fda.gov/m edia/937707/download Fact Sheet for Patients: https://www.fda.gov/m edia/061151/download Normal [facility] Comment on above: Performed By: #### C OVFLR #### [facility] ([id number]) [address] [place] [address] 12910 URN MACROSCOPIC NURon 2023 BILIRUBIN KATELYN Negative Normal NEG [facility] Comment on above: Performed By: #### N UM #### [facility] ([id number]) [address] [place] [address] 30745 BLOOD/HGB KATELYN Negative Normal NEG [facility] Comment on above: Performed By: #### N UM #### [facility] ([id number]) [address] [place] [address] 30052 GLUCOSE KATELYN >=1000 Abnormal NEG [facility] Comment on above: Performed By: #### N UM #### [facility] ([id number]) [address] [place] [address] 18800 KETONES KATELYN Negative Normal NEG [facility] Comment on above: Performed By: #### N UM #### [facility] ([id number]) [address] [place] [address] 87745 LEUKOCYTE ESTERASE KATELYN Negative Normal NEG [facility] Comment on above: Performed By: #### N UM #### [facility] ([id number]) [address] [place] [address] 72880 NITRITE KATELYN Negative Normal NEG [facility] Comment on above: Performed By: #### N UM #### [facility] ([id number]) [address] [place] [address] 02441 PH KATELYN 5.0 Normal 5.0-8.5 [facility] Comment on above: Performed By: #### N UM #### [facility] ([id number]) [address] [place] [address] 89719 PROTEIN KATELYN 100 mg/dL Abnormal NEG [facility] Comment on above: Performed By: #### N UM #### [facility] ([id number]) [address] [place] [address] 01325 SPECIFIC GRAVITY KATELYN 1.025 Normal 1.003-1.035 [facility] Comment on above: Performed By: #### N UM #### [facility] ([id number]) [address] [place] [address] 49401 UROBILINOGEN KATELYN 0.2 eu/dL Normal <1.1 [facility] Comment on above: Performed By: #### N UM #### [facility] ([id number]) [address] [place] [address] CHEST WO IV CONTRASTon CT CHEST [...] BY: Momo Sanchez MD Normal Not Available [facility] LOWER EXTREMITY CARLO RIAL DUPLEX BILATERAL WITH ABIon 07-06-2023 [facility] US LOWER EXTREMITY ARTERIAL DUPLEX BILATERAL WITH [...] IS VERY IMPORTANT TO YOUR HEALTH. THE [employer] GUIDELINES RECOMMEND THAT WOMEN 40 [...] VERY IMPORTANT TO YOUR HEALTH. THE CURRENT [place] [employer] AND [employer]WORK GUIDELINES RECOMMENDS ANNUAL MAMMOGRAPHY BEGINNING AT AGE 40 THIS FACILITY USES A REMINDER SYSTEM TO ENSURE ALL PATIENTS RECEIVE REMINDER NOTIFICATIONS AT THE APPROPRIATE TIME BASED ON THE RECOMMENDATIONS OF THIS EXAM. Report reported and signed by Julius You on 03/25/2022 1339 Normal [facility] CBC AUTO DIFFon 02-07-2022 BASO # 0.1 103/ul Normal 0.0-0.1 [facility] Comment on above: Performed By: #### C BC #### [facility] [address] [place] [address] Dr. Henry Dozier Basophils/100 WBC (Bld) 0.6 % Normal 0.2-2.0 [facility] Comment on above: Performed By: #### C BC #### [facility] [address] [place] [address] Dr. Henry Dozier EO # 0.0 103/ul Normal 0.0-0.7 [facility] Comment on above: Performed By: #### C BC #### [facility] [address] [place] [address] Dr. Henry Dozier Eosinophils/100 WBC (Bld) 0.3 % Critically low 0.9-7.0 [facility] Comment on above: Performed By: #### C BC #### [facility] [address] [place] [address] Dr. Henry Dozier Erythrocyte distribution width (RBC) [Ratio] 14.9 % Normal 11.0-15.0 [facility] Comment on above: Performed By: #### C BC #### [facility] [address] [address] [address] Henry Dozier Hematocrit (Bld) [Volume fraction] 28.8 % Critically low 36.0-48.0 [facility] Comment on above: Performed By: #### C BC #### [facility] [address] [place] [address] Dr. Henry Dozier Hemoglobin (Bld) [Mass/Vol] 8.9 g/dL Critically low 12.0-16.0 [facility] Comment on above: Performed By: #### C BC #### [facility] [address] [place] [address] Dr. Henry Dozier IG # 0.03 10e3/ul Normal 0.00-0.03 [facility] Comment on above: Performed By: #### C BC #### [facility] [address] [place] [address] Dr. Henry Dozier IG % 0.3 % Normal 0.0-0.5 [facility] Comment on above: Performed By: #### C BC #### [facility] [address] [place] [address] Dr. Henry Dozier LYMPH # 1.6 103/ul Normal 1.2-3.8 [facility] Comment on above: Performed By: #### C BC #### [facility] [address] [place] [address] Dr. Henry Dozier Lymphocytes/100 WBC (Bld) 17.4 % Critically low 20.5-60.0 [facility] Comment on above: Performed By: #### C BC #### [facility] [address] [place] [address] Dr. Henry Dozier MANUAL DIFF REQ NO Normal [facility] Comment on above: Performed By: #### C BC #### [facility] [address] [place] [address] Dr. Henry Dozier MCH (RBC) [Entitic mass] 29.6 pg Normal 26.7-34.0 [facility] Comment on above: Performed By: #### C BC #### [facility] [address] [place] [address] Dr. Henry Dozier MCHC (RBC) [Mass/Vol] 30.9 g/dL Normal 29.9-35.2 [facility] Comment on above: Performed By: #### C BC #### [facility] [address] [place] [address] Dr. Henry Dozier MCV (RBC) [Entitic vol] 95.7 fL Normal 81.0-99.0 [facility] Comment on above: Performed By: #### C BC #### [facility] [address] [place] [address] Dr. Henry Dozier MONO # 0.8 103/ul Normal 0.3-0.8 [facility] Comment on above: Performed By: #### C BC #### [facility] [address] [place] [address] Dr. Henry Dozier Monocytes/100 WBC (Bld) 9.1 % Normal 1.7-12.0 [facility] Comment on above: Performed By: #### C BC #### [facility] [address] [place] [address] Dr. Henry Dozier NEUT # 6.4 103/ul Normal 1.4-6.5 [facility] Comment on above: Performed By: #### C BC #### [facility] [address] [place] [address] Dr. Henry Dozier Neutrophils/100 WBC (Bld) 72.3 % Normal 43.0-75.0 [facility] Comment on above: Performed By: #### C BC #### [facility] [address] [place] [address] Dr. Henry Dozier Platelet mean volume (Bld) [Entitic vol] 10.8 fL Normal 9.5-13.5 [facility] Comment on above: Performed By: #### C BC #### [facility] [address] [place] [address] Dr. Henry Dozier PLT 257 103/ul Normal 150-450 [facility] Comment on above: Performed By: #### C BC #### [facility] [address] [place] [address] Dr. Henry Dozier RBC 3.01 106/ul Critically low 4.20-5.40 [facility] Comment on above: Performed By: #### C BC #### [facility] [address] [place] [address] Dr. Henry Dozier WBC 8.9 103/ul Normal 4.0-11.0 [facility] Comment on above: Performed By: #### C BC #### [facility] [address] [place] [address] Dr. Henry Dozier Covid-19 PCR ([facility])on 01-29 SARS-CoV-2 (COVID-19) RNA LUCÍA+probe Ql (Unsp spec) Not detected Normal NOT DETECTED [facility] Comment on above: Result Comment: When [...] for this test is supported by the [place] of Health and Human Service's declaration that [...] used). Performed By: #### C VDTBH #### [facility] [address] [place] [address] Dr. Henry Dozier PROF CHEM 8 (BAS METB)on Anion gap [Moles/Vol] 9.1 mmol/L Normal [facility] Comment on above: Performed By: #### B MP, HSTROPN #### [facility] [address] [place] [address] Dr. Henry Dozier Calcium [Mass/Vol] 10.0 mg/dL Normal 8.5-10.1 [facility] Comment on above: Performed By: #### B CHRISTOPHER, HSTROPN #### [facility] [address] [address] [address] Henry Dozier Chloride [Moles/Vol] 104 mmol/L Normal 98-107 [facility] Comment on above: Performed By: #### B CHRISTOPHER, HSTROPN #### [facility] [address] [address] [address] Henry Dozier CO2 [Moles/Vol] 25.9 mmol/L Normal 21.0-32.0 [facility] Comment on above: Performed By: #### B CHRISTOPHER, HSTROPN #### [facility] [address] [place] [address] Dr. Henry Dozier Creatinine [Mass/Vol] 1.02 mg/dL Normal 0.55-1.02 [facility] Comment on above: Performed By: #### B CHRISTOPHER, HSTROPN #### [facility] [address] [place] [address] Dr. Henry Dozier EGFR-AF INDIAN >60 Normal >=60 [facility] Comment on above: Performed By: #### B CHRISTOPHER, HSTROPN #### [facility] [address] [place] [address] Dr. Henry Dozier EGFR-NON AF INDIAN 52 mL/min/1.73m2 Critically low >=60 [facility] Comment on above: Performed By: #### B CHRISTOPHER, HSTROPN #### [facility] [address] [place] [address] Dr. Henry Dozier Glucose [Mass/Vol] 170 mg/dL Critically high 74-106 [facility] Comment on above: Performed By: #### B CHRISTOPHER, HSTROPN #### [facility] [address] [place] [address] Dr. Henry Dozier Potassium [Moles/Vol] 4.0 mmol/L Normal 3.5-5.1 [facility] Comment on above: Performed By: #### B CHRISTOPHER, HSTROPN #### [facility] [address] [place] [address] Dr. Henry Dozier Sodium [Moles/Vol] 135 mmol/L Critically low 136-145 Th e [facility] Comment on above: Performed By: #### B CHRISTOPHER, HSTROPN #### [facility] [address] [place], [place] [address] Dr. Henry Dozier Urea nitrogen [Mass/Vol] 17.0 mg/dL Normal 7.0-18.0 [facility] Comment on above: Performed By: #### B CHRISTOPHER, HSTROPN #### [facility] [address] [address] [address] Henry Dozier Urea nitrogen/Creatinine [Mass ratio] 16.7 mg/mg Normal [facility] Comment on above: Performed By: #### B CHRISTOPHER, HSTROPN #### [facility] [address] [place] [address] Dr. Henry Dozier TROPONIN, HIGH SENSITIVITYon 02-07-2022 HSTROP 25.2 pg/mL Normal 4.0-51.3 [facility] Comment on above: Result Comment: CUT- OFF POINTS HAVE BEEN ESTABLISHED BASED ON THE FOURTH UNIVERSAL DEFINITIONS OF MYOCARDIAL INFARCTION. THE UPPER REFERENCE LIMIT (URL) OF TROPONIN, DEFINED THE 99TH PERCENTILE OF cTnI DISTRIBUTION IN A REFERENCE POPULATION, HAS BEEN CONFIRMED THE DECISION THRESHOLD FOR [place] DIAGNOSIS. Performed By: #### B CHRISTOPHER, HSTROPN #### [facility] [address] [place] [address] Dr. Henry Dozier XR CHEST 1 Von [...] by: YU JUNIOR Date: 2022-02-07 16:20 Normal [facility] Vital Signs Date Time Vital Sign Value Performing Clinician Cipraino edwardsy 03-06-2024 13:52-0400 Body height 165.1 cm Pia Talley NP Work Phone: [facility] 03-06-2024 13:52-0400 Body mass index (BMI) [Ratio] 16.54 kg/m2 Pia Talley PET FEEDER Work Phone: [facility] 03-06-2024 13:52-0400 Body weight 45.09 kg Pia Tlaley PET FEEDER Work Phone: [facility] 03-06-2024 13:52-0400 Diastolic blood pressure 60 mm[Hg] Pia Talley PET FEEDER Work Phone: [facility] 03-06-2024 13:52-0400 Heart rate 76 /min Pia Talley PET FEEDER Work Phone: [facility] 03-06-2024 13:52-0400 SaO2% (BldA) [Mass fraction] 96 % Pia Talley PET FEEDER Work Phone: [facility] 03-06-2024 13:52-0400 Systolic blood pressure 130 mm[Hg] Pia Talley PET FEEDER Work Phone: [facility] 08-03-2023 13:33-0500 Diastolic blood pressure 60 mm[Hg] Aristeo Garcia MD Work Phone: [facility] 08-03-2023 13:33-0500 Systolic blood pressure 110 mm[Hg] Aristeo Garcia MD Work Phone: [facility] 08-03-2023 13:30-0500 Body height 165.1 cm Aristeo Garcia MD Work Phone: [facility] 08-03-2023 13:30-0500 Body mass index (BMI) [Ratio] 17.14 kg/m2 Aristeo Garcia MD Work Phone: [facility] 08-03-2023 13:30-0500 Body weight 46.72 kg Aristeo Garcia MD Work Phone: [facility] Encounters Encounter Date Encounter Type Care Provider Facility Start: 03-30-2024 End: 03-30-2024 Refill Pia Talley PET FEEDER Work Phone: [facility] Comment on above: COPD mixed type (CMS /HCC) Start: 03-30-2024 End: 03-30-2024 ambulatory [facility] Start: 03-28-2024 End: 03-28-2024 Refill Tonja Gilliam MD Work Phone: [facility] Comment on above: Type 2 diabetes ricardo itus with diabetic autonomic neuropathy, with long-term current use of insulin (CMS/HCC) Start: 03-20-2024 End: 03-20-2024 Telephone encounter Pia Talley PET FEEDER Work Phone: [facility] Start: 03-20-2024 End: 03-20-2024 ambulatory [facility] Start: 03-16-2024 End: 03-16-2024 Refill Pia Talley PET FEEDER Work Phone: [facility] Comment on above: COPD mixed type (CMS /HCC) Start: 03-16-2024 End: 03-16-2024 Refill Tonja Gilliam MD Work Phone: [facility] Comment on above: COPD mixed type (CMS /HCC) Start: 03-14-2024 End: 03-14-2024 Telephone encounter Tonja Gilliam MD Work Phone: [facility] Start: 03-14-2024 End: 03-14-2024 ambulatory [facility] Start: 03-06-2024 End: 03-06-2024 Bamboo flowsheet Pia Talley PET FEEDER Work Phone: [facility] Start: 03-06-2024 End: 03-06-2024 Bamboo flowsheet Pia Talley PET FEEDER Work Phone: [facility] Start: 03-06-2024 End: 03-06-2024 Transitional care manage srvc 7 day discharge Pia Talley PET FEEDER Work Phone: [facility] Comment on above: Abnormal PET scan of lung (Primary Dx); Acute on chronic respiratory failure with hypoxia (CMS/HCC); Acute systolic congestive heart failure (CMS/HCC); Chronic obstructive pulmonary disease, unspecified COPD type (CMS/HCC); Coronary artery disease involving [place] coronary artery of [place] heart without angina pectoris (CMS/HCC); Primary hypertension (CMS/HCC); Type 2 diabetes mellitus with hyperglycemia, with long-term current use of insulin (CMS/HCC); Severe malnutrition (CMS/HCC); 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) Start: 03-06-2024 End: 03-06-2024 ambulatory PIA MAYANK Not Available Start: 03-03-2024 End: 03-03-2024 Telephone encounter Pia Talley NP Work Phone: [facility] Start: 03-03-2024 End: 03-03-2024 [facility] Start: 03-02-2024 End: 03-02-2024 ambulatory [facility] Start: 02-15-2024 End: 02-15-2024 ambulatory [facility] Start: 02-08-2024 End: 02-08-2024 ambulatory [facility] Start: 02-07-2024 End: 02-07-2024 ambulatory [facility] Start: 01-21-2024 End: 03-02-2024 Telephone encounter Tonja Gilliam MD Work Phone: [facility] Start: 01-12-2024 End: 01-12-2024 ambulatory PIA TALLEY Not Available Start: 09-03-2023 End: 09-03-2023 ambulatory [facility] Start: 08-25-2023 End: 08-25-2023 [facility] Start: 08-18-2023 End: 08-18-2023 Emergency department patient visit TONJA [facility] Start: 08-11-2023 End: 08-30-2023 ambulatory YANIQUE BURCIAGA [facility] Start: 08-03-2023 End: 08-03-2023 ambulatory ARISTEO GARCIA [facility] Start: 08-03-2023 End: 08-03-2023 Office outpatient new 45 minutes Aristeo Garcia MD Work Phone: [facility] Comment on above: 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 ([facility]) (Primary Dx); Essential hypertension; Mixed hyperlipidemia; Renal artery stenosis ([facility]) Start: 07-27-2023 End: 07-27-2023 ambulatory PIA KAMPFER [...] Start: 06-24-2023 Telephone encounter Sirena Love C[facility] Start: 06-23-2023 End: 06-23-2023 ambulatory SB LOCO [facility] Start: 06-16-2023 Chart abstracting Sb lemus MD [...] Start: 02-07-2022 End: 02-07-[address] [facility]CC[facility] Facility:[facility] Procedures Date Procedure Procedure Detail Performing Clinician Start: 03-06-2024 Complete blood count with white cell differential, automated Pia Blandonadalberto PET FEEDER Work Phone: Start: 03-06-2024 Comprehensive metabo lic panel Pia Talley PET FEEDER Work Phone: Start: 02-15-2024 Follow-up visit Follow-up ARISTEO GARCIA Start: 06-23-2023 Follow-up visit Follow-up SB LOCO Start: 09-30-2022 History of placement of stent for coronary artery disease S/P coronary artery stent placement Tonja Gilliam MD Work Phone: Plan of Treatment Date Care Activity Detail Author Start: 03-23-2025 Urine screening for protein Diabetes: Urine Protein Screening [facility] Start: 03-06-2025 Urine screening for protein Diabetes: Urine Protein Screening [facility] Start: 01-11-2025 Urine screening for protein Diabetes: Urine Protein Screening [facility] Start: 08-02-2024 Adult BMI Screening Adult BMI Screen [facility] Start: 08-02-2024 Tobacco Screening Tobacco Screening [facility] Start: 06-23-2024 Adult BMI Screening Adult BMI Screen [facility] Start: 06-23-2024 Tobacco Screening Tobacco Screening [facility] Start: 06-12-2024 Adult BMI Screening Adult BMI Screen [facility] Start: 06-10-2024 Tobacco Screening Tobacco Screening [facility] Start: 05-09-2024 End: 05-09-2024 Patient encounter procedure 05/09/2024 2:00 PM EST Office Visit [facility] [place] [address] Aristeo Garcia MD [address] [place] [address] [facility] Start: 04-13-2024 Hemoglobin A1c measurement Diabetes: Hemoglobin A1C [facility] Start: 04-03-2024 End: 04-03-2024 Professional / ancillary services management 04/03/2024 2:30 PM EST Ancillary Procedure [facility] [address] [place] [address] [facility] Start: 03-06-2024 End: 03-06-2024 Patient encounter procedure [facility] Comment on above: Arrived Start: 02-15-2024 End: 02-15-2024 Patient encounter procedure 02/15/2024 1:30 PM EDT Office Visit [facility] [address] [place] [id number] Aristeo Garcia MD [address] [phone] [facility] Start: 02-08-2024 End: 02-08-2024 Patient encounter procedure [facility] Start: 01-30-2024 Influenza vaccination Influenza Vacc ine (#1) [facility] Start: 09-07-2023 Hemoglobin A1c measurement Diabetes: Hemoglobin A1C [facility] Start: 08-11-2023 End: 08-11-2023 Patient encounter procedure 08/11/2023 1:20 PM EDT Office Visit [facility] [address] [place] [id number] Yanique Burciaga, CAGE OPERATOR-COLOR SPRAYER [address] [place] [address] [facility] Start: 08-03-2023 End: 08-02-2024 US.doppler Extremity arteries - bilateral for physiologic artery study at rest and with exercise Vasc art doppler lwr PVR W/exercise Vascular Ultrasound Routine 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 ([facility]) Expected: 08/03/2023, Expires: 08/02/2024 [facility] Comment on above: Expected: 08/03/2023 , Expires: 08/02/2024 Start: 08-03-2023 End: 08-02-2024 US.doppler Lower extremity artery - bilateral Vas art duplex lwr bilateral Vascular Ultrasound Routine 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 ([facility]) Expected: 08/03/2023, Expires: 08/02/2024 [employer] Work Phone: Comment on above: Expected: 08/03/2023 , Expires: 08/02/2024 Start: 08-03-2023 End: 08-02-2024 US.doppler Renal vessels - bilateral Vas renal artery duplex complete Vascular Ultrasound Routine Renal artery stenosis ([facility] Expected: 08/03/2023, Expires: 08/02/2024 [employer] Comment on above: Expected: 08/03/2023 , Expires: 08/02/2024 Start: 06-23-2023 End: 06-23-2023 Patient encounter procedure 06/23/2023 8:00 AM EST [facility] [address] [place] [address] Sb Loco MD [address] [place] [address] [facility] Start: 03-19-2023 Medicare Annual Well ness (AWV) Medicare Annual Wellness (AWV) [facility] Start: 01-29-2023 [facility] Start: 2007 Fall Risk Screening Fall [facility] Start: 1992 Administration of varicella zoster vaccine Zoster (Shingles) Vaccine (1 of 2) [facility] Start: 1961 DTaP,Tdap and Td Vac cines (1 - Tdap) DTaP,Tdap and Td Vaccines (1 - Tdap) [facility] Start: 1960 Adult BMI Follow Up Plan Adult BMI Follow Up Plan [facility] Start: 1954 Depression Screening [facility]ing [facility] Start: 1952 Glaucoma screening Diabetes: R etinopathy Screening [facility] Start: 1942 Medicare Annual Well ness Visit Medicare Annual Wellness [facility] [employer] [facility] Start: 1942 Tobacco Counseling Tobacco Counselshola g [facility] Immunizations Immunization Date Immunization Notes Care Provider Fa nicholas 03-15-2023 Pneumococcal Conjuga te PCV 20 Tonja Gilliam MD Work Phone: [facility] Payers Date Payer Category Payer Medicaid [employer] MEDICARE A DVANTAGE [id number] 2023 Medicare [id number] 2022 Medicare [id number] 2022 Medicare [id number] 2020 Unknown [id number] 1942 Unknown [id number] 2.16.840.1.207066.3.579.2.593 1942 Unknown [id number] 2.16.840.1.855915.3.579.2.1286 1942 Unknown [id number] 2.16.840.1.161203.3.579.2.1259 1942 Unknown [id number] 2.16.840.1.633955.3.579.2.1259 1942 Unknown [id number] 2.16.840.1.949644.3.579.2.1259 1942 Unknown [id number] 2.16.840.1.883478.3.579.2.1259 1942 Unknown [id number] 2.16.840.1.042991.3.579.2.1259 1942 Unknown [id number] 2.16.840.1.640876.3.579.2.9 1942 Unknown [id number] 2.16.840.1.334972.3.579.2.125 1942 Unknown [id number] 2.16.840.1.718663.3.579.2.125 1942 Unknown [id number] 2.16.840.1.122083.3.579.2.1258 1942 Unknown [id number] 2.16.840.1.451433.3.579.2.1258 1942 Unknown [id number] 2.16.840.1.274839.3.579.2.1258 1942 Unknown [id number] 2.16.840.1.154222.3.579.2.125 1942 Unknown [id number] 2.16.840.1.129678.3.579.2.1258 1942 Unknown [id number] 2.16.840.1.161056.3.579.2.1258 1942 Unknown [id number] 2.16.840.1.226600.3.579.2.128 1942 Unknown [id number] 2.16.840.1.399378.3.579.2.128 1942 Unknown [id number] 2.16.840.1.593328.3.579.2.128 1942 Unknown [id number] 2.16.840.1.786577.3.579.2.128 1942 Unknown [id number] 2.16.840.1.021159.3.579.2.128 1942 Unknown [id number] 2.16.840.1.623662.3.579.2.1286 1942 Unknown [id number] 2.16.840.1.169225.3.579.2.1286 1942 Unknown [id number] 2.16.840.1.202977.3.579.2.1286 1942 Unknown [id number] 2.16.840.1.040999.3.579.2.1286 1942 Unknown [id number] 2.16.840.1.523149.3.579.2.1286 1942 Unknown [id number] 2.16.840.1.453830.3.579.2.1286 1942 Unknown [id number] 2.16.840.1.042491.3.579.2.1286 Social History Date Type Detail Facility Start: 12-05-2021 End: 01-12-2024 Tobacco smoking status CTIS Smokes tobacco daily [facility] History of tobacco use Cigarette Smoker P [facility] Start: 12-05-2021 End: 01-12-2024 Tobacco use and exposure Smokeless tobacco non-user [facility] Start: 06-10-2023 End: 03-06-2024 Alcohol intake Lifetime non-drinker (finding) [facility] Start: 11-25-2022 End: 06-11-2023 History of Social function [facility] Start: 11-25-2022 End: 06-11-2023 [facility] Utilities [facility] Has the [employer], or [employer] threatened to shut off services in your home in past 12Mo No [facility] In the past 12 month s, has lack of transportation kept you from medical appointments or from getting medications? No [facility] Start: 1940 Sex Assigned At Not on file [facility] Start: 06-23-2023 End: 08-03-2023 Alcohol intake Ex-drinker (finding) [facility] Are you now , , , , never or living with a partner? [facility] How often to you hav e a drink containing alcohol? Never [facility] Do you feel stress - tense, restless, nervous, or anxious, or unable to sleep at night because your mind is troubled all the time - these days [OSQ] Not at all [facility] (I/We) worried wheth er (my/our) food would run out before (I/we) got money to buy more. Never true [facility] Start: 06-08-2023 Alcohol Comment caffeine: 1 cups per day coffee [facility] Start: 07-20-2023 Alcohol Comment caffeine: 2 cups per day coffee [facility] Medical Equipment Procedure Code Equipment Code Equipment Origin al Text Equipment Identifier Dates [id number] Start: 07-31-2022 TRUEplus Lancets 33G [facility] [id number] Start: 12-29-2022 Inject 1 each un raymond the skin Daily Use as instructed [id number] Start: 08-25-2023 TEST FINGERSTICK BLOOD SUGAR TWICE DAILY DIRECTED [id number] Start: 12-27-2023 Inject 1 each un raymond the skin Daily Use as instructed [id number] Start: 03-20-2024 End: 03-28-2024 Inject 1 each un raymond the skin Daily Use as instructed [id number] Start: 03-28-2024 Clinical Notes 06-15-2023 to 03-28-2024 [...] has not been able to ge them. [facility] 03-28-2024 Miscellaneous Notes Pt states she has been trying to get her needles refilled and has not been able to ge them. documented in this encounter [facility] 03-20-2024 Telephone encounter Note Patient is requesting droplet pen needles for insulin pens. Only has one left. [facility]ses [facility] [place] Thank you. [facility] 03-20-2024 Miscellaneous Notes Patient is requesting droplet pen needles for insulin pens. Only has one left. [facility]ses [facility] [place]. Thank you. documented in this encounter [facility] 03-16-2024 Telephone encounter Note Giulia cardoza [facility] is calling today requesting droplet pen [...] Thank you. Any questions please call Giulia [phone]. [facility] 03-16-2024 Miscellaneous Notes Giulia cardoza [facility] is calling today requesting droplet pen [...] Thank you. Any questions please call Giulia [phone]. documented in this encounter [facility] 03-14-2024 Telephone encounter Note [facility] called - They are asking for an order for Intermediate and PT services . Fax to [phone] [facility] 03-14-2024 Miscellaneous Notes [facility] called - They are asking for an order for Intermediate and PT services . Fax to [phone] documented in this encounter [facility] 03-14-2024 Note [facility] Note [...] arteries stents. She used to follow-up with [facility] and she switched to [facility]. The patient has chronic dyspnea on [...] kidney disease, COPD (chronic obstructive pulmonary disease) ([facility]/HCC), Coronary artery disease, Diabetes mellitus ([facility]/HCC), Hyperlipidemia, Hypertension, LBBB (left bundle branch block), Myocardial infarction ([facility]/HCC), NICM (nonischemic cardiomyopathy) ([facility]), and PAD (peripheral artery disease) ([facility]). Surgical History She has a past surgical [...] 9.3, hematocrit 30, (more content not included)... [facility] 03-06-2024 History of Presen t illness Narrative [...] Flowsheet Row Office Visit from 03/06/2024 in [facility] with Pia Talley NP Hospital Information ED, Hospital or Intermediate Facility Discharge? ED Patient has been contacted [...] Air Glucose Meter) w/Device kit USE DIRECTED [id number]-Ktggmwaesca-[id number] (Breztri [employer]) 160-9-4.8 MCG/ACT aerosol 2 puffs, [...] SUGAR TWICE DAILY DIRECTED TRUEplus Lancets 33G [facility] REVIEW OF SYMPTOMS: Review of Systems OBJECTIVE: [...] type (CMS/HCC) -Stable Coronary artery disease involving [place] coronary artery of [place] si[place] heart without angina pectoris ([facility]) -On a statin, plavix and ASA Primary hypertension ([facility]) - Comprehensive metabolic panel; Future - CBC [...] hyperglycemia, with long-term current use of insulin ([facility]) - Comprehensive metabolic panel; Future -Rybelsus was stopped. Will see how her blood sugars are running before making any changes to her insulin regimen. Severe malnutrition ([facility]) - Comprehensive metabolic panel; Future -Continue boost daily. Concern for underlying cancer r/t her abnormal PET scan results which could be contributing to her malnutrition however she is also struggling with obtain groceries. 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 PAD. No need to see neurology, I can treat her neuropathy, will trial her on a very low dose of duloxetine and see how she does. documented in this encounter [facility] 03-03-2024 Telephone encounter Note Call and get her records from recent hospital stay at [place] [facility] 03-03-2024 Miscellaneous Notes Call and get her records from recent hospital stay at [place] documented in this encounter [facility] 02-07-2024 Note [facility] Note Reason for cardiology [...] arteries stents. She used to follow-up with [facility] and she switched to [facility]. The patient has chronic dyspnea on [...] kidney disease, COPD (chronic obstructive pulmonary disease) ([facility]), Coronary artery disease, Diabetes mellitus ([facility]), Hyperlipidemia, Hypertension, LBBB (left bundle branch block), Myocardial infarction ([facility] NICM (nonischemic cardiomyopathy) ([facility]), and PAD (peripheral artery disease) ([facility]). Surgical History She has a past surgical [...] Lower extremities arteri (more content not included)... [facility] 01-21-2024 Telephone encounter Note Pt called asking for help to figure out if she can have her PET scan and the copay. Also would like help finding a traffic expert close to her. She received a call from [place] for a Card. And [facility] called her the other day. [facility] 01-21-2024 Miscellaneous Notes Pt called asking for help to figure out if she can have her PET scan and the copay. Also would like help finding a traffic expert close to her. She received a call from [place] for a Card. And [facility] called her the other day. documented in this encounter [facility] 08-03-2023 History of Presen t illness Narrative Images from the original note were not included. [facility] [address] [place] [address] Subjective: Patient ID: Marietta Mitchell is a [...] who presents today for consultation at the [facility] due to history of peripheral artery disease. Patient states she has had 6 stents placed in her right leg and 1 stent placed in her left leg in [place] in 2019/2020. She heard of medications to [...] List Diagnosis NSTEMI (non-ST elevated myocardial infarction) [place] Iron deficiency anemia Cardiomyopathy Mucopurulent chronic bronchitis ([facility]) Pulmonary emphysema ([facility]) Anxiety, generalized Diabetic renal disease ([facility]) Essential hypertension GERD without esophagitis Mixed hyperlipidemia Peripheral vascular disease ([facility]) Polyneuropathy due to type 2 diabetes mellitus ([facility]) Restless leg syndrome Stage 3b chronic kidney disease ([facility]) Type 2 diabetes mellitus with diabetic autonomic (poly)neuropathy ([facility]) Current Outpatient Medications: albuterol (PROVENTIL HFA;VENTOLIN HFA) [...] by mouth as needed., Disp: , Rfl: [id number]-btntvbnh-eoiuieccdk (BREZTRI AEROSPHERE) 160-9-4.8 mcg/actuation HFA aerosol inhaler, [...] Diagnosis Date COPD (chronic obstructive pulmonary disease) ([facility]) Coronary artery disease Diabetes mellitus type 2, controlled ([facility]) GERD (gastroesophageal reflux disease) Hyperlipidemia Hypertension Peripheral vascular disease ([facility]) Polyneuropathy associated with underlying disease ([facility]) Restless leg syndrome Past Surgical History: Procedure Laterality Date Coronary angiogram and left ventricular gram/pressure N/A 12/10/2021 Performed by Rickey Sotelo MD at [facility] EGD Left Lateral 12/09/2021 Performed by Michelle Bosch MD at [facility] Family History Problem Relation Age of [...] all orders for this visit: Atherosclerosis of [place] artery of lower extremity with intermittent claudication([facility]) Patient has history of peripheral artery disease with remote stenting in her right and left leg and [place] . Arterial duplex report of bilateral extremity [...] Chavez PA-C Interventional Cardiology and Endovascular Interventions [facility] documented in this encounter [facility] 07-13-2023 Telephone encounter Note Pt left vm stating that her insurance [employer] does not cover a in [facility]. Some told her she could go to [facility] so she wants you to find a referral for a DrOlimpia In [facility] and schedule her. The message did not mention what the referral was for. Please return patient call to [phone] [facility] 07-13-2023 Miscellaneous Notes Pt left stating that her insurance [employer] does not cover a in [facility]. Some told her she could go to [facility] so she wants you to find a referral for a DrOlimpia In [facility] and schedule her. The message did not mention what the referral was for. Please return patient call to [phone] documented in this encounter [facility] 06-24-2023 Miscellaneous Notes Patient has [employer] Medicare and was explained she could be seen in our office but the only provider in network is Dr. Garcia patient has a appointment tomorrow with [facility] she will try to get a provider though them. documented in this encounter [facility] 06-24-2023 Telephone encounter Note Patient has [employer] Medicare and was explained she could be seen in our office but the only provider in network is Dr. Garcia patient has a appointment tomorrow with [facility] she will try to get a provider though them. [facility] 06-15-2023 Miscellaneous Notes This is notification that we received referral from: Dx: NSTEMI Not new l/s: consulted by LLD as inpt 05/2023 Please schedule f/u documented in this encounter [facility] 06-15-2023 Telephone encounter Note This is notification that we received referral from: Dx: NSTEMI Not new l/s: consulted by GEETHA as inpt 05/2023 Please schedule f/u [facility] Evaluation note Diagnosis 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 ([facility]-HCC)- Primary Essential hypertension Unspecified essential hypertension Mixed hyperlipidemia Renal artery stenosis ([facility]-HCC) Atherosclerosis of renal artery [facility] Diagnosis Abnormal PET scan of lung- Primary Acute on chronic respiratory failure with hypoxia (CMS/HCC) Acute systolic congestive heart failure ([facility]/HCC) Chronic obstructive pulmonary disease, unspecified COPD type ([facility]/HCC) Coronary artery disease involving ogl[place] sioux coronary artery of ogl[place] sioux heart without angina pectoris ([facility]/HCC) Primary hypertension ([facility]/HCC) Unspecified essential hypertension Type 2 diabetes mellitus with hyperglycemia, with long-term current use of insulin ([facility]/HCC) Severe malnutrition ([facility]/HCC) 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 ([facility]/HCC) documented in this encounter [facility]* Diagnosis Peripheral vascular disease ([facility]/HCC)- Primary Unspecified peripheral vascular disease Pulmonary nodule Other diseases of lung, not elsewhere classified Mixed hyperlipidemia (CMS/HCC) Mixed hyperlipidemia Peripheral arterial disease (CMS/HCC) Unspecified peripheral vascular disease NSTEMI (non-ST elevated myocardial infarction) ([facility]/HCC) Acute myocardial infarction, subendocardial infarction, episode of care unspecified Cigarette nicotine dependence without complication Essential hypertension (CMS/HCC) Unspecified essential hypertension Atherosclerotic heart disease of o[place] sioux coronary artery with other forms of angina [...] 3a chronic kidney disease (HCC) (CMS/HCC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 (CMS/HCC) [facility] (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 (Z79.4) 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) Atherosclerosis of aorta (I70.0) Atherosclerosis of aorta 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) Chronic obstructive pulmonary disease, unspecified COPD type (CMS/HCC) 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) Aneurysm of ascending aorta without rupture ([facility]/HCC) Thoracic aortic ectasia (I77.810) Thoracic aortic ectasia Type 2 diabetes mellitus with diabetic peripheral angiopathy without gangrene, with long-term current use of insulin ([facility]/HCC) Peripheral vascular disease, unspecified (I73.9) Peripheral vascular disease, unspecified Cardiomyopathy, unspecified type ([facility]) Encounter for wellness examination- Primary Essential hypertension ([facility]) Unspecified essential hypertension Type 2 diabetes mellitus with hyperglycemia, with long-term current use of insulin (CMS/HCC) Mixed hyperlipidemia (CMS/HCC) Mixed hyperlipidemia Stage 3b chronic kidney disease (HCC) ([facility]) Iron deficiency anemia, unspecified iron deficiency anemia type Underweight Vitamin D deficiency Screening mammogram for breast cancer Pulmonary nodule Other diseases of lung, not elsewhere classified Unspecified protein-calorie malnutrition (CMS/HCC) Unspecified protein-calorie malnutrition Immunodeficiency due to conditions classified elsewhere ([facility]/HCC) COPD mixed type (CMS/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) Seasonal allergies Allergic rhinitis, cause unspecified S/P coronary artery stent placement Postsurgical percutaneous transluminal coronary angioplasty status GERD without esophagitis Esophageal reflux 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) Aneurysm of ascending aorta without rupture (CMS/HCC) Atherosclerosis of aorta (I70.0) Atherosclerosis of aorta Atherosclerosis of coronary artery of [place] heart without angina pectoris, unspecified vessel or lesion type (CMS/HCC) Cardiomyopathy, unspecified type (CMS/HCC) Peripheral vascular disease (CMS/HCC) Unspecified peripheral vascular disease Diabetic nephropathy associated with type 2 diabetes mellitus (HCC) ([facility]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 (CMS/HCC) Cigarette nicotine dependence without complication Anxiety, generalized (CMS/HCC) COPD mixed type ([facility]/HCC) documented in this encounter [facility]* Diagnosis Peripheral vascular disease (CMS/HCC)- Primary Unspecified peripheral vascular disease Pulmonary nodule Other diseases of lung, not elsewhere classified Mixed hyperlipidemia (CMS/HCC) Mixed hyperlipidemia Peripheral arterial disease (CMS/HCC) Unspecified peripheral vascular disease NSTEMI (non-ST elevated myocardial infarction) ([facility]) Acute myocardial infarction, subendocardial infarction, episode of care unspecified Cigarette nicotine dependence without complication Essential hypertension ([facility]) Unspecified essential hypertension 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) Pulmonary hypertension, unspecified (I27.20) 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) Moderate protein-calorie malnutrition ([facility]) Wound cellulitis- Primary Type 2 diabetes mellitus with diabetic autonomic neuropathy, with long-term current use of insulin ([facility]) Peripheral vascular disease (CMS/HCC) Unspecified peripheral vascular disease Peripheral arterial disease ([facility]/HCC) Unspecified peripheral vascular disease Stage 3a chronic kidney disease (HCC) ([facility]) [facility] current use of insulin ([facility]) 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 (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 (Z79.4) 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) Atherosclerosis of aorta (I70.0) Atherosclerosis of aorta 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) Chronic obstructive pulmonary disease, unspecified COPD type (CMS/HCC) 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) Aneurysm of ascending aorta without rupture (CMS/HCC) Thoracic aortic ectasia (I77.810) Thoracic aortic ectasia Type 2 diabetes mellitus with diabetic peripheral angiopathy without gangrene, with long-term current use of insulin ([facility]) Peripheral vascular disease, unspecified (I73.9) Peripheral vascular disease, unspecified Cardiomyopathy, unspecified type ([facility]) Encounter for wellness examination- Primary Essential hypertension ([facility]) Unspecified essential hypertension Type 2 diabetes mellitus with hyperglycemia, with long-term current use of insulin ([facility] Mixed hyperlipidemia ([facility]) Mixed hyperlipidemia Stage 3b chronic kidney disease (HCC) ([facility]) Iron deficiency anemia, unspecified iron deficiency anemia type Underweight Vitamin D deficiency Screening mammogram for breast cancer Pulmonary nodule Other diseases of lung, not elsewhere classified Unspecified protein-calorie malnutrition ([facility]) Unspecified protein-calorie malnutrition Immunodeficiency due to conditions classified elsewhere ([facility]) COPD mixed type ([facility]) 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) Seasonal allergies Allergic rhinitis, cause unspecified S/P coronary artery stent placement Postsurgical percutaneous transluminal coronary angioplasty status GERD without esophagitis Esophageal reflux Polyneuropathy due to type 2 diabetes mellitus ([facility]) Aneurysm of ascending aorta without rupture ([facility]) Atherosclerosis of aorta (I70.0) Atherosclerosis of aorta Atherosclerosis of coronary artery of [place] heart without angina pectoris, unspecified vessel or lesion type ([facility]) Cardiomyopathy, unspecified type ([facility]) Peripheral vascular disease ([facility]) Unspecified peripheral vascular disease Diabetic nephropathy associated with type 2 diabetes mellitus (HCC) ([facility]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 ([facility]) Cigarette nicotine dependence without complication Anxiety, generalized ([facility] COPD mixed type ([facility]) documented in [facility] encounter [facility]* Diagnosis Peripheral vascular disease ([facility])- Primary Unspecified peripheral vascular disease Pulmonary nodule Other diseases of lung, not elsewhere classified Mixed hyperlipidemia ([facility]) Mixed hyperlipidemia Peripheral arterial disease ([facility]) Unspecified peripheral vascular disease NSTEMI (non-ST elevated myocardial infarction) ([facility]) Acute myocardial infarction, subendocardial infarction, episode of care unspecified Cigarette nicotine dependence without complication Essential hypertension ([facility]) Unspecified essential hypertension Atherosclerotic heart disease of [place] coronary artery with other forms of angina [...] 3a chronic kidney disease (HCC) (CMS/HCC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 (CMS/HCC) [facility] (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 (Z79.4) 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) Atherosclerosis of aorta (I70.0) Atherosclerosis of aorta 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) Chronic obstructive pulmonary disease, unspecified COPD type (CMS/HCC) 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) Aneurysm of ascending aorta without rupture (CMS/HCC) Thoracic aortic ectasia (I77.810) Thoracic aortic ectasia Type 2 diabetes mellitus with diabetic peripheral angiopathy without gangrene, with long-term current use of insulin ([facility]) Peripheral vascular disease, unspecified (I73.9) Peripheral vascular disease, unspecified Cardiomyopathy, unspecified type ([facility] [place]) Encounter for wellness examination- Primary Essential hypertension ([facility]) Unspecified essential hypertension Type 2 diabetes mellitus with hyperglycemia, with long-term current use of insulin ([facility]) Mixed hyperlipidemia (CMS/HCC) Mixed hyperlipidemia Stage 3b chronic kidney disease (HCC) ([facility]) Iron deficiency anemia, unspecified iron deficiency anemia type Underweight Vitamin D deficiency Screening mammogram for breast cancer Pulmonary nodule Other diseases of lung, not elsewhere classified Unspecified protein-calorie malnutrition (CMS/HCC) Unspecified protein-calorie malnutrition Immunodeficiency due to conditions classified elsewhere ([facility]/HCC) COPD mixed type (CMS/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) Seasonal allergies Allergic rhinitis, cause unspecified S/P coronary artery stent placement Postsurgical percutaneous transluminal coronary angioplasty status GERD without esophagitis Esophageal reflux 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) Aneurysm of ascending aorta without rupture (CMS/HCC) Atherosclerosis of aorta (I70.0) Atherosclerosis of aorta Atherosclerosis of coronary artery of [place] heart without angina pectoris, unspecified vessel or lesion type (CMS/HCC) Cardiomyopathy, unspecified type ([facility]) Peripheral vascular disease ([facility]) Unspecified peripheral vascular disease Diabetic nephropathy associated with type 2 diabetes mellitus (HCC) ([facility]) [facility] current use of insulin ([facility]) Cigarette nicotine dependence without complication Anxiety, generalized ([facility]) Type 2 diabetes mellitus with diabetic autonomic neuropathy, with long-term current use of insulin ([facility]) documented in this encounter [facility] HealthcareEvaluation note* Diagnosis Peripheral vascular disease ([facility])- Primary Unspecified peripheral vascular disease Pulmonary nodule Other diseases of lung, not elsewhere classified Mixed hyperlipidemia ([facility]) Mixed hyperlipidemia Peripheral arterial disease ([facility]) Unspecified peripheral vascular disease NSTEMI (non-ST elevated myocardial infarction) ([facility]) Acute myocardial infarction, subendocardial infarction, episode of care unspecified Cigarette nicotine dependence without complication Essential hypertension ([facility]) Unspecified essential hypertension 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) Pulmonary hypertension, unspecified (I27.20) 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) Moderate protein-calorie malnutrition ([facility]) Wound cellulitis- Primary Type 2 diabetes mellitus with diabetic autonomic neuropathy, with long-term current use of insulin ([facility]) Peripheral vascular disease ([facility]) Unspecified peripheral vascular disease Peripheral arterial disease ([facility]) Unspecified peripheral vascular disease Stage 3a chronic kidney disease (HCC) ([facility]) [facility] current use of insulin ([facility]) [facility] (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 (Z79.4) 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) Atherosclerosis of aorta (I70.0) Atherosclerosis of aorta 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) Chronic obstructive pulmonary disease, unspecified COPD type ([facility]) 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) Aneurysm of ascending aorta without rupture ([facility]) Thoracic aortic ectasia (I77.810) Thoracic aortic ectasia Type 2 diabetes mellitus with diabetic peripheral angiopathy without gangrene, with long-term current use of insulin ([facility]) Peripheral vascular disease, unspecified (I73.9) Peripheral vascular [...] of aorta Atherosclerosis of coronary artery of [place] heart without angina pectoris, unspecified vessel or lesion type (CMS/HCC) Cardiomyopathy, unspecified type (CMS/HCC) Peripheral vascular disease (CMS/HCC) Unspecified peripheral vascular disease Diabetic nephropathy associated with type 2 diabetes mellitus (HCC) (CMS/HCC) [facility] current use of insulin (CMS/HCC) Cigarette nicotine dependence without complication Anxiety, generalized (CMS/HCC) COPD mixed type (CMS/HCC) documented in this encounter [facility] HealthcareInstructionsNot on filedocumented in this encounterProPremier [facility] SystemInstructionsNot on filedocumented in this encounterProPremier [facility] SystemInstructionsNot on filedocumented in this encounterProPremier [facility] SystemInstructionsNot on filedocumented in this encounterAk[facility] Reason for referral (narrative)* Consultation (Urgent) - Pending Review Specialty Diagnoses / Procedures Referred By Velma cason Referred To Contact Oncology / Hematology and Oncology Diagnoses Abnormal PET scan of lung Procedures [place] OFFICE/OUTPATIENT NEW HIGH MDM 60 MINUTES Pia Talley NP [address] [place] [address] Referral ID Status Reason Start Date Expiration Date Visits Requested Visits Authorized [id number] Pending Review Specialty Services Required 03/06/2024 09/02/2024 1 1 [place] for visit Narrative* Consultation (Routine) - Pending Review Specialty Diagnoses / Procedures Referred By Velma t Referred To Contact Vascular Surgery Diagnoses Peripheral vascular disease (CMS-HCC) Peripheral arterial disease (CMS-HCC) Procedures [place] OFFICE OUTPATIENT VISIT 60-74 MINS HIGH MDM AMB REFERRAL TO VASCULAR SURGERY Pia Talley, CAGE OPERATOR-COLOR SPRAYER [address] [place] [address] Aristeo Garcia MD [address] [place] [address] Referral ID Status Reason Start Date Expiration Date V isits Requested Visits Authorized [id number] Pending Review 07/09/2023 01/05/2024 1 1 [facility] Summary Purpose Family History No Family [...] Dima Chavez PA-C [address] [place] [address] Referral ID Status Reason Start Date Expiration Date V isits Requested Visits Authorized [id number] Pending Review 08/03/2023 08/02/2024 1 1 Specialty Diagnoses / Procedures Referred By Contac t Referred To Contact Diagnoses 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 ([facility]CC) Procedures Vasc art doppler lwr PVR W/exercise Dima Chavez PA-C [address] [place] [address] Referral ID Status Reason Start Date Expiration Date V isits Requested Visits Authorized [id number] Pending Review 08/03/2023 08/02/2024 1 1 Specialty Diagnoses / Procedures Referred By Contac t Referred To Contact Diagnoses 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 ([facility]-HCC) Procedures Vas art duplex lwr bilateral Dima Chavez PA-C [address] [place] [address] Referral ID Status Reason Start Date Expiration Date V isits Requested Visits Authorized [id number] Pending Review 08/03/2023 08/02/2024 1 1 Additional Source Comments INFORMATION SOURCE (unrecogn ized section and content) DATE CREATED AUTHOR 02/10/2022 [facility] DATE CREATED AUTHOR AUTHOR'S ORGANIZ ATION 03/26/2022 [facility] dical Specialist DATE CREATED AUTHOR AUTHOR'S ORGANIZ ATION 08/04/2023 [facility] DATE CREATED AUTHOR AUTHOR'S ORGANIZ ATION 03/07/2024 [facility] dical Specialists EPIC DATE CREATED AUTHOR AUTHOR'S ORGANIZ ATION 03/21/2024 [facility] DATE CREATED AUTHOR AUTHOR'S ORGANIZ ATION 03/21/2024 [facility] DATE CREATED AUTHOR AUTHOR'S ORGANIZ ATION 04/01/2024 [facility] Care Teams (unrecognized sec tion and content) Reporting Developer Relationship Specialty Start Date End Date Shila Molina DO [address] [place] [address] PCP - General Family Medicine 12/05/21 Reporting Developer Relationship Specialty Start Date End Date Tonja Gilliam MD [address] [place] [address] PCP - General Family Medicine 06/23/23 Reporting Developer Relationship Specialty Start Date End Date Shila Molina DO [address] [place] [address] PCP - [employer] 05/31/22 oTnja Gilliam MD [address] [place] [address] PCP - General Family Medicine 06/08/23 Pia Talley NP [address] [place] [address] Nurse Practitioner Family Medicine 06/08/23 Reporting Developer Relationship Specialty Start Date End Date Tonja Gilliam MD [address] [place] [address] PCP - General Family Medicine 06/23/23 Reporting Developer Relationship Specialty Start Date End Date Shila Molina DO [address] [place] [address] PCP - [employer] 05/31/22 Tonja Gilliam MD [address] [place] [address] PCP - General Family Medicine 06/08/23 Tonja Gilliam MD [address] [place] [address] PCP - [facility] 12/30/23 Pia Talley NP [address] [place] [address] Nurse Practitioner Family Medicine 06/08/23 Reporting Developer Relationship Specialty Start Date End Date JesseShila JoseloDO [address] [place] [address] PCP - [employer] 05/31/22 Tonja Gilliam MD [address] [place] [address] PCP - General Family Medicine 06/08/23 Tonja Gilliam MD [address] [place] [address] PCP - [employer] 12/30/23 Pia Talley NP [address] [place] [address] Nurse Practitioner Family Medicine 06/08/23 Reporting Developer Relationship Specialty Start Date End Date Shila Molina JoseloDO [address] [place] [address] PCP - [employer] 05/31/22 Tonja Gilliam MD [address] [place] [address] PCP - General Family Medicine 06/08/23 Tonja Gilliam MD [address] [place] [address] PCP - [employer] 12/30/23 Pia Talley NP [address] [place] [address] Nurse Practitioner Family Medicine 06/08/23 Reporting Developer Relationship Specialty Start Date End Date Shila Molina DO [address] [place] [address] PCP - [employer] 05/31/22 Tonja Gilliam MD [address] [place] [address] PCP - General Family Medicine 06/08/23 Tonja Gilliam MD [address] [place] [address] PCP - [employer] 12/30/23 Pia Talley NP [address] [place] [address] Nurse Practitioner Family Medicine 06/08/23 Reporting Developer Relationship Specialty Start Date End Date Shila Molina DO [address] [place] [address] PCP - [employer] 05/31/22 Tonja Gilliam MD [address] [place] [address] PCP - General Family Medicine 06/08/23 Tonja Gilliam MD [address] [place] [address] PCP - [employer] 12/30/23 Pia Talley NP [address] [place] [address] Nurse Practitioner Family Medicine 06/08/23 Reporting Developer Relationship Specialty Start Date End Date Shila Molina DO [address] [place] [address] PCP - [employer] 05/31/22 Tonja Gilliam MD [address] [place] [address] PCP - General Family Medicine 06/08/23 Tonja Gilliam MD [address] [place] [address] PCP - [employer] 12/30/23 Pia Talley NP [address] [place] [address] Nurse Practitioner Family Medicine 06/08/23 Reporting Developer Relationship Specialty Start Date End Date Shila Molina DO [address] [place] [address] PCP - [employer] 05/31/22 Tonja Gilliam MD [address] [place] [address] PCP - General Family Medicine 06/08/23 Tonja Gilliam MD [address] [place] [address] PCP - [employer] 12/30/23 Pia Talley NP [address] [place] [address] Nurse Practitioner Family Medicine 06/08/23 Reporting Developer Relationship Specialty Start Date End Date Shila Molina DO [address] [place] [address] PCP - [employer] 05/31/22 Tonja Gilliam MD [address] [place] [address] PCP - General Family Medicine 06/08/23 Tonja Gilliam MD [address] [place] [address] PCP - [employer] 12/30/23 Pia Talley NP [address] [place] [address] Nurse Practitioner Family Medicine 06/08/23 Reporting Developer Relationship Specialty Start Date End Date JesseShila thomasDO [address] [place] [address] PCP - [employer] 05/31/22 Tonja Gilliam MD [address] [place] [address] PCP - General Family Medicine 06/08/23 Tonja Gilliam MD [address] [place] [address] PCP - [employer] 12/30/23 Pia Talley NP [address] [place] [address] Nurse Practitioner Family Medicine 06/08/23 Reason for [...] BE BASED ON THE PRIMARY CLINICAL RECORDS. [facility]. provides no warranty or guarantee of the accuracy or completeness of information in this document.
[2024-04-05 07:57] LABS: Basophils Percent Auto 0.1 % (0.2-2.0); Eosinophils Percent Auto 0.1 % (0.9-7.0); Hematocrit 31.5 % (36.0-48.0); Immature Granulocytes Abs Auto 0.06 10^3/uL (0.00-0.03); Immature Granulocytes Pct Auto 0.4 % (0.0-0.5); Lymphocytes Absolute Auto 1.4 10^3/uL (1.2-3.8); Lymphocytes Percent Auto 10.6 % (20.5-60.0); Mean Corpuscular HGB Conc 31.7 g/dL (29.9-35.2); Mean Corpuscular Hemoglobin 28.2 pg (26.7-34.0); Mean Corpuscular Volume 88.7 fL (81.0-99.0); Mean Platelet Volume 11.6 fL (9.5-13.5); Monocytes Absolute Auto 1.4 10^3/uL (0.3-0.8); Monocytes Percent Auto 10.1 % (1.7-12.0); Neutrophils Absolute Auto 10.7 10^3/uL (1.4-6.5); Neutrophils Percent Auto 78.7 % (43.0-75.0); Platelet Count 217 10^3/uL (150-450); Red Blood Count 3.55 10^6/uL (4.20-5.40); White Blood Count 13.6 10^3/uL (4.0-11.0)
[2024-04-05 08:06] LABS: Alanine Aminotransferase 27 U/L (14-59); Albumin Globulin Ratio 0.8; Albumin Level 3.2 g/dL (3.4-5.0); Alkaline Phosphatase 112 U/L (46-116); Anion Gap 9.1; Aspartate Amino Transferase 19 U/L (15-37); BUN Creatinine Ratio 37.3; Bilirubin Total 0.3 mg/dL (0.2-1.0); Calcium 10.5 mg/dL (8.5-10.1); Carbon Dioxide 34.8 mmol/L (21.0-32.0); Chloride 98 mmol/L (98-107); Estimated GFR (African America 36 (>=60 mL/min/1.73m^2); Estimated GFR (Non-African Ame 30 (>=60 mL/min/1.73m^2); Globulin 4.1 g/dL; Glucose 215 mg/dL (74-106); Potassium 3.9 mmol/L (3.5-5.1); Sodium 138 mmol/L (136-145); Total Protein 7.3 g/dL (6.4-8.2)
--- NOTE | 2024-04-05 08:07 | ED_ITS ---
HPI - SOB/Dyspnea General Chief Complaint: Shortness of Breath/Dyspnea Stated Complaint: SHORTNESS OF BREATH Time Seen by Provider: 04/05/24 07:19 Mode of arrival: ambulance History of Present Illness HPI Narrative: Patient presents to ED complaining of shortness of breath. She was recently admitted to the hospital and just discharged yesterday. She said she was unable to fill her medications which included Lasix and steroids. She had increased work of breathing throughout the night and severe shortness of breath this morning so she called EMS. Upon arrival they said she had increased work of breathing mild respiratory distress and was 89%. She is on oxygen at home and after receiving a breathing treatment and steroids and route she is up to 95% but still has a pretty significant increased work of breathing. Patient states that she tried to get her son up to get her here but he was not waking up so she called EMS to bring her in. She states she feels a little bit better after the breathing treatment and route however she still has shortness of breath. She denies any chest pain. Related Data Home Medications ?Medication ?Instructions ?Recorded ?Confirmed albuterol sulfate 2.5 mg/3 mL 2.5 mg inhalation Q4H PRN 02/26/24 04/05/24 (0.083 %) solution for nebulization shortness of breath or wheezing albuterol sulfate 90 mcg/actuation 2 inh inhalation Q4H PRN shortness 02/26/24 04/05/24 aerosol inhaler of breath or wheezing budesonide 160 mcg-glycopyr 9 2 inh inhalation BID 02/26/24 04/05/24 mcg-formot 4.8 mcg/actuation HFA inhaler (Breztri K[employer]ishubao.comphere) aspirin 81 mg chewable tablet 81 mg PO DAILY 02/27/24 04/05/24 clopidogrel 75 mg tablet (Plavix) 75 mg PO DAILY 02/27/24 04/05/24 glimepiride 4 mg tablet 4 mg PO DAILY 02/27/24 04/05/24 losartan 100 mg tablet (Cozaar) 100 mg PO DAILY 02/27/24 04/05/24 metformin 1,000 mg tablet 1,000 mg PO DAILY 02/27/24 04/05/24 metoprolol succinate 50 mg 50 mg PO DAILY 02/27/24 04/05/24 tablet,extended release 24 hr montelukast 10 mg tablet 10 mg PO DAILY 02/27/24 04/05/24 (Singulair) pantoprazole 40 mg tablet,delayed 40 mg PO DAILY 02/27/24 04/05/24 release (Protonix) rosuvastatin 20 mg tablet 20 mg PO DAILY 02/27/24 04/05/24 duloxetine 20 mg capsule,delayed 20 mg PO DAILY 04/02/24 04/05/24 release furosemide 40 mg tablet (Lasix) 20 mg PO DAILY 04/05/24 04/05/24 Previous Rx's ?Medication ?Instructions ?Recorded spironolactone 25 mg tablet 12.5 mg (1/2 x 25 mg) PO DAILY #30 02/28/24 (Aldactone) tabs prednisone 20 mg tablet 20 mg PO BID #10 tabs 04/04/24 Allergies Allergy/AdvReac Type Severity Reaction Status Date / Time No Known Drug Allergies Allergy Verified 02/26/24 05:26 Review of Systems ROS Status of ROS 10 or more systems reviewed and unremark able except as noted in history and below [facility] Medical History (Updated 04/05/24 @ 08:19 by Shirley Moore DO) Lung cancer ?C34.90 - Malignant neoplasm of unspecified part of unspecified bronchus or lung (ICD-10) Acute on chronic systolic (congestive) heart failure ?I50.23 - Acute on chronic systolic (congestive) heart failure (ICD-10) Acute on chronic respiratory failure with hypoxia ?J96.21 - Acute and chronic respiratory failure with hypoxia (ICD-10) Type 2 diabetes mellitus ?E11.9 - Type 2 diabetes mellitus without complications (ICD-10) HLD (hyperlipidemia) ?E78.5 - Hyperlipidemia, unspecified (ICD-10) PAD (peripheral artery disease) ?I73.9 - Peripheral vascular disease, unspecified (ICD-10) Chronic respiratory failure with hypoxia ?J96.11 - Chronic respiratory failure with hypoxia (ICD-10) HTN (hypertension) ?I10 - Essential (primary) hypertension (ICD-10) Current smoker ?F17.200 - Nicotine dependence, unspecified, uncomplicated (ICD-10) CAD (coronary artery disease) ?I25.10 - Atherosclerotic heart disease of [place] coronary artery without angina pectoris (ICD-10) COPD (chronic obstructive pulmonary disease) ?J44.9 - Chronic obstructive pulmonary disease, unspecified (ICD-10) Social History (Updated 02/26/24 @ 16:05 by Shaikh Benny MD) Within the past year, how often did you have a drink containing alcohol: never Within the past year, how many standard drinks containing alcohol did you have on a typical day: 1 or 2 Total score: 0 Score interpretation: A score less than 3 is consistent with normal alcohol consumption. Smoking status: Current every day smoker Non-prescribed substance use: denies use Highest level of school completed/degree received: 9th grade Little interest or pleasure in doing things: not at all Feeling down, depressed, or hopeless: not at all Exam Narrative Exam Narrative: Time Seen: [] Vital Signs: [Per nurse's notes.] General: [Alert] Skin: [Warm, dry, no rash.] Head: [Normocephalic, atraumatic.] Neck: [Supple, trachea midline.] Eye: [Pupils are equal, round and reactive to light, extraocular movements are intact, normal conjunctiva.] Ears, nose, mouth and throat: oral mucosa moist. Cardiovascular: [Regular rate and rhythm, no murmur.] Respiratory: Moderate respiratory distress, retractions, accessory muscle use. Inspiratory expiratory diminished breath sounds and wheezing Chest wall: [No tenderness, no deformity.] Gastrointestinal: [Soft, nontender, non distended, normal bowel sounds.] MSK: 5 out of 5 muscle strength x 4 extremities no calf pain or edema Lymphatics: [No lymphadenopathy.] Psychiatric: [Cooperative, appropriate mood & affect.] Neurological: [Alert and oriented to person, place, time, and situation, no focal neurological deficit observed.] Constitutional Vital Signs, click to edit/add: Last Vital Signs Temp 98 F 04/05/24 07:18 Pulse 91 H 04/05/24 07:52 Resp 28 H 04/05/24 07:52 Pulse Ox 96 04/05/24 07:52 O2 Del Method Vapotherm 04/05/24 07:54 O2 Flow Rate 40 04/05/24 07:52 FiO2 30 04/05/24 07:52 Course Vital Signs Vital signs: Vital Signs Temperature 98 F 04/05/24 07:18 Pulse Rate 88 04/05/24 07:18 Respiratory Rate 32 H 04/05/24 07:18 Pulse Oximetry 98 04/05/24 07:18 Oxygen Delivery Method Nasal Cannula 04/05/24 07:18 Oxygen Delivery Flow Rate 2 04/05/24 07:18 Temperature 98 F 04/05/24 07:18 Pulse Rate 91 H 04/05/24 07:52 Respiratory Rate 28 H 04/05/24 07:52 Pulse Oximetry 96 04/05/24 07:52 Oxygen Delivery Method Vapotherm 04/05/24 07:54 Oxygen Delivery Flow Rate 40 04/05/24 07:52 Fraction of Inspired Oxygen 30 04/05/24 07:52 MDM - SOB/Dyspnea MDM Narrative Medical decision making narrative: Patient was just discharged last night and needs readmission. I spoke to Dr. Cortez who was taking care of the patient. He said that she wanted to go home yesterday so he had discharged her however she did bounce back quickly because he agreed she was not quite ready for discharge. She does live alone at home with her son and placement may be a better option for her given her respiratory issues however he said at the time he spoke to her before about it she was not really interested in that. She is comfortable with care plan for being readmitted. BNP is severely elevated. Lasix was given. Steroids were given IV and route and she was given a DuoNeb. She had increased work of breathing upon arrival and was placed on Vapotherm for respiratory support. Differential Diagnosis Differential diagnosis: Likely acute exacerbation of chronic obstructive airways disease and congestive heart failure Medical Records Attestation: I reviewed the patient's medical records. Lab Data Attestation: I reviewed the patient's lab results. Labs: Lab Results 04/05/24 Range/Units 07:38 WBC 13.6 H (4.0-11.0) 10^3/uL RBC 3.55 L (4.20-5.40) 10^6/uL Hgb 10.0 L (12.0-16.0) g/dL Hct 31.5 L (36.0-48.0) % MCV 88.7 (81.0-99.0) fL MCH 28.2 (26.7-34.0) pg MCHC 31.7 (29.9-35.2) g/dL RDW 16.0 H (11.0-15.0) % Plt Count 217 (150-450) 10^3/uL MPV 11.6 (9.5-13.5) fL Neut % (Auto) 78.7 H (43.0-75.0) % Lymph % (Auto) 10.6 L (20.5-60.0) % [place] % (Auto) 10.1 (1.7-12.0) % Eos % (Auto) 0.1 L (0.9-7.0) % Baso % (Auto) 0.1 L (0.2-2.0) % Neut # (Auto) 10.7 H (1.4-6.5) 10^3/uL Lymph # (Auto) 1.4 (1.2-3.8) 10^3/uL [place] # (Auto) 1.4 H (0.3-0.8) 10^3/uL Eos # (Auto) 0.0 (0.0-0.7) 10^3/uL Baso # (Auto) 0.0 (0.0-0.1) 10^3/uL Abs Immat Gran (auto) 0.06 H (0.00-0.03) 10^3/uL Imm/Tot Granulo (auto) 0.4 (0.0-0.5) % ECG Data Attestation: I personally reviewed and interpreted this ECG as follows: Interpretation: EKG INTERPRETATION Time: [] 721 Rate: [] 86 Rhythm: _ [] Normal sinus rhythm ST segments: _ [] ST depression diffusely in all leads T waves: _ [] Ectopy: _ [] P wave/WI interval: _ [] QRS interval: _ [] QT interval: _ [] Comparison: _ [] Comparison EKG date: [] Performed by: [self] left bundle branch block, LVH Critical Care Time Critical Care Time Critical Care Time: Yes Total Critical Care Time: 58 Attestation: Respiratory distress, placed on Vapotherm immediately. Hypoxia. Discharge Plan Discharge Chief Complaint: Shortness of Breath/Dyspnea Clinical Impression: COPD exacerbation, Acute on chronic combined systolic (congestive) and diastolic (congestive) heart failure Patient Disposition: Admitted As Inpatient Time of Disposition Decision: 08:19 Condition: Fair Prescriptions / Home Meds: No Action albuterol sulfate 2.5 mg /3 mL (0.083 %) solution for nebulization 2.5 mg inhalation Q4H PRN (Reason: shortness of breath or wheezing) albuterol sulfate 90 mcg/actuation HFA aerosol inhaler 2 inh INHALATION Q4H PRN (Reason: shortness of breath or wheezing) Breztri Aerosphere 160-9-4.8 mcg/actuation HFA aerosol inhaler 2 inh INHALATION BID metoprolol succinate 50 mg tablet extended release 24 hr 50 mg PO DAILY metformin 1,000 mg tablet 1,000 mg PO DAILY glimepiride 4 mg tablet 4 mg PO DAILY clopidogrel [Plavix] 75 mg tablet 75 mg PO DAILY rosuvastatin 20 mg tablet 20 mg PO DAILY aspirin 81 mg tablet,chewable 81 mg PO DAILY pantoprazole [Protonix] 40 mg tablet,delayed release (DR/EC) 40 mg PO DAILY losartan [Cozaar] 100 mg tablet 100 mg PO DAILY montelukast [Singulair] 10 mg tablet 10 mg PO DAILY spironolactone [Aldactone] 25 mg tablet 12.5 mg PO DAILY Qty: 30 0RF duloxetine 20 mg capsule,delayed release(DR/EC) 20 mg PO DAILY prednisone 20 mg tablet 20 mg PO BID Qty: 10 0RF furosemide [Lasix] 40 mg tablet 20 mg PO DAILY Print Language: Green[place]ic Referrals: LILIAN GILLIAM [Primary Care Provider] - 1 week
[2024-04-05 08:13] LABS: Troponin I High Sensitivity 39.3 pg/mL (4.0-51.3)
[2024-04-05] MEDS: FUROSEMIDE 40 MG/4 ML VIAL IVP (08:15)
--- OUTSIDE RECORDS SUMMARY | 2024-04-05 09:34 | XMS_ITS | CCD ---
Author Organization [facility] ion [facility] Care Team Providers Care Personnel Representative Name Role Phone DR SIOBHAN DEMARCO Primary Care Unavailable MATI ZAMBRANO Admitting Unavailable MATI ZAMBRANO Consulting Unavailable MATI ZAMBRANO Attending Unavailable YU JUNIOR Consulting Unavailable Shila Molina DO Primary Care Provider Tonja Gilliam MD Primary Care Provider Shila Molina DO Unavailable Tonja Gilliam MD Primary Care Provider [address] CONSULTANT, Pia Unavailable ARISTEO GARCIA Attending Unavailable PIA TALLEY A Referring Unavailable TOJNA GILLIAM Primary Care Unavailable PIA TALLEY Attending Unavailable JOAQUINPSONYIA, PIA Referring Unavailable PIA TALLEY Attending Unavailable [...] Attending Unavailable TONJA GILLIAM Primary Care Unavailable CROTEZ PÉREZ Attending Unavailable YANIQUE BURCIAGA Attending Unavailable TONJA GILLIAM Referring Unavailable TONJA GILLIAM Primary Care Unavailable MAYANK, PIA A Referring Unavailable TONJA GILLIAM Primary Care Unavailable DMIA CHAVEZ Referring Unavailable TONJA GILLIAM Primary Care [...] Aluminum aspirin; Translations: [ASPIRIN] Drug Allergy 08-18-2023 [facility] Medications Current Medications Medication Drug Class(es) Dates Sig (Normalized) Sig (Original) [id number] 200 actuat albuterol 0.09 mg/actuat metered dose [...] neuropathy, with long-term current use of insulin ([facility]) USE DIRECTED 1 kit 1 08/11/2023 Active 120 actuat budesonide 0.16 mg/actuat / formoterol fumarate 0.0048 mg/actuat / glycopyrrolate 0.009 mg/actuat metered dose inhaler (16 sources) Corticosteroid, beta2-Adrenergic Agonist Start: End: 024 take 2 puff(s) by inhalation in the morning Budeson-Glycopyrr ol-Formoterol (Breztri Aerosphere) 160-9-4.8 MCG/ACT aerosol Indications: COPD mixed type ([facility]) Inhale 2 puffs in the morning and 2 puffs before bedtime. 32.1 g 1 01/18/2024 Active Start: 02-10-2022 take 2 puff(s) by inhalation at bedtime tbzxtuldni-hmvgmalz-qjyduselcf (BREZTRI AEROSPHERE) 160-9-4.8 mcg/actuation HFA aerosol inhaler Inhale 2 puffs in the morning and at bedtime. 0 02/10/2022 Active Cholecalciferol (11 sources) Vitamin D Cholecalciferol (D3 PO) Take by mouth Active clopidogrel 75 mg oral tablet (16 sources) P2Y12 Platelet Inhibitor Start: clopidogrel (Plavix) 75 MG tablet Indications: PVD (peripheral vascular disease) ([facility]) TAKE 1 TABLET EVERY DAY 90 [...] neuropathy, with long-term current use of insulin ([facility]) Take 1 tablet (10 mg) by [...] hyperglycemia, without long-term current use of insulin ([facility]) TAKE 1 TABLET TWICE DAILY 180 [...] hyperglycemia, with long-term current use of insulin ([facility]) INJECT 10 UNITS UNDER THE SKIN [...] CQ) 21 mg/24 hr Indications: COPD exacerbation ([facility]) Place 1 patch on the skin [...] (DELTASONE) 10 mg tablet Indications: COPD exacerbation ([facility]) 3 tabs for 3 days, 2 [...] ONCE DAILY 02/28/2024 Active 28 actuat tiotropium 0.92749 mg/actuat inhalation spray (1 source) Anticholinergic tiotropium [...] Coronary atherosclerosis; Translations: [Atherosclerotic heart disease of [place] coronary artery without angina pectoris] Onset: 09-30-2022 [...] 03-06-2024 Chronic Other aftercare (1 source) Other group home (current) drug therapy; Translations: [OTH HALF-WAY CURRENT DRUG THERAPY] Onset: 02-10-2022 Episodic Other [...] Respiratory failure; insufficiency; arrest (adult) (2 sources) Nukkj-yk-fsfwthh respiratory failure; Translations: [Acute and chronic respiratory [...] sources) Long-term current use of insulin; Translations: [supervisor 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 (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] Onset: 02-18-2022 11-25-2022 [...] Range Facility Office Visiton 03-14-2024 Follow-up visit [id number] Jaspreet Mitchellviet Tariq 1940 F Date Provider Department Center 03/14/2024 [id number]-[id number] [facility] Krystle [facility] Family History Problem Relation Age of Onset Heart failure Mother Sudden Father Stroke Father Heart attack Son Family Status - Relation Status Age at Mother Father Son Other Level of Service:62436 [place] OFFICE/OUTPATIENT ESTABLISHED MOD MDM 30 MIN Normal [facility] CBC W Auto Differential pane l (Bld)on 03-07-2024 Basophils (Bld) [#/Vol] 58 10*3/uL [facility] Basophils/100 WBC (Bld) 0.9 % [facility] Eosinophils (Bld) [#/Vol] 58 10*3/uL [facility] Eosinophils/100 WBC (Bld) 0.9 % [facility] Erythrocyte distribution width (RBC) [Ratio] 14.3 % 11.0 - 15.0 % [facility] Hematocrit (Bld) [Volume fraction] 33.9 % Low 35.0 - 45.0 % [facility] Hemoglobin (Bld) [Mass/Vol] 10.3 g/dL Low 11.7 - 15.5 g/dL [facility] Lymphocytes (Bld) [#/Vol] 1267 10*3/uL [facility] Lymphocytes/100 WBC (Bld) 19.8 % [facility] MCH (RBC) [Entitic mass] 27.7 pg 27.0 - 33.0 pg [facility] MCHC (RBC) [Mass/Vol] 30.4 g/dL Low 32.0 - 36.0 g/dL [facility] Comment on above: For adults, a slight decrease in the calculated MCHC value (in the range of 30 to 32 g/dL) is most likely not clinically significant; however, it should be interpreted with caution in correlation with other red cell parameters and the patient's clinical condition. MCV (RBC) [Entitic vol] 91.1 fL 80.0 - 100.0 fL [facility] Monocytes (Bld) [#/Vol] 493 10*3/uL [facility] Monocytes/100 WBC (Bld) 7.7 % [facility] Neutrophils (Bld) [#/Vol] 4525 10*3/uL [facility] Neutrophils/100 WBC (Bld) 70.7 % [facility] Platelet mean volume (Bld) [Entitic vol] 11.9 fL 7.5 - 12.5 fL [facility] Platelets (Bld) [#/Vol] 323 10*3/uL [facility] RBC (Bld) [#/Vol] 3.72 10*6/uL Low [facility] WBC (Bld) [#/Vol] 6.4 10*3/uL [facility] Laboratory - Chemistry and C hemistry - challengeon 03-07-2024 Albumin [Mass/Vol] 4.0 g/dL 3.6 - 5.1 g/dL [facility] Albumin/Globulin [Mass ratio] 1.3 {ratio} [facility] ALP [Catalytic activity/Vol] 93 U/L 37 - 153 U/L [facility] ALT [Catalytic activity/Vol] 13 U/L 6 - 29 U/L [facility] AST [Catalytic activity/Vol] 18 U/L 10 - 35 U/L [facility] Bilirubin [Mass/Vol] 0.3 mg/dL 0.2 - 1 .2 mg/dL [facility] Calcium [Mass/Vol] 11.1 mg/dL High 8.6 - 10. 4 mg/dL [facility] Chloride [Moles/Vol] 102 mmol/L 98 - 11 0 mmol/L [facility] CO2 [Moles/Vol] 30 mmol/L 20 - 32 mmol/L [facility] Creatinine [Mass/Vol] 1.15 mg/dL High 0.60 - 0.95 mg/dL [facility] GFR/1.73 sq M.predicted among non-blacks MDRD (S/P/Bld) [Vol rate/Area] 48 mL/min/{1.73_m2} Low > OR = 60 mL/min/1.73m2 [facility] Globulin (S) [Mass/Vol] 3.2 g/dL [facility] Glucose [Mass/Vol] 61 mg/dL Low 65 - 99 mg/dL [facility] Comment on above: Fasting reference interval Potassium [Moles/Vol] 4.3 mmol/L 3.5 - 5.3 mmol/L [facility] Protein [Mass/Vol] 7.2 g/dL 6.1 - 8.1 g/dL [facility] Sodium [Moles/Vol] 139 mmol/L 135 - 146 mmol/L [facility] Urea nitrogen [Mass/Vol] 27 mg/dL High 7 - 25 mg/dL [facility] Urea nitrogen/Creatinine [Mass ratio] 23 mg/mg High [facility] No Panel Informationon 03-07 Interpretation and review of laboratory results Abnormal [facility] Performing Organization Information Site ID: QPT Name: [employer] [facility] Address: [address] [place] [id number] Director: Yanick Self MD [facility] PET CT SKULL TO THIGHon PET CT SKULL TO THIGH PET CT SKULL TO TH [facility] Whole-body PET/CT scan: HISTORY: Pulmonary nodule. [...] Medical Center Office Visiton 02-07-2024 Follow-up visit [id number] StephenMarietta L 1940 F Date Provider Department Center 02/07/2024 [id number]-KZGGDUJERROD [facility] Krystle [facility] Family History Problem Relation Age of Onset Heart failure Mother Sudden Father Stroke Father Heart attack Son Family Status - Relation Status Age at Mother Father Son Other Level of Service:08092 [place] OFFICE/OUTPATIENT NEW MODERATE MDM 45 MINUTES Normal [facility] C DIFFICILE BY PCRon 024 C. difficile toxin genes LUCÍA+probe Ql (Stl) TOXIGENIC C DIFF Negative (qualifier value) 027 NAP1 Negative (qualifier value) Normal PRNEG [facility] Comment on above: Performed By: #### 5 4067-4 #### [facility] ([id number]) [address] [place] [address] #### 60307-9 #### [facility] ([id number]) [address] [place] [address], [place] [address] [facility] ([id number]) [address], [address] [place] [address] CBC AND AUTO DIFFon 08-18-19 24 ABSOLUTE BASOPHIL 0.1 X10E9/L Normal 0.0-0.2 [facility] Comment on above: Performed By: #### C KUSH ESCAMILLA, #### [facility] ([id number]) [address] [place] [address] ABSOLUTE NEUTROPHIL 9.9 X10E9/L High 1.5-6.6 [facility] Comment on above: Performed By: #### C KUSH ESCAMILLA, #### [facility] ([id number]) [address] [place] [address] Basophils/100 WBC (Bld) 1.0 % Normal [facility] Comment on above: Performed By: #### C KUSH ESCAMILLA, #### [facility] ([id number]) [address] [place] [address] 16979 Eosinophils (Bld) [#/Vol] 0.1 10*3/uL Normal 0.0-0.4 [facility] Comment on above: Performed By: #### C FRANCINE [facility], #### [facility] ([id number]) [address] [place] [address] Eosinophils/100 WBC (Bld) 0.8 % Normal [facility] Comment on above: Performed By: #### Taj ESCAMILLA [facility], #### [facility] ([id number]) [address] [place] [address] 16343 Erythrocyte distribution width (RBC) [Ratio] 15.1 % High 11.5-15.0 [facility] Comment on above: Performed By: #### C KUSH ESCAMILLA, #### [facility] ([id number]) [address] [place] [address]34 Hematocrit (Bld) [Volume fraction] 38.3 % Normal 35-47 [facility] Comment on above: Performed By: #### C KUSH ESCAMILLA, #### [facility] ([id number]) [address] [place] [address]165 Hemoglobin (Bld) [Mass/Vol] 12.8 g/dL Normal 11.7-15.5 [facility] Comment on above: Performed By: #### Taj ESCAMILLA CMP, 76752-5 #### [facility] ([id number]) [address] [place] [address]115 Lymphocytes (Bld) [#/Vol] 1.6 10*3/uL Normal 1.0-3.5 [facility] Comment on above: Performed By: #### Taj ESCAMILLA [facility], #### [facility] ([id number]) [address] [place] [address] 70647 Lymphocytes/100 WBC (Bld) 12.7 % Normal [facility] Comment on above: Performed By: #### Taj ESCAMILLA [facility], #### [facility] ([id number]) [address] [place] [address] 39162 MCH (RBC) [Entitic mass] 30.6 pg Normal 27-34 [facility] Comment on above: Performed By: #### C FRANCINE [facility], 98447-0 #### [facility] ([id number]) [address] [place] [address] 41081 MCHC (RBC) [Mass/Vol] 33.3 g/dL Normal 32-36 [facility] Comment on above: Performed By: #### Taj ESCAMILLA, CMP, #### [facility] ([id number]) [address] [place] [address] 41978 MCV (RBC) [Entitic vol] 92 fL Normal 80-100 [facility] Comment on above: Performed By: #### Taj ESCAMILLA CMP, #### [facility] ([id number]) [address] [place] [address] 23283 Monocytes (Bld) [#/Vol] 0.7 10*3/uL Normal 0-0.9 [facility] Comment on above: Performed By: #### C FRANCINE CMP, 98570-2 #### [facility] ([id number]) [address] [place] [address] 50739 Monocytes/100 WBC (Bld) 5.6 % Normal [facility] Comment on above: Performed By: #### Taj ESCAMILLA CMP, 32075-1 #### [facility] ([id number]) [address] [place] [address] 52922 Neutrophils/100 WBC (Bld) 79.9 % Normal [facility] Comment on above: Performed By: #### Taj ESCAMILLA CMP, 34815-5 #### [facility] ([id number]) [address] [place] [address] [place] [address] Platelet mean volume (Bld) [Entitic vol] 10.0 fL Normal 7-12 [facility] Comment on above: Performed By: #### Taj ESCAMILLA CMP, 58107-0 #### [facility] ([id number]) [address] [place] [address] 79146 Platelets (Bld) [#/Vol] 238 10*3/uL Normal 150-450 [facility] Comment on above: Performed By: #### Taj ESCAMILLA CMP, 73414-6 #### [facility] ([id number]) [address] [place] [address] 08937 RBC COUNT 4.17 X10E12/L Normal 3.80-5.20 [facility] Comment on above: Performed By: #### Taj ESCAMILLA, CMP, 14969-5 #### [facility] ([id number]) [address] [place] [address] 63236 WBC (Bld) [#/Vol] 12.3 10*3/uL High 4.0-11.0 [facility] Comment on above: Performed By: #### C FRANCINE, CMP, 50741-2 #### [facility] ([id number]) [address] [place] [address]15 COMPREHENSIVE METABOLIC PANE Willis 08-18-2023 Albumin [Mass/Vol] 4.0 g/dL Normal 3.2-5.3 [facility] Comment on above: Performed By: #### C BCA, CMP, 75825-5 #### [facility] ([id number]) [address] [place] [address] 53537 ALP [Catalytic activity/Vol] 99 U/L Normal 39-130 [facility] Comment on above: Performed By: #### C FRANCINE, CMP, 67475-7 #### [facility] ([id number]) [address] [place] [address] 85732 ALT [Catalytic activity/Vol] 17 U/L Normal 0-31 [facility] Comment on above: Performed By: #### C FRANCINE, [facility], 24773-1 #### [facility] ([id number]) [address] [place] [address] 21699 Anion gap [Moles/Vol] 4 mmol/L Low 5-15 [facility] Comment on above: Performed By: #### C BCA, CMP, 30897-8 #### [facility] ([id number]) [address] [place] [address] 44257 AST [Catalytic activity/Vol] 21 U/L Normal 0-41 [facility] Comment on above: Performed By: #### C BCA, CMP, 75479-3 #### [facility] ([id number]) [address] [place] [address] 19185 Bilirubin [Mass/Vol] 0.5 mg/dL Normal 0.3-1.2 [facility] Comment on above: Performed By: #### C KUSH ESCAMILLA, 62759-7 #### [facility] ([id number]) [address] [place] [address] 11702 Calcium [Mass/Vol] 10.5 mg/dL Normal 8.5-10.5 [facility] Comment on above: Performed By: #### C KUSH ESCAMILLA, 88679-0 #### [facility] ([id number]) [address] [place] [address] 32078 Chloride [Moles/Vol] 103 mmol/L Normal 98-109 [facility] Comment on above: Performed By: #### C FRANCINE [facility], 48934-8 #### [facility] ([id number]) [address] [place] [address] 01432 CO2 [Moles/Vol] 25 mmol/L Normal 22-32 [facility] Comment on above: Performed By: #### C FRANCINE [facility], 26535-9 #### [facility] ([id number]) [address] [place] [address] 06256 Creatinine [Mass/Vol] 0.94 mg/dL Normal 0.40-1.00 [facility] Comment on above: Result Comment: METH OD TRACEABLE TO IDMS STANDARD Performed By: #### C KUSH ESCAMILLA, 69241-2 #### [facility] ([id number]) [address] [place] [address] 18134 GFR/1.73 sq M.predicted among non-blacks MDRD (S/P/Bld) [Vol rate/Area] 61 mL/min/{1.73_m2} Normal >59 [facility] Comment on above: Result Comment: Reported eGFR is based on the CKD-EPI 1 equation that does not use a race coefficient. Performed By: #### C FRANCINE CMP, 80715-5 #### [facility] ([id number]) [address] [place] [address] 84622 Glucose [Mass/Vol] 136 mg/dL High 65-99 [facility] Comment on above: Performed By: #### C FRANCINE [facility], 46544-3 #### [facility] ([id number]) [address] [place] [address] 66646 Potassium [Moles/Vol] 4.2 mmol/L Normal 3.5-5.0 [facility] Comment on above: Performed By: #### Taj ESCAMILLA [facility], 06275-5 #### [facility] ([id number]) [address] [place] [address] 24780 Protein [Mass/Vol] 7.6 g/dL Normal 6.0-8.0 [facility] Comment on above: Performed By: #### Taj ESCAMILLA [facility], 61278-0 #### [facility] ([id number]) [address] [place] [address] 93810 Sodium [Moles/Vol] 132 mmol/L Low 134-146 [facility] Comment on above: Performed By: #### C FRANCINE [facility], 50963-8 #### [facility] ([id number]) [address] [place] [address] 23423 Urea nitrogen [Mass/Vol] 26 mg/dL Normal 5-27 [facility] Comment on above: Performed By: #### Taj ESCAMILLA [facility], 54489-5 #### [facility] ([id number]) [address] [place] [address] 73002 GI PANELon 08-18-2023 Gastrointestinal pathogens DNA and [...] above: Performed By: #### 5 4067-4 #### [facility] ([id number]) [address] [place] [address], [address] [address] #### 55325-0 #### [facility] ([id number]) [address] [place] [address] [facility] ([id number]) [address] [place] [address], [address] [address] MAGNESIUMon 08-18-2023 Magnesium [Mass/Vol] 1.8 mg/dL Normal 1.8-2.6 [facility] Comment on above: Performed By: #### C BCA, CMP, 80072-1 #### [facility] ([id number]) [address] [place] [address] 79540 SARS/FLU A+B/RSV by NAAT/Mol ecularon 08-18-2023 SARS/FLU [...] repeat. Fact Sheet for Healthcare Providers: https://www.fda.gov/m edia/615050/download Fact Sheet for Patients: https://www.fda.gov/m edia/463302/download Normal [facility] Comment on above: Performed By: #### C OVFLR #### [facility] ([id number]) [address] [place] [address] 20915 URN MACROSCOPIC NURon 2023 BILIRUBIN KATELYN Negative Normal NEG [facility] Comment on above: Performed By: #### N UM #### [facility] ([id number]) [address] [place] [address] 76113 BLOOD/HGB KATELYN Negative Normal NEG [facility] Comment on above: Performed By: #### N UM #### [facility] ([id number]) [address] [place] [address] 43184 GLUCOSE KATELYN >=1000 Abnormal NEG [facility] Comment on above: Performed By: #### N UM #### [facility] ([id number]) [address] [place] [address] 46224 KETONES KATELYN Negative Normal NEG [facility] Comment on above: Performed By: #### N UM #### [facility] ([id number]) [address] [place] [address] 74160 LEUKOCYTE ESTERASE KATELYN Negative Normal NEG [facility] Comment on above: Performed By: #### N UM #### [facility] ([id number]) [address] [place] [address] 10622 NITRITE KATELYN Negative Normal NEG [facility] Comment on above: Performed By: #### N UM #### [facility] ([id number]) [address] [place] [address] 76128 PH KATELYN 5.0 Normal 5.0-8.5 [facility] Comment on above: Performed By: #### N UM #### [facility] ([id number]) [address] [place] [address] 36386 PROTEIN KATELYN 100 mg/dL Abnormal NEG [facility] Comment on above: Performed By: #### N UM #### [facility] ([id number]) [address] [place] [address] 51923 SPECIFIC GRAVITY KATELYN 1.025 Normal 1.003-1.035 [facility] Comment on above: Performed By: #### N UM #### [facility] ([id number]) [address] [place] [address] 49346 UROBILINOGEN KATELYN 0.2 eu/dL Normal <1.1 [facility] Comment on above: Performed By: #### N UM #### [facility] ([id number]) [address] [place] [address] CHEST WO IV CONTRASTon CT CHEST [...] BY: Momo Sanchez MD Normal Not Available [facility] US LOWER EXTREMITY CARLO RIAL DUPLEX BILATERAL WITH ABIon 07-06-2023 [facility] US LOWER EXTREMITY ARTERIAL DUPLEX BILATERAL WITH [...] IS VERY IMPORTANT TO YOUR HEALTH. THE [employer] GUIDELINES RECOMMEND THAT WOMEN 40 [...] VERY IMPORTANT TO YOUR HEALTH. THE CURRENT [employer]WORK GUIDELINES RECOMMENDS ANNUAL MAMMOGRAPHY BEGINNING AT AGE 42 THIS FACILITY USES A REMINDER SYSTEM TO ENSURE ALL PATIENTS RECEIVE REMINDER NOTIFICATIONS AT THE APPROPRIATE TIME BASED ON THE RECOMMENDATIONS OF THIS EXAM. Report reported and signed by Julius You on 03/25/2022 1339 Normal [facility] CBC AUTO DIFFon 02-07-2022 BASO # 0.1 103/ul Normal 0.0-0.1 [facility] Comment on above: Performed By: #### C BC #### [facility] [address] [place] [address] Dr. Henry Dozier Basophils/100 WBC (Bld) 0.6 % Normal 0.2-2.0 [facility] Comment on above: Performed By: #### C BC #### [facility] [address] [place] [address] Dr. Henry Dozier EO # 0.0 103/ul Normal 0.0-0.7 [facility] Comment on above: Performed By: #### C BC #### [facility] [address] [place] [address] Dr. Henry Dozier Eosinophils/100 WBC (Bld) 0.3 % Critically low 0.9-7.0 [facility] Comment on above: Performed By: #### C BC #### [facility] [address] [place] [address] Dr. Henry Dozier Erythrocyte distribution width (RBC) [Ratio] 14.9 % Normal 11.0-15.0 [facility] Comment on above: Performed By: #### C BC #### [facility] [address] [address] [address] Henry Dozier Hematocrit (Bld) [Volume fraction] 28.8 % Critically low 36.0-48.0 [facility] Comment on above: Performed By: #### C BC #### [facility] [address] [place] [address] Dr. Henry Dozier Hemoglobin (Bld) [Mass/Vol] 8.9 g/dL Critically low 12.0-16.0 [facility] Comment on above: Performed By: #### C BC #### [facility] [address] [place] [address] Dr. Henry Dozier IG # 0.03 10e3/ul Normal 0.00-0.03 [facility] Comment on above: Performed By: #### C BC #### [facility] [address] [place] [address] Dr. Henry Dozier IG % 0.3 % Normal 0.0-0.5 [facility] Comment on above: Performed By: #### C BC #### [facility] [address] [place] [address] Dr. Henry Dozier LYMPH # 1.6 103/ul Normal 1.2-3.8 [facility] Comment on above: Performed By: #### C BC #### [facility] [address] [place] [address] Dr. Henry Dozier Lymphocytes/100 WBC (Bld) 17.4 % Critically low 20.5-60.0 [facility] Comment on above: Performed By: #### C BC #### [facility] [address] [place] [address] Dr. Henry Dozier MANUAL DIFF REQ NO Normal [facility] Comment on above: Performed By: #### C BC #### [facility] [address] [place] [address] Dr. Henry Dozier MCH (RBC) [Entitic mass] 29.6 pg Normal 26.7-34.0 [facility] Comment on above: Performed By: #### C BC #### [facility] [address] [place] [address] Dr. Henry Dozier MCHC (RBC) [Mass/Vol] 30.9 g/dL Normal 29.9-35.2 [facility] Comment on above: Performed By: #### C BC #### [facility] [address] [place] [address] Dr. Henry Dozier MCV (RBC) [Entitic vol] 95.7 fL Normal 81.0-99.0 [facility] Comment on above: Performed By: #### C BC #### [facility] [address] [place] [address] Dr. Henry Dozier MONO # 0.8 103/ul Normal 0.3-0.8 [facility] Comment on above: Performed By: #### C BC #### [facility] [address] [place] [address] Dr. Henry Dozier Monocytes/100 WBC (Bld) 9.1 % Normal 1.7-12.0 [facility] Comment on above: Performed By: #### C BC #### [facility] [address] [place] [address] Dr. Henry Dozier NEUT # 6.4 103/ul Normal 1.4-6.5 [facility] Comment on above: Performed By: #### C BC #### [facility] [address] [place] [address] Dr. Henry Dozier Neutrophils/100 WBC (Bld) 72.3 % Normal 43.0-75.0 [facility] Comment on above: Performed By: #### C BC #### [facility] [address] [place] [address] Dr. Henry Dozier Platelet mean volume (Bld) [Entitic vol] 10.8 fL Normal 9.5-13.5 [facility] Comment on above: Performed By: #### C BC #### [facility] [address] [place] [address] Dr. Henry Dozier PLT 257 103/ul Normal 150-450 [facility] Comment on above: Performed By: #### C BC #### [facility] [address] [place] [address] Dr. Henry Dozier RBC 3.01 106/ul Critically low 4.20-5.40 [facility] Comment on above: Performed By: #### C BC #### [facility] [address] [place] [address] Dr. Henry Dozier WBC 8.9 103/ul Normal 4.0-11.0 [facility] Comment on above: Performed By: #### C BC #### [facility] [address] [place] [address] Dr. Henry Dozier Covid-19 PCR ([facility])on 01-29 SARS-CoV-2 (COVID-19) RNA LUCÍA+probe Ql (Unsp spec) Not detected Normal NOT DETECTED [facility] Comment on above: Result Comment: When [...] for this test is supported by the [place] of Health and Human Service's declaration that [...] used). Performed By: #### C VDTBH #### [facility] [address] [place] [address] Dr. Henry Dozier PROF CHEM 8 (BAS METB)on Anion gap [Moles/Vol] 9.1 mmol/L Normal [facility] Comment on above: Performed By: #### B MP, HSTROPN #### [facility] [address] [place] [address] Dr. Henry Dozier Calcium [Mass/Vol] 10.0 mg/dL Normal 8.5-10.1 [facility] Comment on above: Performed By: #### B CHRISTOPHER, HSTROPN #### [facility] [address] [address] [address] Henry Dozier Chloride [Moles/Vol] 104 mmol/L Normal 98-107 [facility] Comment on above: Performed By: #### B CHRISTOPHER, HSTROPN #### [facility] [address] [address] [address] Henry Dozier CO2 [Moles/Vol] 25.9 mmol/L Normal 21.0-32.0 [facility] Comment on above: Performed By: #### B CHRISTOPHER, HSTROPN #### [facility] [address] [place] [address] Dr. Henry Dozier Creatinine [Mass/Vol] 1.02 mg/dL Normal 0.55-1.02 [facility] Comment on above: Performed By: #### B CHRISTOPHER, HSTROPN #### [facility] [address] [place] [address] Dr. Henry Dozier EGFR-AF CAMEROONIAN >60 Normal >=60 [facility] Comment on above: Performed By: #### B CHRISTOPHER, HSTROPN #### [facility] [address] [place] [address] Dr. Henry Dozier EGFR-NON AF CAMEROONIAN 52 mL/min/1.73m2 Critically low >=60 [facility] Comment on above: Performed By: #### B CHRISTOPHER, HSTROPN #### [facility] [address] [place] [address] Dr. Henry Dozier Glucose [Mass/Vol] 170 mg/dL Critically high 74-106 [facility] Comment on above: Performed By: #### B CHRISTOPHER, HSTROPN #### [facility] [address] [place] [address] Dr. Henry Dozier Potassium [Moles/Vol] 4.0 mmol/L Normal 3.5-5.1 [facility] Comment on above: Performed By: #### B CHRISTOPHER, HSTROPN #### [facility] [address] [place] [address] Dr. Henry Dozier Sodium [Moles/Vol] 135 mmol/L Critically low 136-145 [facility] Comment on above: Performed By: #### B CHRISTOPHER, HSTROPN #### [facility] [address] [place], [place] [address] Dr. Henry Dozier Urea nitrogen [Mass/Vol] 17.0 mg/dL Normal 7.0-18.0 [facility] Comment on above: Performed By: #### B CHRISTOPHER, HSTROPN #### [facility] [address] [address] [address] Henry Dozier Urea nitrogen/Creatinine [Mass ratio] 16.7 mg/mg Normal [facility] Comment on above: Performed By: #### B CHRISTOPHER, HSTROPN #### [facility] [address] [place] [address] Dr. Henry Dozier TROPONIN, HIGH SENSITIVITYon 02-07-2022 HSTROP 25.2 pg/mL Normal 4.0-51.3 [facility] Comment on above: Result Comment: CUT- OFF POINTS HAVE BEEN ESTABLISHED BASED ON THE FOURTH UNIVERSAL DEFINITIONS OF MYOCARDIAL INFARCTION. THE UPPER REFERENCE LIMIT (URL) OF TROPONIN, DEFINED THE 99TH PERCENTILE OF cTnI DISTRIBUTION IN A REFERENCE POPULATION, HAS BEEN CONFIRMED THE DECISION THRESHOLD FOR MD DIAGNOSIS. Performed By: #### B CHRISTOPHER, HSTROPN #### [facility] [address] [place] [address] Dr. Henry Dozier XR CHEST 1 Von [...] by: YU JUNIOR Date: 2022-02-07 16:20 Normal [facility] Vital Signs Date Time Vital Sign Value Performing Clinician Cipriano edwardsy 03-06-2024 13:52-0400 Body height 165.1 cm Pia Talley NP Work Phone: [facility] 03-06-2024 13:52-0400 Body mass index (BMI) [Ratio] 16.54 kg/m2 Pia Talley ROAD CONSULTANT Work Phone: [facility] 03-06-2024 13:52-0400 Body weight 45.[address] CONSULTANT Work Phone: [facility] 03-06-2024 13:52-0400 Diastolic blood pressure 60 mm[Hg] Pia Talley ROAD CONSULTANT Work Phone: [facility] 03-06-2024 13:52-0400 Heart rate 76 /min Pia Talley ROAD CONSULTANT Work Phone: [facility] 03-06-2024 13:52-0400 SaO2% (BldA) [Mass fraction] 96 % Pia Talley ROAD CONSULTANT Work Phone: [facility] 03-06-2024 13:52-0400 Systolic blood pressure 130 mm[Hg] Pia Talley ROAD CONSULTANT Work Phone: [facility] 08-03-2023 13:33-0500 Diastolic blood pressure 60 mm[Hg] Aristeo Garcia MD Work Phone: [facility] 08-03-2023 13:33-0500 Systolic blood pressure 110 mm[Hg] Aristeo Garcia MD Work Phone: [facility] 08-03-2023 13:30-0500 Body height 165.1 cm Aristeo Garcia MD Work Phone: [facility] 08-03-2023 13:30-0500 Body mass index (BMI) [Ratio] 17.14 kg/m2 Aristeo Garcia MD Work Phone: [facility] 08-03-2023 13:30-0500 Body weight 46.72 kg Aristeo Garcia MD Work Phone: [facility] Encounters Encounter Date Encounter Type Care Provider Facility Start: 03-30-2024 End: 03-30-[address] CONSULTANT Work Phone: [facility] Comment on above: COPD mixed type (CMS /HCC) Start: 03-30-2024 End: 03-30-2024 ambulatory [facility] Start: 03-28-2024 End: 03-28-2024 Refill Tonja Gilliam MD Work Phone: [facility] Comment on above: Type 2 diabetes ricardo itus with diabetic autonomic neuropathy, with long-term current use of insulin (CMS/HCC) Start: 03-20-2024 End: 03-20-2024 Telephone encounter Pia Talley RO[address] CONSULTANT Work Phone: [facility] Start: 03-20-2024 End: 03-20-2024 ambulatory [facility] Start: 03-16-2024 End: 03-16-[address] CONSULTANT Work Phone: [facility] Comment on above: COPD mixed type (CMS /HCC) Start: 03-16-2024 End: 03-16-2024 Refill Tonja Gilliam MD Work Phone: [facility] Comment on above: COPD mixed type (CMS /HCC) Start: 03-14-2024 End: 03-14-2024 Telephone encounter Tonja Gilliam MD Work Phone: [facility] Start: 03-14-2024 End: 03-14-2024 ambulatory [facility] Start: 03-06-2024 End: 03-06-2024 Bamboo flowsheet Pia Talley ROAD CONSULTANT Work Phone: [facility] Start: 03-06-2024 End: 03-06-2024 Bamboo flowsheet Pia Talley ROAD CONSULTANT Work Phone: [facility] Start: 03-06-2024 End: 03-06-2024 Transitional care manage srvc 7 day discharge Pia Talley [address] CONSULTANT Work Phone: [facility] Comment on above: Abnormal PET scan of lung (Primary Dx); Acute on chronic respiratory failure with hypoxia (CMS/HCC); Acute systolic congestive heart failure (CMS/HCC); Chronic obstructive pulmonary disease, unspecified COPD type (CMS/HCC); Coronary artery disease involving tunica-biloxi coronary artery of tunica-biloxi heart without angina pectoris (CMS/HCC); Primary hypertension (CMS/HCC); Type 2 diabetes mellitus with hyperglycemia, with long-term current use of insulin (CMS/HCC); Severe malnutrition (CMS/HCC); 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) Start: 03-06-2024 End: 03-06-2024 ambulatory IPA MAYANK Not Available Start: 03-03-2024 End: 03-03-2024 Telephone encounter Pia Talley NP Work Phone: [facility] Start: 03-03-2024 End: 03-03-2024 [facility] Start: 03-02-2024 End: 03-02-2024 ambulatory [facility] Start: 02-15-2024 End: 02-15-2024 ambulatory [facility] Start: 02-08-2024 End: 02-08-2024 ambulatory [facility] Start: 02-07-2024 End: 02-07-2024 ambulatory [facility] Start: 01-21-2024 End: 03-02-2024 Telephone encounter Tonja Gilliam MD Work Phone: [facility] Start: 01-12-2024 End: 01-12-2024 ambulatory PIA TALLEY Not Available Start: 09-03-2023 End: 09-03-2023 ambulatory MIAMI [facility] Start: 08-25-2023 End: 08-25-2023 [facility] Start: 08-18-2023 End: 08-18-2023 Emergency department patient visit TONJA Josue [facility] Start: 08-11-2023 End: 08-30-2023 ambulatory YANIQUE BURCIAGA [facility] Start: 08-03-2023 End: 08-03-[address] 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 ([facility]) (Primary Dx); Essential hypertension; Mixed hyperlipidemia; Renal artery stenosis ([facility]) Start: 07-27-2023 End: 07-27-2023 ambulatory PIA KAMPFER [...] Start: 06-24-2023 Telephone encounter [facility] Start: 06-23-2023 End: 06-23-2023 ambulatory SB [...] Start: 02-07-2022 End: 02-07-[address] [facility]CC[facility] Facility:H1 Procedures Date Procedure Procedure Detail Performing Clinician Start: 03-06-2024 Complete blood count with white cell differential, automated Pia Blandonadalberto ROAD CONSULTANT Work Phone: Start: 03-06-2024 Comprehensive metabo lic panel Pia Talley ROAD CONSULTANT Work Phone: Start: 02-15-2024 Follow-up visit Follow-up ARISTEO GARCIA Start: 06-23-2023 Follow-up visit Follow-up SB LOCO Start: 09-30-2022 History of placement of stent for coronary artery disease S/P coronary artery stent placement Tonja Gilliam MD Work Phone: Plan of Treatment Date Care Activity Detail Author Start: 03-23-2025 Urine screening for protein Diabetes: Urine Protein Screening [facility] Start: 03-06-2025 Urine screening for protein Diabetes: Urine Protein Screening [facility] Start: 01-11-2025 Urine screening for protein Diabetes: Urine Protein Screening [facility] Start: 08-02-2024 Adult BMI Screening Adult BMI Screen [facility] Start: 08-02-2024 Tobacco Screening Tobacco Screening [facility] Start: 06-23-2024 Adult BMI Screening Adult BMI Screen [facility] Start: 06-23-2024 Tobacco Screening Tobacco Screening [facility] Start: 06-12-2024 Adult BMI Screening Adult BMI Screen [facility] hospital Start: 06-10-2024 Tobacco Screening Tobacco Screening [facility] Start: 05-09-2024 End: 05-09-2024 Patient encounter procedure 05/09/2024 2:00 PM EST Office Visit [facility] [place] [address] Aristeo Garcia MD [address] [place] [address] [facility] Start: 04-13-2024 Hemoglobin A1c measurement Diabetes: Hemoglobin A1C [facility] Start: 04-03-2024 End: 04-03-2024 Professional / ancillary services management 04/03/2024 2:30 PM EST Ancillary Procedure [facility] [address] [place] [address] [facility] Start: 03-06-2024 End: 03-06-2024 Patient encounter procedure [facility] Comment on above: Arrived Start: 02-15-2024 End: 02-15-2024 Patient encounter procedure 02/15/2024 1:30 PM EDT Office Visit [facility] [address] [place] [id number] Aristeo Garcia MD [address] [id number] [facility] Start: 02-08-2024 End: 02-08-2024 Patient encounter procedure [facility] Start: 01-30-2024 Influenza vaccination Influenza Vacc ine (#1) [facility] Start: 09-07-2023 Hemoglobin A1c measurement Diabetes: Hemoglobin A1C [facility] Start: 08-11-2023 End: 08-11-2023 Patient encounter procedure 08/11/2023 1:20 PM EDT Office Visit [facility] [address] [place] [id number] Yanique Burciaga, LOAN DOCUMENTATION SPECIALIST-MOLDED [employer]AND[employer] [address] [place] [address] [facility] [place] [facility] Start: 08-03-2023 End: 08-02-2024 US.doppler Extremity arteries - bilateral for physiologic artery study at rest and with exercise Vasc art doppler lwr PVR W/exercise Vascular Ultrasound Routine 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 ([facility]) Expected: 08/03/2023, Expires: 08/02/2024 [facility] Comment on above: Expected: 08/03/2023 , Expires: 08/02/2024 Start: 08-03-2023 End: 08-02-2024 US.doppler Lower extremity artery - bilateral Vas art duplex lwr bilateral Vascular Ultrasound Routine 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 ([facility]) Expected: 08/03/2023, Expires: 08/02/2024 [employer] Work Phone: Comment on above: Expected: 08/03/2023 , Expires: 08/02/2024 Start: 08-03-2023 End: 08-02-2024 US.doppler Renal vessels - bilateral Vas renal artery duplex complete Vascular Ultrasound Routine Renal artery stenosis ([facility]) Expected: 08/03/2023, Expires: 08/02/2024 [facility] [employer] Comment on above: Expected: 08/03/2023 , Expires: 08/02/2024 Start: 06-23-2023 End: 06-23-2023 Patient encounter procedure 06/23/2023 8:00 AM EST [facility] [address] [place] [address] Sb Loco MD [address] [place] [address] [facility] Start: 03-19-2023 Medicare Annual Well ness (AWV) Medicare Annual Wellness (AWV) [facility] Start: 01-29-2023 [facility] Start: 2007 Fall Risk Screening [facility] Start: 1992 Administration of varicella zoster vaccine Zoster (Shingles) Vaccine (1 of 2) [facility] Start: 1961 DTaP,Tdap and Td Vac cines (1 - Tdap) DTaP,Tdap and Td Vaccines (1 - Tdap) [facility] Start: 1960 Adult BMI Follow Up Plan Adult BMI Follow Up Plan [facility] Start: 1954 Depression Screening [facility] Start: 1952 Glaucoma screening Diabetes: R etinopathy Screening [facility] Start: 1942 Medicare Annual Well ness Visit Medicare Annual Wellness [facility] Start: 1942 Tobacco Counseling Tobacco Counselshola g [facility] Immunizations Immunization Date Immunization Notes Care Provider Fa nicholas 03-15-2023 Pneumococcal Conjuga te PCV 20 Tonja Gilliam MD Work Phone: [facility] Payers Date Payer Category Payer Medicaid [employer] MEDICARE A DVANTAGE [id number] 2023 Medicare [id number] 2022 Medicare [id number] 2022 Medicare [id number] 2020 Unknown [id number] 1942 Unknown [id number] 2.16.840.1.013293.3.579.2.593 1942 Unknown [id number] 2.16.840.1.918662.3.579.2.1286 1942 Unknown [id number] 2.16.840.1.375670.3.579.2.1259 1942 Unknown [id number] 2.16.840.1.286413.3.579.2.1259 1942 Unknown [id number] 2.16.840.1.485907.3.579.2.1259 1942 Unknown [id number] 2.16.840.1.040894.3.579.2.1259 1942 Unknown [id number] 2.16.840.1.612975.3.579.2.1259 1942 Unknown [id number] 2.16.840.1.048359.3.579.2.9 1942 Unknown [id number] 2.16.840.1.894556.3.579.2.125 1942 Unknown [id number] 2.16.840.1.151370.3.579.2.125 1942 Unknown [id number] 2.16.840.1.903947.3.579.2.1258 1942 Unknown [id number] 2.16.840.1.645891.3.579.2.1258 1942 Unknown [id number] 2.16.840.1.336141.3.579.2.1258 1942 Unknown [id number] 2.16.840.1.618621.3.579.2.125 1942 Unknown [id number] 2.16.840.1.073344.3.579.2.1258 1942 Unknown [id number] 2.16.840.1.987410.3.579.2.1258 1942 Unknown [id number] 2.16.840.1.975013.3.579.2.128 1942 Unknown [id number] 2.16.840.1.212170.3.579.2.128 1942 Unknown [id number] 2.16.840.1.053194.3.579.2.128 1942 Unknown [id number] 2.16.840.1.690555.3.579.2.128 1942 Unknown [id number] 2.16.840.1.270983.3.579.2.128 1942 Unknown [id number] 2.16.840.1.592956.3.579.2.1286 1942 Unknown [id number] 2.16.840.1.013759.3.579.2.1286 1942 Unknown [id number] 2.16.840.1.768377.3.579.2.1286 1942 Unknown [id number] 2.16.840.1.809538.3.579.2.1286 1942 Unknown [id number] 2.16.840.1.289662.3.579.2.1286 1942 Unknown [id number] 2.16.840.1.300779.3.579.2.1286 1942 Unknown [id number] 2.16.840.1.840230.3.579.2.1286 Social History Date Type Detail Facility Start: 12-05-2021 End: 01-12-2024 Tobacco smoking status MOIS Smokes tobacco daily [facility] History of tobacco use Cigarette Smoker P [facility] Start: 12-05-2021 End: 01-12-2024 Tobacco use and exposure Smokeless tobacco non-user [facility] Start: 06-10-2023 End: 03-06-2024 Alcohol intake Lifetime non-drinker (finding) [facility] Start: 11-25-2022 End: 06-11-2023 History of Social function [facility] Start: 11-25-2022 End: 06-11-2023 [facility] Utilities [facility] Has the [employer], or [employer] threatened to shut off services in your home in past 12Mo No [facility] In the past 12 month s, has lack of transportation kept you from medical appointments or from getting medications? No [facility] Start: 1940 Sex Assigned At Not on file [facility] Start: 06-23-2023 End: 08-03-2023 Alcohol intake Ex-drinker (finding) [facility] Are you now , , , , never or living with a partner? [facility] How often to you hav e a drink containing alcohol? Never [facility] Do you feel stress - tense, restless, nervous, or anxious, or unable to sleep at night because your mind is troubled all the time - these days [OSQ] Not at all [facility] (I/We) worried wheth er (my/our) food would run out before (I/we) got money to buy more. Never true [facility] Start: 06-08-2023 Alcohol Comment caffeine: 1 cups per day coffee [facility] Start: 07-20-2023 Alcohol Comment caffeine: 2 cups per day coffee [facility] Medical Equipment Procedure Code Equipment Code Equipment Origin al Text Equipment Identifier Dates [id number] Start: 07-31-2022 [employer] Lancets 33G arbuckle [facility] [id number] Start: 12-29-2022 Inject 1 each un raymond the skin Daily Use as instructed [id number] Start: 08-25-2023 TEST FINGERSTICK BLOOD SUGAR TWICE DAILY DIRECTED [id number] Start: 12-27-2023 Inject 1 each un raymond the skin Daily Use as instructed [id number] Start: 03-20-2024 End: 03-28-2024 Inject 1 each un raymond the skin Daily Use as instructed [id number] Start: 03-28-2024 Clinical Notes 06-15-2023 to 03-28-2024 [...] has not been able to ge them. [facility] 03-28-2024 Miscellaneous Notes Pt states she has been trying to get her needles refilled and has not been able to ge them. documented in this encounter [facility] 03-20-2024 Telephone encounter Note Patient is requesting droplet pen needles for insulin pens. Only has one left. [facility]ses [facility] [place]. Thank you. [facility] 03-20-2024 Miscellaneous Notes Patient is requesting droplet pen needles for insulin pens. Only has one left. [facility]ses [facility] [place]. Thank you. documented in this encounter [facility] 03-16-2024 Telephone encounter Note Giulia cardoza [facility] is calling today requesting droplet pen needles. [...] Thank you. Any questions please call Giulia [phone]. [facility] 03-16-2024 Miscellaneous Notes Giulia cardoza [facility] is calling today requesting droplet pen needles. [...] Thank you. Any questions please call Giulia [phone]. documented in this encounter [facility] 03-14-2024 Telephone encounter Note [facility] called - They are asking for an order for Residential and PT services . Fax to [phone] [facility] 03-14-2024 Miscellaneous Notes [facility] called - They are asking for an order for Residential and PT services . Fax to [phone] documented in this encounter [facility] 03-14-2024 Note [facility] [...] arteries stents. She used to follow-up with [facility] and she switched to [facility]. The patient has chronic dyspnea [...] kidney disease, COPD (chronic obstructive pulmonary disease) ([facility]/HCC), Coronary artery disease, Diabetes mellitus ([facility]/HCC), Hyperlipidemia, Hypertension, LBBB (left bundle branch block), Myocardial infarction ([facility]/HCC), NICM (nonischemic cardiomyopathy) ([facility]), and PAD (peripheral artery disease) ([facility]). Surgical History She has a past [...] 9.3, hematocrit 30, (more content not included)... [facility] 03-06-2024 History of Presen t illness Narrative [...] Flowsheet Row Office Visit from 03/06/2024 in [facility] with Pia Talley NP Hospital Information ED, Hospital or Residential Facility Discharge? ED Patient has been contacted [...] Air Glucose Meter) w/Device kit USE DIRECTED Fttkngr-Ltllyxeamqe-Tibxjdigdm (Breztri Aerosphere) 160-9-4.8 MCG/ACT aerosol 2 puffs, [...] SUGAR TWICE DAILY DIRECTED TRUEplus Lancets 33G [facility] REVIEW OF SYMPTOMS: Review of Systems OBJECTIVE: [...] type (CMS/HCC) -Stable Coronary artery disease involving tunica-biloxi coronary artery of tunica-biloxi heart without angina pectoris ([facility]) -On a statin, plavix and ASA Primary hypertension ([facility]) - Comprehensive metabolic panel; Future - [...] hyperglycemia, with long-term current use of insulin ([facility]) - Comprehensive metabolic panel; Future -Rybelsus was stopped. Will see how her blood sugars are running before making any changes to her insulin regimen. Severe malnutrition ([facility]) - Comprehensive metabolic panel; Future -Continue boost daily. Concern for underlying cancer r/t her abnormal PET scan results which could be contributing to her malnutrition however she is also struggling with obtain groceries. 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 PAD. No need to see neurology, I can treat her neuropathy, will trial her on a very low dose of duloxetine and see how she does. documented in this encounter [facility] 03-03-2024 Telephone encounter Note Call and get her records from recent hospital stay at [facility] 03-03-2024 Miscellaneous Notes Call and get her records from recent hospital stay at [facility] documented in this encounter [facility] 02-07-2024 Note [facility] Note Reason for cardiology [...] arteries stents. She used to follow-up with [facility] and she switched to [facility]. The patient has chronic dyspnea [...] kidney disease, COPD (chronic obstructive pulmonary disease) ([facility]), Coronary artery disease, Diabetes mellitus ([facility]), Hyperlipidemia, Hypertension, LBBB (left bundle branch block), Myocardial infarction ([facility]), NICM (nonischemic cardiomyopathy) ([facility]), and PAD (peripheral artery disease) ([facility]). Surgical History She has a past [...] Lower extremities arteri (more content not included)... [facility] 01-21-2024 Telephone encounter Note Pt called asking for help to figure out if she can have her PET scan and the copay. Also would like help finding a real estate lawyer close to her. She received a call from [facility] for a Card. And [facility] called her the other day. [facility] 01-21-2024 Miscellaneous Notes Pt called asking for help to figure out if she can have her PET scan and the copay. Also would like help finding a real estate lawyer close to her. She received a call from [facility] for a Card. And [facility] called her the other day. documented in this encounter [facility] 08-03-2023 History of Presen t illness Narrative Images from the original note were not included. [facility] [address] [place] [address] Subjective: Patient ID: Marietta Mitchell is a [...] who presents today for consultation at the [facility] [place] due to history of peripheral artery disease. Patient states she has had 6 stents placed in her right leg and 1 stent placed in her left leg in [place] in 2019/2020. She heard of medications to [...] by mouth as needed., Disp: , Rfl: cxsijawcjl-qawegufq-qvpwzrqklx (BREZTRI AEROSPHERE) 160-9-4.8 mcg/actuation HFA aerosol inhaler, [...] 12/10/2021 Performed by Rickey Sotelo MD at [facility] EGD Left Lateral 12/09/2021 Performed by Michelle Bosch MD at [facility] Family History Problem Relation Age of [...] all orders for this visit: Atherosclerosis of [place] artery of lower extremity with intermittent claudication([facility]) Patient has history of peripheral artery disease with remote stenting in her right and left leg and [place] . Arterial duplex report of bilateral extremity [...] Chavez PA-C Interventional Cardiology and Endovascular Interventions [facility] [place] [facility] documented in this encounter [facility] 07-13-2023 Telephone encounter Note Pt left vm stating that her insurance [employer] does not cover a in [facility]. Some told her she could go to [facility] so she wants you to find a referral for a DrOlimpia In [facility] and schedule her. The message did not mention what the referral was for. Please return patient call to [phone] [facility] 07-13-2023 Miscellaneous Notes Pt left stating that her insurance [employer] does not cover a in [facility]. Some told her she could go to [facility] so she wants you to find a referral for a DrOlimpia In [facility] and schedule her. The message did not mention what the referral was for. Please return patient call to [phone] documented in this encounter [facility] 06-24-2023 Miscellaneous Notes Patient has [employer] Medicare and was explained she could be seen in our office but the only provider in network is Dr. Garcia patient has a appointment tomorrow with [facility] she will try to get a provider though them. documented in this encounter [facility] 06-24-2023 Telephone encounter Note Patient has [employer] Medicare and was explained she could be seen in our office but the only provider in network is Dr. Garcia patient has a appointment tomorrow with [facility] she will try to get a provider though them. [facility] 06-15-2023 Miscellaneous Notes This is notification that we received referral from: Dx: NSTEMI Not new l/s: consulted by LLD as inpt 05/2023 Please schedule f/u documented in this encounter [facility] 06-15-2023 Telephone encounter Note This is notification that we received referral from: Dx: NSTEMI Not new l/s: consulted by GEETHA as inpt 05/2023 Please schedule f/u [facility] Evaluation note Diagnosis 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 ([facility]-HCC)- Primary Essential hypertension Unspecified essential hypertension Mixed hyperlipidemia Renal artery stenosis ([facility]-HCC) Atherosclerosis of renal artery documented in this encounter [facility]* Diagnosis Abnormal PET scan of lung- Primary Acute on chronic respiratory failure with hypoxia (CMS/HCC) Acute systolic congestive heart failure ([facility]/HCC) Chronic obstructive pulmonary disease, unspecified COPD type ([facility]/HCC) Coronary artery disease involving tunica-biloxi coronary artery of tunica-biloxi heart without angina pectoris ([facility]/HCC) Primary hypertension ([facility]/HCC) Unspecified essential hypertension Type 2 diabetes mellitus with hyperglycemia, with long-term current use of insulin ([facility]/HCC) Severe malnutrition ([facility]/HCC) 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 ([facility]/HCC) documented in this encounter [facility]* Diagnosis Peripheral vascular disease ([facility]/HCC)- Primary Unspecified peripheral vascular disease Pulmonary nodule Other diseases of lung, not elsewhere classified Mixed hyperlipidemia (CMS/HCC) Mixed hyperlipidemia Peripheral arterial disease (CMS/HCC) Unspecified peripheral vascular disease NSTEMI (non-ST elevated myocardial infarction) ([facility]/HCC) Acute myocardial infarction, subendocardial infarction, episode of care unspecified Cigarette nicotine dependence without complication Essential hypertension (CMS/HCC) Unspecified essential hypertension Atherosclerotic heart disease of tun[place]-biloxi coronary artery with other forms of angina [...] Stage 3a chronic kidney disease (HCC) (CMS/HCC) supervisor 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 current use of insulin (CMS/HCC) assisted (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 (Z79.4) 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) Atherosclerosis of aorta (I70.0) Atherosclerosis of aorta Atherosclerotic heart disease of tun[place]-biloxi coronary artery with other forms of angina pectoris (I25.118) Chronic obstructive pulmonary disease, unspecified COPD type (CMS/HCC) 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) Aneurysm of ascending aorta without rupture ([facility]/HCC) Thoracic aortic ectasia (I77.810) Thoracic aortic ectasia Type 2 diabetes mellitus with diabetic peripheral angiopathy without gangrene, with long-term current use of insulin ([facility]/HCC) Peripheral vascular disease, unspecified (I73.9) Peripheral vascular disease, unspecified Cardiomyopathy, unspecified type ([facility]) Encounter for wellness examination- Primary Essential hypertension ([facility]) Unspecified essential hypertension Type 2 diabetes mellitus with hyperglycemia, with long-term current use of insulin (CMS/HCC) Mixed hyperlipidemia (CMS/HCC) Mixed hyperlipidemia Stage 3b chronic kidney disease (HCC) (CMS/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) Seasonal allergies Allergic rhinitis, cause unspecified S/P coronary artery stent placement Postsurgical percutaneous transluminal coronary angioplasty status GERD without esophagitis Esophageal reflux 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) Aneurysm of ascending aorta without rupture (CMS/HCC) Atherosclerosis of aorta (I70.0) Atherosclerosis of aorta Atherosclerosis of coronary artery of tunica-biloxi heart without angina pectoris, unspecified vessel or lesion type (CMS/HCC) Cardiomyopathy, unspecified type (CMS/HCC) Peripheral vascular disease (CMS/HCC) Unspecified peripheral vascular disease Diabetic nephropathy associated with type 2 diabetes mellitus (HCC) (CMS/[facility]) supervisor 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 current use of insulin (CMS/HCC) Cigarette nicotine dependence without complication Anxiety, generalized (CMS/HCC) COPD mixed type ([facility]/HCC) documented in this encounter [facility]* Diagnosis Peripheral vascular disease (CMS/HCC)- Primary Unspecified peripheral vascular disease Pulmonary nodule Other diseases of lung, not elsewhere classified Mixed hyperlipidemia (CMS/HCC) Mixed hyperlipidemia Peripheral arterial disease (CMS/HCC) Unspecified peripheral vascular disease NSTEMI (non-ST elevated myocardial infarction) ([facility]) Acute myocardial infarction, subendocardial infarction, episode of care unspecified Cigarette nicotine dependence without complication Essential hypertension (CMS/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) Wound cellulitis- Primary Type 2 diabetes mellitus with diabetic autonomic neuropathy, with long-term current use of insulin ([facility]) Peripheral vascular disease (CMS/HCC) Unspecified peripheral vascular disease Peripheral arterial disease ([facility]/HCC) Unspecified peripheral vascular disease Stage 3a chronic kidney disease (HCC) ([facility]) assisted current use of insulin (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) Peripheral vascular disease, unspecified (I73.9) Peripheral vascular disease, unspecified Cardiomyopathy, unspecified type ([facility]) Encounter for wellness examination- Primary Essential hypertension ([facility]) Unspecified essential hypertension Type 2 diabetes mellitus with hyperglycemia, with long-term current use of insulin ([facility] Mixed hyperlipidemia ([facility]) Mixed hyperlipidemia Stage 3b chronic kidney disease (HCC) ([facility]) Iron deficiency anemia, unspecified iron deficiency anemia type Underweight Vitamin D deficiency Screening mammogram for breast cancer Pulmonary nodule Other diseases of lung, not elsewhere classified Unspecified protein-calorie malnutrition ([facility]) Unspecified protein-calorie malnutrition Immunodeficiency due to conditions classified elsewhere ([facility]) COPD mixed type (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) Aneurysm of ascending aorta without rupture ([facility]) Atherosclerosis of aorta (I70.0) Atherosclerosis of aorta Atherosclerosis of coronary artery of tun[place]-biloxi heart without angina pectoris, unspecified vessel or lesion type ([facility]) Cardiomyopathy, unspecified type ([facility]) Peripheral vascular disease ([facility]) Unspecified peripheral vascular disease Diabetic nephropathy associated with type 2 diabetes mellitus (HCC) ([facility]) supervisor 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 current use of insulin ([facility]) Cigarette nicotine dependence without complication Anxiety, generalized ([facility] COPD mixed type ([facility]) documented in this encounter [facility] HealthcareEvaluation note* Diagnosis Peripheral vascular disease ([facility])- Primary Unspecified peripheral vascular disease Pulmonary nodule Other diseases of lung, not elsewhere classified Mixed hyperlipidemia ([facility]) Mixed hyperlipidemia Peripheral arterial disease ([facility]) Unspecified peripheral vascular disease NSTEMI (non-ST elevated myocardial infarction) ([facility]) Acute myocardial infarction, subendocardial infarction, episode of care unspecified Cigarette nicotine dependence without complication Essential hypertension (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) Peripheral vascular disease, unspecified (I73.9) Peripheral vascular disease, unspecified Cardiomyopathy, unspecified type ([facility]) Encounter for wellness examination- Primary Essential hypertension ([facility]) Unspecified essential hypertension Type 2 diabetes mellitus with hyperglycemia, with long-term current use of insulin ([facility]) Mixed hyperlipidemia (CMS/HCC) Mixed hyperlipidemia Stage 3b chronic kidney disease (HCC) (CMS/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) Peripheral vascular disease ([facility]) Unspecified peripheral vascular disease Diabetic nephropathy associated with type 2 diabetes mellitus (HCC) ([facility]) assisted current use of insulin ([facility]) Cigarette nicotine dependence without complication Anxiety, generalized ([facility]) Type 2 diabetes mellitus with diabetic autonomic neuropathy, with long-term current use of insulin ([facility]) documented in this encounter [facility] HealthcareEvaluation note* Diagnosis Peripheral vascular disease ([facility])- Primary Unspecified peripheral vascular disease Pulmonary nodule Other diseases of lung, not elsewhere classified Mixed hyperlipidemia ([facility]) Mixed hyperlipidemia Peripheral arterial disease ([facility]) Unspecified peripheral vascular disease NSTEMI (non-ST elevated myocardial infarction) ([facility]) Acute myocardial infarction, subendocardial infarction, episode of care unspecified Cigarette nicotine dependence without complication Essential hypertension (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) Wound cellulitis- Primary Type 2 diabetes mellitus with diabetic autonomic neuropathy, with long-term current use of insulin ([facility]) Peripheral vascular disease ([facility]) Unspecified peripheral vascular disease Peripheral arterial disease ([facility]) Unspecified peripheral vascular disease Stage 3a chronic kidney disease (HCC) ([facility]) assisted current use of insulin (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) Thoracic aortic ectasia (I77.810) Thoracic aortic ectasia Type 2 diabetes mellitus with diabetic peripheral angiopathy without gangrene, with long-term current use of insulin ([facility]) Peripheral vascular disease, unspecified (I73.9) Peripheral [...] of aorta Atherosclerosis of coronary artery of [place] heart without angina pectoris, unspecified vessel or lesion type (CMS/HCC) Cardiomyopathy, unspecified type (CMS/HCC) Peripheral vascular disease (CMS/HCC) Unspecified peripheral vascular disease Diabetic nephropathy associated with type 2 diabetes mellitus (HCC) (CMS/HCC) assisted current use of insulin (CMS/HCC) Cigarette nicotine dependence without complication Anxiety, generalized (CMS/HCC) COPD mixed type (CMS/HCC) documented in this encounter [facility] HealthcareInstructionsNot on filedocumented in this encounterProH[facility] SystemInstructionsNot on filedocumented in this encounterProHarrison [facility] SystemInstructionsNot on filedocumented in this encounterProHarrison [facility] SystemInstructionsNot on filedocumented in this encounterC[facility] Reason for referral (narrative)* Consultation (Urgent) - Pending Review Specialty Diagnoses / Procedures Referred By Velma cason Referred To Contact Oncology / Hematology and Oncology Diagnoses Abnormal PET scan of lung Procedures NC OFFICE/OUTPATIENT NEW HIGH MDM 60 MINUTES Pia Talley NP [address] [place] [address] Referral ID Status Reason Start Date Expiration Date Visits Requested Visits Authorized [id number] Pending Review Specialty Services Required 03/06/2024 09/02/2024 1 1 [place] for visit Narrative* Consultation (Routine) - Pending Review Specialty Diagnoses / Procedures Referred By Velma t Referred To Contact Vascular Surgery Diagnoses Peripheral vascular disease (CMS-HCC) Peripheral arterial disease (CMS-HCC) Procedures NC OFFICE OUTPATIENT VISIT 60-74 MINS HIGH MDM AMB REFERRAL TO VASCULAR SURGERY Pia Talley, LOAN DOCUMENTATION SPECIALIST-[employer] [address] [place] [address] Aristeo Garcia MD [address] [place] [address] Referral ID Status Reason Start Date Expiration Date V isits Requested Visits Authorized [id number] Pending Review 07/09/2023 01/05/2024 1 1 [facility] Summary Purpose Family History No Family [...] Dima Chavez PA-C [address] [place] [address] Referral ID Status Reason Start Date Expiration Date V isits Requested Visits Authorized [id number] Pending Review 08/03/2023 08/02/2024 1 1 Specialty Diagnoses / Procedures Referred By Contac t Referred To Contact Diagnoses 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 ([facility]-HCC) Procedures Vasc art doppler lwr PVR W/exercise Dima Chavez PA-C [address] [place] [address] Referral ID Status Reason Start Date Expiration Date V isits Requested Visits Authorized [id number] Pending Review 08/03/2023 08/02/2024 1 1 Specialty Diagnoses / Procedures Referred By Contac t Referred To Contact Diagnoses 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 DATE CREATED AUTHOR AUTHOR'S ORGANIZ ATION 03/07/2024 [facility] dical Specialists EPIC DATE CREATED AUTHOR AUTHOR'S ORGANIZ ATION 03/21/2024 [facility] DATE CREATED AUTHOR AUTHOR'S ORGANIZ ATION 03/21/2024 [facility] DATE CREATED AUTHOR AUTHOR'S ORGANIZ ATION 04/01/2024 [facility] Care Teams (unrecognized sec tion and content) Personnel Representative Relationship Specialty Start Date End Date Shila Molina DO [address] [place] [address] PCP - General Family Medicine 12/05/21 Personnel Representative Relationship Specialty Start Date End Date Tonja Gilliam MD [address] [place] [address] PCP - General Family Medicine 06/23/23 Personnel Representative Relationship Specialty Start Date End Date Shila Molina DO [address] [place] [address] PCP - [employer] 05/31/22 Tonja Gilliam MD [address] [place] [address] PCP - General Family Medicine 06/08/23 Pia Talley NP [address] [place] [address] Nurse Practitioner Family Medicine 06/08/23 Personnel Representative Relationship Specialty Start Date End Date Tonja Gilliam MD [address] [place] [address] PCP - General Family Medicine 06/23/23 Personnel Representative Relationship Specialty Start Date End Date Shila Molina DO [address] [place] [address] PCP - [employer] 05/31/22 Tonja Gilliam MD [address] [place] [address] PCP - General Family Medicine 06/08/23 Tonja Gilliam MD [address] [place] [address] PCP - [facility] 12/30/23 Pia Talley NP [address] [place] [address] Nurse Practitioner Family Medicine 06/08/23 Personnel Representative Relationship Specialty Start Date End Date JesseShila JoseloDO [address] [place] [address] PCP - [employer] 05/31/22 Tonja Gilliam MD [address] [place] [address] PCP - General Family Medicine 06/08/23 Tonja Gilliam MD [address] [place] [address] PCP - [employer] 12/30/23 Pia Talley NP [address] [place] [address] Nurse Practitioner Family Medicine 06/08/23 Personnel Representative Relationship Specialty Start Date End Date Shila Molina JoseloDO [address] [place] [address] PCP - [employer] 05/31/22 Tonja Gilliam MD [address] [place] [address] PCP - General Family Medicine 06/08/23 Tonja Gilliam MD [address] [place] [address] PCP - [employer] 12/30/23 Pia Talley NP [address] [place] [address] Nurse Practitioner Family Medicine 06/08/23 Personnel Representative Relationship Specialty Start Date End Date Shila Molina DO [address] [place] [address] PCP - [employer] 05/31/22 Tonja Gilliam MD [address] [place] [address] PCP - General Family Medicine 06/08/23 Tonja Gilliam MD [address] [place] [address] PCP - [employer] 12/30/23 Pia Talley NP [address] [place] [address] Nurse Practitioner Family Medicine 06/08/23 Personnel Representative Relationship Specialty Start Date End Date Shila Molina DO [address] [place] [address] PCP - [employer] 05/31/22 Tonja Gilliam MD [address] [place] [address] PCP - General Family Medicine 06/08/23 Tonja Gilliam MD [address] [place] [address] PCP - [employer] 12/30/23 Pia Talley NP [address] [place] [address] Nurse Practitioner Family Medicine 06/08/23 Personnel Representative Relationship Specialty Start Date End Date Shila Molina DO [address] [place] [address] PCP - [employer] 05/31/22 Tonja Gilliam MD [address] [place] [address] PCP - General Family Medicine 06/08/23 Tonja Gilliam MD [address] [place] [address] PCP - [employer] 12/30/23 Pia Talley NP [address] [place] [address] Nurse Practitioner Family Medicine 06/08/23 Personnel Representative Relationship Specialty Start Date End Date Shila Molina DO [address] [place] [address] PCP - [employer] 05/31/22 Tonja Gilliam MD [address] [place] [address] PCP - General Family Medicine 06/08/23 Tonja Gilliam MD [address] [place] [address] PCP - [employer] 12/30/23 Pia Talley NP [address] [place] [address] Nurse Practitioner Family Medicine 06/08/23 Personnel Representative Relationship Specialty Start Date End Date Shila Molina DO [address] [place] [address] PCP - [employer] 05/31/22 Tonja Gilliam MD [address] [place] [address] PCP - General Family Medicine 06/08/23 Tonja Gilliam MD [address] [place] [address] PCP - [employer] 12/30/23 Pia Talley NP [address] [place] [address] Nurse Practitioner Family Medicine 06/08/23 Personnel Representative Relationship Specialty Start Date End Date JesseShila thomasDO [address] [place] [address] PCP - [employer] 05/31/22 Tonja Gilliam MD [address] [place] [address] PCP - General Family Medicine 06/08/23 Tonja Gilliam MD [address] [place] [address] PCP - [employer] 12/30/23 Pia Talley NP [address] [place] [address] Nurse Practitioner Family Medicine 06/08/23 Reason for [...] BE BASED ON THE PRIMARY CLINICAL RECORDS. [facility] [employer] [facility]. provides no warranty or guarantee of the accuracy or completeness of information in this document.
[2024-04-05] MEDS: BUDESONIDE 0.5 MG/2 ML AMPULE NEB IH ×2 (11:25→23:21)
[2024-04-05] MEDS: IPRATROPIUM/ALBUTEROL SULFATE 3 ML AMPUL.NEB IH ×4 (11:25→23:21)
[2024-04-05 11:46] LABS: Glucometer 362 mg/dL (74-106)
[2024-04-05] MEDS: METOPROLOL SUCCINATE 50 MG TAB.ER.24H PO (11:54)
[2024-04-05] MEDS: ASPIRIN 81 MG TAB.CHEW PO (11:54)
[2024-04-05] MEDS: INSULIN ASPART 300 UNIT/3 ML PEN SUBQ ×3 (11:54→21:47)
[2024-04-05] MEDS: DULOXETINE HCL 20 MG CAPSULE.DR PO (11:54)
[2024-04-05] MEDS: MONTELUKAST SODIUM 10 MG TABLET PO (11:54)
[2024-04-05] MEDS: CLOPIDOGREL BISULFATE 75 MG TABLET PO (11:54)
[2024-04-05] MEDS: AZITHROMYCIN 250 MG TABLET 500 MG PO (11:54)
[2024-04-05] MEDS: OXYCODONE HCL 5 MG TABLET PO (11:55)
[2024-04-05] MEDS: METHYLPREDNISOLONE SOD SUCC PF 40 MG/ML VIAL IVP ×2 (12:55→21:47)
[2024-04-05] MEDS: ENOXAPARIN SODIUM 30 MG/0.3 ML SYRINGE SUBQ (12:55)
--- NOTE | 2024-04-05 14:39 | PM.HP ---
HPI H&P: HPI History of Present Illness Chief complaint: SHORTNESS OF BREATH, CHF, COPD Narrative: 83 y o female Patient presented to ED with of shortness of breath. She was just discharged yesterday from our facility after she was treated for COPD exacerbation, Acute on chronic diastolic HF. She said she was unable to fill her discharge medications- Lasix and steroids. She had increased work of breathing throughout the night and severe shortness of breath this morning so she called EMS. Upon arrival EMS reported that patient was in respiratory distress, was using accessory muscles and her pulse ox was 89% while on home O2. She was given breathing treatment on her way to the hospital. By the time she came to ED, she was still considerably SOB, with labored breathing and increased work of breathing for which she was placed on high flow Oxygen. Patient admitted for COPD exacerbation, on high flow, still tachypneic, using accessory neck muscle of respiration while on high flow. No infiltrate on CXR, renal function slightly worse than baseline, otherwise no acute/sig changes noted on initial labs done in ED. Patient denies fever/cough, chest pain, palpitations. Opioid HPI Opioid Management Most Recent Pain and Opioid Data: Last Pain Scale 0 04/05/24 14:20 04/05/24 Last Pain Intensity 2 04/03/24 16:08 04/03/24 Last Pain Assessment 04/05/24 14:20 Last ED Pain Assessment 04/05/24 07:32 Last MAR Pain Assessment 04/05/24 13:25 Last ORT Total Score 0 04/05/24 09:17 04/05/24 Last ORT Risk Category Low Risk 04/05/24 09:17 04/05/24 Review of Systems ROS Status of ROS 10 or more systems reviewed and unremarkable except as noted in history and below [facility] Medical History (Updated 04/05/24 @ 15:00 by Shaikh Benny MD) HFrEF (heart failure with reduced ejection fraction) ?I50.20 - Unspecified systolic (congestive) heart failure (ICD-10) Lung cancer ?C34.90 - Malignant neoplasm of unspecified part of unspecified bronchus or lung (ICD-10) Acute on chronic systolic (congestive) heart failure ?I50.23 - Acute on chronic systolic (congestive) heart failure (ICD-10) Acute on chronic respiratory failure with hypoxia ?J96.21 - Acute and chronic respiratory failure with hypoxia (ICD-10) Type 2 diabetes mellitus ?E11.9 - Type 2 diabetes mellitus without complications (ICD-10) HLD (hyperlipidemia) ?E78.5 - Hyperlipidemia, unspecified (ICD-10) PAD (peripheral artery disease) ?I73.9 - Peripheral vascular disease, unspecified (ICD-10) Chronic respiratory failure with hypoxia ?J96.11 - Chronic respiratory failure with hypoxia (ICD-10) HTN (hypertension) ?I10 - Essential (primary) hypertension (ICD-10) Current smoker ?F17.200 - Nicotine dependence, unspecified, uncomplicated (ICD-10) CAD (coronary artery disease) ?I25.10 - Atherosclerotic heart disease of [place] coronary artery without angina pectoris (ICD-10) COPD (chronic obstructive pulmonary disease) ?J44.9 - Chronic obstructive pulmonary disease, unspecified (ICD-10) Social History (Updated 02/26/24 @ 16:05 by Shaikh Benny MD) Within the past year, how often did you have a drink containing alcohol: never Within the past year, how many standard drinks containing alcohol did you have on a typical day: 1 or 2 Total score: 0 Score interpretation: A score less than 3 is consistent with normal alcohol consumption. Smoking status: Current every day smoker Non-prescribed substance use: denies use Highest level of school completed/degree received: don't know Little interest or pleasure in doing things: not at all Feeling down, depressed, or hopeless: not at all Meds Home Medications and Allergies Home Medications ?Medication ?Instructions ?Recorded ?Confirmed ?Type albuterol sulfate 2.5 mg/3 mL 2.5 mg inhalation Q4H PRN 02/26/24 04/05/24 History (0.083 %) solution for nebulization shortness of breath or wheezing albuterol sulfate 90 mcg/actuation 2 inh inhalation Q4H PRN shortness 02/26/24 04/05/24 History aerosol inhaler of breath or wheezing budesonide 160 mcg-glycopyr 9 2 inh inhalation BID 02/26/24 04/05/24 History mcg-formot 4.8 mcg/actuation HFA inhaler (Breztri Aerosphere) aspirin 81 mg chewable tablet 81 mg PO DAILY 02/27/24 04/05/24 History clopidogrel 75 mg tablet (Plavix) 75 mg PO DAILY 02/27/24 04/05/24 History glimepiride 4 mg tablet 4 mg PO DAILY 02/27/24 04/05/24 History losartan 100 mg tablet (Cozaar) 100 mg PO DAILY 02/27/24 04/05/24 History metformin 1,000 mg tablet 1,000 mg PO DAILY 02/27/24 04/05/24 History metoprolol succinate 50 mg 50 mg PO DAILY 02/27/24 04/05/24 History tablet,extended release 24 hr montelukast 10 mg tablet 10 mg PO DAILY 02/27/24 04/05/24 History (Singulair) pantoprazole 40 mg tablet,delayed 40 mg PO DAILY 02/27/24 04/05/24 History release (Protonix) rosuvastatin 20 mg tablet 20 mg PO DAILY 02/27/24 04/05/24 History spironolactone 25 mg tablet 12.5 mg (1/2 x 25 mg) PO DAILY #30 02/28/24 04/05/24 Rx (Aldactone) tabs duloxetine 20 mg capsule,delayed 20 mg PO DAILY 04/02/24 04/05/24 History release prednisone 20 mg tablet 20 mg PO BID #10 tabs 04/04/24 04/05/24 Rx furosemide 40 mg tablet (Lasix) 20 mg PO DAILY 04/05/24 04/05/24 History Allergies Allergy/AdvReac Type Severity Reaction Status Date / Time No Known Drug Allergies Allergy Verified 02/26/24 05:26 Exam Constitutional Vital Signs, click to edit/add: Last Vital Signs Temp 97.8 F 04/05/24 09:17 Pulse 68 04/05/24 14:00 Resp 20 04/05/24 11:26 BP 137/69 04/05/24 09:17 Pulse Ox 95 04/05/24 11:26 O2 Del Method Vapotherm 04/05/24 11:26 O2 Flow Rate 40 04/05/24 11:26 FiO2 30 04/05/24 11:26 General appearance: cooperative, in distress respiratory, ill appearing and frail appearing Nutritional appearance: cachectic and overweight Respiratory Effort & inspection: tachypneic, respiratory distress (using neck muscles) and labored Auscultation: wheezes inspiratory wheezes and diminished lung sounds Other: Conversational dyspnea noted. Cardio Common normals: regular rhythm, S1 normal heart sound and S2 normal heart sound Rate: tachycardic GI Common normals: Normal to inspection, nondistended, normoactive bowel sounds present, soft to palpation and non-tender Extremity Common normals: normal to inspection and no clubbing, cyanosis or edema Neuro Common normals: oriented x3, moves all extremities and no focal motor deficits Psych Common normals: mental status grossly normal, thought process normal, denies homicidal ideation and denies suicidal ideation Results Labs Labs: Short CBC 04/05/24 Range/Units 07:38 WBC 13.6 H (4.0-11.0) 10^3/uL Hgb 10.0 L (12.0-16.0) g/dL Hct 31.5 L (36.0-48.0) % Plt Count 217 (150-450) 10^3/uL BMP 04/05/24 07:38 Sodium 138 Potassium 3.9 Chloride 98 Carbon Dioxide 34.8 H BUN 62.0 H Creatinine 1.66 H Glucose 215 H Calcium 10.5 H Liver Function 04/05/24 Range/Units 07:38 Total Bilirubin 0.3 (0.2-1.0) mg/dL AST 19 (15-37) U/L ALT 27 (14-59) U/L Alkaline Phosphatase 112 (46-116) U/L Albumin 3.2 L (3.4-5.0) g/dL Assessment and Plan Assessment and Plan (1) COPD exacerbation: Assessment and Plan: Diminished air movement, wheezing, tachypneic with resp distress, evidence of accessory muscles of breathing. C/w solumedrol duonebs. No evidence of PNA on CXR. Monitor closely (2) HFrEF (heart failure with reduced ejection fraction): Assessment and Plan: Appears euvolemic. If anything quite possibly a little dry. Hold lasix. Monitor closely. BNP chronically elevated. (3) KULWANT (acute kidney injury): Assessment and Plan: cr 1.6, baseline serum cr is normal. KULWANT likely due to overdiuresis. Hold lasix, aldactone and losartan. Monitor renal fx closely. (4) Chronic respiratory failure with hypoxia: Assessment and Plan: While she does not have worsening hypoxia, she has increased work of breathing and is on high flow for it. Can wean off to NC once, she improves and appars comfortable. (5) HTN (hypertension): Assessment and Plan: c/w home medications. Hold aldactone, losartan and lasix. Qualifiers: Hypertension type: primary hypertension Qualified Code(s): I10 - Essential (primary) hypertension (6) HLD (hyperlipidemia): Assessment and Plan: c/w statin Qualifiers: Hyperlipidemia type: unspecified Qualified Code(s): E78.5 - Hyperlipidemia, unspecified (7) Type 2 diabetes mellitus: Assessment and Plan: hold oral medications. on SSI plus lantus, monitor blood glucose closely while on steroids. Qualifiers: Diabetes mellitus long term care pharmacist insulin use: without long term care pharmacist use Diabetes mellitus complication status: without complication Qualified Code(s): E11.9 - Type 2 diabetes mellitus without complications (8) Severe malnutrition: Assessment and Plan: Severe malnutrition due to chronic disease burden, severe COPD, loss of subcutaneous tissue, muscle mass. BMI of only 17.
[2024-04-05] MEDS: ENSURE ORIGINAL 237 ML BOTTLE PO ×2 (14:48→21:47)
--- NOTE | 2024-04-05 15:05 | SWNOTE1 ---
SW met with pt to discuss dc needs. Pt was discharged yesterday from hospital. Pt voiced she panicked and could not breathe. 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 SW asked what pharmacy, pt stated [facility]. SW advised pt that she should stop next time and check or call the pharmacy to see if ready. SW advised pt that prior to her dc this time SW will call the pharmacy to make sure her medications are ready. Pt in agreement. Pt does wear home oxygen, 2 liters thru [employer]. Pt has [employer] coming in as well. Pt and SW spoke about the possibility of needing rehab. Pt voiced she is not going to rehab and asked what they would do. Pt stated she does get up and move around at home just fine. Pt then asked SW about hospice. Pt stated her heart is not going to get better and she is not appropriate for surgery. SW let pt know that SW can reach out to hospice and they can come in and provide information on the resources they can provide. [facility] was supposed to be offering hospice soon but not sure when, SW to check. Pt does feel hospice would be good for her. SW reached out to [facility] and they voiced there hospice services are only in [facility] for now. SW to let pt know. SW will take pt some hospice pamphlets and resources and provide a list of hospice companies. SW updated nurse and doctor.
--- NOTE | 2024-04-05 15:42 | SWNOTE1 ---
SW spoke with pt about the other hospice companies in this area and provided her with pamphlets. She would like to speak with [facility] since they are based out of [place]. She is requesting just an informational meeting. Pt voiced feeling overwhelmed and is not sure 100% what she wants. SW advised pt that she does not have to sign on to hospice, this would just be hospice coming in and explaining the services they could offer. Pt in agreement. Pt daughter came in room as SW was speaking with pt. Pt voiced she has not told her daughter anything. SW did explain everything to daughter. Pt would like Hospice to coordinate time with SW not daughter. SOURAV reached out to Lenore at [facility] and sent information to [facility].
--- NOTE | 2024-04-05 15:47 | RESP.RT ---
Placed on 2L NC (wears at home)
--- NOTE | 2024-04-05 16:00 | RESP.RT ---
Pt wears 2L at home.
[2024-04-05 16:07] LABS: Glucometer 425 mg/dL (74-106)
[2024-04-05 20:09] LABS: Glucometer 478 mg/dL (74-106)
[2024-04-05] MEDS: INSULIN GLARGINE 300 UNIT/3 ML INSULN.PEN 15 UNIT SQ (21:48)
[2024-04-06] VITALS (14 sets, daily range): BP systolic 123–151; BP diastolic 54–78; PULSE 68–80; TEMP 36.6–36.8; O2SAT 93–99
[2024-04-06 00:16] LABS: Glucometer 250 mg/dL (74-106)
[2024-04-06] MEDS: IPRATROPIUM/ALBUTEROL SULFATE 3 ML AMPUL.NEB IH ×4 (03:44→16:05)
[2024-04-06] MEDS: METHYLPREDNISOLONE SOD SUCC PF 40 MG/ML VIAL IVP ×2 (04:08→12:07)
[2024-04-06] MEDS: OMEPRAZOLE 40 MG CAPSULE.DR PO (05:41)
[2024-04-06 06:08] LABS: Hematocrit 30.5 % (36.0-48.0); Hemoglobin 9.7 g/dL (12.0-16.0); Mean Corpuscular HGB Conc 31.8 g/dL (29.9-35.2); Mean Corpuscular Hemoglobin 27.8 pg (26.7-34.0); Mean Corpuscular Volume 87.4 fL (81.0-99.0); Mean Platelet Volume 12.1 fL (9.5-13.5); Platelet Count 221 10^3/uL (150-450); Red Blood Count 3.49 10^6/uL (4.20-5.40); Red Cell Distribution Width 15.7 % (11.0-15.0); White Blood Count 8.6 10^3/uL (4.0-11.0)
[2024-04-06 06:22] LABS: Alanine Aminotransferase 27 U/L (14-59); Albumin Globulin Ratio 0.8; Albumin Level 3.1 g/dL (3.4-5.0); Alkaline Phosphatase 97 U/L (46-116); Anion Gap 13.5; Aspartate Amino Transferase 15 U/L (15-37); BUN Creatinine Ratio 46.1; Bilirubin Total 0.3 mg/dL (0.2-1.0); Calcium 10.8 mg/dL (8.5-10.1); Carbon Dioxide 29.9 mmol/L (21.0-32.0); Chloride 95 mmol/L (98-107); Estimated GFR (African America 43 (>=60 mL/min/1.73m^2); Estimated GFR (Non-African Ame 36 (>=60 mL/min/1.73m^2); Glucose 308 mg/dL (74-106); Potassium 4.4 mmol/L (3.5-5.1); Sodium 134 mmol/L (136-145); Total Protein 7.1 g/dL (6.4-8.2)
[2024-04-06 06:57] LABS: Lymphocytes Absolute Manual 0.34 10^3/uL (1.20-3.80); Monocytes Absolute Manual 0.34 10^3/uL (0.30-0.80); Segmented Neut Absolute Manual 7.91 10^3/uL (1.4-6.5)
[2024-04-06 08:37] LABS: Glucometer 488 mg/dL (74-106)
[2024-04-06] MEDS: INSULIN ASPART 300 UNIT/3 ML PEN SUBQ ×2 (08:39→12:03)
[2024-04-06] MEDS: ASPIRIN 81 MG TAB.CHEW PO (08:48)
[2024-04-06] MEDS: DULOXETINE HCL 20 MG CAPSULE.DR PO (08:48)
[2024-04-06] MEDS: CLOPIDOGREL BISULFATE 75 MG TABLET PO (08:48)
[2024-04-06] MEDS: METOPROLOL SUCCINATE 50 MG TAB.ER.24H PO (08:48)
[2024-04-06] MEDS: MONTELUKAST SODIUM 10 MG TABLET PO (08:48)
[2024-04-06] MEDS: AZITHROMYCIN 250 MG TABLET 500 MG PO (08:49)
[2024-04-06] MEDS: ENSURE ORIGINAL 237 ML BOTTLE PO (08:49)
--- NOTE | 2024-04-06 09:54 | SWNOTE1 ---
SOURAV received a message from Lenore at [facility] and she will be here around 9:40 to speak with pt. SOURAV let pt know.
--- NOTE | 2024-04-06 09:55 | SWNOTE1 ---
Medicare Outpatient Observation Notice reviewed and discussed with patient. Pt. verbalized understanding and signed the form. Original given to patient and copy placed in patient?s chart. BOSE was completed on 04/05/24.
--- NOTE | 2024-04-06 10:11 | CM.NOTE ---
Rounds made with Dr. Zapata, discussed with pt discharge to home today. Discussed also with pt importance of compliance with medications. Pt will discharge home with [facility] services, pt has home oxygen @2L NC.
--- NOTE | 2024-04-06 11:37 | SWNOTE1 ---
Pt spoke with Lenore at [facility]. SW then spoke with Lenore and pt is not signing on at this time. Hospice will continue to reach out to her, but at this time pt will go home with [facility].
[2024-04-06 11:43] LABS: Glucose 495 mg/dL (74-106)
--- NOTE | 2024-04-06 12:00 | P.DS_ITS ---
DS: Providers Provider Date of admission: 04/05/24 09:03 Primary care physician: LILIAN GILLIAM Admitting clinician: Shaikh Benny Attending physician on admission: Shaikh Benny Consults: 04/05/24 10:16 Occupational Therapy Eval and Treat Routine Reason for consultation: Ambulatory dysfunction/weakness Physical Therapy Eval and Treat Routine Reason for consultation: Ambulatory dysfunction/weakness Attending physician on discharge: Shaikh Benny Discharging clinician: Shaikh Benny DS: Diagnosis Discharge Diagnosis (1) COPD exacerbation: (2) HFrEF (heart failure with reduced ejection fraction): (3) KULWANT (acute kidney injury): (4) Chronic respiratory failure with hypoxia: (5) HTN (hypertension): Qualifiers: Hypertension type: primary hypertension Qualified Code(s): I10 - Essential (primary) hypertension (6) HLD (hyperlipidemia): Qualifiers: Hyperlipidemia type: unspecified Qualified Code(s): E78.5 - Hyperlipidemia, unspecified (7) Type 2 diabetes mellitus: Qualifiers: Diabetes mellitus care home insulin use: without care home use Diabetes mellitus complication status: without complication Qualified Code(s): E11.9 - Type 2 diabetes mellitus without complications (8) Severe malnutrition: DS: Summary Hospital Course Hospital Course: 83 y o female Patient presented to ED with of shortness of breath. She was just discharged a day prior from our facility after she was treated for COPD exacerbation and acute on chronic diastolic HF. She said she was unable to fill her discharge medications- Lasix and steroids. She had increased work of breathing throughout the night and severe shortness of breath this morning so she called EMS. Upon arrival EMS reported that patient was in respiratory distress, was using accessory muscles and her pulse ox was 89% while on home O2. She was given breathing treatment on her way to the hospital. By the time she came to ED, she was still considerably SOB, with labored breathing and increased work of breathing for which she was placed on high flow Oxygen. Patient was admitted for COPD exacerbation and started on steroids, duonebs. Lasix was withheld as she had KULWANT and felt to be a little dry. She improved clinically during the course of admission and is medically stable for discharge. I will discharge her on prolonged steroid taper given her hx of severe COPD as she is at high risk of re admission Status at Discharge Functional status at discharge: independent ambulation Overall status at discharge: patient is back to baseline Time Spent with Patient Time attestation: Total time spent providing and/or coordinating discharge services: Time spent: greater than 30 minutes Exam Constitutional Vital Signs, click to edit/add: Last Vital Signs Temp 98.2 F 04/06/24 08:00 Pulse 77 04/06/24 10:00 Resp 22 H 04/06/24 08:00 BP 151/78 H 04/06/24 08:00 Pulse Ox 95 04/06/24 08:00 O2 Del Method Nasal Cannula 04/06/24 08:00 O2 Flow Rate 2 04/06/24 08:00 FiO2 30 04/05/24 15:37 General appearance: cooperative and frail appearing Nutritional appearance: cachectic Respiratory Effort & inspection: able to speak in complete sentences Other: Coarse breath sounds. No wheezing or rhonchi. No resp distress. Cardio Common normals: regular rhythm, S1 normal heart sound and S2 normal heart sound Rate: tachycardic Neuro Common normals: oriented x3, moves all extremities and no focal motor deficits Psych Common normals: mental status grossly normal, thought process normal, denies homicidal ideation and denies suicidal ideation DS: Data Data Completed and Pending Labs on day of discharge: Labs from last 24 hours 04/06/24 04/06/24 04/06/24 11:23 08:35 05:10 WBC 8.6 RBC 3.49 L Hgb 9.7 L Hct 30.5 L MCV 87.4 MCH 27.8 MCHC 31.8 RDW 15.7 H Plt Count 221 MPV 12.1 Seg Neuts % (Manual) 92.0 H Lymphocytes % (Manual) 4.0 L Monocytes % (Manual) 4.0 Eosinophils % (Manual) 0.0 L Basophils % (Manual) 0.0 L Neutrophils # (Manual) 7.91 H Lymphocytes # (Manual) 0.34 L Monocytes # (Manual) 0.34 Eosinophils # (Manual) 0.00 Basophils # (Manual) 0.00 Sodium 134 L Potassium 4.4 Chloride 95 L Carbon Dioxide 29.9 Anion Gap 13.5 BUN 65.0 H Creatinine 1.41 H Est GFR ( Amer) 43 L Est GFR (Non-Af Amer) 36 L BUN/Creatinine Ratio 46.1 Glucose 495 H 308 H Calcium 10.8 H Total Bilirubin 0.3 AST 15 ALT 27 Alkaline Phosphatase 97 Total Protein 7.1 Albumin 3.1 L Globulin 4.0 Albumin/Globulin Ratio 0.8 POC Glucose 488 H 04/06/24 04/05/24 04/05/24 00:13 20:08 16:06 WBC RBC Hgb Hct MCV MCH MCHC RDW Plt Count MPV Seg Neuts % (Manual) Lymphocytes % (Manual) Monocytes % (Manual) Eosinophils % (Manual) Basophils % (Manual) Neutrophils # (Manual) Lymphocytes # (Manual) Monocytes # (Manual) Eosinophils # (Manual) Basophils # (Manual) Sodium Potassium Chloride Carbon Dioxide Anion Gap BUN Creatinine Est GFR ( Amer) Est GFR (Non-Af Amer) BUN/Creatinine Ratio Glucose Calcium Total Bilirubin AST ALT Alkaline Phosphatase Total Protein Albumin Globulin Albumin/Globulin Ratio POC Glucose 250 H 478 H 425 H Discharge Plan Discharge Disposition: Home, Self-Care Condition: Fair Discharge Medications: New (DME) pen needle, diabetic [Pen Needle] 30 gauge x 5/16 needle See Rx Instructions .Route Qty: 100 0RF Rx Instructions: daily prednisone 20 mg tablet 20 mg PO DAILY Qty: 20 0RF Rx Instructions: 3 tab x 3 days. 2 tab x 3 days, 1 tab x 3 days, 1/2 tab x 4 days Continued albuterol sulfate 2.5 mg /3 mL (0.083 %) solution for nebulization 2.5 mg inhalation Q4H PRN (Reason: shortness of breath or wheezing) albuterol sulfate 90 mcg/actuation HFA aerosol inhaler 2 inh INHALATION Q4H PRN (Reason: shortness of breath or wheezing) Radhaztri Aerosphere 160-9-4.8 mcg/actuation HFA aerosol inhaler 2 inh INHALATION BID metoprolol succinate 50 mg tablet extended release 24 hr 50 mg PO DAILY metformin 1,000 mg tablet 1,000 mg PO DAILY glimepiride 4 mg tablet 4 mg PO DAILY clopidogrel [Plavix] 75 mg tablet 75 mg PO DAILY rosuvastatin 20 mg tablet 20 mg PO DAILY aspirin 81 mg tablet,chewable 81 mg PO DAILY pantoprazole [Protonix] 40 mg tablet,delayed release (DR/EC) 40 mg PO DAILY losartan [Cozaar] 100 mg tablet 100 mg PO DAILY montelukast [Singulair] 10 mg tablet 10 mg PO DAILY spironolactone [Aldactone] 25 mg tablet 12.5 mg PO DAILY Qty: 30 0RF duloxetine 20 mg capsule,delayed release(DR/EC) 20 mg PO DAILY furosemide [Lasix] 40 mg tablet 20 mg PO DAILY Discontinued prednisone 20 mg tablet 20 mg PO BID Qty: 10 0RF Activity: increase activity as tolerated Diet: advance to your usual diet Print Language: [place] Islander Forms: Portal Instructions Follow Up Appointments: F/u with PCP in one week MERYL Mayberry Mar @ 1:00 F/u with Cardiology in 2 weeks [facility] office [facility] Mar @ 1:40
[2024-04-06] MEDS: INSULIN ASPART 300 UNIT/3 ML PEN 10 UNIT SUBQ (12:02)
[2024-04-06] MEDS: ENOXAPARIN SODIUM 30 MG/0.3 ML SYRINGE SUBQ (12:11)
[2024-04-06] MEDS: BUDESONIDE 0.5 MG/2 ML AMPULE NEB IH (12:20)
--- NOTE | 2024-04-06 13:09 | SWNOTE1 ---
SOURAV sent dc med rec, ED note, all phsyician notes, PT/OT notes and CRF to [facility] to resume care. SOURAV advised [facility] that pt did speak with [facility] today, but did not sign on.
--- NOTE | 2024-04-06 14:50 | SWNOTE1 ---
SW spoke to pt to confirm her daughter is picking her up. She voiced that she thinks she will be here around 3:30. SW did call daughter and there was no answer. Pt asked SW to call pharmacy to make sure her prescriptions are ready to be picked up.
--- NOTE | 2024-04-06 14:57 | SWNOTE1 ---
SW spoke to [facility] and the pt's prescription from her last dc is ready. The Prednisone they are working on, but are busy and they stated she will receive a notification when it is ready. She also stated the diabetic needle/pen is getting bounce back from her insurance and it is not covered. SW asked how much it was out of pocket? She stated it would be $53.84. SW to let pt know.
--- NOTE | 2024-04-06 15:11 | SWNOTE1 ---
SW let pt know that she will receive message when meds ready. SW let her know her needle/pen was not covered and the cost. She voiced she has been using the same one for several weeks. She may pay out of pocket for more. SW asked if her daughter was going to bring her oxygen to go home with? Pt voiced that her oxygen does not work. She stated that someone was supposed to come and look at it, but she was here. SW asked if she had any oxygen at home. Pt stated she has the big one (concentrator) at home. SW asked how she will get home with no oxygen? Pt voiced she will survive. SW advised that she will then likely feel short of breath, panick, and end up back at hospital. SW to speak with daughter and see if someone can bring tank back to hospital if they borrow one to get her home. SW also calling [employer] [facility] to see if they can come out and fix her portable.
--- NOTE | 2024-04-06 15:29 | SWNOTE1 ---
SW spoke to [employer] and they will be out tomorrow to service pt's portable oxygen concentrator. SW let pt know. They stated they had tried to do this, but now they know pt was at the hospital when they attempted to service it.
--- NOTE | 2024-04-06 15:57 | SWNOTE1 ---
SOURAV spoke to pt's daughter and she is on her way. SOURAV advised her that they can borrow an oxygen tank if they return it in order to get her home. She voiced she will return and sign paper that she is borrowing. SOURAV notified nurse and took tank to room.
--- NOTE | 2024-04-07 12:56 | CM.DCFOLLOWU ---
04/07- 1st attempt. No answer
== END 2024-04-06 16:27 | disposition home health service (06) ==
LOC: ER 08:21 → MS 13:21
PROVIDERS: Admitting Provider Internal Medicine; Emergency Provider Emergency Medicine; PCP Family Medicine; Visit Provider Internal Medicine
DX: J44.1 Chronic obstructive pulmonary disease with (acute) exacerbation (principal); N17.9 Acute kidney failure, unspecified; J96.11 Chronic respiratory failure with hypoxia; I11.0 Hypertensive heart disease with heart failure; I50.42 Chronic combined systolic (congestive) and diastolic (congestive) heart failure; E78.5 Hyperlipidemia, unspecified; E43 Unspecified severe protein-calorie malnutrition; Z68.1 Body mass index [BMI] 19.9 or less, adult; R64 Cachexia; Z79.899 Other long term (current) drug therapy; F17.200 Nicotine dependence, unspecified, uncomplicated
CPT/HCPCS: 36415; 71045; 80053; 82947; 82948; 83880; 84484; 85007; 85025; 85027; 93005; 94640; 94761; 94799; 96372; 96374; 96375; 96376; 97161; 97165; 99285; G0378; J1650; J1940; J2919

== ENCOUNTER 2024-04-10 17:06 | Inpatient (IN) | payer MEDICARE, SELFPAY ==
[2024-04-10] VITALS (18 sets, daily range): BP systolic 96–138; BP diastolic 47–76; PULSE 73–86; TEMP 36.6–36.7; O2SAT 92–100; BMI 19.8; BMI 15.4
--- NOTE | 2024-04-10 17:10 | ECG_ITS ---
The [facility] Test Date: 2024-04-10 Pat Name: ISHMAEL MONAHAN Department: Room: - Gender: Female Registered Nurse Nursery: : 1940 Requested By: KENNY GROSS Order Number: [id number] Reading MD: KENNY GROSS Measurements Intervals [place] Rate: 81 P: 76 OK: 146 QRS: -46 QRSD: 106 T: 108 QT: 394 QTc: 432 Interpretive Statements 1100 Sinus rhythm 1470 with occasional supraventricular premature complexes 5234 Left ventricular hypertrophy with repolarization abnormality 7200 Abnormal left axis deviation 9150 abnormal ECG Compared to ECG 04/05/2024 07:21:34 Left ventricular hypertrophy now present Early repolarization now present Left-axis deviation now present Left bundle-branch block no longer present Electronically Signed On 04-12-2024 5:11:29 EST by KENNY GROSS
--- NOTE | 2024-04-10 17:10 | XR_ITS ---
The [address] [address] Patient Name: ISHMAEL MONAHAN MRN: [id number] date: 1940 Sex: F Assigned Patient Location: ER Current Patient Location: ED.MAIN Accession/Order Number: [id number] Exam Date: 04/10/2024 17:36 Report Date: 04/10/2024 19:31 At the request of: CHAITANYA LAFLEUR Procedure: XR chest 1V EXAM: XR chest 1V at 1729 hours HISTORY: Shortness of breath COMPARISON: 04/05/2024 TECHNIQUE: AP upright portable chest x-ray FINDINGS: The heart remains borderline enlarged with some improvement in the vascular congestion. There is also slight improvement of the slight prominence of the interstitial markings throughout the lungs. No focal infiltrate, effusion or pneumothorax is identified. The osseous structures are grossly intact. XR/XR chest 1V IMPRESSION: No acute infiltrate or evidence of overt cardiac decompensation. Some interval improvement in the overall appearance of the chest is noted. Electronically authenticated by: DEAN GALLO Date: 04/10/2024 19:31
--- NOTE | 2024-04-10 17:22 | ED_ITS ---
HPI HPI - General Adult General Chief complaint: Shortness of Breath/Dyspnea Stated complaint: Shortness of breath Time Seen by Provider: 04/10/24 17:06 Source: patient Mode of arrival: Wheelchair History of Present Illness HPI narrative: Patient is an 83-year-old female who returns to the emergency department for difficulty breathing. She was seen in this emergency department on 04/03 and readmitted on 04/05 for shortness of breath, COPD, CHF and acute kidney injury. She states she is currently taking a steroid taper. She continues to use breathing treatments at home. She states she has not been able to breathe well since she left the hospital 4 days ago. She denies fevers, chest pain. She has felt as though her abdomen has a lot of gas and she had some right-sided abdominal pain yesterday although she has no complaints of abdominal pain today and has not had any vomiting or diarrhea. No medications taken prior to arrival. She denies urinary symptoms and is unaware of any leg swelling. Related Data Home Medications ?Medication ?Instructions ?Recorded ?Confirmed albuterol sulfate 2.5 mg/3 mL 2.5 mg inhalation Q4H PRN 02/26/24 04/05/24 (0.083 %) solution for nebulization shortness of breath or wheezing albuterol sulfate 90 mcg/actuation 2 inh inhalation Q4H PRN shortness 02/26/24 04/05/24 aerosol inhaler of breath or wheezing budesonide 160 mcg-glycopyr 9 2 inh inhalation BID 02/26/24 04/05/24 mcg-formot 4.8 mcg/actuation HFA inhaler (Breztri Aerosphere) aspirin 81 mg chewable tablet 81 mg PO DAILY 02/27/24 04/05/24 clopidogrel 75 mg tablet (Plavix) 75 mg PO DAILY 02/27/24 04/05/24 glimepiride 4 mg tablet 4 mg PO DAILY 02/27/24 04/05/24 losartan 100 mg tablet (Cozaar) 100 mg PO DAILY 02/27/24 04/05/24 metformin 1,000 mg tablet 1,000 mg PO DAILY 02/27/24 04/05/24 metoprolol succinate 50 mg 50 mg PO DAILY 02/27/24 04/05/24 tablet,extended release 24 hr montelukast 10 mg tablet 10 mg PO DAILY 02/27/24 04/05/24 (Singulair) pantoprazole 40 mg tablet,delayed 40 mg PO DAILY 02/27/24 04/05/24 release (Protonix) rosuvastatin 20 mg tablet 20 mg PO DAILY 02/27/24 04/05/24 duloxetine 20 mg capsule,delayed 20 mg PO DAILY 04/02/24 04/05/24 release furosemide 40 mg tablet (Lasix) 20 mg PO DAILY 04/05/24 04/05/24 Previous Rx's ?Medication ?Instructions ?Recorded spironolactone 25 mg tablet 12.5 mg (1/2 x 25 mg) PO DAILY #30 02/28/24 (Aldactone) tabs pen needle, diabetic 30 gauge x #100 ea 04/06/24/ (Pen Needle) prednisone 20 mg tablet 20 mg PO DAILY #20 tabs 04/06/24 Allergies Allergy/AdvReac Type Severity Reaction Status Date / Time No Known Drug Allergies Allergy Verified 02/26/24 05:26 Opioid HPI Opioid Management Most Recent Opioid Data: Last Pain Scale 0 04/05/24 18:03 04/05/24 Last Pain Intensity 2 04/03/24 16:08 04/03/24 Last Pain Assessment 04/06/24 15:22 Last ED Pain Assessment 04/05/24 07:32 Last ORT Total Score 0 04/05/24 09:17 04/05/24 Last ORT Risk Category Low Risk 04/05/24 09:17 04/05/24 Review of Systems ROS Constitutional Denies: fever or chills Ears, nose, mouth, and throat Reports: mouth pain; Denies: throat pain Cardiovascular Denies: chest pain Respiratory Reports: shortness of breath, cough and wheezing; Denies: coughing up blood Gastrointestinal Reports: abdominal pain; Denies: nausea, vomiting or diarrhea Musculoskeletal Denies: back pain or neck pain Integumentary/Breast Denies: rash Neurological Denies: numbness in extremities or weakness in extremities Hematologic/Lymphatic Denies: easy bruising or easy bleeding [facility] Medical History (Updated 04/10/24 @ 19:28 by INGRID Red) Severe malnutrition ?E43 - Unspecified severe protein-calorie malnutrition (ICD-10) HFrEF (heart failure with reduced ejection fraction) ?I50.20 - Unspecified systolic (congestive) heart failure (ICD-10) Lung cancer ?C34.90 - Malignant neoplasm of unspecified part of unspecified bronchus or lung (ICD-10) Acute on chronic systolic (congestive) heart failure ?I50.23 - Acute on chronic systolic (congestive) heart failure (ICD-10) Acute on chronic respiratory failure with hypoxia ?J96.21 - Acute and chronic respiratory failure with hypoxia (ICD-10) Type 2 diabetes mellitus ?E11.9 - Type 2 diabetes mellitus without complications (ICD-10) HLD (hyperlipidemia) ?E78.5 - Hyperlipidemia, unspecified (ICD-10) PAD (peripheral artery disease) ?I73.9 - Peripheral vascular disease, unspecified (ICD-10) Chronic respiratory failure with hypoxia ?J96.11 - Chronic respiratory failure with hypoxia (ICD-10) HTN (hypertension) ?I10 - Essential (primary) hypertension (ICD-10) Current smoker ?F17.200 - Nicotine dependence, unspecified, uncomplicated (ICD-10) CAD (coronary artery disease) ?I25.10 - Atherosclerotic heart disease of [place] coronary artery without angina pectoris (ICD-10) COPD (chronic obstructive pulmonary disease) ?J44.9 - Chronic obstructive pulmonary disease, unspecified (ICD-10) Social History Within the past year, how often did you have a drink containing alcohol: never Within the past year, how many standard drinks containing alcohol did you have on a typical day: 1 or 2 Total score: 0 Score interpretation: A score less than 3 is consistent with normal alcohol consumption. Smoking status: Current every day smoker Non-prescribed substance use: denies use Highest level of school completed/degree received: don't know Little interest or pleasure in doing things: not at all Feeling down, depressed, or hopeless: not at all Exam Narrative Exam Narrative: Gen.: Awake, alert, in no distress Head: Normocephalic, atraumatic ENT: Moist mucous membranes, white plaque noted on the tongue Respiratory: No respiratory distress, tachypnea, inspiratory and expiratory wheezing Cardio: Regular rate and rhythm Gastrointestinal: Abdomen is soft, nondistended and nontender to palpation Extremities: Moves extremities equally, no pedal edema Psych: Normal mood and affect Neuro: No focal neuro deficit Skin: Warm, dry, intact Constitutional Vital Signs, click to edit/add: Last Vital Signs Temp 98.1 F 04/10/24 17:09 Pulse 83 04/10/24 18:30 Resp 28 H 04/10/24 18:30 BP 127/60 04/10/24 18:30 Pulse Ox 97 04/10/24 18:30 O2 Del Method Nasal Cannula 04/10/24 18:09 O2 Flow Rate 3 04/10/24 18:09 Course Vital Signs Vital signs: Vital Signs Temperature 98.1 F 04/10/24 17:09 Pulse Rate 81 04/10/24 17:09 Respiratory Rate 26 H 04/10/24 17:09 Blood Pressure 125/55 04/10/24 17:09 Pulse Oximetry 97 04/10/24 17:09 Oxygen Delivery Method Nasal Cannula 04/10/24 17:09 Oxygen Delivery Flow Rate 3 04/10/24 17:09 Temperature 98.1 F 04/10/24 17:09 Pulse Rate 83 04/10/24 18:30 Respiratory Rate 28 H 04/10/24 18:30 Blood Pressure 127/60 04/10/24 18:30 Pulse Oximetry 97 04/10/24 18:30 Oxygen Delivery Method Nasal Cannula 04/10/24 18:09 Oxygen Delivery Flow Rate 3 04/10/24 18:09 Medical Decision Making MDM Narrative Medical decision making narrative: Patient treated with breathing treatment, Solu-Medrol. Labs show leukocytosis, likely reactive from steroid usage and elevated lactic acid which will be repeated. The remainder of the labs are stable, BNP has decreased significantly since last admission and kidney function is stable. Chest x-ray shows improvement of pulmonary edema noted on previous. Patient is not hypoxic on her regular oxygen at 3 L nasal cannula, however she continues to have tachypnea and is very short of breath. She is readmitted for COPD exacerbation and stable at time of admission. SUPERVISED APC VISIT, PHYSICIAN ATTESTATION: Based on the medical record the care appears appropriate. ? Medical Records Medical records reviewed: Yes I reviewed the patient's medical records Lab Data Lab results reviewed: Yes I reviewed the patient's lab results Labs: Lab Results 04/10/24 04/10/24 Range/Units 17:18 17:22 WBC 18.0 H (4.0-11.0) 10^3/uL RBC 4.29 (4.20-5.40) 10^6/uL Hgb 12.0 (12.0-16.0) g/dL Hct 37.7 (36.0-48.0) % MCV 87.9 (81.0-99.0) fL MCH 28.0 (26.7-34.0) pg MCHC 31.8 (29.9-35.2) g/dL RDW 15.3 H (11.0-15.0) % Plt Count 340 (150-450) 10^3/uL MPV 11.1 (9.5-13.5) fL Seg Neuts % (Manual) 94.0 H (43.0-75.0) Lymphocytes % (Manual) 2.0 L (20.5-60.0) % Monocytes % (Manual) 4.0 (1.7-12.0) % Eosinophils % (Manual) 0.0 L (0.9-7.0) % Basophils % (Manual) 0.0 L (0.2-2.0) % Neutrophils # (Manual) 16.92 H (1.4-6.5) 10^3/uL Lymphocytes # (Manual) 0.36 L (1.20-3.80) 10^3/uL Monocytes # (Manual) 0.72 (0.30-0.80) 10^3/uL Eosinophils # (Manual) 0.00 (0.00-0.70) 10^3/uL Basophils # (Manual) 0.00 (0.00-0.10) 10^3/uL PT 10.6 (9.0-11.6) sec INR 1.00 VBG pH 7.371 (7.330-7.430) VBG pCO2 58.4 H (40.0-52.0) mmHg Sodium 135 L (136-145) mmol/L Potassium 4.3 (3.5-5.1) mmol/L Chloride 95 L (98-107) mmol/L Carbon Dioxide 32.1 H (21.0-32.0) mmol/L Anion Gap 12.2 BUN 51.0 H (7.0-18.0) mg/dL Creatinine 1.42 H (0.55-1.02) mg/dL Est GFR ( Amer) 43 L (>=60 mL/min/1.73m^2) Est GFR (Non-Af Amer) 36 L (>=60 mL/min/1.73m^2) BUN/Creatinine Ratio 35.9 Glucose 365 H (74-106) mg/dL Lactate 4.3 H* (0.4-2.0) mmol/L Calcium 12.2 H (8.5-10.1) mg/dL Magnesium 1.9 (1.8-2.4) mg/dL Total Bilirubin 0.4 (0.2-1.0) mg/dL AST 17 (15-37) U/L ALT 29 (14-59) U/L Alkaline Phosphatase 117 H (46-116) U/L Troponin I High Sens 24.2 (4.0-51.3) pg/mL NT-Pro-B Natriuret Pep 8868.0 H* (<=1800.0) pg/mL Total Protein 7.6 (6.4-8.2) g/dL Albumin 3.2 L (3.4-5.0) g/dL Globulin 4.4 g/dL Albumin/Globulin Ratio 0.7 Influenza Type A Ag Negative Influenza Type B Ag Negative SARS-CoV-2 Ag (CV2AG) Negative (NEGATIVE) Imaging Data Chest x-ray: Attestation: I have reviewed the pertinent imaging results. ECG Data Attestation: I personally reviewed and interpreted this ECG as follows: (Normal sign this rhythm at a rate of 81 with occasional PVC, no acute ST elevation with improvement of left bundle branch block that was noted on previous EKG dated 04/05/2024. EKG was reviewed by attending physician.) Discharge Plan Discharge Chief Complaint: Shortness of Breath/Dyspnea Clinical Impression: COPD exacerbation, Shortness of breath, Thrush Patient Disposition: Admitted as Observation Time of Disposition Decision: 19:25 Condition: Good
--- OUTSIDE RECORDS SUMMARY | 2024-04-10 17:27 | XMS_ITS | CCD ---
Author Organization [facility] Care Team Providers Care Mathematics Department Chair Name Role Phone DR SIOBHAN DEMARCO Primary Care Unavailable MATI ZAMBRANO Admitting Unavailable MATI ZAMBRANO Consulting Unavailable MATI ZAMBRANO Attending Unavailable YU JUNIOR Consulting Unavailable Shila Molina DO Primary Care Provider Tonja Gilliam MD Primary Care Provider Shila Molina DO Unavailable Tonja Gilliam MD Primary Care Provider Mayank REDIPPER, Pia Unavailable ARISTEO GARCIA Attending Unavailable PIA [...] Care Unavailable SB LOCO Attending Unavailable SHILA MOILNA Referring Unavailable MANETONJA CALVO Primary Care Unavailable DIMA CHAVEZ Attending Unavailable DIMA CHAVEZ Referring Unavailable TONJA GILLIAM Primary Care Unavailable TONJA GILLIAM G Referring Unavailable TONJA GILLIAM G Primary Care Unavailable MORENA WHARTON Attending Unavailable MORENA WHARTON Referring Unavailable TONJA GILLIAM Primary Care Unavailable ARISTEO GARCIA Attending Unavailable TONJA GILLIAM Referring Unavailable TONJA GILLIAM G Primary Care Unavailable MORENA WHARTON Attending Unavailable TONJA GILLIAM Referring Unavailable MANETONJA CALVO G Primary Care Unavailable Allergies Allergy Classification Reported Allergen(s) Allergy Type Date of Onset Reaction(s) Facility (13 sources) Aluminum aspirin; Translations: [ASPIRIN] Drug Allergy 08-18-2023 [facility] (1 source) Aspirin Drug Allergy 08-18-2023 [facility] Medications Current Medications Medication Drug Class(es) Dates Sig (Normalized) Sig (Original) [id number] 200 actuat albuterol 0.09 mg/actuat metered dose [...] 6 (six) hours as needed for wheezing. Active aspirin 81 mg delayed release oral tablet (11 sources) Platelet Aggregation Inhibitor, Nonsteroidal Anti-inflammatory Drug take 1 tablet by mouth in the morning aspirin 81 mg Take 1 tablet (81 mg total) by mouth in the morning. Active benzonatate 100 mg oral capsule (6 sources) Non-narcotic Antitussive Start: 2021 End: 2023 benzonatate (TESSALON PERLES) 100 mg capsule Take 1 capsule (100 mg total) by mouth as needed. 02/07/2022 04/07/2024 Discontinued Blood Glucose Monitoring Suppl (True Metrix Air Glucose Meter) w/Device kit (11 sources) Start: 2023 Blood Glucose Monitoring Suppl (True Metrix Air Glucose Meter) w/Device kit Indications: Type 2 diabetes mellitus with diabetic autonomic neuropathy, with long-term current use of insulin ([facility]) USE DIRECTED 1 kit 1 08/11/2023 Active 120 actuat budesonide 0.16 mg/actuat / formoterol fumarate 0.0048 mg/actuat / glycopyrrolate 0.009 mg/actuat metered dose inhaler (17 sources) Corticosteroid, beta2-Adrenergic Agonist Start: 2022 End: 2023 take 2 puff(s) by inhalation in the morning Budeson-Glycopyrro l-Formoterol (Breztri Aerosphere) 160-9-4.8 MCG/ACT aerosol Indications: COPD mixed type ([facility]) Inhale 2 puffs in the morning and 2 puffs before bedtime. 32.1 g 1 01/18/2024 Active Start: 02-10-2022 take 2 puff(s) by inhalation at bedtime byxzdokrki-xvufvvdg-namlualzie (BREZTRI AEROSPHERE) 160-9-4.8 mcg/actuation HFA aerosol inhaler Inhale 2 puffs in the morning and at bedtime. 02/10/2022 Active Cholecalciferol (11 sources) Vitamin D Cholecalciferol (D3 PO) Take by mouth Active clopidogrel 75 mg oral tablet (17 sources) P2Y12 Platelet Inhibitor Start: clopidogrel (Plavix) 75 MG tablet Indications: PVD (peripheral vascular disease) ([facility]) TAKE 1 TABLET EVERY DAY 90 tablet 10 03/15/2023 Active doxycycline hyclate 100 mg delayed release oral tablet (5 sources) Tetracycline-class Drug End: 024 take 1 tablet by mouth in the morning, then take 1 tablet by mouth at bedtime doxycycline (DORYX) 100 MG EC tablet Take 1 tablet (100 mg total) by mouth in the morning and 1 tablet (100 mg total) before bedtime. 04/07/2024 Discontinued DULoxetine 20 mg delayed release oral capsule [...] with long-term current use of insulin (CMS/HCC) Take 1 tablet (10 mg) by mouth [...] 02/28/2024 Active glimepiride 4 mg oral tablet (17 sources) Sulfonylurea Start: 03-15-2023 glimepiride (Amaryl) 4 [...] 2 tablets (4 mg total) before bedtime. Active 12 hr guaiFENesin 600 mg extended release oral tablet (5 sources) Start: 02-12-2022 take 1 tablet by mouth once guaiFENesin (MUCINEX) 600 mg tablet extended release 12hr Indications: Mucopurulent chronic bronchitis (CMS-HCC) Take 1 tablet (600 mg total) by mouth every 12 (twelve) hours. 60 tablet 02/12/2022 Active hydroCHLOROthiazide 12.5 mg oral capsule (5 sources) Thiazide Diuretic take 1 tablet by mouth once daily hydroCHLOROthiazide (MICROZIDE) 12.5 mg capsule Take 1 tablet by mouth daily. Active 3 ml insulin glargine 100 unt/ml [...] Active losartan potassium 100 mg oral tablet (16 sources) Angiotensin 2 Receptor Cb take 1 tablet by mouth in the morning losartan (COZAAR) 100 mg tablet Take 1 tablet (100 mg total) by mouth in the morning. Active metFORMIN hydrochloride 1000 mg oral tablet (17 sources) Biguanide Start: 03-15-2023 take 1 tablet by mouth twice daily metFORMIN (Glucophage) 1000 MG tablet Indications: Type 2 diabetes mellitus with hyperglycemia, without long-term current use of insulin (CMS/HCC) TAKE 1 TABLET WITH A MEAL ORALLY TWICE DAILY 180 tablet 10 03/15/2023 Active 24 hr metoprolol succinate 50 mg extended release oral tablet (17 sources) beta-Adrenergic Cb Start: 12-11-2021 End: 10-04-2023 take 1 tablet by mouth every twenty-four hours in the morning metoprolol succinate XL (Toprol-XL) 50 MG 24 hr tablet Indications: Essential hypertension ([facility]) Take 1 tablet (50 mg) by mouth in the morning. 90 tablet 1 01/18/2024 Active montelukast 10 mg oral tablet (17 sources) Leukotriene Receptor Antagonist Start: 03-15-2023 montelukast (Singulair) 10 MG tablet Indications: Chronic obstructive pulmonary disease, unspecified COPD type ([facility]) TAKE 1 TABLET EVERY DAY [...] CQ) 21 mg/24 hr Indications: COPD exacerbation ([facility]) Place 1 patch on the skin in the morning. 30 patch 0 06/13/2023 Active pantoprazole 40 mg delayed release oral tablet (17 sources) Proton Pump Inhibitor Start: 06-26-2023 End: 10-04-2023 pantoprazole (ProtoNix) 40 MG EC tablet Indications: GERD without esophagitis TAKE 1 TABLET EVERY MORNING BEFORE A MEAL 90 tablet 1 09/08/2023 Active predniSONE 10 mg oral tablet (2 sources) Start: 06-12-2023 predniSONE (DELTASONE) 10 mg tablet Indications: COPD exacerbation ([facility]) 3 tabs for 3 days, 2 tabs for 3 days, 1 tab for 3 days 18 tablet 0 06/12/2023 Active rOPINIRole 0.5 mg oral tablet (17 sources) Nonergot Dopamine Agonist take 1 tablet by mouth three times daily rOPINIRole (REQUIP) 0.5 mg tablet Take 1 tablet (0.5 mg total) by mouth 3 (three) times a day. Active rosuvastatin calcium 20 mg oral tablet (17 sources) HMG-CoA Reductase Inhibitor Start: 03-15-2023 rosuvastatin (Crestor) 20 MG tablet Indications: Mixed hyperlipidemia (CMS/HCC) TAKE 1 TABLET EVERY DAY 90 tablet 10 03/15/2023 Active semaglutide 7 mg oral tablet (11 sources) Start: 04-29-2023 End: 03-08-2024 Rybelsus 7 [...] ONCE DAILY 02/28/2024 Active 28 actuat tiotropium 0.79513 mg/actuat inhalation spray (1 source) Anticholinergic tiotropium (Spir césar Respimat) 1.25 MCG/ACT inhaler Inhale 2 puffs in the morning. 0 Active Problems Active Problems Problem Classification Problem Date Documented Date Episodic/Chronic Abdominal pain (2 sources) Epigastric pain; Translations: [Epigastric pain] Onset: 02-15-2024 Episodic Acute myocardial infarction (18 sources) Myocardial infarction; Translations: [Non-ST elevation (NSTEMI) myocardial infarction] Onset: 12-06-2021 06-10-2023 Chronic Anxiety disorders (17 sources) Generalized anxiety disorder; Translations: [Generalized anxiety disorder] Onset: 09-30-2022 06-11-2023 Chronic Aortic; peripheral; and visceral artery aneurysms (11 sources) Aneurysm of ascending aorta; Translations: [Aneurysm of ascending aorta without rupture] Onset: 07-23-2023 01-14-2024 Chronic Cardiac dysrhythmias (2 sources) Tachycardia, unspecified; Translations: [Tachycardia, unspecified] Onset: 02-07-2024 Episodic Chronic kidney disease (17 sources) Chronic kidney disease stage 3B ; [...] Coronary atherosclerosis; Translations: [Atherosclerotic heart disease of [place] coronary artery without angina pectoris] Onset: 09-30-2022 09-30-2022 Chronic Diabetes mellitus with complications (20 sources) Disorder of kidney due to diabetes mellitus; Translations: [Type 2 diabetes mellitus with diabetic nephropathy] Onset: 11-18-2021 06-11-2023 Chronic Disorders of lipid metabolism (20 sources) Mixed hyperlipidemia; Translations: [Mixed hyperlipidemia] Onset: 09-30-2022 06-11-2023 Chronic Esophageal disorders (17 sources) Gastroesophageal reflux disease without esophagitis; Translations: [Gastro-esophageal reflux disease without esophagitis] Onset: 09-30-2022 06-11-2023 Chronic Essential hypertension (20 sources) Essential hypertension; Translations: [Essential (primary) hypertension] Onset: 09-30-2022 06-11-2023 Chronic Nutritional deficiencies (10 sources) Nutritional marasmus; Translations: [Unspecified severe protein-calorie malnutrition] Onset: 03-08-2024 03-06-2024 Chronic Other aftercare (1 source) Other rodent exterminator (current) drug therapy; Translations: [OTH NURSING HOME CURRENT DRUG THERAPY] Onset: 02-10-2022 Episodic Other circulatory disease (2 sources) 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, unspecified; Translations: [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, unspecified] Onset: 02-15-2024 Chronic Other hereditary and degenerative nervous system conditions (17 sources) Restless legs; Translations: [Restless legs syndrome] [...] caused by tuberculosis or sexually transmitted disease) (20 sources) Cardiomyopathy; Translations: [Cardiomyopathy, unspecified] Onset: 12-05-2021 12-10-2021 Chronic Peripheral and visceral atherosclerosis (20 sources) Peripheral vascular disease; Translations: [Peripheral vascular disease, unspecified] Onset: 09-30-2022 06-11-2023 Chronic Residual codes; unclassified (12 sources) Dependence on other enabling machines and devices; Translations: [Dependence on other enabling machines] Onset: 09-30-2022 09-30-2022 Chronic Residual codes; unclassified (1 source) Tobacco use; Translations: [Tobacco use] Onset: 03-30-2024 Episodic Residual codes; unclassified (2 sources) Tobacco use and exposure - finding; Translations: [Tobacco use] Onset: 03-30-2024 03-30-2024 Episodic Respiratory failure; insufficiency; arrest (adult) (2 sources) Luzua-tr-wxdyvbl respiratory failure; Translations: [Acute and chronic respiratory [...] Da te Episodic/Chronic Deficiency and other anemia (17 sources) Iron deficiency anemia; Translations: [Iron deficiency anemia, unspecified] Onset: 12-05-2021 06-11-2023 Episodic Mood disorders (11 sources) Mood disorders Onset: 01-12-2024 01-12-2024 Other aftercare (12 sources) Long-term current use of insulin; Translations: [group home (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] Onset: 02-18-2022 11-25-2022 [...] Range Facility Office Visiton 03-14-2024 Follow-up visit [id number] Marietta Mitchell 1940 F Date Provider Department Center 03/14/2024 [id number] LAU [facility] Family History Problem Relation Age of Onset Heart failure Mother Sudden Father Stroke Father Heart attack Son Family Status - Relation Status Age at Mother Father Son Other Level of Service:38334 [place] OFFICE/OUTPATIENT ESTABLISHED MOD MDM 30 MIN Normal [facility] CBC W Auto Differential pane l (Bld)on 03-07-2024 Basophils (Bld) [#/Vol] 58 10*3/uL [facility] Basophils/100 WBC (Bld) 0.9 % [facility] Eosinophils (Bld) [#/Vol] 58 10*3/uL [facility] Eosinophils/100 WBC (Bld) 0.9 % [facility] Erythrocyte distribution width (RBC) [Ratio] 14.3 % 11.0 - 15.0 % [facility] Hematocrit (Bld) [Volume fraction] 33.9 % Low 35.0 - 45.0 % [facility] Hemoglobin (Bld) [Mass/Vol] 10.3 g/dL Low 11.7 - 15.5 g/dL [facility] Lymphocytes (Bld) [#/Vol] 1267 10*3/uL [facility] Lymphocytes/100 WBC (Bld) 19.8 % [facility] MCH (RBC) [Entitic mass] 27.7 pg 27.0 - 33.0 pg [facility] MCHC (RBC) [Mass/Vol] 30.4 g/dL Low 32.0 - 36.0 g/dL [facility] Comment on above: For adults, a slight decrease in the calculated MCHC value (in the range of 30 to 32 g/dL) is most likely not clinically significant; however, it should be interpreted with caution in correlation with other red cell parameters and the patient's clinical condition. MCV (RBC) [Entitic vol] 91.1 fL 80.0 - 100.0 fL [facility] Monocytes (Bld) [#/Vol] 493 10*3/uL [facility] Monocytes/100 WBC (Bld) 7.7 % [facility] Neutrophils (Bld) [#/Vol] 4525 10*3/uL [facility] Neutrophils/100 WBC (Bld) 70.7 % [facility] Platelet mean volume (Bld) [Entitic vol] 11.9 fL 7.5 - 12.5 fL [facility] Platelets (Bld) [#/Vol] 323 10*3/uL [facility] RBC (Bld) [#/Vol] 3.72 10*6/uL Low [facility] WBC (Bld) [#/Vol] 6.4 10*3/uL [facility] Laboratory - Chemistry and C hemistry - challengeon 03-07-2024 Albumin [Mass/Vol] 4.0 g/dL 3.6 - 5.1 g/dL [facility] Albumin/Globulin [Mass ratio] 1.3 {ratio} [facility] ALP [Catalytic activity/Vol] 93 U/L 37 - 153 U/L [facility] ALT [Catalytic activity/Vol] 13 U/L 6 - 29 U/L [facility] AST [Catalytic activity/Vol] 18 U/L 10 - 35 U/L [facility] Bilirubin [Mass/Vol] 0.3 mg/dL 0.2 - 1 .2 mg/dL [facility] Calcium [Mass/Vol] 11.1 mg/dL High 8.6 - 10. 4 mg/dL [facility] Chloride [Moles/Vol] 102 mmol/L 98 - 11 0 mmol/L [facility] CO2 [Moles/Vol] 30 mmol/L 20 - 32 mmol/L [facility] Creatinine [Mass/Vol] 1.15 mg/dL High 0.60 - 0.95 mg/dL [facility] GFR/1.73 sq M.predicted among non-blacks MDRD (S/P/Bld) [Vol rate/Area] 48 mL/min/{1.73_m2} Low > OR = 60 mL/min/1.73m2 [facility] Globulin (S) [Mass/Vol] 3.2 g/dL [facility] Glucose [Mass/Vol] 61 mg/dL Low 65 - 99 mg/dL [facility] Comment on above: Fasting reference interval Potassium [Moles/Vol] 4.3 mmol/L 3.5 - 5.3 mmol/L [facility] Protein [Mass/Vol] 7.2 g/dL 6.1 - 8.1 g/dL [facility] Sodium [Moles/Vol] 139 mmol/L 135 - 146 mmol/L [facility] Urea nitrogen [Mass/Vol] 27 mg/dL High 7 - 25 mg/dL [facility] Urea nitrogen/Creatinine [Mass ratio] 23 mg/mg High [facility] No Panel Informationon 03-07 Interpretation and review of laboratory results Abnormal [facility] Performing Organization Information Site ID: QPT Name: [facility] Address: [address] [place] [address], [address] [place] [id number] Director: Yanick Self MD [facility] PET CT SKULL TO THIGHon PET CT SKULL TO THIGH PET CT SKULL TO [facility] Whole-body PET/CT scan: HISTORY: Pulmonary nodule. [...] Ellington MD on 03/03/2024 3:28 PM Normal [facility] Office Visiton 02-07-2024 Follow-up visit [id number] Marietta Mitchell 1940 F Date Provider Department Center 02/07/2024 [id number] LAU [facility] Family History Problem Relation Age of Onset Heart failure Mother Sudden Father Stroke Father Heart attack Son Family Status - Relation Status Age at Mother Father Son Other Level of Service:77972 [place] OFFICE/OUTPATIENT [facility] MODERATE MDM 45 MINUTES Normal [facility] C DIFFICILE BY PCRon 024 C. difficile toxin genes LUCÍA+probe Ql (Stl) TOXIGENIC C DIFF Negative (qualifier value) 027 NAP1 Negative (qualifier value) Normal PRNEG [facility] Comment on above: Performed By: #### 5 [id number] #### [facility] ([id number]) [address] [place] [address], [address] [place] [address] #### [id number] #### [facility] ([id number]) [address] [place] [address], [place] [address] [facility] ([id number]) [address] [place] [address], [address] [place] [address] CBC AND AUTO DIFFon 08-18-19 24 ABSOLUTE BASOPHIL 0.1 X10E9/L Normal 0.0-0.[address] [facility] Comment on above: Performed By: #### C KUSH ESCAMILLA, #### [facility] ([id number]) [address] [place] [address] ABSOLUTE NEUTROPHIL 9.9 X10E9/L High 1.5-6.[address] [facility] Comment on above: Performed By: #### C KUSH ESCAMILLA, #### [facility] ([id number]) [address] [place] [address] Basophils/100 WBC (Bld) 1.0 % Normal [facility] Comment on above: Performed By: #### Taj ESCAMILLA CMP, #### [facility] ([id number]) [address] [place] [address] Eosinophils (Bld) [#/Vol] 0.1 10*3/uL Normal 0.0-0.4 [facility] Comment on above: Performed By: #### Taj ESCAMILLA [facility], #### [facility] ([id number]) [address] [place] [address] Eosinophils/100 WBC (Bld) 0.8 % Normal [facility] Comment on above: Performed By: #### Taj ESCAMILLA [facility], #### [facility] ([id number]) [address] [place] [address] Erythrocyte distribution width (RBC) [Ratio] 15.1 % High 11.5-15.0 [facility] Comment on above: Performed By: #### Taj ESCAMILLA CMP, #### [facility] ([id number]) [address] [place] [address] Hematocrit (Bld) [Volume fraction] 38.3 % Normal 35-47 [facility] Comment on above: Performed By: #### C FRANCINE, CMP, 14422-2 #### [facility] ([id number]) [address] [place] [address] Hemoglobin (Bld) [Mass/Vol] 12.8 g/dL Normal 11.7-15.5 [facility] Comment on above: Performed By: #### Taj ESCAMILLA, CMP, #### [facility] ([id number]) [address] [place] [address] Lymphocytes (Bld) [#/Vol] 1.6 10*3/uL Normal 1.0-3.5 [facility] Comment on above: Performed By: #### Taj ESCAMILLA CMP, #### [facility] ([id number]) [address] [place] [address] 25789 Lymphocytes/100 WBC (Bld) 12.7 % Normal [facility] Comment on above: Performed By: #### Taj ESCAMILLA, CMP, #### [facility] ([id number]) [address] [place] [address]46 MCH (RBC) [Entitic mass] 30.6 pg Normal 27-34 [facility] Comment on above: Performed By: #### Taj ESCAMILLA CMP, #### [facility] ([id number]) [address] [place] [address] MCHC (RBC) [Mass/Vol] 33.3 g/dL Normal 32-36 [facility] Comment on above: Performed By: #### Taj ESCAMILLA, CMP, #### [facility] ([id number]) [address] [place] [address]15 MCV (RBC) [Entitic vol] 92 fL Normal 80-100 [facility] Comment on above: Performed By: #### C BCA, CMP, #### [facility] ([id number]) [address] [place] [address]44 Monocytes (Bld) [#/Vol] 0.7 10*3/uL Normal 0-0.9 [facility] Comment on above: Performed By: #### C BCA, CMP, 28759-4 #### [facility] ([id number]) [address] [place] [address] 92025 Monocytes/100 WBC (Bld) 5.6 % Normal [facility] Comment on above: Performed By: #### C FRANCINE, CMP, #### [facility] ([id number]) [address] [place] [address]327 Neutrophils/100 WBC (Bld) 79.9 % Normal [facility] Comment on above: Performed By: #### C FRANCINE, CMP, #### [facility] ([id number]) [address] [place] [address]286 Platelet mean volume (Bld) [Entitic vol] 10.0 fL Normal 7-12 [facility] Comment on above: Performed By: #### C FRANCINE, CMP, #### [facility] ([id number]) [address] [place] [address] 55046 Platelets (Bld) [#/Vol] 238 10*3/uL Normal 150-450 [facility] Comment on above: Performed By: #### C FRANCINE, CMP, #### [facility] ([id number]) [address] [place] [address] 26631 RBC COUNT 4.17 X10E12/L Normal 3.80-5.20 [facility] Comment on above: Performed By: #### C BCA, CMP, #### [facility] ([id number]) [address] [place] [address]605 WBC (Bld) [#/Vol] 12.3 10*3/uL High 4.0-11.0 [facility] Comment on above: Performed By: #### C KUSH ESCAMILLA, 43640-9 #### [facility] ([id number]) [address] [place] [address] 52908 COMPREHENSIVE METABOLIC PANE Willis 08-18-2023 Albumin [Mass/Vol] 4.0 g/dL Normal 3.2-5.[address] [facility] Comment on above: Performed By: #### C KUSH ESCAMILLA, 43453-6 #### [facility] ([id number]) [address] [place] [address] 81321 ALP [Catalytic activity/Vol] 99 U/L Normal 39-130 [facility] Comment on above: Performed By: #### C KUSH ESCAMILLA, 86059-2 #### [facility] ([id number]) [address] [place] [address] 21974 ALT [Catalytic activity/Vol] 17 U/L Normal 0-31 [facility] Comment on above: Performed By: #### C FRANCINE, [facility], 71986-1 #### [facility] ([id number]) [address] [place] [address] 37427 Anion gap [Moles/Vol] 4 mmol/L Low 5-15 [facility] Comment on above: Performed By: #### C FRANCINE, CMP, 63685-1 #### [facility] ([id number]) [address] [place] [address] 79562 AST [Catalytic activity/Vol] 21 U/L Normal 0-41 [facility] Comment on above: Performed By: #### C BCA, CMP, 07030-0 #### [facility] ([id number]) [address] [place] [address] 96435 Bilirubin [Mass/Vol] 0.5 mg/dL Normal 0.3-1.[address] [facility] Comment on above: Performed By: #### C FRANCINE [facility], 81864-3 #### [facility] ([id number]) [address] [place] [address] 67919 Calcium [Mass/Vol] 10.5 mg/dL Normal 8.5-10.[address] [facility] Comment on above: Performed By: #### C FRANCINE [facility], #### [facility] ([id number]) [address] [place] [address] 23963 Chloride [Moles/Vol] 103 mmol/L Normal 98-[address] [facility] Comment on above: Performed By: #### C KUSH ESCAMILLA, 99361-2 #### [facility] ([id number]) [address] [place] [address] 19149 CO2 [Moles/Vol] 25 mmol/L Normal 22-32 [facility] Comment on above: Performed By: #### C FRANCINE [facility], 58907-7 #### [facility] ([id number]) [address] [place] [address] 66427 Creatinine [Mass/Vol] 0.94 mg/dL Normal 0.40-1.00 [facility] Comment on above: Result Comment: METH OD TRACEABLE TO IDMS STANDARD Performed By: #### C KUSH ESCAMILLA, 35926-0 #### [facility] ([id number]) [address] [place] [address] 18560 GFR/1.73 sq M.predicted among non-blacks MDRD (S/P/Bld) [Vol rate/Area] 61 mL/min/{1.73_m2} Normal >59 [facility] Comment on above: Result Comment: Reported eGFR is based on the CKD-EPI 2020 equation that does not use a race coefficient. Performed By: #### C KUSH ESCAMILLA, #### [facility] ([id number]) [address] [place] [address] 36898 Glucose [Mass/Vol] 136 mg/dL High 65-[address] [facility] Comment on above: Performed By: #### [facility], 35143-8 #### [facility] ([id number]) [address] [place] [address] 82760 Potassium [Moles/Vol] 4.2 mmol/L Normal 3.5-5.0 [facility] Comment on above: Performed By: #### [facility], 67747-7 #### [facility] ([id number]) [address] [place] [address] 09840 Protein [Mass/Vol] 7.6 g/dL Normal 6.0-8.[address] [facility] Comment on above: Performed By: #### [facility], 31397-9 #### [facility] ([id number]) [address] [place] [address] 88621 Sodium [Moles/Vol] 132 mmol/L Low 134-[address] [facility] Comment on above: Performed By: #### [facility], 73042-3 #### [facility] ([id number]) [address] [place] [address] 90440 Urea nitrogen [Mass/Vol] 26 mg/dL Normal 5-27 [facility] Comment on above: Performed By: #### [facility], 64523-6 #### [facility] ([id number]) [address] [place] [address]248 GI PANELon 08-18-2023 Gastrointestinal pathogens DNA and [...] SAPOVIRUS Not detected (qualifier value) Normal NDET [facility] Comment on above: Performed By: #### 5 4067-4 #### [facility] ([id number]) [address] [place] [address], [address] [address] #### 21581-7 #### [facility] ([id number]) [address] [place] [address] [facility] ([id number]) [address] [place] [address], [address] [address] MAGNESIUMon 08-18-2023 Magnesium [Mass/Vol] 1.8 mg/dL Normal 1.8-2.[address] [facility] Comment on above: Performed By: #### C BCA, CMP, 11743-1 #### [facility] ([id number]) [address] [place] [address] 17284 SARS/FLU A+B/RSV by NAAT/Mol ecularon 08-18-2023 SARS/FLU [...] operators who are performing tests using either [employer] or [employer] systems and is limited to laboratories that [...] repeat. Fact Sheet for Healthcare Providers: https://www.fda.gov/m edia/169173/download Fact Sheet for Patients: https://www.fda.gov/m edia/471975/download Normal [facility] Comment on above: Performed By: #### C OVFLR #### [facility] ([id number]) [address] [place] [address] URN MACROSCOPIC NURon 2023 BILIRUBIN KATELYN Negative Normal NEG [facility] Comment on above: Performed By: #### N UM #### [facility] ([id number]) [address] [place] [address] BLOOD/HGB KATELYN Negative Normal NEG [facility] Comment on above: Performed By: #### N UM #### [facility] ([id number]) [address] [place] [address]82 GLUCOSE KATELYN >=1000 Abnormal NEG [facility] Comment on above: Performed By: #### N UM #### [facility] ([id number]) [address] [place] [address]157 KETONES KATELYN Negative Normal NEG [facility] Comment on above: Performed By: #### N UM #### [facility] ([id number]) [address] [place] [address] 31386 LEUKOCYTE ESTERASE KATELYN Negative Normal NEG [facility] Comment on above: Performed By: #### N UM #### [facility] ([id number]) [address] [place] [address]337 NITRITE KATELYN Negative Normal NEG [facility] Comment on above: Performed By: #### N UM #### [facility] ([id number]) [address] [place] [address] 43764 PH KATELYN 5.0 Normal 5.0-8.5 [facility] Comment on above: Performed By: #### N UM #### [facility] ([id number]) [address] [place] [address]24 PROTEIN KATELYN 100 mg/dL Abnormal NEG [facility] Comment on above: Performed By: #### N UM #### [facility] ([id number]) [address] [place] [address] 77782 SPECIFIC GRAVITY KATELYN 1.025 Normal 1.003-1.035 [facility] Comment on above: Performed By: #### N UM #### [facility] ([id number]) [address] [place] [address] 58822 UROBILINOGEN KATELYN 0.2 eu/dL Normal <1.1 [facility] Comment on above: Performed By: #### N UM #### [facility] ([id number]) [address] [place] [address] CHEST WO IV CONTRASTon CT CHEST [...] BY: Momo Sanchez MD Normal Not Available [facility] US LOWER EXTREMITY CARLO RIAL DUPLEX BILATERAL WITH ABIon 07-06-2023 [facility] US LOWER EXTREMITY ARTERIAL DUPLEX BILATERAL [...] Occlusion No color saturation __ Maria G SALES, Dylan ARNOLD, et al. Comparison of contrast [...] IS VERY IMPORTANT TO YOUR HEALTH. THE [employer] GUIDELINES RECOMMEND THAT WOMEN 40 [...] VERY IMPORTANT TO YOUR HEALTH. THE CURRENT [place] [employer] GUIDELINES RECOMMENDS ANNUAL MAMMOGRAPHY BEGINNING AT AGE 40 THIS FACILITY USES A REMINDER SYSTEM TO ENSURE ALL PATIENTS RECEIVE REMINDER NOTIFICATIONS AT THE APPROPRIATE TIME BASED ON THE RECOMMENDATIONS OF THIS EXAM. Report reported and signed by Julius You on 03/25/2022 1339 Normal [facility] CBC AUTO DIFFon 02-07-2022 BASO # 0.1 103/ul Normal 0.0-0.1 [facility] Comment on above: Performed By: #### C BC #### [facility] [address] [address] [address] Henry Dozier Basophils/100 WBC (Bld) 0.6 % Normal 0.2-2.0 [facility] Comment on above: Performed By: #### C BC #### [facility] [address] [address] [address] Henry Dozier EO # 0.0 103/ul Normal 0.0-0.7 [facility] Comment on above: Performed By: #### C BC #### [facility] [address] [address] [address] Henry oDzier Eosinophils/100 WBC (Bld) 0.3 % Critically low 0.9-7.0 [facility] Comment on above: Performed By: #### C BC #### [facility] [address] [address] [address] Henry Dozier Erythrocyte distribution width (RBC) [Ratio] 14.9 % Normal 11.0-15.0 [facility] Comment on above: Performed By: #### C BC #### [facility] [address] [place] [address] Dr. Henry Dozier Hematocrit (Bld) [Volume fraction] 28.8 % Critically low 36.0-48.0 [facility] Comment on above: Performed By: #### C BC #### [facility] [address] [place] [address] Dr. Henry Dozier Hemoglobin (Bld) [Mass/Vol] 8.9 g/dL Critically low 12.0-16.0 [facility] Comment on above: Performed By: #### C BC #### [facility] [address] [place] [address] Dr. Henry Dozier IG # 0.03 10e3/ul Normal 0.00-0.03 [facility] Comment on above: Performed By: #### C BC #### [facility] [address] [place] [address] Dr. Henry Dozier IG % 0.3 % Normal 0.0-0.5 [facility] Comment on above: Performed By: #### C BC #### [facility] [address] [place] [address] Dr. Henry Dozier LYMPH # 1.6 103/ul Normal 1.2-3.8 [facility] Comment on above: Performed By: #### C BC #### [facility] [address] [place] [address] Dr. Henry Dozier Lymphocytes/100 WBC (Bld) 17.4 % Critically low 20.5-60.0 [facility] Comment on above: Performed By: #### C BC #### [facility] [address] [place] [address] Dr. Henry Dozier MANUAL DIFF REQ NO Normal [facility] Comment on above: Performed By: #### C BC #### [facility] [address] [place] [address] Dr. Henry Dozier MCH (RBC) [Entitic mass] 29.6 pg Normal 26.7-34.0 [facility] Comment on above: Performed By: #### C BC #### [facility] [address] [address] [address] Henry Dozier MCHC (RBC) [Mass/Vol] 30.9 g/dL Normal 29.9-35.2 [facility] Comment on above: Performed By: #### C BC #### [facility] [address] [address] [address] Henry Dozier MCV (RBC) [Entitic vol] 95.7 fL Normal 81.0-99.0 [facility] Comment on above: Performed By: #### C BC #### [facility] [address] [address] [address] Henry Dozier MONO # 0.8 103/ul Normal 0.3-0.8 [facility] Comment on above: Performed By: #### C BC #### [facility] [address] [place] [address] Dr. Henry Dozier Monocytes/100 WBC (Bld) 9.1 % Normal 1.7-12.0 [facility] Comment on above: Performed By: #### C BC #### [facility] [address] [place] [address] Dr. Henry Dozier NEUT # 6.4 103/ul Normal 1.4-6.5 [facility] Comment on above: Performed By: #### C BC #### [facility] [address] [place] [address] Dr. Henry Dozier Neutrophils/100 WBC (Bld) 72.3 % Normal 43.0-75.0 [facility] Comment on above: Performed By: #### C BC #### [facility] [address] [place] [address] Dr. Henry Dozier Platelet mean volume (Bld) [Entitic vol] 10.8 fL Normal 9.5-13.5 [facility] Comment on above: Performed By: #### C BC #### [facility] [address] [place] [address] Dr. Henry Dozier PLT 257 103/ul Normal 150-450 [facility] Comment on above: Performed By: #### C BC #### [facility] [address] [address] [address] Henry Dozier RBC 3.01 106/ul Critically low 4.20-5.40 [facility] Comment on above: Performed By: #### C BC #### [facility] [address] [address] [address] Henry Dozier WBC 8.9 103/ul Normal 4.0-11.0 [facility] Comment on above: Performed By: #### C BC #### [facility] [address] [address] [address] Henry Dozier Covid-19 PCR (CVDTBH)on 01-29 SARS-CoV-2 (COVID-19) RNA LUCÍA+probe Ql (Unsp spec) Not detected Normal NOT DETECTED [facility] Comment on above: Result Comment: When diagnostic [...] for this test is supported by the [place] of Health and Human Service's declaration that [...] used). Performed By: #### C VDTBH #### [facility] [address] [place] [address] Dr. Henry Dozier PROF CHEM 8 (BAS METB)on Anion gap [Moles/Vol] 9.1 mmol/L Normal [facility] Comment on above: Performed By: #### B MP, HSTROPN #### [facility] [address] [place] [address] Dr. Henry Dozier Calcium [Mass/Vol] 10.0 mg/dL Normal 8.5-10.1 [facility] Comment on above: Performed By: #### B CHRISTOPHER, HSTROPN #### [facility] [address] [address] [address] Henry Dozier Chloride [Moles/Vol] 104 mmol/L Normal 98-107 [facility] Comment on above: Performed By: #### B CHRISTOPHER, HSTROPN #### [facility] [address] [place] [address] Dr. Henry Dozier CO2 [Moles/Vol] 25.9 mmol/L Normal 21.0-32.0 [facility] Comment on above: Performed By: #### B CHRISTOPHER, HSTROPN #### [facility] [address] [place] [address] Dr. Henry Dozier Creatinine [Mass/Vol] 1.02 mg/dL Normal 0.55-1.02 [facility] Comment on above: Performed By: #### B CHRISTOPHER, HSTROPN #### [facility] [address] [place] [address] Dr. Henry Dozier EGFR-AF [place] >60 Normal >=60 [facility] Comment on above: Performed By: #### B CHRISTOPHER, HSTROPN #### [facility] [address] [place] [address] Dr. Henry Dozier EGFR-NON AF [place] 52 mL/min/1.73m2 Critically low >=60 [facility] Comment on above: Performed By: #### B CHRISTOPHER, HSTROPN #### [facility] [address] [place] [address] Dr. Henry Dozier Glucose [Mass/Vol] 170 mg/dL Critically high 74-106 [facility] Comment on above: Performed By: #### B CHRISTOPHER, HSTROPN #### [facility] [address] [place] [address] Dr. Henry Dozier Potassium [Moles/Vol] 4.0 mmol/L Normal 3.5-5.1 [facility] Comment on above: Performed By: #### B CHRISTOPHER, HSTROPN #### [facility] [address] [address] [address] Henry Dozier Sodium [Moles/Vol] 135 mmol/L Critically low 136-145 Th e [facility] Comment on above: Performed By: #### B CHRISTOPHER, HSTROPN #### [facility] [address] [address] [address] Henry Dozier Urea nitrogen [Mass/Vol] 17.0 mg/dL Normal 7.0-18.0 [facility] Comment on above: Performed By: #### B CHRISTOPHER, HSTROPN #### [facility] [address] [address] [address] Henry Dozier Urea nitrogen/Creatinine [Mass ratio] 16.7 mg/mg Normal [facility] Comment on above: Performed By: #### B CHRISTOPHER, HSTROPN #### [facility] [address] [address] [address] Henry Dozier TROPONIN, HIGH SENSITIVITYon 02-07-2022 HSTROP 25.2 pg/mL Normal 4.0-51.3 [facility] Comment on above: Result Comment: CUT- OFF POINTS HAVE BEEN ESTABLISHED BASED ON THE FOURTH UNIVERSAL DEFINITIONS OF MYOCARDIAL INFARCTION. THE UPPER REFERENCE LIMIT (URL) OF TROPONIN, DEFINED THE 99TH PERCENTILE OF cTnI DISTRIBUTION IN A REFERENCE POPULATION, HAS BEEN CONFIRMED THE DECISION THRESHOLD FOR [place] DIAGNOSIS. Performed By: #### B CHRISTOPHER, HSTROPN #### [facility] [address] [place] [address] Dr. Henry Dozier XR CHEST 1 Von [...] by: YU JUNIOR Date: 2022-02-07 16:20 Normal [facility] Vital Signs Date Time Vital Sign Value Performing Clinician Faci litlinda 03-30-2024 11:58-0400 Body height 165.1 cm Morena Wharton DO Work Phone: [facility] 03-30-2024 11:58-0400 Body mass index (BMI) [Ratio] 17.04 kg/m2 Morena Wharton DO Work Phone: [facility] 03-30-2024 11:58-0400 Body weight 46.45 kg Morena Wharton DO Work Phone: [facility] 03-30-2024 11:58-0400 Diastolic blood pressure 63 mm[Hg] Morena Wharton DO Work Phone: [facility] 03-30-2024 11:58-0400 Heart rate 74 /min Morena Wharton DO Work Phone: [facility] 03-30-2024 11:58-0400 SaO2% (BldA) [Mass fraction] 98 % Morena Wharton DO Work Phone: [facility] 03-30-2024 11:58-0400 Systolic blood pressure 144 mm[Hg] Morena Wharton DO Work Phone: [facility] 03-06-2024 13:52-0400 Body height 165.1 cm Pia Blandoneneidasoniya REDIPPER Work Phone: [facility] 03-06-2024 13:52-0400 Body mass index (BMI) [Ratio] 16.54 kg/m2 Pia Blandoneneidasoniya REDIPPER Work Phone: [facility] 03-06-2024 13:52-0400 Body weight 45.09 kg Pia Talley REDIPPER Work Phone: [facility] 03-06-2024 13:52-0400 Diastolic blood pressure 60 mm[Hg] Pia Blandonadalberto REDIPPER Work Phone: [facility] 03-06-2024 13:52-0400 Heart rate 76 /min Pia Blandoneneidasoniya REDIPPER Work Phone: [facility] 03-06-2024 13:52-0400 SaO2% (BldA) [Mass fraction] 96 % Pia Kampfer REDIPPER Work Phone: [facility] 03-06-2024 13:52-0400 Systolic blood pressure 130 mm[Hg] Pia Talley NP Work Phone: [facility] 08-03-2023 13:33-0500 Diastolic blood pressure 60 [...] Start: 03-30-2024 End: 03-30-2024 Refill Pia Talley NP Work Phone: [facility] Comment on above: COPD mixed type ([facility]) Start: 03-30-2024 End: 03-30-2024 Office outpatient visit 40 minutes Morena Wharton DO Work Phone: [facility] Comment on above: COPD, severe ([facility]) (Primary Dx); Tobacco use; Cardiomyopathy ([facility]) Start: 03-30-2024 End: 03-30-2024 ambulatory MORENA WHARTON [facility] Start: 03-28-2024 End: 03-28-2024 Refill Tonja Gilliam MD Work Phone: [facility] Comment on above: Type 2 diabetes ricardo itus with diabetic autonomic neuropathy, with long-term current use of insulin ([facility]) Start: 03-20-2024 End: 03-20-2024 Telephone encounter Pia Talley NP Work Phone: [facility] Start: 03-20-2024 End: 03-20-2024 ambulatory MORENA [facility] Start: 03-16-2024 End: 03-16-2024 Refill Pia Talley REDIPPER Work Phone: [facility] Comment on above: COPD mixed type (CMS /HCC) Start: 03-16-2024 End: 03-16-2024 Refill Tonja Gilliam MD Work Phone: [facility] Comment on above: COPD mixed type (CMS /HCC) Start: 03-14-2024 End: 03-14-2024 Telephone encounter Tonja Gilliam MD Work Phone: [facility] Start: 03-14-2024 End: 03-14-2024 ambulatory [facility] Start: 03-06-2024 End: 03-06-2024 Bamboo flowsheet Pia Talley REDIPPER Work Phone: [facility] Start: 03-06-2024 End: 03-06-2024 Bamboo flowsheet Pia Talley REDIPPER Work Phone: [facility] Start: 03-06-2024 End: 03-06-2024 Transitional care manage srvc 7 day discharge Pia Talley NP Work Phone: [facility] Comment on above: Abnormal PET scan of lung (Primary Dx); Acute on chronic respiratory failure with hypoxia (CMS/HCC); Acute systolic congestive heart failure (CMS/HCC); Chronic obstructive pulmonary disease, unspecified COPD type (CMS/HCC); Coronary artery disease involving [place] coronary artery of [place] heart without angina pectoris (CMS/HCC); Primary hypertension (CMS/HCC); Type 2 diabetes mellitus with hyperglycemia, with long-term current use of insulin (CMS/HCC); Severe malnutrition (CMS/HCC); 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) Start: 03-06-2024 End: 03-06-2024 ambulatory PIA TALLEY Not Available Start: 03-03-2024 End: 03-03-2024 Telephone encounter Pia Talley REDIPPER Work Phone: [facility] Start: 03-03-2024 End: 03-03-2024 ambulatory TONJA Joselo [facility] Start: 03-02-2024 End: 03-02-2024 ambulatory [facility] Start: 02-15-2024 End: 02-15-2024 ambulatory [facility] Start: 02-08-2024 End: 02-08-2024 ambulatory [facility] Start: 02-07-2024 End: 02-07-2024 ambulatory [facility] Start: 01-21-2024 End: 03-02-2024 Telephone encounter Tonja Gilliam MD Work Phone: [facility] Start: 01-12-2024 End: 01-12-2024 ambulatory PIA TALLEY Not Available Start: 09-03-2023 End: 09-03-2023 ambulatory PIA TALLEY [facility] Start: 08-25-2023 End: 08-25-2023 ambulatory PIA TALLEY Not Available Start: 08-18-2023 End: 08-18-2023 Emergency department patient visit TONJA Josue [facility] Start: 08-11-2023 End: 08-30-2023 ambulatory YANIQUE BURCIAGA [facility] Start: 08-03-2023 End: 08-03-2023 ambulatory [facility] Start: 08-03-2023 End: 08-03-2023 Office outpatient new 45 minutes Aristeo Garcia MD Work Phone: [facility] Comment on above: 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 ([facility]) (Primary Dx); Essential hypertension; Mixed hyperlipidemia; Renal artery stenosis ([facility]) Start: 07-27-2023 End: 07-27-2023 ambulatory PIA KAMPFER Not Available Start: 07-23-2023 End: 07-23-2023 ambulatory PIA KAMPFER Not Available Start: 07-20-2023 End: 07-20-2023 ambulatory PIA KAMPFER Not Available Start: 07-13-2023 Telephone encounter Tonja laws MD Work Phone: [facility] Start: 07-09-2023 End: 07-09-2023 ambulatory PIA KAMPFER Not Available Start: 07-06-2023 End: 07-06-2023 ambulatory PIA KAMPFER Not Available Start: 06-25-2023 End: 06-25-2023 ambulatory PIA KAMPFER Not Available Start: 06-24-2023 Telephone encounter Sirena [facility] Start: 06-23-2023 End: 06-23-2023 ambulatory SB LOCO [facility] Start: 06-16-2023 Chart abstracting Sb lemus MD [...] Start: 02-07-2022 End: 02-07-[address] MCCANN [facility] Facility: Procedures Date Procedure Procedure Detail Performing Clinician Start: 03-06-2024 Complete blood count with white cell differential, automated Pia Talley REDIPPER Work Phone: Start: 03-06-2024 Comprehensive metabo lic panel Pia Talley REDIPPER Work Phone: Start: 02-15-2024 Follow-up visit Follow-up ARISTEO GARCIA Start: 06-23-2023 Follow-up visit Follow-up SB LOCO Start: 09-30-2022 History of placement of stent for coronary artery disease S/P coronary artery stent placement Tonja Gilliam MD Work Phone: Plan of Treatment Date Care Activity Detail Author Start: 03-30-2025 Tobacco Screening Tobacco Screening [facility] Start: 03-23-2025 Urine screening for protein Diabetes: Urine Protein Screening [facility] Start: 03-06-2025 Urine screening for protein Diabetes: Urine Protein Screening [facility] Start: 01-11-2025 Urine screening for protein Diabetes: Urine Protein Screening [facility] Start: 09-28-2024 End: 09-28-2024 Patient encounter procedure 09/28/2024 10:45 AM EDT Office Visit [facility] [address] [place] [id number] Morena Wharton, [address] [address] [facility] Start: 08-02-2024 Adult BMI Screening Adult BMI Screen ing [facility] Start: 08-02-2024 Tobacco Screening Tobacco Screening [facility] Start: 06-23-2024 Adult BMI Screening Adult BMI Screen ing [facility] Start: 06-23-2024 Tobacco Screening Tobacco Screening [facility] Start: 06-12-2024 Adult BMI Screening Adult BMI Screen ing [facility] Start: 06-10-2024 Tobacco Screening Tobacco Screening [facility] Start: 05-09-2024 End: 05-09-2024 Patient encounter procedure 05/09/2024 2:00 PM EST Office Visit [facility] [address] [place] [address] Aristeo Garcia MD [address] [place] [address] [facility] Start: 04-13-2024 Hemoglobin A1c measurement Diabetes: Hemoglobin A1C [facility] Start: 04-03-2024 End: 04-03-2024 Professional / ancillary services management 04/03/2024 2:30 PM EST Ancillary Procedure [facility] [address] [place] [address] [facility] Start: 03-06-2024 End: 03-06-2024 Patient encounter procedure [facility] Comment on above: Arrived Start: 02-15-2024 End: 02-15-2024 Patient encounter procedure 02/15/2024 1:30 PM EDT Office Visit [facility] [address] [place] [address] Aristeo Garcia MD [address] [place] [phone] [facility] Start: 02-08-2024 End: 02-08-2024 Patient encounter procedure [facility] Start: 01-30-2024 COVID-19 Vaccine ( season) COVID-19 Vaccine ( season) [facility] Start: 01-30-2024 Influenza vaccination N [facility] Start: 09-07-2023 Hemoglobin A1c measurement Diabetes: Hemoglobin A1C [facility] Start: 08-11-2023 End: 08-11-2023 Patient encounter procedure 08/11/2023 1:20 PM EDT Office Visit [facility] [address] [place] [address] Yanique Burcaiga, PERSONNEL ANALYST-ASSISTANT [place] [address] [place] [address] [facility] Start: 08-03-2023 End: 08-02-2024 US.doppler Extremity arteries - bilateral for physiologic artery study at rest and with exercise Vasc art doppler lwr PVR W/exercise Vascular Ultrasound Routine 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 ([facility]) Expected: 08/03/2023, Expires: 08/02/2024 [facility] Comment on above: Expected: 08/03/2023 , Expires: 08/02/2024 Start: 08-03-2023 End: 08-02-2024 US.doppler Lower extremity artery - bilateral Vas art duplex lwr bilateral Vascular Ultrasound Routine 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 ([facility]) Expected: 08/03/2023, Expires: 08/02/2024 [facility] Work Phone: Comment on above: Expected: 08/03/2023 , Expires: 08/02/2024 Start: 08-03-2023 End: 08-02-2024 US.doppler Renal vessels - bilateral Vas renal artery duplex complete Vascular Ultrasound Routine Renal artery stenosis ([facility]) Expected: 08/03/2023, Expires: 08/02/2024 [facility] Comment on above: Expected: 08/03/2023 , Expires: 08/02/2024 Start: 06-23-2023 End: 06-23-2023 Patient encounter procedure 06/23/2023 8:00 AM EST [facility] [address] [place] [address] Sb Loco MD [address] [place] [address] [facility] Start: 03-19-2023 Medicare Annual Well ness (AWV) Medicare Annual Wellness (AWV) [facility] Start: 01-29-2023 Influenza vaccination [facility] Start: 2007 Fall Risk Screening Fall Risk Screen ing [facility] Start: 1992 Administration of varicella zoster vaccine Zoster (Shingles) Vaccine (1 of 2) [facility] Start: 1961 DTaP,Tdap and Td Vac cines (1 - Tdap) DTaP,Tdap and Td Vaccines (1 - Tdap) [facility] Start: 1960 Adult BMI Follow Up Plan Adult BMI Follow Up Plan [facility] Start: 1954 Depression Screening Depression Scre ening [facility] Start: 1952 Glaucoma screening Diabetes: R etinopathy Screening [facility] Start: 1942 Medicare Annual Well ness Visit Medicare Annual Wellness Visit [facility] Start: 1942 Tobacco Counseling Tobacco Counselin g [facility] Immunizations Immunization Date Immunization Notes Care Provider Fa cility 03-15-2023 Pneumococcal Conjuga te PCV 20 Tonja Gilliam MD Work Phone: [facility] Healthcare Payers Date Payer Category Payer Medicaid [employer] MEDICARE A DVANTAGE [id number] 2023 Medicare HMO [employer] MEDICARE [id number] 2023 Medicare [id number] 2022 Medicare [id number]. [id number] 2022 Medicare [id number] 2020 Unknown [id number] 1940 Unknown [id number] 2.16.840.1.191572.3.579.2.593 1942 Unknown [id number] 2.16.840.1.733670.3.579.2.1286 1942 Unknown [id number] 2.16.840.1.203921.3.579.2.1259 1942 Unknown [id number] 2.16.840.1.707139.3.579.2.1259 1942 Unknown [id number] 2.16.840.1.448650.3.579.2.125 1942 Unknown [id number] 2.16.840.1.255475.3.579.2.1259 1942 Unknown [id number] 2.16.840.1.463104.3.579.2.1259 1942 Unknown [id number] 2.16.840.1.673311.3.579.2.1259 1942 Unknown [id number] 2.16.840.1.058337.3.579.2.1259 1942 Unknown [id number] 2.16.840.1.704010.3.579.2.1259 1942 Unknown [id number] 2.16.840.1.250748.3.579.2.1259 1942 Unknown [id number] 2.16.840.1.502982.3.579.2.1259 1942 Unknown [id number] 2.16.840.1.928507.3.579.2.1259 1942 Unknown [id number] 2.16.840.1.733122.3.579.2.1259 1942 Unknown [id number] 2.16.840.1.918402.3.579.2.1259 1942 Unknown [id number] 2.16.840.1.543828.3.579.2.1259 1942 Unknown [id number] 2.16.840.1.924858.3.579.2.1286 1942 Unknown [id number] 2.16.840.1.752150.3.579.2.1286 1942 Unknown [id number] 2.16.840.1.165871.3.579.2.1286 1942 Unknown [id number] 2.16.840.1.828538.3.579.2.1286 1942 Unknown [id number] 2.16.840.1.549121.3.579.2.1286 1942 Unknown [id number] 2.16.840.1.884526.3.579.2.1285 1942 Unknown [id number] 2.16.840.1.255920.3.579.2.1286 1942 Unknown [id number] 2.16.840.1.729735.3.579.2.1285 1942 Unknown [id number] 2.16.840.1.724457.3.579.2.1286 1942 Unknown [id number] 2.16.840.1.324801.3.579.2.128 1942 Unknown [id number] 2.16.840.1.539750.3.579.2.128 1942 Unknown [id number] 2.16.840.1.426276.3.579.2.1286 Social History Date Type Detail Facility Start: 12-05-2021 End: 02-15-2024 Tobacco smoking status DCIS Smokes tobacco daily [facility] History of tobacco use Cigarette Smoker [facility] Start: 12-05-2021 End: 02-15-2024 Tobacco use and exposure Smokeless tobacco non-user [facility] Start: 06-10-2023 End: 03-06-2024 Alcohol intake Lifetime non-drinker (finding) [facility] Start: 06-11-2023 End: 08-18-2023 History of Social function [facility] Start: 06-11-2023 End: 08-18-2023 [facility] Utilities [facility] Has the [employer], [employer], or water company threatened to shut off services in your home in past 12Mo No [facility] In the past 12 month s, has lack of transportation kept you from medical appointments or from getting medications? No [facility] [employer] [facility] Start: 1940 Sex Assigned At Not on file [facility] Start: 06-23-2023 End: 03-30-2024 Alcohol intake Ex-drinker (finding) [facility] Are [...] Comment caffeine: 1 cups per day coffee [facility] Start: 07-20-2023 Alcohol Comment caffeine: 2 cups per day coffee [facility] Start: 01-03-2015 Sex Female (finding) [facility] Medical Equipment Procedure Code Equipment Code Equipment Origin al Text Equipment Identifier Dates [id number] Start: 07-31-2022 TRUEplus Lancets 33G misc [id number] Start: 12-29-2022 Inject 1 each un raymond the skin Daily Use as instructed [id number] Start: 08-25-2023 TEST FINGERSTICK BLOOD SUGAR TWICE DAILY DIRECTED [id number] Start: 12-27-2023 Inject 1 each un raymond the skin Daily Use as instructed [id number] Start: 03-20-2024 End: 03-28-2024 Inject 1 each un raymond the skin Daily Use as instructed [id number] Start: 03-28-2024 Clinical Notes 06-15-2023 to 03-30-2024 Morena Wharton, DO - 03/30/2024 12:00 PM EDTTelephone Encounter - Christy Valdes - 03/28/2024 1:17 PM EDTTelephone Encounter - Christy Valdes - 03/28/2024 1:17 PM EDT Note Date & Type Note Facility 03-30-2024 History of Presen t illness Narrative Images from the original note were not included. [facility] Progress Note Patient - Marietta Mitchell Age - 83 y[facility]. 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 Risk and benefits of this procedure reviewed. Specifically we focused on her cardiac dysfunction, COPD and ability to tolerate a general anesthesia procedure. She would be extremely high-risk and I am not certain Cardiology would provide clearance. Of additional note patient states that she is uncertain whether or not she would want any sort of treatment if this does prove to be a neoplasm. At this time if Radiation Oncology would be willing to offer empiric radiation and patient was agreeable this seems to be the most reasonable approach. Nodules themselves are amenable to robotic bronchoscopy however given patient's overall health condition this would be exceedingly high-risk for significant complication. Patient and daughter also feel this way. Patient is strongly encouraged to follow-up with her oncologist and to go ahead with her radiation oncology appointment to gather more information so that she can make an appropriate decision for her prior to just deciding not to do anything altogether She has sufficient refills of her respiratory medications at present All questions answered. > 30 minutes spent [id number] reviewing complexities as above and reviewing her chart Return to clinic in 6 months or earlier if needed SUBJECTIVE Mrs. Mitchell presents for evaluation of robotic navigational bronchoscopy as referred by her [facility] Oncologist. Her daughter is also present. She was last seen in the office for her COPD in Jan 2022 and was lost to follow up. She is a poor historian and uncertain if she was seeing a different supervisor adult education in the interim. She has a new RUL and RLL pulmonary nodule 1cm with uptake on PET/CT that is suspicious for neoplasm. She has also been referred to radiation oncology. There has been expressed significant concern regarding her ability to tolerate undergoing procedure due to significant cardiac disease and most recent ECHO revealing EF 10% She is prescribed home O2 and takes breztri BID in addition to PRN albuterol HFA and albuterol aerosols. She gets winded with minimal exertion. She does have some coughing on a daily basis which is minimal and minimally productive. No hemoptysis or pleuritic CP. She is an active smoker and has no plans to quit. Last office visit we had ordered a vest for mucus clearance which she did receive and subsequently returned VITALS BP 144/63 Pulse 74 Ht 165.1 cm (5' 5 ) Wt 46.4 kg (102 lb 6.4 oz) SpO2 98% BMI 17.04 kg/m Exam General: Alert, oriented, no acute distress, nontoxic, thin HEENT: Moist mucosal membranes, no oral lesions or oral thrush, trachea midline Chest: Diminished throughout. Increased AP diameter. CV: Regular rate regular rhythm Extremities: No edema, erythema, distal cyanosis, clubbing Integumentary: Warm and dry. No rash or lesion Neuro: No lateralizing deficits. No tremors Meds Medications Reviewed. Lab Results PFT Results Radiology PET/CT 03/03/24 Whole-body PET/CT scan: HISTORY: Pulmonary nodule. Assess [...] both show increased scintigraphic activity suggesting malignancy. Dr. Morena Wharton DO. [facility] Office: [phone] documented in this encounter [facility] 03-28-2024 Telephone encounter Note Pt states she has been trying to get her needles refilled and has not been able to ge them. [facility] 03-28-2024 Miscellaneous Notes Pt states she has been trying to get her needles refilled and has not been able to ge them. documented in this encounter [facility] 03-20-2024 Telephone encounter Note Patient is requesting droplet pen needles for insulin pens. Only has one left. [facility]ses [facility] [place] Thank you. [facility] 03-20-2024 Miscellaneous Notes Patient is requesting droplet pen needles for insulin pens. Only has one left. [facility] [place]. Thank you. documented in this encounter [facility] 03-16-2024 Telephone encounter Note Giulia from [facility] is calling today requesting droplet pen [...] mart. Thank you. Any questions please call [place] [phone]. [facility] 03-16-2024 Miscellaneous Notes Giulia from [facility] is calling today requesting droplet pen [...] mart. Thank you. Any questions please call [place] [phone]. documented in this encounter [facility] 03-14-2024 Telephone encounter Note [facility] called - They are asking for an order for Prison and PT services . Fax to [phone] [facility] 03-14-2024 Miscellaneous Notes [facility] called - They are asking for an order for Prison and PT services . Fax to [phone] documented in this encounter [facility] 03-14-2024 Note [facility] [...] arteries stents. [facility] and she switched to [facility]. The patient has chronic dyspnea on [...] kidney disease, COPD (chronic obstructive pulmonary disease) ([facility]), Coronary artery disease, Diabetes mellitus ([facility]), Hyperlipidemia, Hypertension, LBBB (left bundle branch block), Myocardial infarction ([facility]), NICM (nonischemic cardiomyopathy) ([facility]), and PAD (peripheral artery disease) ([facility]). Surgical History She has a [...] 9.3, hematocrit 30, (more content not included)... [facility] 03-06-2024 History of Presen t illness [...] Flowsheet Row Office Visit from 03/06/2024 in [facility] with Pia Talley NP Hospital Information ED, Hospital or Prison Facility Discharge? ED Patient has been contacted [...] Air Glucose Meter) w/Device kit USE DIRECTED Igwktrv-Xjrajwtsjjs-Galvnktthh (Breztri Aerosphere) 160-9-4.8 MCG/ACT aerosol 2 puffs, [...] 1 each, Subcutaneous, Daily, Use as instructed rOPINIRole (REQUIP) 0.5 mg, Oral, 3 times daily rosuvastatin (CRESTOR) 20 mg, Oral, Daily Rybelsus 7 MG tablet TAKE 1 TABLET EVERY MORNING TAKE BEFORE A MEAL spironolactone (Aldactone) 25 MG tablet TAKE 1/2 (ONE-HALF) OF A TABLET BY MOUTH ONCE DAILY True Metrix Blood Glucose Test test strip TEST FINGERSTICK BLOOD SUGAR TWICE DAILY DIRECTED TRUEplus Lancets 33G misc REVIEW OF SYMPTOMS: Review of Systems OBJECTIVE: [...] type (CMS/HCC) -Stable Coronary artery disease involving [place] coronary artery of [place] heart without angina pectoris (CMS/HCC) -On a statin, plavix and ASA Primary hypertension (CMS/HCC) - Comprehensive metabolic panel; Future - [...] with long-term current use of insulin (CMS/HCC) - Comprehensive metabolic panel; Future -Rybelsus was stopped. Will see how her blood sugars are running before making any changes to her insulin regimen. Severe malnutrition (CMS/HCC) - Comprehensive metabolic panel; Future -Continue boost daily. Concern for underlying cancer r/t her abnormal PET scan results which could be contributing to her malnutrition however she is also struggling with obtain groceries. 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 PAD. No need to see neurology, I can treat her neuropathy, will trial her on a very low dose of duloxetine and see how she does. documented in this encounter [facility] 03-03-2024 Telephone encounter Note Call and get her records from recent hospital stay at [facility] 03-03-2024 Miscellaneous Notes Call and get her records from recent hospital stay at [facility] documented in this encounter [facility] 02-07-2024 Note [facility] Note Reason for cardiology [...] arteries stents. [facility] and she switched to [facility]. The patient has chronic dyspnea on [...] kidney disease, COPD (chronic obstructive pulmonary disease) ([facility]), Coronary artery disease, Diabetes mellitus ([facility]), Hyperlipidemia, Hypertension, LBBB (left bundle branch block), Myocardial infarction ([facility]), NICM (nonischemic cardiomyopathy) ([facility]), and PAD (peripheral artery disease) ([facility]). Surgical History She has a [...] AST 17, total bilirubin 0.9 06/11/2023 BNP 0-normal less than 100 TSH 0.68, free T40.8 INR 1.1 12/08/2021 Cholesterol 91, triglyceride 138, HDL 44, LDL 19 Last Images: Lower extremities arteri (more content not included)... [facility] 01-21-2024 Telephone encounter Note Pt called asking for help to figure out if she can have her PET scan and the copay. Also would like help finding a mass spectrometry manager close to her. She received a call from [employer] for a Card. And [facility] called her the other day. [facility] 01-21-2024 Miscellaneous Notes Pt called asking for help to figure out if she can have her PET scan and the copay. Also would like help finding a mass spectrometry manager close to her. She received a call from [employer] for a Card. And [facility] called her the other day. documented in this encounter [facility] 08-03-2023 History of Presen t illness Narrative Images from the original note were not included. [facility] [address] [place] [address] [place] [id number] Subjective: Patient ID: Marietta Mitchell is a [...] who presents today for consultation at the [facility] due to history of peripheral artery disease. Patient states she has had 6 stents placed in her right leg and 1 stent placed in her left leg in [place] in . She heard of medications to [...] List Diagnosis NSTEMI (non-ST elevated myocardial infarction) ([facility]) Iron deficiency anemia Cardiomyopathy Mucopurulent chronic bronchitis ([facility]) Pulmonary emphysema ([facility]) Anxiety, generalized Diabetic renal disease ([facility]) Essential hypertension GERD without esophagitis Mixed hyperlipidemia Peripheral vascular disease ([facility]) Polyneuropathy due to type 2 diabetes mellitus ([facility]) Restless leg syndrome Stage 3b chronic kidney disease ([facility]) Type 2 diabetes mellitus with diabetic autonomic (poly)neuropathy ([facility]) Current Outpatient Medications: albuterol (PROVENTIL HFA;VENTOLIN HFA) [...] by mouth as needed., Disp: , Rfl: ibdtqyglqy-tzlfcsyx-fwbmhpgvgt (BREZTRI AEROSPHERE) 160-9-4.8 mcg/actuation HFA aerosol inhaler, [...] Diagnosis Date COPD (chronic obstructive pulmonary disease) ([facility]) Coronary artery disease Diabetes mellitus type 2, controlled ([facility]) GERD (gastroesophageal reflux disease) Hyperlipidemia Hypertension Peripheral vascular disease ([facility]) Polyneuropathy associated with underlying disease ([facility]) Restless leg syndrome Past Surgical History: Procedure Laterality Date Coronary angiogram and left ventricular gram/pressure N/A 12/10/2021 Performed by Rickey Sotelo MD at [facility] EGD Left Lateral 12/09/2021 Performed by Michelle Bosch MD at [facility] Family History Problem Relation Age of [...] all orders for this visit: Atherosclerosis of [place] artery of lower extremity with intermittent claudication([facility]) Patient has history of peripheral artery disease [...] Chavez PA-C Interventional Cardiology and Endovascular Interventions [facility] documented in this encounter [facility] 07-13-2023 Telephone encounter Note Pt left vm stating that her insurance [employer] does not cover a in [facility]. Some told her she could go to [facility] so she wants you to find a referral for a DrOlimpia In [facility] and schedule her. The message did not mention what the referral was for. Please return patient call to [phone] [facility] 07-13-2023 Miscellaneous Notes Pt left vm stating that her insurance [employer] does not cover a in [facility]. Some told her she could go to [facility] so she wants you to find a referral for a DrOlimpia In [facility] and schedule her. The message did not mention what the referral was for. Please return patient call to [phone] documented in this encounter [facility] 06-24-2023 Miscellaneous Notes Patient has [employer] [...] LLD as inpt 05/2023 Please schedule f/u [facility] Evaluation note Diagnosis 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 ([facility])- Primary Essential hypertension Unspecified essential hypertension Mixed hyperlipidemia Renal artery stenosis ([facility]) Atherosclerosis of renal artery [facility] Diagnosis Abnormal PET scan of lung- Primary Acute on chronic respiratory failure with hypoxia ([facility]) Acute systolic congestive heart failure ([facility]) Chronic obstructive pulmonary disease, unspecified COPD type ([facility]) Coronary artery disease involving [place] coronary artery of [place] heart without angina pectoris ([facility]) Primary hypertension ([facility]) Unspecified essential hypertension Type 2 diabetes mellitus with hyperglycemia, with long-term current use of insulin ([facility]) Severe malnutrition ([facility]) 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 ([facility] [facility] documented in this encounter [facility] HealthcareEvaluation note* Diagnosis Peripheral vascular disease ([facility]/HCC)- Primary Unspecified peripheral vascular disease Pulmonary nodule Other diseases of lung, not elsewhere classified Mixed hyperlipidemia ([facility]) Mixed hyperlipidemia Peripheral arterial disease ([facility]) Unspecified peripheral vascular disease NSTEMI (non-ST elevated myocardial infarction) ([facility]) Acute myocardial infarction, subendocardial infarction, episode of care unspecified Cigarette nicotine dependence without complication Essential hypertension ([facility]) Unspecified essential hypertension 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) Pulmonary hypertension, unspecified (I27.20) 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) Moderate protein-calorie malnutrition ([facility]) Wound cellulitis- Primary Type 2 diabetes mellitus with diabetic autonomic neuropathy, with long-term current use of insulin ([facility]) Peripheral vascular disease ([facility]) Unspecified peripheral vascular disease Peripheral arterial disease ([facility]) Unspecified peripheral vascular disease Stage 3a chronic kidney disease (HCC) ([facility]) group home current use of insulin ([facility]) group home (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 (Z79.4) 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) Atherosclerosis of aorta (I70.0) Atherosclerosis of aorta 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) Chronic obstructive pulmonary disease, unspecified COPD type ([facility]/HCC) 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) Aneurysm of ascending aorta without rupture ([facility]/HCC) Thoracic aortic ectasia (I77.810) Thoracic aortic ectasia Type 2 diabetes mellitus with diabetic peripheral angiopathy without gangrene, with long-term current use of insulin ([facility]) Peripheral vascular disease, unspecified (I73.9) Peripheral vascular disease, unspecified Cardiomyopathy, unspecified type ([facility]) Encounter for wellness examination- Primary Essential hypertension ([facility]) Unspecified essential hypertension Type 2 diabetes mellitus with hyperglycemia, with long-term current use of insulin ([facility]) Mixed hyperlipidemia ([facility]) Mixed hyperlipidemia Stage 3b chronic kidney disease (HCC) ([facility]) Iron deficiency anemia, unspecified iron deficiency anemia type Underweight Vitamin D deficiency Screening mammogram for breast cancer Pulmonary nodule Other diseases of lung, not elsewhere classified Unspecified protein-calorie malnutrition ([facility]) Unspecified protein-calorie malnutrition Immunodeficiency due to conditions classified elsewhere ([facility]) COPD mixed type ([facility]) 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) Seasonal allergies Allergic rhinitis, cause unspecified S/P coronary artery stent placement Postsurgical percutaneous transluminal coronary angioplasty status GERD without esophagitis Esophageal reflux Polyneuropathy due to type 2 diabetes mellitus ([facility]) Aneurysm of ascending aorta without rupture ([facility]) Atherosclerosis of aorta (I70.0) Atherosclerosis of aorta Atherosclerosis of coronary artery of [place] heart without angina pectoris, unspecified vessel or lesion type ([facility]) Cardiomyopathy, unspecified type ([facility]) Peripheral vascular disease ([facility]) Unspecified peripheral vascular disease Diabetic nephropathy associated with type 2 diabetes mellitus (HCC) ([facility]) buttermaker current use of insulin ([facility]) Cigarette nicotine dependence without complication Anxiety, generalized ([facility]) COPD mixed type ([facility]) documented in this encounter [facility] HealthcareEvaluation note* Diagnosis Peripheral vascular disease ([facility])- Primary Unspecified peripheral vascular disease Pulmonary nodule Other diseases of lung, not elsewhere classified Mixed hyperlipidemia ([facility]) Mixed hyperlipidemia Peripheral arterial disease ([facility]) Unspecified peripheral vascular disease NSTEMI (non-ST elevated myocardial infarction) ([facility]) Acute myocardial infarction, subendocardial infarction, episode of care unspecified Cigarette nicotine dependence without complication Essential hypertension ([facility]) Unspecified essential hypertension Atherosclerotic heart disease of [place] coronary artery with other forms of angina [...] Stage 3a chronic kidney disease (HCC) (CMS/HCC) buttermaker current use of insulin (CMS/HCC) buttermaker (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 (Z79.4) 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) Atherosclerosis of aorta (I70.0) Atherosclerosis of aorta 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) Chronic obstructive pulmonary disease, unspecified COPD type ([facility]) 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) Aneurysm of ascending aorta without rupture ([facility]) Thoracic aortic ectasia (I77.810) Thoracic aortic ectasia Type 2 diabetes mellitus with diabetic peripheral angiopathy without gangrene, with long-term current use of insulin ([facility]) Peripheral vascular disease, unspecified (I73.9) Peripheral vascular disease, unspecified Cardiomyopathy, unspecified type ([facility]) Encounter for wellness examination- Primary Essential hypertension ([facility]) Unspecified essential hypertension Type 2 diabetes mellitus with hyperglycemia, with long-term current use of insulin ([facility]/HCC) Mixed hyperlipidemia (CMS/HCC) Mixed hyperlipidemia Stage 3b chronic kidney disease (HCC) ([facility]) Iron deficiency anemia, unspecified iron deficiency anemia type Underweight Vitamin D deficiency Screening mammogram for breast cancer Pulmonary nodule Other diseases of lung, not elsewhere classified Unspecified protein-calorie malnutrition (CMS/HCC) Unspecified protein-calorie malnutrition Immunodeficiency due to conditions classified elsewhere ([facility]) COPD mixed type (CMS/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) Seasonal allergies Allergic rhinitis, cause unspecified S/P coronary artery stent placement Postsurgical percutaneous transluminal coronary angioplasty status GERD without esophagitis Esophageal reflux Polyneuropathy due to type 2 diabetes mellitus ([facility]/HCC) Aneurysm of ascending aorta without rupture (CMS/HCC) Atherosclerosis of aorta (I70.0) Atherosclerosis of aorta Atherosclerosis of coronary artery of [place] heart without angina pectoris, unspecified vessel or lesion type (CMS/HCC) Cardiomyopathy, unspecified type (CMS/HCC) Peripheral vascular disease ([facility]/HCC) Unspecified peripheral vascular disease Diabetic nephropathy associated with type 2 diabetes mellitus (HCC) ([facility]) buttermaker current use of insulin ([facility]) Cigarette nicotine dependence without complication Anxiety, generalized (CMS/HCC) COPD mixed type (CMS/HCC) documented in this encounter [facility] HealthcareEvaluation note* Diagnosis Peripheral vascular disease ([facility]/HCC)- Primary Unspecified peripheral vascular disease Pulmonary nodule Other diseases of lung, not elsewhere classified Mixed hyperlipidemia ([facility]) Mixed hyperlipidemia Peripheral arterial disease ([facility]/HCC) Unspecified peripheral vascular disease NSTEMI (non-ST elevated myocardial infarction) ([facility]) Acute myocardial infarction, subendocardial infarction, episode of care unspecified Cigarette nicotine dependence without complication Essential hypertension ([facility]) Unspecified essential hypertension 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) Pulmonary hypertension, unspecified (I27.20) 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) Moderate protein-calorie malnutrition ([facility]) Wound cellulitis- Primary Type 2 diabetes mellitus with diabetic autonomic neuropathy, with long-term current use of insulin ([facility]) Peripheral vascular disease ([facility]/HCC) Unspecified peripheral vascular disease Peripheral arterial disease ([facility]) Unspecified peripheral vascular disease Stage 3a chronic kidney disease (HCC) ([facility]) buttermaker current use of insulin ([facility]) buttermaker (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 (Z79.4) 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) Atherosclerosis of aorta (I70.0) Atherosclerosis of aorta 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) Chronic obstructive pulmonary disease, unspecified COPD type ([facility]) 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) Aneurysm of ascending aorta without rupture ([facility]) Thoracic aortic ectasia (I77.810) Thoracic aortic ectasia Type 2 diabetes mellitus with diabetic peripheral angiopathy without gangrene, with long-term current use of insulin ([facility]) Peripheral vascular disease, unspecified (I73.9) Peripheral vascular disease, unspecified Cardiomyopathy, unspecified type ([facility]) Encounter for wellness examination- Primary Essential hypertension ([facility]) Unspecified essential hypertension Type 2 diabetes mellitus with hyperglycemia, with long-term current use of insulin ([facility]) Mixed hyperlipidemia ([facility]) Mixed hyperlipidemia Stage 3b chronic kidney disease (HCC) ([facility]) Iron deficiency anemia, unspecified iron deficiency anemia type Underweight Vitamin D deficiency Screening mammogram for breast cancer Pulmonary nodule Other diseases of lung, not elsewhere classified Unspecified protein-calorie malnutrition ([facility]) Unspecified protein-calorie malnutrition Immunodeficiency due to conditions classified elsewhere ([facility]) COPD mixed type ([facility]) 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) Seasonal allergies Allergic rhinitis, cause unspecified S/P coronary artery stent placement Postsurgical percutaneous transluminal coronary angioplasty status GERD without esophagitis Esophageal reflux Polyneuropathy due to type 2 diabetes mellitus ([facility]) Aneurysm of ascending aorta without rupture ([facility]) Atherosclerosis of aorta (I70.0) Atherosclerosis of aorta Atherosclerosis of coronary artery of [place] heart without angina pectoris, unspecified vessel or lesion type ([facility]) Cardiomyopathy, unspecified type ([facility]) Peripheral vascular disease ([facility]) Unspecified peripheral vascular disease Diabetic nephropathy associated with type 2 diabetes mellitus (HCC) ([facility]) buttermaker current use of insulin ([facility]) Cigarette nicotine dependence without complication Anxiety, generalized ([facility]) Type 2 diabetes mellitus with diabetic autonomic neuropathy, with long-term current use of insulin ([facility]) documented in this encounter [facility] HealthcareEvaluation note* Diagnosis Peripheral vascular disease ([facility])- Primary Unspecified peripheral vascular disease Pulmonary nodule Other diseases of lung, not elsewhere classified Mixed hyperlipidemia ([facility]) Mixed hyperlipidemia Peripheral arterial disease ([facility]) Unspecified peripheral vascular disease NSTEMI (non-ST elevated myocardial infarction) ([facility]) Acute myocardial infarction, subendocardial infarction, episode of care unspecified Cigarette nicotine dependence without complication Essential hypertension ([facility]) Unspecified essential hypertension 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) Pulmonary hypertension, unspecified (I27.20) 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) Moderate protein-calorie malnutrition ([facility]) Wound cellulitis- Primary Type 2 diabetes mellitus with diabetic autonomic neuropathy, with long-term current use of insulin (CMS/HCC) Peripheral vascular disease (CMS/HCC) Unspecified peripheral vascular disease Peripheral arterial disease (CMS/HCC) Unspecified peripheral vascular disease Stage 3a chronic kidney disease (HCC) ([facility]) buttermaker current use of insulin (CMS/HCC) group home (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 (Z79.4) 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) Atherosclerosis of aorta (I70.0) Atherosclerosis of aorta 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) Chronic obstructive pulmonary disease, unspecified COPD type ([facility]) 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) Aneurysm of ascending aorta without rupture ([facility]) Thoracic aortic ectasia (I77.810) Thoracic aortic ectasia Type 2 diabetes mellitus with diabetic peripheral angiopathy without gangrene, with long-term current use of insulin ([facility]) Peripheral vascular disease, unspecified (I73.9) Peripheral vascular disease, unspecified Cardiomyopathy, unspecified type ([facility]) Encounter for wellness examination- Primary Essential hypertension ([facility]) Unspecified essential hypertension Type 2 diabetes mellitus with hyperglycemia, with long-term current use of insulin ([facility]) Mixed hyperlipidemia ([facility]) Mixed hyperlipidemia Stage 3b chronic kidney disease (HCC) ([facility]) Iron deficiency anemia, unspecified iron deficiency anemia type Underweight Vitamin D deficiency Screening mammogram for breast cancer Pulmonary nodule Other diseases of lung, not elsewhere classified Unspecified protein-calorie malnutrition ([facility]) Unspecified protein-calorie malnutrition Immunodeficiency due to conditions classified elsewhere ([facility]) COPD mixed type ([facility]/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) Seasonal allergies Allergic rhinitis, cause unspecified S/P coronary artery stent placement Postsurgical percutaneous transluminal coronary angioplasty status GERD without esophagitis Esophageal reflux Polyneuropathy due to type 2 diabetes mellitus ([facility]) Aneurysm of ascending aorta without rupture ([facility]/HCC) Atherosclerosis of aorta (I70.0) Atherosclerosis of aorta Atherosclerosis of coronary artery of [place] heart without angina pectoris, unspecified vessel or lesion type ([facility]) Cardiomyopathy, unspecified type (CMS/HCC) Peripheral vascular disease ([facility]) Unspecified peripheral vascular disease Diabetic nephropathy associated with type 2 diabetes mellitus (HCC) (CMS/HCC) group home current use of insulin (CMS/HCC) Cigarette nicotine dependence without complication Anxiety, generalized (CMS/HCC) COPD mixed type (CMS/HCC) documented in this encounter [facility] HealthcareEvaluation note* Diagnosis COPD, severe (CMS-HCC)- Primary Tobacco use Cardiomyopathy (CMS-HCC) [facility] filed[facility] filedocumented in [facility] filed[facility] in this encounter [facility] SystemInstructionsNot on filedocumented in this encounter [facility] SystemReason for referral (narrative)* Consultation (Urgent) - Pending Review Specialty Diagnoses / Procedures Referred By Velma cason Referred To Contact Oncology / Hematology and Oncology Diagnoses Abnormal PET scan of lung Procedures [place] OFFICE/OUTPATIENT NEW HIGH MDM 60 MINUTES Pia Talley NP [address] [place] [address] Referral ID Status Reason Start Date Expiration Date Visits Requested Visits Authorized [id number] Pending Review Specialty Services Required 03/06/2024 09/02/2024 1 1 [facility] for visit Narrative* Consultation (Routine) - Pending Review Specialty Diagnoses / Procedures Referred By Velma cason Referred To Contact Vascular Surgery Diagnoses Peripheral vascular disease (CMS-HCC) Peripheral arterial disease ([facility]-HCC) Procedures [place] OFFICE OUTPATIENT VISIT 60-74 MINS HIGH MDM AMB REFERRAL TO VASCULAR SURGERY Pia Talley APRN-ASSISTANT [place] [address] [place] [address] Aristeo Garcia MD [address] [place] [phone] Referral ID Status Reason Start Date Expiration Date V isits Requested Visits Authorized [id number] Pending Review 07/09/2023 01/05/2024 1 1 [facility] System Summary Purpose Family History No Family History Records FoundNo Family History Records FoundNo Family History Records FoundNo Family History Records FoundNo Family History Records FoundNo Family History Records FoundNo Family History Records Found Advance Directives Latest Code Status on File Code Status [...] Code 12/06/2021 2:49 AM 12/10/2021 10:34 PM Date Activated Date Inactivated Comments 06/11/2023 12:23 AM 06/12/2023 1:53 PM Date Activated Date Inactivated Comments 12/06/2021 2:49 AM 12/10/2021 10:34 PM Reason for Referral Specialty Diagnoses / Procedures Referred By Contac t Referred To Contact Diagnoses Renal artery stenosis ([facility]) Procedures Vas renal artery duplex complete Dima Chavez PA-C [address] [place] [address] Referral ID Status Reason Start Date Expiration Date V isits Requested Visits Authorized [id number] Pending Review 08/03/2023 08/02/2024 1 1 Specialty Diagnoses / Procedures Referred By Contac t Referred To Contact Diagnoses 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 ([facility]) Procedures Vasc art doppler lwr PVR W/exercise Dima Chavez PA-C [address] [place] [address] Referral ID Status Reason Start Date Expiration Date V isits Requested Visits Authorized [id number] Pending Review 08/03/2023 08/02/2024 1 1 Specialty Diagnoses / Procedures Referred By Contac t Referred To Contact Diagnoses 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 ([facility]) Procedures Vas art duplex lwr bilateral Dima Chavez PA-C [address] [place] [address] Referral ID Status Reason Start Date Expiration Date V isits Requested Visits Authorized [id number] Pending Review 08/03/2023 08/02/2024 1 1 Additional Source Comments INFORMATION SOURCE (unrecogn ized section and content) DATE CREATED AUTHOR 02/10/2022 [facility] DATE CREATED AUTHOR AUTHOR'S ORGANIZ ATION 03/26/2022 [facility] dical Specialist DATE CREATED AUTHOR AUTHOR'S ORGANIZ ATION 08/04/2023 [facility] DATE CREATED AUTHOR AUTHOR'S ORGANIZ ATION 03/07/2024 [facility] dical Specialists EPIC DATE CREATED AUTHOR AUTHOR'S ORGANIZ ATION 03/21/2024 [facility] DATE CREATED AUTHOR AUTHOR'S ORGANIZ ATION 03/21/2024 [facility] DATE CREATED AUTHOR AUTHOR'S ORGANIZ ATION 04/01/2024 [facility] Care Teams (unrecognized sec tion and content) Mathematics Department Chair Relationship Specialty Start Date End Date Shila Molina DO [address] [place] [address] PCP - General Family Medicine 12/05/21 Mathematics Department Chair Relationship Specialty Start Date End Date Tonja Gilliam MD [address] [place] [address] PCP - General Family Medicine 06/23/23 Mathematics Department Chair Relationship Specialty Start Date End Date Shila Molina DO [address] [place] [address] PCP - [employer] 05/31/22 Tonja Gilliam MD [address] [facility] [place] [address] PCP - General Family Medicine 06/08/23 Pia Talley NP [address] [place] [address] Nurse Practitioner Family Medicine 06/08/23 Mathematics Department Chair Relationship Specialty Start Date End Date Tonja Gilliam MD [address] [place] [address] PCP - General Family Medicine 06/23/23 Mathematics Department Chair Relationship Specialty Start Date End Date Shila Molina DO [address] [place] [address] PCP - [employer] 05/31/22 Tonja Gilliam MD [address] [place] [address] PCP - General Family Medicine 06/08/23 Tonja Gilliam MD [address] [place] [address] PCP - [facility] 12/30/23 Pia Talley NP [address] [place] [address] Nurse Practitioner Family Medicine 06/08/23 Mathematics Department Chair Relationship Specialty Start Date End Date Shila Molina DO [address] [place] [address] PCP - [employer] 05/31/22 Tonja Gilliam MD [address] [place] [address] PCP - General Family Medicine 06/08/23 Tonja Gilliam MD [address] [place] [address] PCP - [employer] 12/30/23 Pia Talley NP [address] [place] [address] Nurse Practitioner Family Medicine 06/08/23 Mathematics Department Chair Relationship Specialty Start Date End Date Shila Molina DO [address] [place] [address] PCP - [employer] 05/31/22 Tonja Gilliam MD [address] [place] [address] PCP - General Family Medicine 06/08/23 Tonja Gilliam MD [address] [place] [address] PCP - [employer] 12/30/23 Pia Talley NP [address] [place] [address] Nurse Practitioner Family Medicine 06/08/23 Mathematics Department Chair Relationship Specialty Start Date End Date Shila Molina DO [address] [place] [address] PCP - [employer] 05/31/22 Tonja Gilliam MD [address] [place] [address] PCP - General Family Medicine 06/08/23 Tonja iGlliam MD [address] [place] [address] PCP - [employer] 12/30/23 Pia Talley NP [address] [place] [address] Nurse Practitioner Family Medicine 06/08/23 Mathematics Department Chair Relationship Specialty Start Date End Date Shila MolinaDO [address] [place] [address] PCP - [employer] 05/31/22 Tonja Gilliam MD [address] [place] [address] PCP - General Family Medicine 06/08/23 Tonja Gilliam MD [address] [place] [address] PCP - [employer] 12/30/23 Pia Talley NP [address] [place] [address] Nurse Practitioner Family Medicine 06/08/23 Mathematics Department Chair Relationship Specialty Start Date End Date JesseRupert thomasee JoseloDO [address] [place] [address] PCP - [employer] 05/31/22 Tonja Gilliam MD [address] [place] [address] PCP - General Family Medicine 06/08/23 Tonja Gilliam MD [address] [place] [address] PCP - [employer] 12/30/23 Pia Talley NP [address] [place] [address] Nurse Practitioner Family Medicine 06/08/23 Mathematics Department Chair Relationship Specialty Start Date End Date Shila Molina [address] [place] [address] PCP - [employer] 05/31/22 Tonja Gilliam MD [address] [place] [address] PCP - General Family Medicine 06/08/23 Tonja Gilliam MD [address] [place] [address] PCP - [employer] 12/30/23 Pia Talley NP [address] [place] [address] Nurse Practitioner Family Medicine 06/08/23 Mathematics Department Chair Relationship Specialty Start Date End Date JesseShila JoseloDO [address] [place] [address] PCP - [employer] 05/31/22 Tonja Gilliam MD [address] [place] [address] PCP - General Family Medicine 06/08/23 Tonja Gilliam MD [address] [place] [address] PCP - [employer] 12/30/23 Pia Talley NP [address] [place] [address] Nurse Practitioner Family Medicine 06/08/23 Mathematics Department Chair Relationship Specialty Start Date End Date Shila Molina DO [address] [place] [address] PCP - [employer] 05/31/22 Tonja Gilliam MD [address] [place] [address] PCP - General Family Medicine 06/08/23 Tonja Gilliam MD [address] [place] [address] PCP - [employer] 12/30/23 Pia Talley NP [address] [place] [address] Nurse Practitioner Family Medicine 06/08/23 Mathematics Department Chair Relationship Specialty Start Date End Date Tonja Gilliam MD [address] [place] [address] PCP - General Family Medicine 06/23/23 Reason for Visit (unrecogniz ed section and content) Reason Comments Hospital Follow-up Reason Comments Med Refill Reason Comments Follow-up COPD PFT: 03/20/2024ET C T: 4CXR: 06/10/2023 FOR RECORDS PERTAINING TO PATIENTS WHO ARE [...] BE BASED ON THE PRIMARY CLINICAL RECORDS. [employer] [facility]. provides no warranty or guarantee of the accuracy or completeness of information in this document.
[2024-04-10 17:36] LABS: Hematocrit 37.7 % (36.0-48.0); Mean Corpuscular HGB Conc 31.8 g/dL (29.9-35.2); Mean Corpuscular Volume 87.9 fL (81.0-99.0); Mean Platelet Volume 11.1 fL (9.5-13.5); Platelet Count 340 10^3/uL (150-450); Red Blood Count 4.29 10^6/uL (4.20-5.40); Red Cell Distribution Width 15.3 % (11.0-15.0)
[2024-04-10] MEDS: METHYLPREDNISOLONE SOD SUCC PF 125 MG/2 ML VIAL IVP (17:36)
[2024-04-10 17:43] LABS: PCO2 VBG 58.4 mmHg (40.0-52.0); pH VBG 7.371 (7.330-7.430)
[2024-04-10 17:46] LABS: Prothrombin Time 10.6 sec (9.0-11.6)
[2024-04-10 17:51] LABS: Influenza Virus A Antigen Negative; Influenza Virus B Antigen Negative; Internal Control Within Normal Limits; SARS-CoV-2 Ag NEGATIVE (NEGATIVE)
[2024-04-10 18:07] LABS: Alanine Aminotransferase 29 U/L (14-59); Albumin Globulin Ratio 0.7; Albumin Level 3.2 g/dL (3.4-5.0); Alkaline Phosphatase 117 U/L (46-116); Anion Gap 12.2; Aspartate Amino Transferase 17 U/L (15-37); BUN Creatinine Ratio 35.9; Bilirubin Total 0.4 mg/dL (0.2-1.0); Calcium 12.2 mg/dL (8.5-10.1); Carbon Dioxide 32.1 mmol/L (21.0-32.0); Chloride 95 mmol/L (98-107); Estimated GFR (African America 43 (>=60 mL/min/1.73m^2); Estimated GFR (Non-African Ame 36 (>=60 mL/min/1.73m^2); Globulin 4.4 g/dL; Glucose 365 mg/dL (74-106); Magnesium 1.9 mg/dL (1.8-2.4); Potassium 4.3 mmol/L (3.5-5.1); Sodium 135 mmol/L (136-145); Total Protein 7.6 g/dL (6.4-8.2); Troponin I High Sensitivity 24.2 pg/mL (4.0-51.3)
[2024-04-10 18:09] LABS: Lactate/Lactic Acid 4.3 mmol/L (0.4-2.0)
[2024-04-10] MEDS: ALBUTEROL SULFATE 2.5 MG/3 ML VIAL NEB IH (18:09)
--- NOTE | 2024-04-10 18:14 | RESP.RT ---
titrated down to 2L
[2024-04-10 18:22] LABS: Lymphocytes Absolute Manual 0.36 10^3/uL (1.20-3.80); Monocytes Absolute Manual 0.72 10^3/uL (0.30-0.80); Segmented Neut Absolute Manual 16.92 10^3/uL (1.4-6.5)
[2024-04-10 19:40] LABS: Lactate/Lactic Acid 3.9 mmol/L (0.4-2.0)
--- NOTE | 2024-04-10 20:05 | PC.NURSE ---
Pt brought to room via wc from ER accompanied by her daughter. Pt and daughter state that pt has been short of breath since leaving the hospital. Pt does wear O2 at 2L per [place]. Daughter states that she did given pt her HHn treatment prior to coming in to the ER. Pt is also on a Breztri inhaler which the daughter states has given pt thrush. (daughter states that she has told her that she needs to rinse out her mouth after using the inhaler but is not sure is she actually does) Pt dozes off while doing adm. States that she does not sleep well.
--- OUTSIDE RECORDS SUMMARY | 2024-04-10 20:06 | XMS_ITS | CCD ---
Author Organization [facility] Care Team Providers Care Soa Architect Name Role Phone DR SIOBHAN DEMARCO Primary Care Unavailable MATI ZAMBRANO Admitting Unavailable MATI ZAMBRANO Consulting Unavailable MATI ZAMBRANO Attending Unavailable YU JUNIOR Consulting Unavailable Shila Molina DO Primary Care Provider Tonja Gilliam MD Primary Care Provider Shila Molina DO Unavailable Tonja Gilliam MD Primary Care Provider Mayank AUTOMOTIVE ELECTRICAL HELPER, Pia Unavailable ARISTEO GARCIA Attending Unavailable PIA TALLEY A Referring Unavailable TONJA GILLIAM Primary Care Unavailable PAI TALLEY Attending Unavailable JOAQUINPSONIYA, PIA Referring Unavailable [...] Aluminum aspirin; Translations: [ASPIRIN] Drug Allergy 08-18-2023 [facility] (1 source) Aspirin Drug Allergy 08-18-2023 [facility] Medications Current Medications Medication Drug Class(es) Dates Sig (Normalized) Sig (Original) [id number] 200 actuat albuterol 0.09 mg/actuat metered dose [...] neuropathy, with long-term current use of insulin ([facility]) USE DIRECTED 1 kit 1 08/11/2023 Active 120 actuat budesonide 0.16 mg/actuat / formoterol fumarate 0.0048 mg/actuat / glycopyrrolate 0.009 mg/actuat metered dose inhaler (17 sources) Corticosteroid, beta2-Adrenergic Agonist Start: 2022 End: 2023 take 2 puff(s) by inhalation in the morning Budeson-Glycopyrro l-Formoterol (Breztri Aerosphere) 160-9-4.8 MCG/ACT aerosol Indications: COPD mixed type ([facility]) Inhale 2 puffs in the morning and 2 puffs before bedtime. 32.1 g 1 01/18/2024 Active Start: 02-10-2022 take 2 puff(s) by inhalation at bedtime bxhzbabknu-enunznsa-bukzvopcta (BREZTRI AEROSPHERE) 160-9-4.8 mcg/actuation HFA aerosol inhaler Inhale 2 puffs in the morning and at bedtime. 02/10/2022 Active Cholecalciferol (11 sources) Vitamin D Cholecalciferol (D3 PO) Take by mouth Active clopidogrel 75 mg oral tablet (17 sources) P2Y12 Platelet Inhibitor Start: clopidogrel (Plavix) 75 MG tablet Indications: PVD (peripheral vascular disease) ([facility]) TAKE 1 TABLET EVERY DAY [...] oral tablet (16 sources) Angiotensin 2 Receptor Bc take 1 tablet by mouth in the [...] MG 24 hr tablet Indications: Essential hypertension ([facility]) Take 1 tablet (50 mg) by mouth in the morning. 90 tablet 1 01/18/2024 Active montelukast 10 mg oral tablet (17 sources) Leukotriene Receptor Antagonist Start: 03-15-2023 montelukast (Singulair) 10 MG tablet Indications: Chronic obstructive pulmonary disease, unspecified COPD type ([facility]) TAKE 1 TABLET EVERY DAY [...] CQ) 21 mg/24 hr Indications: COPD exacerbation ([facility]) Place 1 patch on the [...] (DELTASONE) 10 mg tablet Indications: COPD exacerbation ([facility]) 3 tabs for 3 days, [...] ONCE DAILY 02/28/2024 Active 28 actuat tiotropium 0.86003 mg/actuat inhalation spray (1 source) Anticholinergic tiotropium [...] Coronary atherosclerosis; Translations: [Atherosclerotic heart disease of [place] coronary artery without angina pectoris] Onset: 09-30-2022 [...] 03-06-2024 Chronic Other aftercare (1 source) 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; Translations: [OTH CORRECTION CURRENT DRUG THERAPY] Onset: 02-10-2022 Episodic Other [...] Respiratory failure; insufficiency; arrest (adult) (2 sources) Waicx-uz-gxpqbgt respiratory failure; Translations: [Acute and chronic respiratory [...] sources) Long-term current use of insulin; Translations: [intermediate (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] Onset: 02-18-2022 11-25-2022 [...] Range Facility Office Visiton 03-14-2024 Follow-up visit [id number] Marietta Mitchell 1940 F Date Provider Department Center 03/14/2024 [id number] LAU [facility] Family History Problem Relation Age of Onset Heart failure Mother Sudden Father Stroke Father Heart attack Son Family Status - Relation Status Age at Mother Father Son Other Level of Service:66529 ME OFFICE/OUTPATIENT ESTABLISHED MOD MDM 30 MIN Normal [facility] CBC W Auto Differential pane l (Bld)on 03-07-2024 Basophils (Bld) [#/Vol] 58 10*3/uL [facility] Basophils/100 WBC (Bld) 0.9 % [facility] Eosinophils (Bld) [#/Vol] 58 10*3/uL [facility] Eosinophils/100 WBC (Bld) 0.9 % [facility] Erythrocyte distribution width (RBC) [Ratio] 14.3 % 11.0 - 15.0 % [facility] Hematocrit (Bld) [Volume fraction] 33.9 % Low 35.0 - 45.0 % [facility] Hemoglobin (Bld) [Mass/Vol] 10.3 g/dL Low 11.7 - 15.5 g/dL [facility] Lymphocytes (Bld) [#/Vol] 1267 10*3/uL [facility] Lymphocytes/100 WBC (Bld) 19.8 % [facility] MCH (RBC) [Entitic mass] 27.7 pg 27.0 - 33.0 pg [facility] MCHC (RBC) [Mass/Vol] 30.4 g/dL Low 32.0 - 36.0 g/dL [facility] Comment on above: For adults, a slight decrease in the calculated MCHC value (in the range of 30 to 32 g/dL) is most likely not clinically significant; however, it should be interpreted with caution in correlation with other red cell parameters and the patient's clinical condition. MCV (RBC) [Entitic vol] 91.1 fL 80.0 - 100.0 fL [facility] Monocytes (Bld) [#/Vol] 493 10*3/uL [facility] Monocytes/100 WBC (Bld) 7.7 % [facility] Neutrophils (Bld) [#/Vol] 4525 10*3/uL [facility] Neutrophils/100 WBC (Bld) 70.7 % [facility] Platelet mean volume (Bld) [Entitic vol] 11.9 fL 7.5 - 12.5 fL [facility] Platelets (Bld) [#/Vol] 323 10*3/uL [facility] RBC (Bld) [#/Vol] 3.72 10*6/uL Low [facility] WBC (Bld) [#/Vol] 6.4 10*3/uL [facility] Laboratory - Chemistry and C hemistry - challengeon 03-07-2024 Albumin [Mass/Vol] 4.0 g/dL 3.6 - 5.1 g/dL [facility] Albumin/Globulin [Mass ratio] 1.3 {ratio} [facility] ALP [Catalytic activity/Vol] 93 U/L 37 - 153 U/L [facility] ALT [Catalytic activity/Vol] 13 U/L 6 - 29 U/L [facility] AST [Catalytic activity/Vol] 18 U/L 10 - 35 U/L [facility] Bilirubin [Mass/Vol] 0.3 mg/dL 0.2 - 1 .2 mg/dL [facility] Calcium [Mass/Vol] 11.1 mg/dL High 8.6 - 10. 4 mg/dL [facility] Chloride [Moles/Vol] 102 mmol/L 98 - 11 0 mmol/L [facility] CO2 [Moles/Vol] 30 mmol/L 20 - 32 mmol/L [facility] Creatinine [Mass/Vol] 1.15 mg/dL High 0.60 - 0.95 mg/dL [facility] GFR/1.73 sq M.predicted among non-blacks MDRD (S/P/Bld) [Vol rate/Area] 48 mL/min/{1.73_m2} Low > OR = 60 mL/min/1.73m2 [facility] Globulin (S) [Mass/Vol] 3.2 g/dL [facility] Glucose [Mass/Vol] 61 mg/dL Low 65 - 99 mg/dL [facility] Comment on above: Fasting reference interval Potassium [Moles/Vol] 4.3 mmol/L 3.5 - 5.3 mmol/L [facility] Protein [Mass/Vol] 7.2 g/dL 6.1 - 8.1 g/dL [facility] Sodium [Moles/Vol] 139 mmol/L 135 - 146 mmol/L [facility] Urea nitrogen [Mass/Vol] 27 mg/dL High 7 - 25 mg/dL [facility] Urea nitrogen/Creatinine [Mass ratio] 23 mg/mg High [facility] No Panel Informationon 03-07 Interpretation and review of laboratory results Abnormal [facility] Performing Organization Information Site ID: QPT Name: [employer] [facility] Address: [address] [place] [address], [address] [place] [id number] Director: Yanick Self MD [facility] PET CT SKULL TO THIGHon PET CT SKULL TO THIGH PET CT SKULL TO [facility] Whole-body PET/CT scan: HISTORY: Pulmonary nodule. Assess [...] Ellington MD on 03/03/2024 3:28 PM Normal [facility] Office Visiton 02-07-2024 Follow-up visit [id number] Marietta Mitchell 1940 F Date Provider Department Center 02/07/2024 [id number] LAU [facility] Family History Problem Relation Age of Onset Heart failure Mother Sudden Father Stroke Father Heart attack Son Family Status - Relation Status Age at Mother Father Son Other Level of Service:76073 ME OFFICE/OUTPATIENT [facility] MODERATE MDM 45 MINUTES Normal [facility] C DIFFICILE BY PCRon 024 C. difficile toxin genes LUCÍA+probe Ql (Stl) TOXIGENIC C DIFF Negative (qualifier value) 027 NAP1 Negative (qualifier value) Normal PRNEG [facility] Comment on above: Performed By: #### 5 4067-4 #### [facility] ([id number]) [address] [place] [address], [address] [place] [address] #### 52998-2 #### [facility] ([id number]) [address] [place] [address], [place] [address] [facility] ([id number]) [address] [place] [address], [address] [place] [address] CBC AND AUTO DIFFon 08-18-19 24 ABSOLUTE BASOPHIL 0.1 X10E9/L Normal 0.0-0.2 [facility] Comment on above: Performed By: #### C KUSH ESCAMILLA, #### [facility] ([id number]) [address] [place] [address] ABSOLUTE NEUTROPHIL 9.9 X10E9/L High 1.5-6.6 [facility] Comment on above: Performed By: #### C KUSH ESCAMILLA, #### [facility] ([id number]) [address] [place] [address] Basophils/100 WBC (Bld) 1.0 % Normal [facility] Comment on above: Performed By: #### Taj ESCAMILLA CMP, #### [facility] ([id number]) [address] [place] [address] Eosinophils (Bld) [#/Vol] 0.1 10*3/uL Normal 0.0-0.4 [facility] Comment on above: Performed By: #### Taj ESCAMILLA [facility], #### [facility] ([id number]) [address] [place] [address] Eosinophils/100 WBC (Bld) 0.8 % Normal [facility] Comment on above: Performed By: #### Taj ESCAMILLA [facility], #### [facility] ([id number]) [address] [place] [address] Erythrocyte distribution width (RBC) [Ratio] 15.1 % High 11.5-15.0 [facility] Comment on above: Performed By: #### Taj ESCAMILLA CMP, #### [facility] ([id number]) [address] [place] [address] Hematocrit (Bld) [Volume fraction] 38.3 % Normal 35-47 [facility] Comment on above: Performed By: #### C FRANCINE, CMP, 75483-0 #### [facility] ([id number]) [address] [place] [address] Hemoglobin (Bld) [Mass/Vol] 12.8 g/dL Normal 11.7-15.5 [facility] Comment on above: Performed By: #### Taj ESCAMILLA, CMP, #### [facility] ([id number]) [address] [place] [address] Lymphocytes (Bld) [#/Vol] 1.6 10*3/uL Normal 1.0-3.5 [facility] Comment on above: Performed By: #### Taj ESCAMILLA CMP, #### [facility] ([id number]) [address] [place] [address] Lymphocytes/100 WBC (Bld) 12.7 % Normal [facility] Comment on above: Performed By: #### Taj ESCAMILLA, CMP, #### [facility] ([id number]) [address] [place] [address] MCH (RBC) [Entitic mass] 30.6 pg Normal 27-34 [facility] Comment on above: Performed By: #### Taj ESCAMILLA CMP, #### [facility] ([id number]) [address] [place] [address] MCHC (RBC) [Mass/Vol] 33.3 g/dL Normal 32-36 [facility] Comment on above: Performed By: #### Taj ESCAMILLA, CMP, #### [facility] ([id number]) [address] [place] [address] MCV (RBC) [Entitic vol] 92 fL Normal 80-100 [facility] Comment on above: Performed By: #### C BCA, CMP, #### [facility] ([id number]) [address] [place] [address] Monocytes (Bld) [#/Vol] 0.7 10*3/uL Normal 0-0.9 [facility] Comment on above: Performed By: #### C BCA, CMP, 04289-5 #### [facility] ([id number]) [address] [place] [address] Monocytes/100 WBC (Bld) 5.6 % Normal [facility] Comment on above: Performed By: #### C FRANCINE, CMP, #### [facility] ([id number]) [address] [place] [address] Neutrophils/100 WBC (Bld) 79.9 % Normal [facility] Comment on above: Performed By: #### C FRANCINE, CMP, #### [facility] ([id number]) [address] [place] [address] Platelet mean volume (Bld) [Entitic vol] 10.0 fL Normal 7-12 [facility] Comment on above: Performed By: #### C FRANCINE, CMP, #### [facility] ([id number]) [address] [place] [address] Platelets (Bld) [#/Vol] 238 10*3/uL Normal 150-450 [facility] Comment on above: Performed By: #### C FRANCINE, CMP, #### [facility] ([id number]) [address] [place] [address]11 RBC COUNT 4.17 X10E12/L Normal 3.80-5.20 [facility] Comment on above: Performed By: #### C BCA, CMP, #### [facility] ([id number]) [address] [place] [address] WBC (Bld) [#/Vol] 12.3 10*3/uL High 4.0-11.0 [facility] Comment on above: Performed By: #### C KUSH ESCAMILLA, 89642-7 #### [facility] ([id number]) [address] [place] [address] COMPREHENSIVE METABOLIC PANE Willis 08-18-2023 Albumin [Mass/Vol] 4.0 g/dL Normal 3.2-5.3 [facility] Comment on above: Performed By: #### C KUSH ESCAMILLA, 59826-9 #### [facility] ([id number]) [address] [place] [address] ALP [Catalytic activity/Vol] 99 U/L Normal 39-130 [facility] Comment on above: Performed By: #### C KUSH ESCAMILLA, 56491-5 #### [facility] ([id number]) [address] [place] [address]296 ALT [Catalytic activity/Vol] 17 U/L Normal 0-31 [facility] Comment on above: Performed By: #### C FRANCINE, [facility], 95581-3 #### [facility] ([id number]) [address] [place] [address]87 Anion gap [Moles/Vol] 4 mmol/L Low 5-15 [facility] Comment on above: Performed By: #### C FRANCINE, CMP, 36607-7 #### [facility] ([id number]) [address] [place] [address]381 AST [Catalytic activity/Vol] 21 U/L Normal 0-41 [facility] Comment on above: Performed By: #### C BCA, CMP, 18862-0 #### [facility] ([id number]) [address] [place] [address]272 Bilirubin [Mass/Vol] 0.5 mg/dL Normal 0.3-1.2 [facility] Comment on above: Performed By: #### C FRANCINE [facility], 61978-7 #### [facility] ([id number]) [address] [place] [address]48 Calcium [Mass/Vol] 10.5 mg/dL Normal 8.5-10.5 [facility] Comment on above: Performed By: #### C FRANCINE [facility], #### [facility] ([id number]) [address] [place] [address] Chloride [Moles/Vol] 103 mmol/L Normal 98-109 [facility] Comment on above: Performed By: #### C KUSH ESCAMILLA, 58706-6 #### [facility] ([id number]) [address] [place] [address] CO2 [Moles/Vol] 25 mmol/L Normal 22-32 [facility] Comment on above: Performed By: #### C FRANCINE [facility], 93452-0 #### [facility] ([id number]) [address] [place] [address]29 Creatinine [Mass/Vol] 0.94 mg/dL Normal 0.40-1.00 [facility] Comment on above: Result Comment: METH OD TRACEABLE TO IDMS STANDARD Performed By: #### C KUSH ESCAMILLA, 83815-6 #### [facility] ([id number]) [address] [place] [address]642 GFR/1.73 sq M.predicted among non-blacks MDRD (S/P/Bld) [Vol rate/Area] 61 mL/min/{1.73_m2} Normal >59 [facility] Comment on above: Result Comment: Reported eGFR is based on the CKD-EPI 2020 equation that does not use a race coefficient. Performed By: #### C KUSH ESCAMILLA, #### [facility] ([id number]) [address] [place] [address] Glucose [Mass/Vol] 136 mg/dL High 65-99 [facility] Comment on above: Performed By: #### C FRANCINE [facility], 12751-6 #### [facility] ([id number]) [address] [place] [address]2331 Potassium [Moles/Vol] 4.2 mmol/L Normal 3.5-5.0 [facility] Comment on above: Performed By: #### C FRANCINE [facility], 86365-5 #### [facility] ([id number]) [address] [place] [address]222 Protein [Mass/Vol] 7.6 g/dL Normal 6.0-8.0 [facility] Comment on above: Performed By: #### Taj ESCAMILLA [facility], 33261-5 #### [facility] ([id number]) [address] [place] [address] 48486 Sodium [Moles/Vol] 132 mmol/L Low 134-146 [facility] Comment on above: Performed By: #### Taj ESCAMILLA [facility], 12145-2 #### [facility] ([id number]) [address] [place] [address]3896 Urea nitrogen [Mass/Vol] 26 mg/dL Normal 5-27 [facility] Comment on above: Performed By: #### Taj ESCAMILLA [facility], 34861-2 #### [facility] ([id number]) [address] [place] [address]143 GI PANELon 08-18-2023 Gastrointestinal pathogens DNA and RNA panel LUCAÍ+non-probe (Stl) SPECIMEN SOURCE STOOL CAMPYLOBACTER Not detected [...] SAPOVIRUS Not detected (qualifier value) Normal NDET [facility] Comment on above: Performed By: #### 5 4067-4 #### [facility] ([id number]) [address] [place] [address], [address] [address] #### 64252-3 #### [facility] ([id number]) [address] [place] [address] [facility] ([id number]) [address] [place] [address], [address] [address] MAGNESIUMon 08-18-2023 Magnesium [Mass/Vol] 1.8 mg/dL Normal 1.8-2.6 [facility] Comment on above: Performed By: #### C BCA, CMP, 39011-3 #### [facility] ([id number]) [address] [place] [address]91 SARS/FLU A+B/RSV by NAAT/Mol ecularon 08-18-2023 SARS/FLU [...] operators who are performing tests using either [employer] or [employer] systems and is limited to laboratories that [...] repeat. Fact Sheet for Healthcare Providers: https://www.fda.gov/m edia/497443/download Fact Sheet for Patients: https://www.fda.gov/m edia/749846/download Normal [facility] Comment on above: Performed By: #### C OVFLR #### [facility] ([id number]) [address] [place] [address] URN MACROSCOPIC NURon 2023 BILIRUBIN KATELYN Negative Normal NEG [facility] Comment on above: Performed By: #### N UM #### [facility] ([id number]) [address] [place] [address] BLOOD/HGB KATELYN Negative Normal NEG [facility] Comment on above: Performed By: #### N UM #### [facility] ([id number]) [address] [place] [address] GLUCOSE KATELYN >=1000 Abnormal NEG [facility] Comment on above: Performed By: #### N UM #### [facility] ([id number]) [address] [place] [address] KETONES KATELYN Negative Normal NEG [facility] Comment on above: Performed By: #### N UM #### [facility] ([id number]) [address] [place] [address] LEUKOCYTE ESTERASE KATELYN Negative Normal NEG [facility] Comment on above: Performed By: #### N UM #### [facility] ([id number]) [address] [place] [address] NITRITE KATELYN Negative Normal NEG [facility] Comment on above: Performed By: #### N UM #### [facility] ([id number]) [address] [place] [address] PH KATELYN 5.0 Normal 5.0-8.5 [facility] Comment on above: Performed By: #### N UM #### [facility] ([id number]) [address] [place] [address]602 PROTEIN KATELYN 100 mg/dL Abnormal NEG [facility] Comment on above: Performed By: #### N UM #### [facility] ([id number]) [address] [place] [address]672 SPECIFIC GRAVITY KATELYN 1.025 Normal 1.003-1.035 [facility] Comment on above: Performed By: #### N UM #### [facility] ([id number]) [address] [place] [address]21 UROBILINOGEN KATELYN 0.2 eu/dL Normal <1.1 [facility] Comment on above: Performed By: #### N UM #### [facility] ([id number]) [address] [place] [address] CHEST WO IV CONTRASTon CT CHEST [...] BY: Momo Sanchez MD Normal Not Available [facility] US LOWER EXTREMITY CARLO RIAL DUPLEX BILATERAL WITH ABIon 07-06-2023 [facility] US LOWER EXTREMITY ARTERIAL DUPLEX BILATERAL [...] IS VERY IMPORTANT TO YOUR HEALTH. THE [employer] GUIDELINES RECOMMEND THAT WOMEN 40 [...] VERY IMPORTANT TO YOUR HEALTH. THE CURRENT [employer] AND [employer] NETWORK GUIDELINES RECOMMENDS ANNUAL MAMMOGRAPHY BEGINNING AT AGE 40 THIS FACILITY USES A REMINDER SYSTEM TO ENSURE ALL PATIENTS RECEIVE REMINDER NOTIFICATIONS AT THE APPROPRIATE TIME BASED ON THE RECOMMENDATIONS OF THIS EXAM. Report reported and signed by Julius You on 03/25/2022 1339 Normal [facility] CBC AUTO DIFFon 02-07-2022 BASO # 0.1 103/ul Normal 0.0-0.1 [facility] Comment on above: Performed By: #### C BC #### [facility] [address] [address] [address] Henry Dozier Basophils/100 WBC (Bld) 0.6 % Normal 0.2-2.0 [facility] Comment on above: Performed By: #### C BC #### [facility] [address] [address] [address] Henry Dozier EO # 0.0 103/ul Normal 0.0-0.7 [facility] Comment on above: Performed By: #### C BC #### [facility] [address] [address] [address] Henry Dozier Eosinophils/100 WBC (Bld) 0.3 % Critically low 0.9-7.0 [facility] Comment on above: Performed By: #### C BC #### [facility] [address] [address] [address] Henry Dozier Erythrocyte distribution width (RBC) [Ratio] 14.9 % Normal 11.0-15.0 [facility] Comment on above: Performed By: #### C BC #### [facility] [address] [place] [address] Dr. Henry Dozier Hematocrit (Bld) [Volume fraction] 28.8 % Critically low 36.0-48.0 [facility] Comment on above: Performed By: #### C BC #### [facility] [address] [place] [address] Dr. Henry Dozier Hemoglobin (Bld) [Mass/Vol] 8.9 g/dL Critically low 12.0-16.0 [facility] Comment on above: Performed By: #### C BC #### [facility] [address] [place] [address] Dr. Henry Dozier IG # 0.03 10e3/ul Normal 0.00-0.03 [facility] Comment on above: Performed By: #### C BC #### [facility] [address] [place] [address] Dr. Henry Dozier IG % 0.3 % Normal 0.0-0.5 [facility] Comment on above: Performed By: #### C BC #### [facility] [address] [place] [address] Dr. Henry Dozier LYMPH # 1.6 103/ul Normal 1.2-3.8 [facility] Comment on above: Performed By: #### C BC #### [facility] [address] [place] [address] Dr. Henry Dozier Lymphocytes/100 WBC (Bld) 17.4 % Critically low 20.5-60.0 [facility] Comment on above: Performed By: #### C BC #### [facility] [address] [place] [address] Dr. Henry Dozier MANUAL DIFF REQ NO Normal [facility] Comment on above: Performed By: #### C BC #### [facility] [address] [place] [address] Dr. Henry Dozier MCH (RBC) [Entitic mass] 29.6 pg Normal 26.7-34.0 [facility] Comment on above: Performed By: #### C BC #### [facility] [address] [address] [address] Henry Dozier MCHC (RBC) [Mass/Vol] 30.9 g/dL Normal 29.9-35.2 [facility] Comment on above: Performed By: #### C BC #### [facility] [address] [address] [address] Henry Dozier MCV (RBC) [Entitic vol] 95.7 fL Normal 81.0-99.0 [facility] Comment on above: Performed By: #### C BC #### [facility] [address] [address] [address] Henry Dozier MONO # 0.8 103/ul Normal 0.3-0.8 [facility] Comment on above: Performed By: #### C BC #### [facility] [address] [place] [address] Dr. Henry Dozier Monocytes/100 WBC (Bld) 9.1 % Normal 1.7-12.0 [facility] Comment on above: Performed By: #### C BC #### [facility] [address] [place] [address] Dr. Henry Dozier NEUT # 6.4 103/ul Normal 1.4-6.5 [facility] Comment on above: Performed By: #### C BC #### [facility] [address] [place] [address] Dr. Henry Dozier Neutrophils/100 WBC (Bld) 72.3 % Normal 43.0-75.0 [facility] Comment on above: Performed By: #### C BC #### [facility] [address] [place] [address] Dr. Henry Dozier Platelet mean volume (Bld) [Entitic vol] 10.8 fL Normal 9.5-13.5 [facility] Comment on above: Performed By: #### C BC #### [facility] [address] [place] [address] Dr. Henry Dozier PLT 257 103/ul Normal 150-450 [facility] Comment on above: Performed By: #### C BC #### [facility] [address] [address] [address] Henry Dozier RBC 3.01 106/ul Critically low 4.20-5.40 [facility] Comment on above: Performed By: #### C BC #### [facility] [address] [address] [address] Henry Dozier WBC 8.9 103/ul Normal 4.0-11.0 [facility] Comment on above: Performed By: #### C BC #### [facility] [address] [address] [address] Henry Dozier Covid-19 PCR (CVDTBH)on 01-29 SARS-CoV-2 (COVID-19) RNA LUCÍA+probe Ql (Unsp spec) Not detected Normal NOT DETECTED [facility] Comment on above: Result Comment: When [...] for this test is supported by the [place] of Health and Human Service's declaration that [...] used). Performed By: #### C VDTBH #### [facility] [address] [place] [address] Dr. Henry Dozier PROF CHEM 8 (BAS METB)on Anion gap [Moles/Vol] 9.1 mmol/L Normal [facility] Comment on above: Performed By: #### B MP, HSTROPN #### [facility] [address] [place] [address] Dr. Henry Dozier Calcium [Mass/Vol] 10.0 mg/dL Normal 8.5-10.1 [facility] Comment on above: Performed By: #### B CHRISTOPHER, HSTROPN #### [facility] [address] [address] [address] Henry Dozier Chloride [Moles/Vol] 104 mmol/L Normal 98-107 [facility] Comment on above: Performed By: #### B CHRISTOPHER, HSTROPN #### [facility] [address] [place] [address] Dr. Henry Dozier CO2 [Moles/Vol] 25.9 mmol/L Normal 21.0-32.0 [facility] Comment on above: Performed By: #### B CHRISTOPHER, HSTROPN #### [facility] [address] [place] [address] Dr. Henry Dozier Creatinine [Mass/Vol] 1.02 mg/dL Normal 0.55-1.02 [facility] Comment on above: Performed By: #### B CHRISTOPHER, HSTROPN #### [facility] [address] [place] [address] Dr. Henry Dozier EGFR-AF SERBIAN >60 Normal >=60 [facility] Comment on above: Performed By: #### B CHRISTOPHER, HSTROPN #### [facility] [address] [place] [address] Dr. Henry Dozier EGFR-NON AF SERBIAN 52 mL/min/1.73m2 Critically low >=60 [facility] Comment on above: Performed By: #### B CHRISTOPHER, HSTROPN #### [facility] [address] [place] [address] Dr. Henry Dozier Glucose [Mass/Vol] 170 mg/dL Critically high 74-106 [facility] Comment on above: Performed By: #### B CHRISTOPHER, HSTROPN #### [facility] [address] [place] [address] Dr. Henry Dozier Potassium [Moles/Vol] 4.0 mmol/L Normal 3.5-5.1 [facility] Comment on above: Performed By: #### B CHRISTOPHER, HSTROPN #### [facility] [address] [address] [address] Henry Dozier Sodium [Moles/Vol] 135 mmol/L Critically low 136-145 Th e [facility] Comment on above: Performed By: #### B CHRISTOPHER, HSTROPN #### [facility] [address] [address] [address] Henry Dozier Urea nitrogen [Mass/Vol] 17.0 mg/dL Normal 7.0-18.0 [facility] Comment on above: Performed By: #### B CHRISTOPHER, HSTROPN #### [facility] [address] [address] [address] Henry Dozier Urea nitrogen/Creatinine [Mass ratio] 16.7 mg/mg Normal [facility] Comment on above: Performed By: #### B CHRISTOPHER, HSTROPN #### [facility] [address] [address] [address] Henry Dozier TROPONIN, HIGH SENSITIVITYon 02-07-2022 HSTROP 25.2 pg/mL Normal 4.0-51.3 [facility] Comment on above: Result Comment: CUT- OFF POINTS HAVE BEEN ESTABLISHED BASED ON THE FOURTH UNIVERSAL DEFINITIONS OF MYOCARDIAL INFARCTION. THE UPPER REFERENCE LIMIT (URL) OF TROPONIN, DEFINED THE 99TH PERCENTILE OF cTnI DISTRIBUTION IN A REFERENCE POPULATION, HAS BEEN CONFIRMED THE DECISION THRESHOLD FOR AK DIAGNOSIS. Performed By: #### B CHRISTOPHER, HSTROPN #### [facility] [address] [place] [address] Dr. Henry Dozier XR CHEST 1 Von [...] by: YU JUNIOR Date: 2022-02-07 16:20 Normal [facility] Vital Signs Date Time Vital Sign Value Performing Clinician Faci litlinda 03-30-2024 11:58-0400 Body height 165.1 cm Morena Wharton DO Work Phone: [facility] 03-30-2024 11:58-0400 Body mass index (BMI) [Ratio] 17.04 kg/m2 Morena Wharton DO Work Phone: [facility] 03-30-2024 11:58-0400 Body weight 46.45 kg Morena hWarton DO Work Phone: [facility] 03-30-2024 11:58-0400 Diastolic blood pressure 63 mm[Hg] Morena Wharton DO Work Phone: [facility] 03-30-2024 11:58-0400 Heart rate 74 /min Morena Wharton DO Work Phone: [facility] 03-30-2024 11:58-0400 SaO2% (BldA) [Mass fraction] 98 % Morena Wharton DO Work Phone: [facility] 03-30-2024 11:58-0400 Systolic blood pressure 144 mm[Hg] Morena Wharton DO Work Phone: [facility] 03-06-2024 13:52-0400 Body height 165.1 cm Pia Blandoneneidasoniya AUTOMOTIVE ELECTRICAL HELPER Work Phone: [facility] 03-06-2024 13:52-0400 Body mass index (BMI) [Ratio] 16.54 kg/m2 Pia Blandoneneidasoniya AUTOMOTIVE ELECTRICAL HELPER Work Phone: [facility] 03-06-2024 13:52-0400 Body weight 45.09 kg Pia Talley AUTOMOTIVE ELECTRICAL HELPER Work Phone: [facility] 03-06-2024 13:52-0400 Diastolic blood pressure 60 mm[Hg] Pia Blandonadalberto AUTOMOTIVE ELECTRICAL HELPER Work Phone: [facility] 03-06-2024 13:52-0400 Heart rate 76 /min Pia Blandoneneidasoniya AUTOMOTIVE ELECTRICAL HELPER Work Phone: [facility] 03-06-2024 13:52-0400 SaO2% (BldA) [Mass fraction] 96 % Pia Kampfer AUTOMOTIVE ELECTRICAL HELPER Work Phone: [facility] 03-06-2024 13:52-0400 Systolic blood pressure 130 mm[Hg] Pia Talley NP Work Phone: [facility] 08-03-2023 13:33-0500 Diastolic blood pressure 60 mm[Hg] Aristeo Garcia MD Work Phone: [facility] 08-03-2023 13:33-0500 Systolic blood pressure 110 mm[Hg] Aristeo Garcia MD Work Phone: [facility] 08-03-2023 13:30-0500 Body height 165.1 cm Aristeo Garcia MD Work Phone: [facility] 08-03-2023 13:30-0500 Body mass index (BMI) [Ratio] 17.14 kg/m2 Aristeo Garcia MD Work Phone: [facility] 08-03-2023 13:30-0500 Body weight 46.72 kg Aristeo Garcia MD Work Phone: [facility] Encounters Encounter Date Encounter Type Care Provider Facility Start: 03-30-2024 End: 03-30-2024 Refill Pia Talley NP Work Phone: [facility] Comment on above: COPD mixed type ([facility]) Start: 03-30-2024 End: 03-30-2024 Office outpatient visit 40 minutes Morena Wharton DO Work Phone: [facility] Comment on above: COPD, severe ([facility]) (Primary Dx); Tobacco use; Cardiomyopathy ([facility]) Start: 03-30-2024 End: 03-30-2024 ambulatory MORENA WHARTON [facility] Start: 03-28-2024 End: 03-28-2024 Refill Tonja Gilliam MD Work Phone: [facility] Comment on above: Type 2 diabetes ricardo itus with diabetic autonomic neuropathy, with long-term current use of insulin ([facility]) Start: 03-20-2024 End: 03-20-2024 Telephone encounter Pia Talley NP Work Phone: [facility] Start: 03-20-2024 End: 03-20-2024 ambulatory MORENA [facility] Start: 03-16-2024 End: 03-16-2024 Refill Pia Talley AUTOMOTIVE ELECTRICAL HELPER Work Phone: [facility] Comment on above: COPD mixed type (CMS /HCC) Start: 03-16-2024 End: 03-16-2024 Refill Tonja Gilliam MD Work Phone: [facility] Comment on above: COPD mixed type (CMS /HCC) Start: 03-14-2024 End: 03-14-2024 Telephone encounter Tonja Gilliam MD Work Phone: [facility] Start: 03-14-2024 End: 03-14-2024 ambulatory [facility] Start: 03-06-2024 End: 03-06-2024 Bamboo flowsheet Pia Talley AUTOMOTIVE ELECTRICAL HELPER Work Phone: [facility] Start: 03-06-2024 End: 03-06-2024 Bamboo flowsheet Pia Talley AUTOMOTIVE ELECTRICAL HELPER Work Phone: [facility] Start: 03-06-2024 End: 03-06-2024 Transitional care manage srvc 7 day discharge Pia Talley NP Work Phone: [facility] Comment on above: Abnormal PET scan of lung (Primary Dx); Acute on chronic respiratory failure with hypoxia (CMS/HCC); Acute systolic congestive heart failure (CMS/HCC); Chronic obstructive pulmonary disease, unspecified COPD type (CMS/HCC); Coronary artery disease involving salt river coronary artery of salt river heart without angina pectoris (CMS/HCC); Primary hypertension (CMS/HCC); Type 2 diabetes mellitus with hyperglycemia, with long-term current use of insulin (CMS/HCC); Severe malnutrition (CMS/HCC); 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) Start: 03-06-2024 End: 03-06-2024 ambulatory PIA TALLEY Not Available Start: 03-03-2024 End: 03-03-2024 Telephone encounter Pia Talley AUTOMOTIVE ELECTRICAL HELPER Work Phone: [facility] Start: 03-03-2024 End: 03-03-2024 ambulatory TONJA Joselo [facility] Start: 03-02-2024 End: 03-02-2024 ambulatory [facility] Start: 02-15-2024 End: 02-15-2024 ambulatory [facility] Start: 02-08-2024 End: 02-08-2024 ambulatory [facility] Start: 02-07-2024 End: 02-07-2024 ambulatory [facility] Start: 01-21-2024 End: 03-02-2024 Telephone encounter Tonja Gilliam MD Work Phone: [facility] Start: 01-12-2024 End: 01-12-2024 ambulatory PIA TALLEY Not Available Start: 09-03-2023 End: 09-03-2023 ambulatory PIA TALLEY [facility] Start: 08-25-2023 End: 08-25-2023 ambulatory PIA TALLEY Not Available Start: 08-18-2023 End: 08-18-2023 Emergency department patient visit TONJA Josue [facility] Start: 08-11-2023 End: 08-30-2023 ambulatory YANIQUE BURCIAGA [facility] Start: 08-03-2023 End: 08-03-2023 ambulatory [facility] Start: 08-03-2023 End: 08-03-2023 Office outpatient new 45 minutes Aristeo Garcia MD Work Phone: [facility] Comment on above: 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 ([facility]) (Primary Dx); Essential hypertension; Mixed hyperlipidemia; Renal artery stenosis ([facility]) Start: 07-27-2023 End: 07-27-2023 ambulatory PIA KAMPFER [...] Available Start: 06-24-2023 Telephone encounter Sirena Love [facility] Start: 06-23-2023 End: 06-23-2023 ambulatory SB LOCO [facility] Start: 06-16-2023 Chart abstracting Sb lemus MD Work Phone: [facility] Start: 06-15-2023 Telephone encounter Abundio kim MD Work Phone: [facility] Start: 06-10-2023 End: 06-10-2023 ambulatory JOEY CAMP Not Available Start: 06-09-2023 End: 06-09-2023 ambulatory PIA KAMPFER Not Available Start: 06-08-2023 End: 06-08-2023 ambulatory PIA KAMPFER Not Available Start: 06-08-2023 End: 06-08-2023 ambulatory IPA KAMPFER Not Available Start: 02-07-2022 End: 02-07-[address] MCCANN [facility] Facility: Procedures Date Procedure Procedure Detail Performing Clinician Start: 03-06-2024 Complete blood count with white cell differential, automated Pia Talley AUTOMOTIVE ELECTRICAL HELPER Work Phone: Start: 03-06-2024 Comprehensive metabo lic panel Pia Talley AUTOMOTIVE ELECTRICAL HELPER Work Phone: Start: 02-15-2024 Follow-up visit Follow-up ARISTEO GARCIA Start: 06-23-2023 Follow-up visit Follow-up SB LOCO Start: 09-30-2022 History of placement of stent for coronary artery disease S/P coronary artery stent placement Tonja Gilliam MD Work Phone: Plan of Treatment Date Care Activity Detail Author Start: 03-30-2025 Tobacco Screening Tobacco Screening [facility] Start: 03-23-2025 Urine screening for protein Diabetes: Urine Protein Screening [facility] Start: 03-06-2025 Urine screening for protein Diabetes: Urine Protein Screening [facility] Start: 01-11-2025 Urine screening for protein Diabetes: Urine Protein Screening [facility] Start: 09-28-2024 End: 09-28-2024 Patient encounter procedure 09/28/2024 10:45 AM EDT Office Visit [facility] [address] [place] [id number] Morena Wharton, [address] [address] [facility] Start: 08-02-2024 Adult BMI Screening Adult BMI Screen ing [facility] Start: 08-02-2024 Tobacco Screening Tobacco Screening [facility] Start: 06-23-2024 Adult BMI Screening Adult BMI Screen ing [facility] Start: 06-23-2024 Tobacco Screening Tobacco Screening [facility] Start: 06-12-2024 Adult BMI Screening Adult BMI Screen ing [facility] Start: 06-10-2024 Tobacco Screening Tobacco Screening [facility] Start: 05-09-2024 End: 05-09-2024 Patient encounter procedure 05/09/2024 2:00 PM EST [facility] Visit [facility] [address] [place] [address] Aristeo Garcia MD [address] [place] [address] [facility] Start: 04-13-2024 Hemoglobin A1c measurement Diabetes: Hemoglobin A1C [facility] Start: 04-03-2024 End: 04-03-2024 Professional / ancillary services management 04/03/2024 2:30 PM EST Ancillary Procedure [facility] [address] [place] [address] [facility] Start: 03-06-2024 End: 03-06-2024 Patient encounter procedure [facility] Comment on above: Arrived Start: 02-15-2024 End: 02-15-2024 Patient encounter procedure 02/15/2024 1:30 PM EDT Office Visit [facility] [address] [place] [address] Aristeo Garcia MD [address] [place] [id number] [facility] Start: 02-08-2024 End: 02-08-2024 Patient encounter procedure [facility] Start: 01-30-2024 COVID-19 Vaccine ( season) COVID-19 Vaccine ( season) [facility] Start: 01-30-2024 Influenza vaccination [facility] Start: 09-07-2023 Hemoglobin A1c measurement Diabetes: Hemoglobin A1C [facility] Start: 08-11-2023 End: 08-11-2023 Patient encounter procedure 08/11/2023 1:20 PM EDT Office Visit [facility] [address] [place] [address] Yanique Burciaga, AUTO TRANSMISSION SPECIALIST-OBSTETRICS NURSE PRACTITIONER [address] [place] [address] [facility] Start: 08-03-2023 End: 08-02-2024 US.doppler Extremity arteries - bilateral for physiologic artery study at rest and with exercise Vasc art doppler lwr PVR W/exercise Vascular Ultrasound Routine Atheroscler of salt river artery of left leg with intermit claudication ([facility]) Expected: 08/03/2023, Expires: 08/02/2024 [employer] Comment on above: Expected: 08/03/2023 , Expires: 08/02/2024 Start: 08-03-2023 End: 08-02-2024 US.doppler Lower extremity artery - bilateral Vas art duplex lwr bilateral Vascular Ultrasound Routine Atheroscler of salt river artery of left leg with intermit claudication ([facility]) Expected: 08/03/2023, Expires: 08/02/2024 [employer] Work Phone: Comment on above: Expected: 08/03/2023 , Expires: 08/02/2024 Start: 08-03-2023 End: 08-02-2024 US.doppler Renal vessels - bilateral Vas renal artery duplex complete Vascular Ultrasound Routine Renal artery stenosis ([facility] Expected: 08/03/2023, Expires: 08/02/2024 [employer] Comment on above: Expected: 08/03/2023 , Expires: 08/02/2024 Start: 06-23-2023 End: 06-23-2023 Patient encounter procedure 06/23/2023 8:00 AM EST [facility] [address] [place] [address] Sb Loco MD [address] [place] [address] [facility] Start: 03-19-2023 Medicare Annual Well ness (AWV) Medicare Annual Wellness (AWV) [facility] Start: 01-29-2023 Influenza vaccination P State Start: 2007 Fall Risk Screening Fall Risk Screen ing [facility] [facility] Start: 1992 Administration of varicella zoster vaccine Zoster (Shingles) Vaccine (1 of 2) [facility] [facility] Start: 1961 DTaP,Tdap and Td Vac cines (1 - Tdap) DTaP,Tdap and Td Vaccines (1 - Tdap) [facility] [facility] Start: 1960 Adult BMI Follow Up Plan Adult BMI Follow Up Plan [facility] [facility] Start: 1954 Depression Screening Depression Scre ening [facility] Start: 1952 Glaucoma screening Diabetes: R etinopathy Screening [facility] Start: 1942 Medicare Annual Well ness Visit Medicare Annual Wellness Visit [facility] Start: 1942 Tobacco Counseling Tobacco Counselin g [facility] Immunizations Immunization Date Immunization Notes Care Provider Fa cility 03-15-2023 Pneumococcal Conjuga te PCV 20 Tonja Gilliam MD Work Phone: [facility] Healthcare Payers Date Payer Category Payer Medicaid [employer] MEDICARE A DVANTAGE [id number] 2023 Medicare HMO [employer] MEDICARE [id number] 2023 Medicare [id number] 2022 Medicare [id number]. [id number] 2022 Medicare [id number] 2020 Unknown [id number] 1942 Unknown [id number] 2.16.840.1.500722.3.579.2.593 1942 Unknown [id number] 2.16.840.1.895005.3.579.2.1286 1942 Unknown [id number] 2.16.840.1.626832.3.579.2.1259 1942 Unknown [id number] 2.16.840.1.598298.3.579.2.1259 1942 Unknown [id number] 2.16.840.1.051307.3.579.2.125 1942 Unknown [id number] 2.16.840.1.877396.3.579.2.1259 1942 Unknown [id number] 2.16.840.1.134485.3.579.2.1259 1942 Unknown [id number] 2.16.840.1.426371.3.579.2.1259 1942 Unknown [id number] 2.16.840.1.777442.3.579.2.1259 1942 Unknown [id number] 2.16.840.1.813592.3.579.2.1259 1942 Unknown [id number] 2.16.840.1.328860.3.579.2.1259 1942 Unknown [id number] 2.16.840.1.996267.3.579.2.1259 1942 Unknown [id number] 2.16.840.1.565701.3.579.2.1259 1942 Unknown [id number] 2.16.840.1.866424.3.579.2.1259 1942 Unknown [id number] 2.16.840.1.693580.3.579.2.1259 1942 Unknown [id number] 2.16.840.1.499012.3.579.2.1259 1942 Unknown [id number] 2.16.840.1.310752.3.579.2.1286 1942 Unknown [id number] 2.16.840.1.487135.3.579.2.1286 1942 Unknown [id number] 2.16.840.1.648240.3.579.2.1286 1942 Unknown [id number] 2.16.840.1.396647.3.579.2.1286 1942 Unknown [id number] 2.16.840.1.237761.3.579.2.1286 1942 Unknown [id number] 2.16.840.1.315379.3.579.2.1285 1942 Unknown [id number] 2.16.840.1.550272.3.579.2.1286 1942 Unknown [id number] 2.16.840.1.446043.3.579.2.1285 1942 Unknown [id number] 2.16.840.1.622316.3.579.2.1286 1942 Unknown [id number] 2.16.840.1.221097.3.579.2.128 1942 Unknown [id number] 2.16.840.1.718000.3.579.2.128 1942 Unknown [id number] 2.16.840.1.865537.3.579.2.1286 Social History Date Type Detail Facility Start: 12-05-2021 End: 02-15-2024 Tobacco smoking status ARIS Smokes tobacco daily [facility] History of tobacco use Cigarette Smoker P [facility] Start: 12-05-2021 End: 02-15-2024 Tobacco use and exposure Smokeless tobacco non-user [facility] Start: 06-10-2023 End: 03-06-2024 Alcohol intake Lifetime non-drinker (finding) [facility] Start: 06-11-2023 End: 08-18-2023 History of Social function [facility] Start: 06-11-2023 End: 08-18-2023 [facility] Utilities [facility] Has the [employer], [employer], or water company threatened to shut off services in your home in past 12Mo No [facility] [employer] In the past 12 month s, has lack of transportation kept you from medical appointments or from getting medications? No [facility] Start: 1940 Sex Assigned At Not on file [facility] Start: 06-23-2023 End: 03-30-2024 Alcohol intake Ex-drinker (finding) [facility] Are you now , , , [...] Comment caffeine: 1 cups per day coffee [facility] Start: 07-20-2023 Alcohol Comment caffeine: 2 cups per day coffee [facility] Start: 01-03-2015 Sex Female (finding) [facility] Medical Equipment Procedure Code Equipment Code Equipment Origin al Text Equipment Identifier Dates [id number] Start: 07-31-2022 [employer] Lancets 33G misc [id number] Start: 12-29-2022 Inject 1 each un raymond the skin Daily Use as instructed [id number] Start: 08-25-2023 TEST FINGERSTICK BLOOD SUGAR TWICE DAILY DIRECTED [id number] Start: 12-27-2023 Inject 1 each un raymond the skin Daily Use as instructed [id number] Start: 03-20-2024 End: 03-28-2024 Inject 1 each un raymond the skin Daily Use as instructed [id number] Start: 03-28-2024 Clinical Notes 06-15-2023 to 03-30-2024 [...] Mitchell Age - 83 [facility]. [facility] 1940 [id number] ASSESSMENT New RUL/ RLL 1cm pet avid [...] All questions answered. > 30 minutes spent [id number] reviewing complexities as above and reviewing her chart Return to clinic in 6 months or earlier if needed SUBJECTIVE Mrs. Mitchell presents for evaluation of robotic navigational bronchoscopy as referred by her [facility] Oncologist. Her daughter is also present. She was last seen in the office for her COPD in Jan 2022 and was lost to follow up. She is a poor historian and uncertain if she was seeing a different security manager in the interim. She has a new [...] activity suggesting malignancy. Dr. Morena Wharton DO. [facility] Office: [phone] documented in this encounter [facility] 03-28-2024 Telephone encounter Note Pt states she has been trying to get her needles refilled and has not been able to ge them. [facility] 03-28-2024 Miscellaneous Notes Pt states she has been trying to get her needles refilled and has not been able to ge them. documented in this encounter [facility] 03-20-2024 Telephone encounter Note Patient is requesting droplet pen needles for insulin pens. Only has one left. [facility]ses [facility] [place]. Thank you. [facility] 03-20-2024 Miscellaneous Notes Patient is requesting droplet pen needles for insulin pens. Only has one left. [facility]ses [facility] [place]. Thank you. documented in this encounter [facility] 03-16-2024 Telephone encounter Note Giulia from [facility] is calling today requesting droplet pen [...] mart. Thank you. Any questions please call [place] [phone]. [facility] 03-16-2024 Miscellaneous Notes Giulia from [facility] is calling today requesting droplet pen [...] mart. Thank you. Any questions please call [place] [phone]. documented in this encounter [facility] 03-14-2024 Telephone encounter Note [facility] called - They are asking for an order for Snf and PT services . Fax to [phone] [facility] 03-14-2024 Miscellaneous Notes [facility] called - They are asking for an order for Snf and PT services . Fax to [phone] documented in this encounter [facility] 03-14-2024 Note [facility] [...] arteries stents. She used to follow-up with [facility] and she switched to [facility]. The patient has chronic dyspnea on exertion [...] kidney disease, COPD (chronic obstructive pulmonary disease) ([facility]), Coronary artery disease, Diabetes mellitus ([facility]), Hyperlipidemia, Hypertension, LBBB (left bundle branch block), Myocardial infarction ([facility]), NICM (nonischemic cardiomyopathy) ([facility]), and PAD (peripheral artery disease) ([facility]). Surgical History She has a [...] 9.3, hematocrit 30, (more content not included)... [facility] 03-06-2024 History of Presen t [...] Air Glucose Meter) w/Device kit USE DIRECTED Zfyhehs-Faeukihykfj-Jkdcxlhrdy ([employer]) 160-9-4.8 MCG/ACT aerosol 2 puffs, [...] type (CMS/HCC) -Stable Coronary artery disease involving salt river coronary artery of salt river heart without angina pectoris (CMS/HCC) -On a [...] with obtain groceries. 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 PAD. No need to see neurology, I can treat her neuropathy, will trial her on a very low dose of duloxetine and see how she does. documented in this encounter [facility] 03-03-2024 Telephone encounter Note Call and get her records from recent hospital stay at [facility] 03-03-2024 Miscellaneous Notes Call and get her records from recent hospital stay at [facility] documented in this encounter [facility] 02-07-2024 Note [facility] Note Reason for cardiology [...] arteries stents. She used to follow-up with [facility] and she switched to [facility]. The patient has chronic dyspnea on exertion [...] kidney disease, COPD (chronic obstructive pulmonary disease) ([facility]), Coronary artery disease, Diabetes mellitus ([facility]), Hyperlipidemia, Hypertension, LBBB (left bundle branch block), Myocardial infarction ([facility]), NICM (nonischemic cardiomyopathy) ([facility]), and PAD (peripheral artery disease) ([facility]). Surgical History She has a [...] Lower extremities arteri (more content not included)... [facility] 01-21-2024 Telephone encounter Note Pt called asking for help to figure out if she can have her PET scan and the copay. Also would like help finding a clipman close to her. She received a call from [facility] for a Card. And [facility] called her the other day. [facility] 01-21-2024 Miscellaneous Notes Pt called asking for help to figure out if she can have her PET scan and the copay. Also would like help finding a clipman close to her. She received a call from [facility] for a Card. And [facility] called her the other day. documented in this encounter [facility] 08-03-2023 History of Presen t illness Narrative Images from the original note were not included. [facility] [address] [place] [address] [place] [address] Subjective: Patient ID: Marietta Mitchell is a [...] who presents today for consultation at the [facility] due to history of peripheral artery disease. Patient states she has had 6 stents placed in her right leg and 1 stent placed in her left leg in [place] in . She heard of medications to [...] List Diagnosis NSTEMI (non-ST elevated myocardial infarction) ([facility]) Iron deficiency anemia Cardiomyopathy Mucopurulent chronic bronchitis ([facility]) Pulmonary emphysema ([facility]) Anxiety, generalized Diabetic renal disease ([facility]) Essential hypertension GERD without esophagitis Mixed hyperlipidemia Peripheral vascular disease ([facility]) Polyneuropathy due to type 2 diabetes mellitus ([facility]) Restless leg syndrome Stage 3b chronic kidney disease ([facility]) Type 2 diabetes mellitus with diabetic autonomic (poly)neuropathy ([facility]) Current Outpatient Medications: albuterol (PROVENTIL HFA;VENTOLIN HFA) [...] by mouth as needed., Disp: , Rfl: ukxyvoitlm-zsigylpq-vmltgoocjz (BREZTRI AEROSPHERE) 160-9-4.8 mcg/actuation HFA aerosol inhaler, [...] Diagnosis Date COPD (chronic obstructive pulmonary disease) ([facility]) Coronary artery disease Diabetes mellitus type 2, controlled ([facility]) GERD (gastroesophageal reflux disease) Hyperlipidemia Hypertension Peripheral vascular disease ([facility]) Polyneuropathy associated with underlying disease ([facility]) Restless leg syndrome Past Surgical History: Procedure Laterality Date Coronary angiogram and left ventricular gram/pressure N/A 12/10/2021 Performed by Rickey Sotelo MD at [facility] EGD Left Lateral 12/09/2021 Performed by Michelle Bosch MD at [facility] Family History Problem Relation Age of [...] all orders for this visit: Atherosclerosis of [place] artery of lower extremity with intermittent claudication([facility]) Patient has history of peripheral artery disease [...] Chavez PA-C Interventional Cardiology and Endovascular Interventions [facility] documented in this encounter [facility] 07-13-2023 Telephone encounter Note Pt left vm stating that her insurance [employer] does not cover a in [facility]. Some told her she could go to [facility] so she wants you to find a referral for a DrOlimpia In [facility] and schedule her. The message did not mention what the referral was for. Please return patient call to [phone] [facility] 07-13-2023 Miscellaneous Notes Pt left vm stating that her insurance [employer] does not cover a in [facility]. Some told her she could go to [facility] so she wants you to find a referral for a DrOlimpia In [facility] and schedule her. The message did not mention what the referral was for. Please return patient call to [phone] documented in this encounter [facility] 06-24-2023 Miscellaneous Notes Patient has [employer] Medicare and was explained she could be seen in our office but the only provider in network is Dr. Garcia patient has a appointment tomorrow with [facility] she will try to get a provider though them. documented in this encounter [facility] 06-24-2023 Telephone encounter Note Patient has [employer] Medicare and was explained she could be seen in our office but the only provider in network is Dr. Garcia patient has a appointment tomorrow with [facility] she will try to get a provider though them. 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 ([facility])- Primary Essential hypertension Unspecified essential hypertension Mixed hyperlipidemia Renal artery stenosis ([facility]) Atherosclerosis of renal artery [facility] Diagnosis Abnormal PET scan of lung- Primary Acute on chronic respiratory failure with hypoxia ([facility]) Acute systolic congestive heart failure ([facility]) Chronic obstructive pulmonary disease, unspecified COPD type ([facility]) Coronary artery disease involving salt river coronary artery of salt river heart without angina pectoris ([facility]) Primary hypertension ([facility]) Unspecified essential hypertension Type 2 diabetes mellitus with hyperglycemia, with long-term current use of insulin ([facility]) Severe malnutrition ([facility]) 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 ([facility]) documented in [facility] encounter [facility]* Diagnosis Peripheral vascular disease ([facility])- Primary Unspecified peripheral vascular disease Pulmonary nodule Other diseases of lung, not elsewhere classified Mixed hyperlipidemia ([facility]) Mixed hyperlipidemia Peripheral arterial disease ([facility]) Unspecified peripheral vascular disease NSTEMI (non-ST elevated myocardial infarction) ([facility]) Acute myocardial infarction, subendocardial infarction, episode of care unspecified Cigarette nicotine dependence without complication Essential hypertension ([facility]) Unspecified essential hypertension Atherosclerotic heart disease of salt river coronary artery with other forms of angina pectoris (I25.118) Pulmonary hypertension, unspecified (I27.20) 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) Moderate protein-calorie malnutrition ([facility]) Wound cellulitis- Primary Type 2 diabetes mellitus with diabetic autonomic neuropathy, with long-term current use of insulin ([facility]) Peripheral vascular disease ([facility]) Unspecified peripheral vascular disease Peripheral arterial disease ([facility]) Unspecified peripheral vascular disease Stage 3a chronic kidney disease (HCC) ([facility]) intermediate current use of insulin ([facility]) intermediate (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 (Z79.4) 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) Atherosclerosis of aorta (I70.0) Atherosclerosis of aorta Atherosclerotic heart disease of salt river coronary artery with other forms of angina pectoris (I25.118) Chronic obstructive pulmonary disease, unspecified COPD type ([facility]) 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) Aneurysm of ascending aorta without rupture ([facility]) Thoracic aortic ectasia (I77.810) Thoracic aortic ectasia Type 2 diabetes mellitus with diabetic peripheral angiopathy without gangrene, with long-term current use of insulin ([facility]) Peripheral vascular disease, unspecified (I73.9) Peripheral vascular disease, unspecified Cardiomyopathy, unspecified type ([facility]) Encounter for wellness examination- Primary Essential hypertension ([facility]) Unspecified essential hypertension Type 2 diabetes mellitus with hyperglycemia, with long-term current use of insulin ([facility]) Mixed hyperlipidemia ([facility]) Mixed hyperlipidemia Stage 3b chronic kidney disease (HCC) ([facility]) Iron deficiency anemia, unspecified iron deficiency anemia type Underweight Vitamin D deficiency Screening mammogram for breast cancer Pulmonary nodule Other diseases of lung, not elsewhere classified Unspecified protein-calorie malnutrition ([facility]) Unspecified protein-calorie malnutrition Immunodeficiency due to conditions classified elsewhere ([facility]) COPD mixed type ([facility]) 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) Seasonal allergies Allergic rhinitis, cause unspecified S/P coronary artery stent placement Postsurgical percutaneous transluminal coronary angioplasty status GERD without esophagitis Esophageal reflux Polyneuropathy due to type 2 diabetes mellitus ([facility]) Aneurysm of ascending aorta without rupture ([facility]) Atherosclerosis of aorta (I70.0) Atherosclerosis of aorta Atherosclerosis of coronary artery of salt river heart without angina pectoris, unspecified vessel or lesion type ([facility]) Cardiomyopathy, unspecified type ([facility]) Peripheral vascular disease ([facility]) Unspecified peripheral vascular disease Diabetic nephropathy associated with type 2 diabetes mellitus (HCC) ([facility]) 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 ([facility]) Cigarette nicotine dependence without complication Anxiety, generalized ([facility]) COPD mixed type ([facility]) documented in this encounter [facility] note* Diagnosis Peripheral vascular disease ([facility])- Primary Unspecified peripheral vascular disease Pulmonary nodule Other diseases of lung, not elsewhere classified Mixed hyperlipidemia ([facility]) Mixed hyperlipidemia Peripheral arterial disease ([facility]) Unspecified peripheral vascular disease NSTEMI (non-ST elevated myocardial infarction) ([facility]) Acute myocardial infarction, subendocardial infarction, episode of care unspecified Cigarette nicotine dependence without complication Essential hypertension ([facility]) Unspecified essential hypertension Atherosclerotic heart disease of salt river coronary artery with other forms of angina [...] Stage 3a chronic kidney disease (HCC) (CMS/HCC) 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 (CMS/HCC) termite control representative (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 (Z79.4) 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) Atherosclerosis of aorta (I70.0) Atherosclerosis of aorta Atherosclerotic heart disease of salt river coronary artery with other forms of angina pectoris (I25.118) Chronic obstructive pulmonary disease, unspecified COPD type ([facility]) 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) Aneurysm of ascending aorta without rupture ([facility]) Thoracic aortic ectasia (I77.810) Thoracic aortic ectasia Type 2 diabetes mellitus with diabetic peripheral angiopathy without gangrene, with long-term current use of insulin ([facility]) Peripheral vascular disease, unspecified (I73.9) Peripheral vascular disease, unspecified Cardiomyopathy, unspecified type ([facility]) Encounter for wellness examination- Primary Essential hypertension ([facility]) Unspecified essential hypertension Type 2 diabetes mellitus with hyperglycemia, with long-term current use of insulin ([facility]) Mixed hyperlipidemia (CMS/HCC) Mixed hyperlipidemia Stage 3b chronic kidney disease (HCC) ([facility]) Iron deficiency anemia, unspecified iron deficiency anemia type Underweight Vitamin D deficiency Screening mammogram for breast cancer Pulmonary nodule Other diseases of lung, not elsewhere classified Unspecified protein-calorie malnutrition (CMS/HCC) Unspecified protein-calorie malnutrition Immunodeficiency due to conditions classified elsewhere ([facility]) COPD mixed type (CMS/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) Seasonal allergies Allergic rhinitis, cause unspecified S/P coronary artery stent placement Postsurgical percutaneous transluminal coronary angioplasty status GERD without esophagitis Esophageal reflux Polyneuropathy due to type 2 diabetes mellitus ([facility]) Aneurysm of ascending aorta without rupture (CMS/HCC) Atherosclerosis of aorta (I70.0) Atherosclerosis of aorta Atherosclerosis of coronary artery of salt river heart without angina pectoris, unspecified vessel or lesion type (CMS/HCC) Cardiomyopathy, unspecified type (CMS/HCC) Peripheral vascular disease ([facility]) Unspecified peripheral vascular disease Diabetic nephropathy associated with type 2 diabetes mellitus (HCC) ([facility]) 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 ([facility]) Cigarette nicotine dependence without complication Anxiety, generalized (CMS/HCC) COPD mixed type (CMS/HCC) documented in this encounter [facility] HealthcareEvaluation note* Diagnosis Peripheral vascular disease ([facility])- Primary Unspecified peripheral vascular disease Pulmonary nodule Other diseases of lung, not elsewhere classified Mixed hyperlipidemia ([facility]) Mixed hyperlipidemia Peripheral arterial disease ([facility]) Unspecified peripheral vascular disease NSTEMI (non-ST elevated myocardial infarction) ([facility]) Acute myocardial infarction, subendocardial infarction, episode of care unspecified Cigarette nicotine dependence without complication Essential hypertension ([facility]) Unspecified essential hypertension Atherosclerotic heart disease of [place] river coronary artery with other forms of angina pectoris (I25.118) Pulmonary hypertension, unspecified (I27.20) 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) Moderate protein-calorie malnutrition ([facility]) Wound cellulitis- Primary Type 2 diabetes mellitus with diabetic autonomic neuropathy, with long-term current use of insulin ([facility]) Peripheral vascular disease ([facility]) Unspecified peripheral vascular disease Peripheral arterial disease ([facility]) Unspecified peripheral vascular disease Stage 3a chronic kidney disease (HCC) ([facility]) 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 ([facility]) termite control representative (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 (Z79.4) 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) Atherosclerosis of aorta (I70.0) Atherosclerosis of aorta Atherosclerotic heart disease of [place] coronary artery with other forms of angina pectoris (I25.118) Chronic obstructive pulmonary disease, unspecified COPD type ([facility]) 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) Aneurysm of ascending aorta without rupture ([facility]) Thoracic aortic ectasia (I77.810) Thoracic aortic ectasia Type 2 diabetes mellitus with diabetic peripheral angiopathy without gangrene, with long-term current use of insulin ([facility]) Peripheral vascular disease, unspecified (I73.9) Peripheral vascular disease, unspecified Cardiomyopathy, unspecified type ([facility]) Encounter for wellness examination- Primary Essential hypertension ([facility]) Unspecified essential hypertension Type 2 diabetes mellitus with hyperglycemia, with long-term current use of insulin ([facility]) Mixed hyperlipidemia ([facility]) Mixed hyperlipidemia Stage 3b chronic kidney disease (HCC) ([facility]) Iron deficiency anemia, unspecified iron deficiency anemia type Underweight Vitamin D deficiency Screening mammogram for breast cancer Pulmonary nodule Other diseases of lung, not elsewhere classified Unspecified protein-calorie malnutrition ([facility]) Unspecified protein-calorie malnutrition Immunodeficiency due to conditions classified elsewhere ([facility]) COPD mixed type ([facility]) 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) Seasonal allergies Allergic rhinitis, cause unspecified S/P coronary artery stent placement Postsurgical percutaneous transluminal coronary angioplasty status GERD without esophagitis Esophageal reflux Polyneuropathy due to type 2 diabetes mellitus ([facility]) Aneurysm of ascending aorta without rupture ([facility]) Atherosclerosis of aorta (I70.0) Atherosclerosis of aorta Atherosclerosis of coronary artery of [place] heart without angina pectoris, unspecified vessel or lesion type ([facility]) Cardiomyopathy, unspecified type ([facility]) Peripheral vascular disease ([facility]) Unspecified peripheral vascular disease Diabetic nephropathy associated with type 2 diabetes mellitus (HCC) ([facility]) 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 ([facility]) Cigarette nicotine dependence without complication Anxiety, generalized ([facility]) Type 2 diabetes mellitus with diabetic autonomic neuropathy, with long-term current use of insulin ([facility]) documented in this encounter [facility] HealthcareEvaluation note* Diagnosis Peripheral vascular disease ([facility])- Primary Unspecified peripheral vascular disease Pulmonary nodule Other diseases of lung, not elsewhere classified Mixed hyperlipidemia ([facility]) Mixed hyperlipidemia Peripheral arterial disease ([facility]) Unspecified peripheral vascular disease NSTEMI (non-ST elevated myocardial infarction) ([facility]) Acute myocardial infarction, subendocardial infarction, episode of care unspecified Cigarette nicotine dependence without complication Essential hypertension ([facility]) Unspecified essential hypertension Atherosclerotic heart disease of [place] coronary artery with other forms of angina pectoris (I25.118) Pulmonary hypertension, unspecified (I27.20) 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) Moderate protein-calorie malnutrition ([facility]) Wound cellulitis- Primary Type 2 diabetes mellitus with diabetic autonomic neuropathy, with long-term current use of insulin (CMS/HCC) Peripheral vascular disease (CMS/HCC) Unspecified peripheral vascular disease Peripheral arterial disease (CMS/HCC) Unspecified peripheral vascular disease Stage 3a chronic kidney disease (HCC) ([facility]) 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 (CMS/HCC) intermediate (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 (Z79.4) 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) Atherosclerosis of aorta (I70.0) Atherosclerosis of aorta Atherosclerotic heart disease of [place] coronary artery with other forms of angina pectoris (I25.118) Chronic obstructive pulmonary disease, unspecified COPD type ([facility]) 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) Aneurysm of ascending aorta without rupture ([facility]) Thoracic aortic ectasia (I77.810) Thoracic aortic ectasia Type 2 diabetes mellitus with diabetic peripheral angiopathy without gangrene, with long-term current use of insulin ([facility]) Peripheral vascular disease, unspecified (I73.9) Peripheral vascular disease, unspecified Cardiomyopathy, unspecified type ([facility]) Encounter for wellness examination- Primary Essential hypertension ([facility]) Unspecified essential hypertension Type 2 diabetes mellitus with hyperglycemia, with long-term current use of insulin ([facility]) Mixed hyperlipidemia ([facility]) Mixed hyperlipidemia Stage 3b chronic kidney disease (HCC) ([facility]) Iron deficiency anemia, unspecified iron deficiency anemia type Underweight Vitamin D deficiency Screening mammogram for breast cancer Pulmonary nodule Other diseases of lung, not elsewhere classified Unspecified protein-calorie malnutrition ([facility]) Unspecified protein-calorie malnutrition Immunodeficiency due to conditions classified elsewhere ([facility]) COPD mixed type (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) Seasonal allergies Allergic rhinitis, cause unspecified S/P coronary artery stent placement Postsurgical percutaneous transluminal coronary angioplasty status GERD without esophagitis Esophageal reflux Polyneuropathy due to type 2 diabetes mellitus ([facility]) Aneurysm of ascending aorta without rupture ([facility]) Atherosclerosis of aorta (I70.0) Atherosclerosis of aorta Atherosclerosis of coronary artery of [place] heart without angina pectoris, unspecified vessel or lesion type ([facility]) Cardiomyopathy, unspecified type (CMS/HCC) Peripheral vascular disease ([facility]) Unspecified peripheral vascular disease Diabetic nephropathy associated with type 2 diabetes mellitus (HCC) (CMS/HCC) intermediate current use of insulin (CMS/HCC) Cigarette nicotine dependence without complication Anxiety, generalized (CMS/HCC) COPD mixed type (CMS/HCC) documented in this encounter [facility] HealthcareEvaluation note* Diagnosis COPD, severe (CMS-HCC)- Primary Tobacco use Cardiomyopathy (CMS-HCC) [facility] filedocument[facility] in [facility] filedocument[facility] in this [facility] filedocument[facility] in this encounter [facility] SystemInstructionsNot on filedocumented in this encounter [facility] SystemReason for referral (narrative)* Consultation (Urgent) - Pending Review Specialty Diagnoses / Procedures Referred By Velma cason Referred To Contact Oncology / Hematology and Oncology Diagnoses Abnormal PET scan of lung Procedures ME OFFICE/OUTPATIENT NEW HIGH MDM 60 MINUTES Pia Talley NP [address] [place] [address] Referral ID Status Reason Start Date Expiration Date Visits Requested Visits Authorized [id number] Pending Review Specialty Services Required 03/06/2024 09/02/2024 1 1 [facility] for visit Narrative* Consultation (Routine) - Pending Review Specialty Diagnoses / Procedures Referred By Velma cason Referred To Contact Vascular Surgery Diagnoses Peripheral vascular disease (CMS-HCC) Peripheral arterial disease ([facility]) Procedures ME OFFICE OUTPATIENT VISIT 60-74 MINS HIGH MDM AMB REFERRAL TO VASCULAR SURGERY Pia Talley APRN-OBSTETRICS NURSE PRACTITIONER [address] [place] [address] Aristeo Garcia MD [address] [place] [phone] Referral ID Status Reason Start Date Expiration Date V isits Requested Visits Authorized [id number] Pending Review 07/09/2023 01/05/2024 1 1 [facility] System Summary Purpose Family History [...] Referred To Contact Diagnoses Renal artery stenosis ([facility]) Procedures Vas renal artery duplex complete Dima Chavez PA-C [address] [place] [address] Referral ID Status Reason Start Date Expiration Date V isits Requested Visits Authorized [id number] Pending Review 08/03/2023 08/02/2024 1 1 Specialty Diagnoses / Procedures Referred By Contac t Referred To Contact Diagnoses Atheroscler of [place] artery of left leg with intermit claudication ([facility]) Procedures Vasc art doppler lwr PVR W/exercise Dima Chavez PA-C [address] [place] [address] Referral ID Status Reason Start Date Expiration Date V isits Requested Visits Authorized [id number] Pending Review 08/03/2023 08/02/2024 1 1 Specialty Diagnoses / Procedures Referred By Contac t Referred To Contact Diagnoses Atheroscler of [place] artery of left leg with intermit claudication ([facility]) Procedures Vas art duplex lwr bilateral Dima Chavez PA-C [address] [place] [address] Referral ID Status Reason Start Date Expiration Date V isits Requested Visits Authorized [id number] Pending Review 08/03/2023 08/02/2024 1 1 Additional Source Comments INFORMATION SOURCE (unrecogn ized section and content) DATE CREATED AUTHOR 02/10/2022 [facility] DATE CREATED AUTHOR AUTHOR'S ORGANIZ ATION 03/26/2022 [facility] dical Specialist DATE CREATED AUTHOR AUTHOR'S ORGANIZ ATION 08/04/2023 [facility] DATE CREATED AUTHOR AUTHOR'S ORGANIZ ATION 03/07/2024 [facility] d[facility] Specialists EPIC DATE CREATED AUTHOR AUTHOR'S ORGANIZ ATION 03/21/2024 [facility] DATE CREATED AUTHOR AUTHOR'S ORGANIZ ATION 03/21/2024 [facility] DATE CREATED AUTHOR AUTHOR'S ORGANIZ ATION 04/01/2024 [facility] Care Teams (unrecognized sec tion and content) Soa Architect Relationship Specialty Start Date End Date Shila Molina DO [address] [place] [address] PCP - General Family Medicine 12/05/21 Soa Architect Relationship Specialty Start Date End Date Tonja Gilliam MD [address] [place] [address] PCP - General Family Medicine 06/23/23 Soa Architect Relationship Specialty Start Date End Date Shila Molina DO [address] [place] [address] PCP - [employer] 05/31/22 Tonja Gilliam MD [address] [facility] [place] [address] PCP - General Family Medicine 06/08/23 Pia Talley NP [address] [place] [address] Nurse Practitioner Family Medicine 06/08/23 Soa Architect Relationship Specialty Start Date End Date Tonja Gilliam MD [address] [place] [address] PCP - General Family Medicine 06/23/23 Soa Architect Relationship Specialty Start Date End Date Shila Molina DO [address] [place] [address] PCP - [employer] 05/31/22 Tonja Gilliam MD [address] [place] [address] PCP - General Family Medicine 06/08/23 Tonja Gilliam MD [address] [place] [address] PCP - [facility] 12/30/23 Pia Talley NP [address] [place] [address] Nurse Practitioner Family Medicine 06/08/23 Soa Architect Relationship Specialty Start Date End Date Shila Molina DO [address] [place] [address] PCP - [employer] 05/31/22 Tonja Gilliam MD [address] [place] [address] PCP - General Family Medicine 06/08/23 Tonja Gilliam MD [address] [place] [address] PCP - [employer] 12/30/23 Pia Talley NP [address] [place] [address] Nurse Practitioner Family Medicine 06/08/23 Soa Architect Relationship Specialty Start Date End Date Shila Molina DO [address] [place] [address] PCP - [employer] 05/31/22 Tonja Gilliam MD [address] [place] [address] PCP - General Family Medicine 06/08/23 Tonja Gilliam MD [address] [place] [address] PCP - [employer] 12/30/23 Pia Talley NP [address] [place] [address] Nurse Practitioner Family Medicine 06/08/23 Soa Architect Relationship Specialty Start Date End Date Shila Molina DO [address] [place] [address] PCP - [employer] 05/31/22 Tonja Gilliam MD [address] [place] [address] PCP - General Family Medicine 06/08/23 Tonja Gilliam MD [address] [place] [address] PCP - [employer] 12/30/23 Pia Talley NP [address] [place] [address] Nurse Practitioner Family Medicine 06/08/23 Soa Architect Relationship Specialty Start Date End Date Shila MolinaDO [address] [place] [address] PCP - [employer] 05/31/22 Tonja Gilliam MD [address] [place] [address] PCP - General Family Medicine 06/08/23 Tonja Gilliam MD [address] [place] [address] PCP - [employer] 12/30/23 Pia Talley NP [address] [place] [address] Nurse Practitioner Family Medicine 06/08/23 Soa Architect Relationship Specialty Start Date End Date JesseRupert thomasee JoseloDO [address] [place] [address] PCP - [employer] 05/31/22 Tonja Gilliam MD [address] [place] [address] PCP - General Family Medicine 06/08/23 Tonja Gilliam MD [address] [place] [address] PCP - [employer] 12/30/23 Pia Talley NP [address] [place] [address] Nurse Practitioner Family Medicine 06/08/23 Soa Architect Relationship Specialty Start Date End Date Shila Molina [address] [place] [address] PCP - [employer] 05/31/22 Tonja Gilliam MD [address] [place] [address] PCP - General Family Medicine 06/08/23 Tonja Gilliam MD [address] [place] [address] PCP - [employer] 12/30/23 Pia Talley NP [address] [place] [address] Nurse Practitioner Family Medicine 06/08/23 Soa Architect Relationship Specialty Start Date End Date JesseShila JoseloDO [address] [place] [address] PCP - [employer] 05/31/22 Tonja Gilliam MD [address] [place] [address] PCP - General Family Medicine 06/08/23 Tonja Gilliam MD [address] [place] [address] PCP - [employer] 12/30/23 Pia Talley NP [address] [place] [address] Nurse Practitioner Family Medicine 06/08/23 Soa Architect Relationship Specialty Start Date End Date Shila Molina DO [address] [place] [address] PCP - [employer] 05/31/22 Tonja Gilliam MD [address] [place] [address] PCP - General Family Medicine 06/08/23 Tonja Gilliam MD [address] [place] [address] PCP - Aet 12/30/23 Pia Talley NP [address] [place] [address] Nurse Practitioner Family Medicine 06/08/23 Soa Architect Relationship Specialty Start Date End Date Tonja Gilliam MD [address] [place] [address] PCP - General Family Medicine 06/23/23 Reason [...] BE BASED ON THE PRIMARY CLINICAL RECORDS. [facility]. provides no warranty or guarantee of the accuracy or completeness of information in this document.
[2024-04-10] MEDS: NYSTATIN 500,000 UNIT/5 ML ORAL.SUSP 500000 UNIT PO (22:06)
[2024-04-10] MEDS: INSULIN ASPART 300 UNIT/3 ML PEN SUBQ (22:13)
[2024-04-10 22:19] LABS: Glucometer 389 mg/dL (74-106)
[2024-04-10] MEDS: IPRATROPIUM/ALBUTEROL SULFATE 3 ML AMPUL.NEB IH (23:07)
[2024-04-11] VITALS (25 sets, daily range): BP systolic 107–151; BP diastolic 53–76; PULSE 67–82; TEMP 36.4–36.6; O2SAT 90–98
[2024-04-11] MEDS: METHYLPREDNISOLONE SOD SUCC PF 40 MG/ML VIAL IVP ×3 (01:20→17:21)
[2024-04-11] MEDS: IPRATROPIUM/ALBUTEROL SULFATE 3 ML AMPUL.NEB IH ×6 (03:50→23:19)
[2024-04-11] MEDS: NYSTATIN 500,000 UNIT/5 ML ORAL.SUSP 500000 UNIT PO ×4 (05:25→21:46)
[2024-04-11 06:00] LABS: PCO2 VBG 41.4 mmHg (40.0-52.0); pH VBG 7.521 (7.330-7.430)
[2024-04-11 06:02] LABS: Hematocrit 34.4 % (36.0-48.0); Mean Corpuscular Hemoglobin 27.7 pg (26.7-34.0); Mean Corpuscular Volume 86.6 fL (81.0-99.0); Mean Platelet Volume 11.4 fL (9.5-13.5); Platelet Count 294 10^3/uL (150-450); Red Blood Count 3.97 10^6/uL (4.20-5.40); White Blood Count 9.8 10^3/uL (4.0-11.0)
--- NOTE | 2024-04-11 06:07 | P.HP_ITS ---
HPI H&P: HPI History of Present Illness Chief complaint: COPD EXACERBATION Narrative: PatientPatient present to the emergency room. She had a recent discharge from our facility. She described increasing cough as well. In the emergency room found to have acute hypoxia with O2 sat of 90% on her 2 L. Increasing respiratory distress, significant leukocytosis with left shift consistent with a bacterial process and lactic acidosis. Her BNP was also elevated but this is actually improved from her from baseline. I saw patient up on the medical surgical floor, she was resting comfortably in bed but does describe significant shortness of breath. This is at rest. Opioid HPI Opioid Management Most Recent Pain and Opioid Data: Last Pain Scale 0 04/05/24 18:03 04/05/24 Last Pain Intensity 2 04/03/24 16:08 04/03/24 Last Pain Assessment 04/11/24 09:53 Last ED Pain Assessment 04/05/24 07:32 Last ORT Total Score 0 04/10/24 20:21 04/10/24 Last ORT Risk Category Low Risk 04/10/24 20:21 04/10/24 Review of Systems ROS Status of ROS 10 or more systems reviewed and unremark able except as noted in history and below [facility] Medical History (Updated 04/10/24 @ 19:28 by INGRID Red) Severe malnutrition ?E43 - Unspecified severe protein-calorie malnutrition (ICD-10) HFrEF (heart failure with reduced ejection fraction) ?I50.20 - Unspecified systolic (congestive) heart failure (ICD-10) Lung cancer ?C34.90 - Malignant neoplasm of unspecified part of unspecified bronchus or lung (ICD-10) Acute on chronic systolic (congestive) heart failure ?I50.23 - Acute on chronic systolic (congestive) heart failure (ICD-10) Acute on chronic respiratory failure with hypoxia ?J96.21 - Acute and chronic respiratory failure with hypoxia (ICD-10) Type 2 diabetes mellitus ?E11.9 - Type 2 diabetes mellitus without complications (ICD-10) HLD (hyperlipidemia) ?E78.5 - Hyperlipidemia, unspecified (ICD-10) PAD (peripheral artery disease) ?I73.9 - Peripheral vascular disease, unspecified (ICD-10) Chronic respiratory failure with hypoxia ?J96.11 - Chronic respiratory failure with hypoxia (ICD-10) HTN (hypertension) ?I10 - Essential (primary) hypertension (ICD-10) Current smoker ?F17.200 - Nicotine dependence, unspecified, uncomplicated (ICD-10) CAD (coronary artery disease) ?I25.10 - Atherosclerotic heart disease of [place] coronary artery without angina pectoris (ICD-10) COPD (chronic obstructive pulmonary disease) ?J44.9 - Chronic obstructive pulmonary disease, unspecified (ICD-10) Surgical History (Updated 04/10/24 @ 22:05 by Carmela Swartz) History of hysterectomy ?Z90.710 - Acquired absence of both cervix and uterus (ICD-10) History of cholecystectomy ?Z90.49 - Acquired absence of other specified parts of digestive tract (ICD- 10) S/P appendectomy ?Z90.49 - Acquired absence of other specified parts of digestive tract (ICD- 10) Family History (Updated 04/10/24 @ 20:18 by Carmela Swartz) Mother Family history of CHF (congestive heart failure) Family history of myocardial infarction Father Family history of stroke Family history of myocardial infarction Family history of hypertension Social History (Updated 04/10/24 @ 21:53 by Carmela Swartz) Within the past year, how often did you have a drink containing alcohol: never Within the past year, how many standard drinks containing alcohol did you have on a typical day: 1 or 2 Within the past year, how often did you have six or more drinks on one occasion: never Total score: 0 Score interpretation: A score less than 3 is consistent with normal alcohol consumption. Smoking status: Current every day smoker Nicotine containing products detail: 1/2 pack daily Highest level of school completed/degree received: don't know Little interest or pleasure in doing things: not at all Feeling down, depressed, or hopeless: not at all Meds Home Medications and Allergies Home Medications ?Medication ?Instructions ?Recorded ?Confirmed ?Type albuterol sulfate 2.5 mg/3 mL 2.5 mg inhalation Q4H PRN 02/26/24 04/10/24 History (0.083 %) solution for nebulization shortness of breath or wheezing albuterol sulfate 90 mcg/actuation 2 inh inhalation Q4H PRN shortness 02/26/24 04/10/24 History aerosol inhaler of breath or wheezing budesonide 160 mcg-glycopyr 9 2 inh inhalation BID 02/26/24 04/10/24 History mcg-formot 4.8 mcg/actuation HFA inhaler (Breztri Aerosphere) aspirin 81 mg chewable tablet 81 mg PO DAILY 02/27/24 04/10/24 History clopidogrel 75 mg tablet (Plavix) 75 mg PO DAILY 02/27/24 04/10/24 History glimepiride 4 mg tablet 4 mg PO DAILY 02/27/24 04/10/24 History losartan 100 mg tablet (Cozaar) 100 mg PO DAILY 02/27/24 04/10/24 History metformin 1,000 mg tablet 1,000 mg PO DAILY 02/27/24 04/10/24 History metoprolol succinate 50 mg 50 mg PO DAILY 02/27/24 04/10/24 History tablet,extended release 24 hr montelukast 10 mg tablet 10 mg PO DAILY 02/27/24 04/10/24 History (Singulair) pantoprazole 40 mg tablet,delayed 40 mg PO DAILY 02/27/24 04/10/24 History release (Protonix) rosuvastatin 20 mg tablet 20 mg PO DAILY 02/27/24 04/10/24 History spironolactone 25 mg tablet 12.5 mg (1/2 x 25 mg) PO DAILY #30 02/28/24 04/10/24 Rx (Aldactone) tabs duloxetine 20 mg capsule,delayed 20 mg PO DAILY 04/02/24 04/10/24 History release furosemide 40 mg tablet (Lasix) 20 mg PO DAILY 04/05/24 04/10/24 History pen needle, diabetic 30 gauge x #100 ea 04/06/24 Rx 5/16 (Pen Needle) prednisone 20 mg tablet 20 mg PO DAILY #20 tabs 04/06/24 04/10/24 Rx insulin glargine 100 unit/mL 10 unit subcut QPM 04/10/24 04/10/24 History subcutaneous solution (Lantus U-100 Insulin) nystatin 100,000 unit/mL oral 4 ml PO .COMPLEX 04/10/24 04/10/24 History suspension Allergies Allergy/AdvReac Type Severity Reaction Status Date / Time No Known Drug Allergies Allergy Verified 02/26/24 05:26 Exam Constitutional Vital Signs, click to edit/add: Last Vital Signs Temp 97.6 F 04/11/24 04:00 Pulse 77 04/11/24 04:06 Resp 18 04/11/24 04:06 BP 151/67 H 04/11/24 04:00 Pulse Ox 98 04/11/24 04:06 O2 Del Method Nasal Cannula 04/11/24 04:06 O2 Flow Rate 2 04/11/24 04:06 Documenting provider has reviewed patient's vital signs: yes Common normals: apparent distress (Short of breath at rest) Chest Common normals: inspection of chest normal Respiratory Common normals: abnormal respiratory effort (Short of breath at rest) Auscultation: rhonchi and diminished lung sounds Cardio Common normals: regular rate and regular rhythm GI Common normals: Normal to inspection, nondistended, normoactive bowel sounds present and soft to palpation Results Labs Labs: Short CBC 04/10/24 04/11/24 Range/Units 17:22 05:51 WBC 18.0 H 9.8 (4.0-11.0) 10^3/uL Hgb 12.0 11.0 L (12.0-16.0) g/dL Hct 37.7 34.4 L (36.0-48.0) % Plt Count 340 294 (150-450) 10^3/uL BMP 04/10/24 17:22 Sodium 135 L Potassium 4.3 Chloride 95 L Carbon Dioxide 32.1 H BUN 51.0 H Creatinine 1.42 H Glucose 365 H Calcium 12.2 H Liver Function 04/10/24 Range/Units 17:22 Total Bilirubin 0.4 (0.2-1.0) mg/dL AST 17 (15-37) U/L ALT 29 (14-59) U/L Alkaline Phosphatase 117 H (46-116) U/L Albumin 3.2 L (3.4-5.0) g/dL ABG ABG results: 04/10/24 04/11/24 17:22 05:51 VBG pH 7.371 7.521 H VBG pCO2 58.4 H 41.4 Assessment and Plan Assessment and Plan (1) Shortness of breath: (2) COPD exacerbation: (3) HFrEF (heart failure with reduced ejection fraction): (4) Type 2 diabetes mellitus: Qualifiers: Diabetes mellitus terminal press operator insulin use: without nursing home use Diabetes mellitus complication status: without complication Qualified Code(s): E11.9 - Type 2 diabetes mellitus without complications (5) PAD (peripheral artery disease): (6) Chronic respiratory failure with hypoxia: (7) HTN (hypertension): Qualifiers: Hypertension type: primary hypertension Qualified Code(s): I10 - Ess ential (primary) hypertension (8) CAD (coronary artery disease): Qualifiers: Coronary Disease-Associated Artery/Lesion type: false pass artery [place] vs. 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 type: unspecified Qualified Code(s): J43.9 - Emphysema, unspecified Plan Admission findings: Acute hypoxia with O2 saturation of 90% on 2 L, respiratory distress, leukocytosis, lactic acidosis secondary to acute exacerbation of COPD with possible nosocomial infection secondary to recent hospitalization resulting in severe sepsis (respiratory distress, leukocytosis, lactic acidosis, and infectious etiology of the lung secondary to nosocomial infection resulting in severe sepsis) Acute exacerbation of COPD resulting in severe sepsis as outlined above- steroids, IV antibiotics to cover nosocomial infections, aerosols. Try to obta in sputum culture. 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 Her baseline is typically and above 10,000 Hypercalcemia-will review old records to determine the etiology of his already been found Hyponatremia -follow dialy, liky due to hyperglycemia and diuretics IDDM - Insulin SS - likely uncontrolled due to need for steroids for the above Hypercholesterolemia - keep with same meds Hypertension - Keep with home medications Depression - keep with home medications CAD - keep with current medications Admission status: Patient presented with acute exacerbation of COPD with si gnificant leukocytosis, dyspnea and lactic acidosis consistent with acute exacerbation of COPD with severe sepsis. Nosocomial infection. Medically necessary treatment will span 2 midnights. Inpatient status.
[2024-04-11 06:17] LABS: Anion Gap 13.5; Calcium 11.5 mg/dL (8.5-10.1); Carbon Dioxide 31.1 mmol/L (21.0-32.0); Chloride 97 mmol/L (98-107); Estimated GFR (African America 50 (>=60 mL/min/1.73m^2); Estimated GFR (Non-African Ame 41 (>=60 mL/min/1.73m^2); Glucose 306 mg/dL (74-106); Potassium 4.6 mmol/L (3.5-5.1); Sodium 137 mmol/L (136-145)
--- NOTE | 2024-04-11 07:48 | CM.NOTE ---
Rounds made with Dr. Nascimento, will change pt to inpatient status. No discharge today.
[2024-04-11] MEDS: MONTELUKAST SODIUM 10 MG TABLET PO ×2 (08:37→21:42)
[2024-04-11] MEDS: DULOXETINE HCL 20 MG CAPSULE.DR PO (08:37)
[2024-04-11] MEDS: METOPROLOL SUCCINATE 50 MG TAB.ER.24H PO (08:37)
[2024-04-11] MEDS: CLOPIDOGREL BISULFATE 75 MG TABLET PO (08:37)
[2024-04-11] MEDS: ASPIRIN 81 MG TAB.CHEW PO (08:37)
[2024-04-11] MEDS: OMEPRAZOLE 40 MG CAPSULE.DR PO (08:38)
[2024-04-11] MEDS: INSULIN ASPART 300 UNIT/3 ML PEN SUBQ ×4 (08:38→21:43)
[2024-04-11] MEDS: PIPERACILLIN SODIUM/TAZOBACTAM 3.375 GM in 0.9 % SODIUM CHLORIDE 50 ML IV ×2 (09:35→17:02)
[2024-04-11] MEDS: BUDESONIDE 0.5 MG/2 ML AMPULE NEB IH ×2 (11:32→23:19)
[2024-04-11 12:01] LABS: Glucometer 317 mg/dL (74-106)
[2024-04-11] MEDS: METFORMIN HCL 500 MG TABLET 1000 MG PO (12:17)
[2024-04-11] MEDS: GLIMEPIRIDE 2 MG TABLET 4 MG PO (12:18)
[2024-04-11] MEDS: LOSARTAN POTASSIUM 50 MG TABLET 100 MG PO (12:18)
[2024-04-11] MEDS: FUROSEMIDE 40 MG TABLET 20 MG PO (12:18)
[2024-04-11] MEDS: SPIRONOLACTONE 25 MG TABLET 12.5 MG PO (12:19)
--- NOTE | 2024-04-11 13:30 | SWNOTE1 ---
Important Message from Medicare reviewed and discussed with patient. Pt. verbalized understanding and signed the form. Original given to patient and copy placed in patient?s chart.
--- NOTE | 2024-04-11 13:42 | SWNOTE1 ---
SW had a long conversation with pt and pt's daughter in room. SW did get a call from [facility] yesterday that they followed up with pt and were getting her signed on. Pt was unsure if she actually signed on, but remembers signing something. Pt then brought up going to rehab. SW explained to pt that she can't be on hospice and go to rehab. She would have to pick one. SW, pt, and daughter spoke about the 3 discharge options; SNF, Hospice, or Home Health. SOURAV explained all of then in detail. SW recommended doing an option A&B. SW did explain that she has the right to leave SNF at any time and not mandated to stay there. SW expressed once she was done with SNF, she can call and get back on hospice services. After a lengthy discussion pt has decided she wants to go home and do Hospice. Daughter is in agreement. SW to call [facility]. SW called and spoke to [facility]. They were at her house yesterday from 1:00 until she went to hospital. They had waited 3+ hours for her PCP to send an order, because without order they could not sign her on. When the nurse was able to get her signed on, the daughter was already en route with pt to hospital. Therefor patient never signed on. Pt is not discharging today. SOURAV to reach out to [facility] tomorrow and let them know if pt is discharged. If she does discharge [facility] will be out to the home around 4/4:30 to get her signed on. Rita at [facility] expressed that that time can be moved up or down as well. SOURAV updated nurse.
--- NOTE | 2024-04-11 16:09 | SWNOTE1 ---
SW discussed Advanced Directives with patient. SW advised pt that SW can completed a HCPOA with pt. Pt voiced it would be her daughter, Suly. SW asked if she would like to get that in writing and complete the HCPOA. She voiced it would cost money and she would have to go through a motor installer. SW advised pt that SW can complete with pt while she is at hospital. Pt in agreement. SW took patient booklet and will complete with pt tomorrow.
[2024-04-11 16:45] LABS: Glucometer 413 mg/dL (74-106)
[2024-04-11 21:18] LABS: Glucometer 422 mg/dL (74-106)
[2024-04-11] MEDS: CETIRIZINE HCL 10 MG TABLET PO (21:42)
[2024-04-11] MEDS: INSULIN GLARGINE 300 UNIT/3 ML INSULN.PEN 10 UNIT SQ (21:43)
[2024-04-12] VITALS (10 sets, daily range): BP systolic 109–131; BP diastolic 44–71; PULSE 67–81; TEMP 36.8; O2SAT 91–97
[2024-04-12] MEDS: PIPERACILLIN SODIUM/TAZOBACTAM 3.375 GM in 0.9 % SODIUM CHLORIDE 50 ML IV (01:29)
[2024-04-12] MEDS: METHYLPREDNISOLONE SOD SUCC PF 40 MG/ML VIAL IVP (01:30)
[2024-04-12] MEDS: NYSTATIN 500,000 UNIT/5 ML ORAL.SUSP 500000 UNIT PO ×2 (05:30→11:46)
[2024-04-12] MEDS: IPRATROPIUM/ALBUTEROL SULFATE 3 ML AMPUL.NEB IH ×2 (06:56→11:11)
[2024-04-12 06:58] LABS: Basophils Percent Auto 0.1 % (0.2-2.0); Hematocrit 29.6 % (36.0-48.0); Hemoglobin 9.7 g/dL (12.0-16.0); Immature Granulocytes Abs Auto 0.09 10^3/uL (0.00-0.03); Immature Granulocytes Pct Auto 0.5 % (0.0-0.5); Lymphocytes Absolute Auto 0.5 10^3/uL (1.2-3.8); Lymphocytes Percent Auto 2.6 % (20.5-60.0); Mean Corpuscular HGB Conc 32.8 g/dL (29.9-35.2); Mean Corpuscular Hemoglobin 28.4 pg (26.7-34.0); Mean Corpuscular Volume 86.5 fL (81.0-99.0); Mean Platelet Volume 11.8 fL (9.5-13.5); Monocytes Absolute Auto 0.6 10^3/uL (0.3-0.8); Neutrophils Absolute Auto 17.1 10^3/uL (1.4-6.5); Neutrophils Percent Auto 93.8 % (43.0-75.0); Platelet Count 282 10^3/uL (150-450); Red Blood Count 3.42 10^6/uL (4.20-5.40); Red Cell Distribution Width 15.3 % (11.0-15.0); White Blood Count 18.2 10^3/uL (4.0-11.0)
[2024-04-12 07:10] LABS: Calcium, Ionized, Serum 6.2 mg/dL (4.5-5.6)
[2024-04-12 07:31] LABS: Anion Gap 13.8; BUN Creatinine Ratio 39.7; Calcium 10.8 mg/dL (8.5-10.1); Carbon Dioxide 29.8 mmol/L (21.0-32.0); Chloride 98 mmol/L (98-107); Estimated GFR (African America 40 (>=60 mL/min/1.73m^2); Estimated GFR (Non-African Ame 33 (>=60 mL/min/1.73m^2); Glucose 285 mg/dL (74-106); Potassium 4.6 mmol/L (3.5-5.1); Sodium 137 mmol/L (136-145)
--- NOTE | 2024-04-12 08:50 | CM.NOTE ---
Rounds made with Dr. Caba, pt will discharge to home today. [facility] will see pt at her home today to sign for Hospice services, pt does have home oxygen.
[2024-04-12] MEDS: INSULIN ASPART 300 UNIT/3 ML PEN SUBQ (08:54)
[2024-04-12] MEDS: SPIRONOLACTONE 25 MG TABLET 12.5 MG PO (08:55)
[2024-04-12] MEDS: GLIMEPIRIDE 2 MG TABLET 4 MG PO (08:55)
[2024-04-12] MEDS: MONTELUKAST SODIUM 10 MG TABLET PO (08:55)
[2024-04-12] MEDS: FUROSEMIDE 40 MG TABLET 20 MG PO (08:55)
[2024-04-12] MEDS: METFORMIN HCL 500 MG TABLET 1000 MG PO (08:55)
[2024-04-12] MEDS: CLOPIDOGREL BISULFATE 75 MG TABLET PO (08:55)
[2024-04-12] MEDS: METOPROLOL SUCCINATE 50 MG TAB.ER.24H PO (08:56)
[2024-04-12] MEDS: DULOXETINE HCL 20 MG CAPSULE.DR PO (08:56)
[2024-04-12] MEDS: OMEPRAZOLE 40 MG CAPSULE.DR PO (08:56)
[2024-04-12] MEDS: LOSARTAN POTASSIUM 50 MG TABLET 100 MG PO (08:56)
[2024-04-12] MEDS: ASPIRIN 81 MG TAB.CHEW PO (08:56)
--- NOTE | 2024-04-12 09:50 | REH.PTDLY ---
Physical Therapy Daily Note PT Daily Note/Assess Start: 04/11/24 11:21 Freq: Status: Active Protocol: Document 04/12/24 09:49 NEIDA (Rec: 04/12/24 09:50 NEIDA [id number]) Visit Not Completed Visit Not Completed Due to: Pt refusing Other Reason Visit Not Completed Pt and daughter in room. Pt declines PT this morning. States she is going home today with hospice. Physical Therapy Daily Note/Assessment Time In 09:46 Time Out 09:48
--- NOTE | 2024-04-12 09:59 | P.DS_ITS ---
DS: Providers Provider Date of admission: 04/11/24 09:56 Primary care physician: LILIAN GILLIAM Consults: 04/10/24 Consult to Livestock Breeder Routine Reason for consult:: Advanced Directives 04/11/24 09:00 Physical Therapy Eval and Treat Routine Reason for consultation: Weakness/Deconditioning Has provider been notified: No 04/11/24 09:36 Consult to Pharmacy Routine Consulting Provider: Reason for consultation: Please B[place]soe me when Med Rec is Updated Has provider been notified: No Occupational Therapy Eval and Treat Routine Reason for consultation: Only if needed for Rehab Has provider been notified: No Physical Therapy Eval and Treat Routine Reason for consultation: Eval and Treat Has provider been notified: No DS: Diagnosis Discharge Diagnosis (1) Shortness of breath: (2) COPD exacerbation: (3) HFrEF (heart failure with reduced ejection fraction): (4) Type 2 diabetes mellitus: Qualifiers: Diabetes mellitus complication status: without complication Diabetes mellitus watcher automat long goods insulin use: without penitentiary use Qualified Code(s): E11.9 - Type 2 diabetes mellitus without complications (5) PAD (peripheral artery disease): (6) Chronic respiratory failure with hypoxia: (7) HTN (hypertension): Qualifiers: Hypertension type: primary hypertension Qualified Code(s): I10 - Essential (primary) hypertension (8) CAD (coronary artery disease): Qualifiers: Associated angina: without angina Coronary Disease-Associated Artery/Lesion type: [place] artery [place] vs. transplanted heart: [place] heart Qualified Code(s): I25.10 - Atherosclerotic heart disease of [place] coronary artery without angina pectoris (9) COPD (chronic obstructive pulmonary disease): Qualifiers: COPD type: emphysema Emphysema type: unspecified Qualified Code(s): J43.9 - Emphysema, unspecified Plan Admission findings: Acute hypoxia with O2 saturation of 90% on 2 L, respiratory distress, leukocytosis, lactic acidosis secondary to acute exacerbation of COPD with possible nosocomial infection secondary to recent hospitalization resulting in severe sepsis (respiratory distress, leukocytosis, lactic acidosis, and infectious etiology of the lung secondary to nosocomial infection resulting in severe sepsis) Acute exacerbation of COPD resulting in severe sepsis as outlined above- steroids, IV antibiotics to cover nosocomial infections, aerosols. Try to obtain sputum culture. 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 Her baseline is typically and above 10,000 L Hypercalcemia-will review old records to determine the etiology of his already been found Hyponatremia -follow dialy, liky due to hyperglycemia and diuretics IDDM - Insulin SS - likely uncontrolled due to need for steroids for the above Hypercholesterolemia - keep with same meds Hypertension - Keep with home medications Depression - keep with home medications CAD - keep with current medications Admission status: Patient presented with acute exacerbation of COPD with significant leukocytosis, dyspnea and lactic acidosis consistent with acute exacerbation of COPD with severe sepsis. Nosocomial infection. Medically necessary treatment will span 2 midnights. Inpatient status. ? DS: Summary Hospital Course Hospital Course: Patient presented to the emergency room with increasing shortness of breath. She has been admitted and discharged multiple times in the last couple weeks for acute exacerbation of COPD.She again presented with the same. She was treated with IV antibiotics, steroids, frequent aerosol treatments. This morning she is does seem much improved. Her main issue is the severe COPD but also severe heart failure with reduced ejection fraction around 10%. She is improved today. Family discussed with her about being discharged to home with hospice. Patient agreeable. She will be discharged to home with hospice today. Hospice can discuss with her PCP about following or not. Medications see list. Status at Discharge Overall status at discharge: patient is not back to baseline Time Spent with Patient Time attestation: Total time spent providing and/or coordinating discharge services: Time spent: greater than 30 minutes Exam Constitutional Vital Signs, click to edit/add: Last Vital Signs Temp 98.2 F 04/12/24 07:35 Pulse 81 04/12/24 08:00 Resp 20 04/12/24 07:35 BP 131/71 04/12/24 07:35 Pulse Ox 96 04/12/24 07:35 O2 Del Method Nasal Cannula 04/12/24 07:35 O2 Flow Rate 2 04/12/24 07:35 Documenting provider has reviewed patient's vital signs: yes Common normals: no apparent distress (Up in bed eating breakfast) Chest Common normals: inspection of chest normal Respiratory Common normals: normal respiratory effort and no retractions Auscultation: rales (Much improved from previous day) and diminished lung sounds Cardio Common normals: regular rate and regular rhythm DS: Data Data Completed and Pending Labs on day of discharge: Labs from last 24 hours 04/12/24 04/11/24 04/11/24 06:22 21:16 16:44 WBC 18.2 H RBC 3.42 L Hgb 9.7 L Hct 29.6 L MCV 86.5 MCH 28.4 MCHC 32.8 RDW 15.3 H Plt Count 282 MPV 11.8 Neut % (Auto) 93.8 H Lymph % (Auto) 2.6 L Butler % (Auto) 3.0 Eos % (Auto) 0.0 L Baso % (Auto) 0.1 L Neut # (Auto) 17.1 H Lymph # (Auto) 0.5 L Butler # (Auto) 0.6 Eos # (Auto) 0.0 Baso # (Auto) 0.0 Abs Immat Gran (auto) 0.09 H Imm/Tot Granulo (auto) 0.5 Sodium 137 Potassium 4.6 Chloride 98 Carbon Dioxide 29.8 Anion Gap 13.8 BUN 60.0 H Creatinine 1.51 H Est GFR ( Amer) 40 L Est GFR (Non-Af Amer) 33 L BUN/Creatinine Ratio 39.7 Glucose 285 H Calcium 10.8 H Ionized Calcium NT-Pro-B Natriuret Pep 3816.0 H* POC Glucose 422 H 413 H 04/11/24 04/11/24 12:01 05:51 WBC RBC Hgb Hct MCV MCH MCHC RDW Plt Count MPV Neut % (Auto) Lymph % (Auto) Butler % (Auto) Eos % (Auto) Baso % (Auto) Neut # (Auto) Lymph # (Auto) Butler # (Auto) Eos # (Auto) Baso # (Auto) Abs Immat Gran (auto) Imm/Tot Granulo (auto) Sodium Potassium Chloride Carbon Dioxide Anion Gap BUN Creatinine Est GFR ( Amer) Est GFR (Non-Af Amer) BUN/Creatinine Ratio Glucose Calcium Ionized Calcium 6.2 H NT-Pro-B Natriuret Pep POC Glucose 317 H Discharge Plan Discharge Disposition: Hospice - Home Condition: Good Discharge Medications: New prednisone 10 mg tablet 50 mg PO DAILY Qty: 47 0RF Rx Instructions: 5/day for 3 days. 4/day for 3 days, 3/day for 3 days, 2/day for 3 days, 1/day for 3 days, 1/2 /day for 4 days amoxicillin-pot clavulanate 875-125 mg tablet 1 tab PO Q12H Qty: 30 0RF Continued albuterol sulfate 2.5 mg /3 mL (0.083 %) solution for nebulization 2.5 mg inhalation Q4H PRN (Reason: shortness of breath or wheezing) albuterol sulfate 90 mcg/actuation HFA aerosol inhaler 2 inh INHALATION Q4H PRN (Reason: shortness of breath or wheezing) Breztri Aerosphere 160-9-4.8 mcg/actuation HFA aerosol inhaler 2 inh INHALATION BID metoprolol succinate 50 mg tablet extended release 24 hr 50 mg PO DAILY Patient Comments: took this morning but took all morning to take her pills metformin 1,000 mg tablet 1,000 mg PO DAILY Patient Comments: took this morning but took all morning to take her pills glimepiride 4 mg tablet 4 mg PO DAILY Patient Comments: took this morning but took all morning to take her pills clopidogrel [Plavix] 75 mg tablet 75 mg PO DAILY Patient Comments: took this morning but took all morning to take her pills rosuvastatin 20 mg tablet 20 mg PO DAILY Patient Comments: took this morning but took all morning to take her pills aspirin 81 mg tablet,chewable 81 mg PO DAILY Patient Comments: Pt has been out of med. Daughter just bought her a bottle today but has not taken pantoprazole [Protonix] 40 mg tablet,delayed release (DR/EC) 40 mg PO DAILY Patient Comments: took this morning but took all morning to take her pills losartan [Cozaar] 100 mg tablet 100 mg PO DAILY Patient Comments: took this morning but took all morning to take her pills montelukast [Singulair] 10 mg tablet 10 mg PO DAILY Patient Comments: took this morning but took all morning to take her pills spironolactone [Aldactone] 25 mg tablet 12.5 mg PO DAILY Qty: 30 0RF Patient Comments: took this morning but took all morning to take her pills duloxetine 20 mg capsule,delayed release(DR/EC) 20 mg PO DAILY Patient Comments: took this morning but took all morning to take her pills furosemide [Lasix] 40 mg tablet 20 mg PO DAILY Patient Comments: took this morning but took all morning to take her pills (DME) pen needle, diabetic [Pen Needle] 30 gauge x 5/16 needle See Rx Instructions .Route Qty: 100 0RF Rx Instructions: daily prednisone 20 mg tablet 20 mg PO DAILY Qty: 20 0RF Patient Comments: will start the 2 tabs tomorrow took this morning but took all morning to take her pills Rx Instructions: 3 tab x 3 days. 2 tab x 3 days, 1 tab x 3 days, 1/2 tab x 4 days nystatin 100,000 unit/mL suspension 4 ml PO .COMPLEX Patient Comments: Pt has not picked up script so has has not started Rx Instructions: 4 mL orally morning, noon, evening and before bed; insulin glargine [Lantus U-100 Insulin] 100 unit/mL solution 10 unit subcut QPM Print Language: [place] Patient Instructions: Prednisone (By mouth), Amoxicillin (By mouth), COPD (Chronic Obstructive Pulmonary Disease) (DC) Art History Instructor/Door Attendant Instructions: [facility] coming to the home around 12:30/1:00 to sign patient on. Phone number is [phone] eliel Mayberry Apr 18 @ 1:30 Forms: Portal Instructions Discharge Date/Time: 04/12/24 12:11
--- NOTE | 2024-04-12 10:06 | SWNOTE1 ---
SOURAV spoke to Rita at [facility] and they are ready to sign pt on, just need to know time she is leaving. SOURAV spoke to pt and her 2 daughters in room. Daughter, Suly, will take her home. Pt would like to leave around 12:00. SOURAV nofitied nurse. SOURAV called [facility] and they will be coming around 12:30/1:00. SUORAV notified pt and daughters. SOURAV faxed over dc med rec to [facility].
[2024-04-12] MEDS: BUDESONIDE 0.5 MG/2 ML AMPULE NEB IH (11:11)
--- NOTE | 2024-04-13 09:10 | SWNOTE1 ---
SW was not able to completed Advanced Directives with pt when she was here, family was in room and patient wanted to wait and then patient was discharged.
== END 2024-04-12 12:11 | disposition hospice, home (50) | DRG 871 ==
LOC: ER 19:25 → MS 20:04
PROVIDERS: Physician Assistant; Registered Nurse; Admitting Provider Family Medicine; Emergency Provider Emergency Medicine; PCP Family Medicine; Visit Provider Family Medicine
DX: A41.9 Sepsis, unspecified organism (principal); J18.9 Pneumonia, unspecified organism; E87.20 Acidosis, unspecified; I50.42 Chronic combined systolic (congestive) and diastolic (congestive) heart failure; E87.1 Hypo-osmolality and hyponatremia; J96.11 Chronic respiratory failure with hypoxia; J43.9 Emphysema, unspecified; R65.20 Severe sepsis without septic shock; E83.52 Hypercalcemia; E11.65 Type 2 diabetes mellitus with hyperglycemia; E78.00 Pure hypercholesterolemia, unspecified; I11.0 Hypertensive heart disease with heart failure; F32.A Depression, unspecified; I25.10 Atherosclerotic heart disease of native coronary artery without angina pectoris; I73.9 Peripheral vascular disease, unspecified; Y95 Nosocomial condition; Z20.822 Contact with and (suspected) exposure to COVID-19; F17.200 Nicotine dependence, unspecified, uncomplicated; Z90.49 Acquired absence of other specified parts of digestive tract; Z90.710 Acquired absence of both cervix and uterus; Z79.899 Other long term (current) drug therapy; Z79.82 Long term (current) use of aspirin; Z79.84 Long term (current) use of oral hypoglycemic drugs; Z79.4 Long term (current) use of insulin; Z99.81 Dependence on supplemental oxygen
CPT/HCPCS: 36415; 71045; 80048; 80053; 82330; 82800; 82948; 83605; 83735; 83880; 84484; 85007; 85025; 85027; 85610; 87804; 87811; 93005; 94640; 94667; 94668; 94761; 96374; 97161; 97165; 99285; G0378; J2543; J2919